=== PATIENT | female | born 1930 | race Caucasian/White ===

== ENCOUNTER 2016-09-01 10:23 | Inpatient (IN) | payer OTHER ==
[2016-09-01] VITALS (8 sets, daily range): BP systolic 146–192; BP diastolic 82–101; PULSE 86–108; TEMP 36.8–37.2; O2SAT 94–97; Ht 167.6 cm; Wt 79.8 kg
[~2016-09-01] VITALS: Ht 167.6 cm; Wt 79.8 kg
[~2016-09-01 10:23] MED LIST: ALEN70TA4 PO; HYDR12.56 PO; LORA-741 PO; METO1TAB68 PO; SIMV10TA2 PO
[2016-09-01] MEDS ORDERED: SODIUM CHLORIDE 0.9% 1000ML 500 ML IV STA (10:30)
[2016-09-01] MEDS ORDERED: METOPROLOL TARTRATE 1 MG/ML VIAL IV STA (10:30)
[2016-09-01 10:41] LABS: BASO % 0.3 %; BASO ABS # 0.02 K/uL (0-0.2); COMPLETE YES; EOS % 2.7 %; HEMATOCRIT 38.7 % (37-47); IG% 0.2 %; LYMPH % 29.2 %; MEAN CELL VOLUME 83.9 fL (80-100); MEAN CORPUSCULAR HEMOGLOBIN 29.3 pg (25-34); MEAN CORPUSCULAR HGB CONC 34.9 g/dl (32-36); MEAN PLATELET VOLUME 10.3 fL (7.4-10.4); MONO % 9.1 %; NEUT % 58.5 %; PLATELET COUNT 211 K/uL (130-400); RED BLOOD COUNT 4.61 M/uL (4.2-5.4); WHITE BLOOD COUNT 5.82 K/uL (4.8-10.8)
[2016-09-01] MEDS ORDERED: ACET-1311 PO (10:47)
[2016-09-01] MEDS ORDERED: CHOL20007 PO (10:47)
[2016-09-01] MEDS ORDERED: GLC/500 PO (10:47)
[2016-09-01] MEDS ORDERED: LOSA50TA54 PO (10:50)
[2016-09-01 10:54] LABS: INR 0.9 (0.9-1.1); PROTHROMBIN TIME (PATIENT) 9.9 SECONDS (9.0-12.0)
[2016-09-01 10:59] LABS: BUN/CREATININE RATIO 18.5 (10-20); CALCIUM 9.4 mg/dl (8.5-10.1); CREATININE 0.92 mg/dl (0.60-1.20); MAGNESIUM 2.2 mg/dl (1.8-2.4); POTASSIUM 3.6 mmol/L (3.5-5.1)
[2016-09-01 11:10] LABS: ALB/GLOB RATIO 1.1 (0.9-2); THYROID STIMULATING HORMONE 3.01 uIu/ml (0.300-4.500)
[2016-09-01 11:15] LABS: URINE APPEARANCE CLEAR (CLEAR); URINE BILIRUBIN NEG (NEG); URINE COLOR YELLOW; URINE NITRITE NEG (NEG); URINE SPECIFIC GRAVITY 1.006 (1.000-1.030); UROBILINOGEN NEG (NEG); ZZUR CULT IF INDIC CLEAN CATCH YES
[2016-09-01 11:18] LABS: MANUAL MICROSCOPIC REQUIRED? NO; REVIEW REQ? YES
--- NOTE | 2016-09-01 11:25 | DIAGNOSTIC IMAGING REPORT ---
CHEST ONE VIEW PORTABLE CLINICAL HISTORY: EVALUATE ALTERED MENTAL STATUS/WEAKNESS dyspnea COMPARISON STUDY: 06/08/2016 FINDINGS: The bones soft tissues and hemidiaphragms are normal. The cardiomediastinal silhouette is normal. The lungs are clear. The pulmonary vasculature is normal. IMPRESSION: Negative chest. Electronically signed by: Davian Phelps M.D. 09/01/2016 11:24 AM Dictated Date/Time: 09/01/2016 11:24 AM
[2016-09-01] MEDS ORDERED: NITROGLYCERIN 0.4 MG SL PER TAB CHARGE SL PRN (14:30)
[2016-09-01] MEDS ORDERED: ASPEC81 PO (14:56)
[2016-09-01] MEDS ORDERED: ACETAMINOPHEN 325 MG TAB ONE (15:12)
--- NOTE | 2016-09-01 15:17 | EMERGENCY ROOM VISIT NOTE ---
History Report prepared by Brian: Lidia Ribera Under the Supervision of: Dr. Jitendra Hodgson M.D. First contact with patient: 10:27 Chief Complaint: CARDIAC ASSESSMENT Stated Complaint: PALPITATIONS History of Present Illness The patient is a 86 year old female who presents to the Emergency Room with complaints of resolved heart palpitations for 30 minutes. She was brought to the ED by EMS. On the way here, she received 4 baby aspirin. She reports that she felt dizzy in the morning when she got up. Soon after, she started having heart palpitations. She states that this does happen occasionally, but usually it resolves quickly. She took an Ativan to try to stop the palpitations. She also states that her heart rate increased. She had been feeling well lately. Her losartan dose was increased 1 month ago. She denies any other medication changes. She denies any missed medications. She denies chest pain or shortness of breath. Source of History: patient Onset: this morning Position: other (heart) Quality: other (palpitations) Timing: resolved Note: Pt reports dizziness and increased heart rate. Review of Systems See HPI for pertinent positives & negatives. A total of 10 systems reviewed and were otherwise negative. Past Medical & Surgical Medical Problems: (1) Bee sting allergy (2) Elevated troponin (3) Heart disease (4) HTN (hypertension) (5) Hypertension Surgical Problems: (1) History of hysterectomy Family History Noncontributory secondary to age Social History Smoking Status: Never Smoker Marital Status: Housing Status: lives alone Occupation Status: retired Current/Historical Medications Scheduled Aspirin (Aspirin EC Low Dose), 81 MG PO DAILY Cholecalciferol (Vitamin D3), 2,000 UNITS PO DAILY Hydrochlorothiazide (Hctz), 12.5 MG PO QAM Losartan Potassium (Cozaar), 50 MG PO DAILY Metoprolol Succinate (Toprol Xl), 100 MG PO HS Simvastatin (Zocor), 10 MG PO QPM Scheduled PRN Lorazepam (Ativan), 0.5 MG PO HS PRN for Anxiety Miscellaneous Medications Acetaminophen (Tylenol), 325 MG PO Allergies Coded Allergies: Atenolol (Unverified Allergy, Mild, "HANDS TURNED BLUE", 09/01/16) Lisinopril (Unverified Allergy, Unknown, cough, 09/01/16) Nitrofurantoin (Unverified Allergy, Unknown, nausea, 09/01/16) Sulfamethoxazole w/Trimethoprim (Unverified Allergy, Unknown, nausea, 09/01) Physical Exam Vital Signs Date Time Temp Pulse Resp B/P Pulse Ox O2 Delivery O2 Flow Rate FiO2 09/01/16 14:34 85 18 170/126 96 Room Air 09/01/16 14:31 84 09/01/16 14:08 97 Room Air 09/01/16 13:55 85 19 183/96 97 Room Air 09/01/16 12:33 82 18 166/84 96 Room Air 09/01/16 11:23 84 18 152/91 96 Room Air 09/01/16 10:43 92 17 163/96 95 09/01/16 10:39 102 202/132 09/01/16 10:38 105 17 98 09/01/16 10:33 107 16 98 09/01/16 10:30 111 09/01/16 10:29 202/132 09/01/16 10:28 219/121 09/01/16 10:28 36.7 108 16 219/121 98 Room Air 09/01/16 10:28 98 Room Air Physical Exam GENERAL: Patient is in no acute distress. HEENT: No acute trauma, normocephalic atraumatic, mucous membranes moist, no nasal congestion, no scleral icterus. NECK: No stridor, no adenopathy, no meningismus, trachea is midline. LUNGS: Clear to auscultation bilaterally, no wheeze, no rhonchi, breath sounds equal. HEART: Tachycardic with a regular rhythm. No obvious murmurs. ABDOMEN: Soft, nontender, bowel sounds positive, no hernias, no peritonitis. EXTREMITIES: No cyanosis or edema, full range of motion of all the joints without pain or difficulty, no signs for acute trauma. NEUROLOGIC: Oriented x 3, no acute motor or sensory deficits, no focal weakness. SKIN: No rash, no jaundice, no diaphoresis. Medical Decision & Procedures ER Provider Diagnostic Interpretation: X-ray results as stated below per interpretation by me and the radiologist: CHEST ONE VIEW PORTABLE CLINICAL HISTORY: EVALUATE ALTERED MENTAL STATUS/WEAKNESS dyspnea COMPARISON STUDY: 06/08/2016 FINDINGS: The bones soft tissues and hemidiaphragms are normal. The cardiomediastinal silhouette is normal. The lungs are clear. The pulmonary vasculature is normal. IMPRESSION: Negative chest. Electronically signed by: Davian Phelps M.D. 09/01/2016 11:24 AM Dictated Date/Time: 09/01/2016 11:24 AM Laboratory Results 09/01/16 10:20 Red Blood Count 4.61, Mean Corpuscular Volume 83.9, Mean Corpuscular Hemoglobin 29.3, Mean Corpuscular Hemoglobin Concent 34.9, Mean Platelet Volume 10.3, Neutrophils (%) (Auto) 58.5, Lymphocytes (%) (Auto) 29.2, Monocytes (%) (Auto) 9.1, Eosinophils (%) (Auto) 2.7, Basophils (%) (Auto) 0.3, Neutrophils # (Auto) 3.40, Lymphocytes # (Auto) 1.70, Monocytes # (Auto) 0.53, Eosinophils # (Auto) 0.16, Basophils # (Auto) 0.02 09/01/16 10:20 Test 09/01/16 10:20 09/01/16 10:40 09/01/16 12:35 White Blood Count 5.82 K/uL (4.8-10.8) Red Blood Count 4.61 M/uL (4.2-5.4) Hemoglobin 13.5 g/dL (12.0-16.0) Hematocrit 38.7 % (37-47) Mean Corpuscular Volume 83.9 fL (80-100) Mean Corpuscular Hemoglobin 29.3 pg (25-34) Mean Corpuscular Hemoglobin Concent 34.9 g/dl (32-36) Platelet Count 211 K/uL (130-400) Mean Platelet Volume 10.3 fL (7.4-10.4) Neutrophils (%) (Auto) 58.5 % Lymphocytes (%) (Auto) 29.2 % Monocytes (%) (Auto) 9.1 % Eosinophils (%) (Auto) 2.7 % Basophils (%) (Auto) 0.3 % Neutrophils # (Auto) 3.40 K/uL (1.4-6.5) Lymphocytes # (Auto) 1.70 K/uL (1.2-3.4) Monocytes # (Auto) 0.53 K/uL (0.11-0.59) Eosinophils # (Auto) 0.16 K/uL (0-0.5) Basophils # (Auto) 0.02 K/uL (0-0.2) RDW Standard Deviation 41.2 fL (36.4-46.3) RDW Coefficient of Variation 13.5 % (11.5-14.5) Immature Granulocyte % (Auto) 0.2 % Immature Granulocyte # (Auto) 0.01 K/uL (0.00-0.02) Prothrombin Time 9.9 SECONDS (9.0-12.0) Prothromb Time International Ratio 0.9 (0.9-1.1) Activated Partial Thromboplast Time 26.8 SECONDS (21.0-31.0) Partial Thromboplastin Ratio 1.0 Anion Gap 11.0 mmol/L (3-11) Est Creatinine Clear Calc Drug Dose 48.9 ml/min Estimated GFR () 66.3 Estimated GFR (Non- 57.2 BUN/Creatinine Ratio 18.5 (10-20) Calcium Level 9.4 mg/dl (8.5-10.1) Magnesium Level 2.2 mg/dl (1.8-2.4) Total Bilirubin 0.5 mg/dl (0.2-1) Aspartate Amino Transf (AST/SGOT) 15 U/L (15-37) Alanine Aminotransferase (ALT/SGPT) 23 U/L (12-78) Alkaline Phosphatase 70 U/L (45-117) Total Protein 8.5 gm/dl (6.4-8.2) Albumin 4.5 gm/dl (3.4-5.0) Globulin 4.0 gm/dl (2.5-4.0) Albumin/Globulin Ratio 1.1 (0.9-2) Thyroid Stimulating Hormone (TSH) 3.010 uIu/ml (0.300-4.500) Urine Color YELLOW Urine Appearance CLEAR (CLEAR) Urine pH 7.0 (4.5-7.5) Urine Specific [place] 1.006 (1.000-1.030) Urine Protein 2+ (NEG) Urine Glucose (UA) TRACE (NEG) Urine Ketones NEG (NEG) Urine Occult Blood TRACE (NEG) Urine Nitrite NEG (NEG) Urine Bilirubin NEG (NEG) Urine Urobilinogen NEG (NEG) Urine Leukocyte Esterase NEG (NEG) Urine WBC (Auto) 1-5 /hpf (0-5) Urine RBC (Auto) 10-30 /hpf (0-4) Urine Hyaline Casts (Auto) 1-5 /lpf (0-5) Urine Epithelial Cells (Auto) 10-20 /lpf (0-5) Urine Bacteria (Auto) NEG (NEG) Urine Yeast (Auto) (NONE PRSENT) Troponin I 0.432 ng/ml (0-0.045) Laboratory results reviewed by me. Medications Administered Medications (Trade) Dose Ordered Sig/Jaime Route Start Time Stop Time Status Last Admin Dose Admin Sodium Chloride (Nss 1000ml) 500 ml @ 999 mls/hr Q31M STAT IV 09/01/16 10:30 09/01/16 11:00 DC 09/01/16 10:40 999 MLS/HR Metoprolol Tartrate (Lopressor Iv) 5 mg NOW STAT IV 09/01/16 10:30 09/01/16 10:35 DC 09/01/16 10:39 5 MG ECG Indication: palpitations Rate (beats per minute): 107 Rhythm: sinus tachycardia Findings: RBBB, no ectopy Comparison ECG Date: 06-08-2016 Change: rate increased ED Course 1028: The patient was evaluated in room B7. A complete history and physical exam was performed. 1030: NSS 500 ml @ 999 mls/hr IV, Lopressor Iv 5 mg IV. 1156: I discussed the patient's case with him. I discussed the possibility of breaking up the Toprol dose to twice daily. He agreed with the plan. 1201: I reevaluated the patient. She is resting comfortably. I updated her on the results. I informed her we are still waiting on a heart test. 1354: I discussed the patient's case with Montse Ha PA-C, [facility]. The patient will be evaluated for further management. 1358: I reevaluated the patient. I discussed the results and treatment plan with her. She verbalized understanding and agreement. She will be evaluated for further management by [facility]. Medical Decision Differential diagnoses: missed medication dose, electrolyte imbalance, dysrhythmia, cardiac ischemia, anemia, dehydration, thyroid disorder. There is no leukocytosis or concerning anemia. No significant electrolyte abnormality, kidney failure or hepatitis. EKG showed a sinus tachycardia with a right bundle-branch block. No acute ischemia by EKG criteria. Cardiac enzyme testing 2 does show a rise of the troponin concerning for cardiac injury or strain. Chest x-ray shows no CHF, pneumonia or pneumothorax. Urinalysis does not show infection. There was no coagulopathy. The patient appeared to be in a euthyroid state. Patient received IV saline and IV labetalol, her blood pressure is better controlled, her heart rate is now better controlled as well. The patient has had no palpitations while here in the emergency room. She did have a rapid heart rate documented by the paramedics, I could not tell for certain the true rhythm by the paramedics strip. A. fib/A flutter or SVT were considered possibilities. Because of the rise to the troponin, further cardiac workup was felt warranted. I spoke to the patient and case management. The on-call hospitalist was consulted. I did discuss the case briefly with the doctor of audiology satellite television installer. Consults Time Called: 1145 Consulting Physician: Dr. Núñez, [facility] - cardiology Returned Call: [phone] I discussed the patient's case with him. I discussed the possibility of breaking up the Toprol dose to twice daily. He agreed with the plan. Additional Consults: Time Called: 1347 Consulted Physician: Montse Ha PA-C, [facility] Returned Call: [phone] Additional Comments: I discussed the patient's case with her. The patient will be evaluated for further management. Impression Primary Impression: Tachycardia Additional Impression: Elevated troponin Scribe Attestation The scribe's documentation has been prepared under my direction and personally reviewed by me in its entirety. I confirm that the note above accurately reflects all work, treatment, procedures, and medical decision making performed by me. Departure Information Dispostion Being Evaluated By Hospitalist Referrals Noreen Anderson M.D. (PCP) Patient Instructions My [facility] Problem Qualifiers
[2016-09-01] MEDS ORDERED: IV FLUIDS COMPLETED PRN (16:00)
[2016-09-01] MEDS ORDERED: AMLODIPINE BESYLATE 5 MG TAB PO ONE (17:00)
[2016-09-01] MEDS ORDERED: ATORVASTATIN 40 MG TAB PO ONE (17:00)
[2016-09-01] MEDS ORDERED: ASPIRIN 81 MG CHEW PO STA (17:41)
[2016-09-01] MEDS ORDERED: SODIUM CHLORIDE 0.9% 500ML 500 ML IV SCH (18:30)
--- NOTE | 2016-09-01 19:11 | History and Physical ---
History & Physical Date & Time of Service: Sep 01, 2016 at 14:45 Chief Complaint: Palpitations Primary Care Physician: Noreen Anderson M.D. History of Present Illness Source: patient This is an 86 y/o female with PMHx of HTN, Dyslipidemia and other problems as outlined below who presents to the ED c/o palpitations that began this morning. Pt reports that this morning after breakfast she was sitting down when she developed heart palpitations that she describes as her chest "fluttering". Sxs were assoc with mild lightheadedness/dizziness. Pt tried taking an Ativan at home which did not alleviate her sxs. The palpitations persisted for about 30 minutes. Pt states she has experienced the palpitations before however never for more than a few minutes. Per ED physician, EMS recorded strip resembling possible SVT vs. Afib en route to the hospital. Pt confirms she did take all her medication this morning. She has a strong FmHx of heart disease but no personal history of cardiac problems. Pt does have a history of diabetes however she was taken off of all medication within the last year as her sugars have been well controlled. Pt denies fever/chills, diaphoresis, chest pain, SOB , abd pain, N/V, bowel or bladder issues, LE edema or calf pain. In the ED, pt was tachy with elevated BP (220/120) on arrival. Trop 0.432. EKG: sinus tachy with RBBB. CXR neg. Pt is currently feeling well and denies any chest pain. Pt will be admitted for further evaluation and treatment. Past Medical/Surgical History Medical Problems: (1) Bee sting allergy Status: Chronic (2) Heart disease Status: Chronic (3) HTN (hypertension) Status: Chronic (4) Hypertension Status: Chronic Surgical Problems: (1) History of hysterectomy Status: Resolved Family History Noncontributory secondary to age Social History Smoking Status: Never Smoker Alcohol Use: none Drug Use: none Marital Status: Occupational Status: retired Allergies Coded Allergies: Atenolol (Unverified Allergy, Mild, "HANDS TURNED BLUE", 09/01/16) Lisinopril (Unverified Allergy, Unknown, cough, 09/01/16) Nitrofurantoin (Unverified Allergy, Unknown, nausea, 09/01/16) Sulfamethoxazole w/Trimethoprim (Unverified Allergy, Unknown, nausea, 09/01) Home Medications Scheduled Aspirin (Aspirin EC Low Dose), 81 MG PO DAILY Cholecalciferol (Vitamin D3), 2,000 UNITS PO DAILY Hydrochlorothiazide (Hctz), 12.5 MG PO QAM Losartan Potassium (Cozaar), 50 MG PO DAILY Metoprolol Succinate (Toprol Xl), 100 MG PO HS Simvastatin (Zocor), 10 MG PO QPM Scheduled PRN Lorazepam (Ativan), 0.5 MG PO HS PRN for Anxiety Miscellaneous Medications Acetaminophen (Tylenol), 325 MG PO Review of Systems Constitutional: No chills, No fatigue, No fever, No sweats, No weakness Eyes: No worsening of vision ENT: No hearing loss Respiratory: No cough, No shortness of breath Cardiovascular: + palpitations, No chest pain, No claudication, No edema Abdomen: No constipation, No diarrhea, No nausea, No pain, No vomiting Musculoskeletal: No calf pain, No swelling Genitourinary - Female: No dysuria Neurologic: No weakness Psychiatric: No depression symptoms Endocrine: No fatigue Hematologic / Lymphatic: No abnormal bleeding/bruising Integumentary: No new/changing skin lesions Physical Exam Vital Signs Date Time Temp Pulse Resp B/P Pulse Ox O2 Delivery O2 Flow Rate FiO2 09/01/16 14:34 85 18 170/126 96 Room Air 09/01/16 14:31 84 09/01/16 14:08 97 Room Air 09/01/16 13:55 85 19 183/96 97 Room Air 09/01/16 12:33 82 18 166/84 96 Room Air 09/01/16 11:23 84 18 152/91 96 Room Air 09/01/16 10:43 92 17 163/96 95 09/01/16 10:39 102 202/132 09/01/16 10:38 105 17 98 09/01/16 10:33 107 16 98 09/01/16 10:30 111 09/01/16 10:29 202/132 09/01/16 10:28 219/121 09/01/16 10:28 36.7 108 16 219/121 98 Room Air 09/01/16 10:28 98 Room Air General Appearance: WD/WN, no apparent distress, + pertinent finding (Pt is sitting up in bed with daughter and grand-daughter at bedside) Head: normocephalic, atraumatic Eyes: normal inspection ENT: hearing grossly normal Neck: supple Respiratory/Chest: chest non-tender, lungs clear, normal breath sounds, no respiratory distress Cardiovascular: regular rate, rhythm, no edema, no murmur Abdomen/GI: normal bowel sounds, non tender, soft Back: normal inspection Extremities/Musculoskelatal: normal inspection, no calf tenderness, no pedal edema Neurologic/Psych: alert, normal mood/affect, oriented x 3 Skin: normal color, warm/dry Diagnostics Laboratory Results Results Past 24 Hours Test 09/01/16 10:20 09/01/16 10:40 09/01/16 12:35 Range/Units White Blood Count 5.82 4.8-10.8 K/uL Red Blood Count 4.61 4.2-5.4 M/uL Hemoglobin 13.5 12.0-16.0 g/dL Hematocrit 38.7 37-47 % Mean Corpuscular Volume 83.9 80-100 fL Mean Corpuscular Hemoglobin 29.3 25-34 pg Mean Corpuscular Hemoglobin Concent 34.9 32-36 g/dl Platelet Count 211 130-400 K/uL Mean Platelet Volume 10.3 7.4-10.4 fL Neutrophils (%) (Auto) 58.5 % Lymphocytes (%) (Auto) 29.2 % Monocytes (%) (Auto) 9.1 % Eosinophils (%) (Auto) 2.7 % Basophils (%) (Auto) 0.3 % Neutrophils # (Auto) 3.40 1.4-6.5 K/uL Lymphocytes # (Auto) 1.70 1.2-3.4 K/uL Monocytes # (Auto) 0.53 0.11-0.59 K/uL Eosinophils # (Auto) 0.16 0-0.5 K/uL Basophils # (Auto) 0.02 0-0.2 K/uL RDW Standard Deviation 41.2 36.4-46.3 fL RDW Coefficient of Variation 13.5 11.5-14.5 % Immature Granulocyte % (Auto) 0.2 % Immature Granulocyte # (Auto) 0.01 0.00-0.02 K/uL Prothrombin Time 9.9 9.0-12.0 SECONDS Prothromb Time International Ratio 0.9 0.9-1.1 Activated Partial Thromboplast Time 26.8 21.0-31.0 SECONDS Partial Thromboplastin Ratio 1.0 Sodium Level 131 136-145 mmol/L Potassium Level 3.6 3.5-5.1 mmol/L Chloride Level 93 98-107 mmol/L Carbon Dioxide Level 27 21-32 mmol/L Anion Gap 11.0 3-11 mmol/L Blood Urea Nitrogen 17 7-18 mg/dl Creatinine 0.92 0.60-1.20 mg/dl Est Creatinine Clear Calc Drug Dose 48.9 ml/min Estimated GFR () 66.3 Estimated GFR (Non- 57.2 BUN/Creatinine Ratio 18.5 10-20 Random Glucose 144 70-99 mg/dl Calcium Level 9.4 8.5-10.1 mg/dl Magnesium Level 2.2 1.8-2.4 mg/dl Total Bilirubin 0.5 0.2-1 mg/dl Aspartate Amino Transf (AST/SGOT) 15 15-37 U/L Alanine Aminotransferase (ALT/SGPT) 23 12-78 U/L Alkaline Phosphatase 70 45-117 U/L Troponin I 0.030 0.432 0-0.045 ng/ml Total Protein 8.5 6.4-8.2 gm/dl Albumin 4.5 3.4-5.0 gm/dl Globulin 4.0 2.5-4.0 gm/dl Albumin/Globulin Ratio 1.1 0.9-2 Thyroid Stimulating Hormone (TSH) 3.010 0.300-4.500 uIu/ml Urine Color YELLOW Urine Appearance CLEAR CLEAR Urine pH 7.0 4.5-7.5 Urine Specific [place] 1.006 1.000-1.030 Urine Protein 2+ NEG Urine Glucose (UA) TRACE NEG Urine Ketones NEG NEG Urine Occult Blood TRACE NEG Urine Nitrite NEG NEG Urine Bilirubin NEG NEG Urine Urobilinogen NEG NEG Urine Leukocyte Esterase NEG NEG Urine WBC (Auto) 1-5 0-5 /hpf Urine RBC (Auto) 10-30 0-4 /hpf Urine Hyaline Casts (Auto) 1-5 0-5 /lpf Urine Epithelial Cells (Auto) 10-20 0-5 /lpf Urine Bacteria (Auto) NEG NEG Urine Yeast (Auto) NONE PRSENT Microbiology Results 09/01/16 Urine Culture, Received Pending Diagnostic Radiology CXR IMPRESSION: Negative chest. EKG EKG: sinus tachy at [address] with R[address] with [address] depression noted in lateral leads ; no change when compared to EKG from 06/08/16 Impression Assessment and Plan ELEVATED TROPONIN; R/O ACS pt presented with palpitations assoc with lightheadedness -admit observation to telemetry -possible ACS vs. demand ischemia from episode of tachycardia this morning -RFs include Fmhx, HTN, Dyslipidemia, age -EKG unchanged from previous studies; repeat EKG PRN chest pain and in AM -Initial troponin 0.432; continue to monitor with serial cardiac enzymes q6h -obtain echo to r/o cardiac wall motion abnormalities -cont ASA and start high dose statin for plaque stabilization -consult cardiology, Dr. Núñez-pending input -pt is currently chest pain free -continue to monitor PALPITATIONS questionable SVT vs Afib en route per EMS -EKG: sinus tach -monitor for arrhythmias on tele -TSH WNL HYPERTENSIVE URGENCY -BP 220/120-->now 170/126 -cont metoprolol, losartan and HCTZ -give amlodipine 10mg now -monitor DYSLIPIDEMIA -cont statin DVT PROPHYLAXIS -subq heparin CODE STATUS -DNR per discussion with patient upon admission DISPO Observation status until further workup is complete. Pt seen in collaboration with Dr. Sung. Please see her addendum for further details. Thanks! -Of note: patient will be followed by Dr. Schulz starting tomorrow ADDENDUM: I have seen and examined the patient and have discussed the case with the provider above. I agree with the assessment and plan as stated with the following exceptions. TRS is 3 and she is having concerning runs of SVT up into the 200s on tele concerning for atrial fibrillation. Will start on empiric heparin and cont to trend enzymes as stated above. No chest pain present but there is increased weakness, dizziness and she is having an increase in palpitations with a small bump in her troponin level. As a result of this and her age, we have admitted her overnight for observation to ensure no ACS present. Empirically gave her ASA 325, lipitor and started on heparin as previously stated. Watch for more episodes overnight and appreciate Cardiology thoughts in am. Of note, ST depressions in lateral leads appear unchanged from EKG in Dec. Afternoon EKG was taken 30-40 minutes prior to the tachycardia episode which lasted 1 minute. ? is ST depressions associated with tachycardia. Troponin elevation likely from hypertensive urgency versus demand ischemia in setting of tachycardia. Margaret Sung DO Hospitalist Level of Care Telemetry Advanced Directives Existing Living Will: Yes Existing Power of Side Panel Padder: Yes (RE[employer] [facility] ) Resuscitation Status DO NOT RESUSCITATE VTE Prophylaxis VTE Risk Assessment Done? Y/N: Yes Risk Level: Moderate Given or contraindicated: Other Anticoagulation (heparin drip)
[2016-09-01] MEDS: HEPARIN 25,000 UNIT/500ML D5W 500 ML IV PRN (19:51)
[2016-09-01] MEDS: LORAZEPAM 0.5 MG TAB PO PRN (21:05)
[2016-09-01] MEDS ORDERED: HEPARIN SOD 5000 UNIT/0.5 ML CARP SQ SCH (22:00)
[2016-09-02] VITALS (12 sets, daily range): BP systolic 124–164; BP diastolic 73–94; PULSE 67–88; TEMP 36.6–36.9; O2SAT 93–98
[2016-09-02] MEDS ORDERED: CALCIUM CARBONATE 500 MG CHEWABLE PO PRN (00:15)
[2016-09-02] MEDS ORDERED: NURSING VERBAL MED ORDER ONE (00:15)
[2016-09-02 02:04] LABS: PARTIAL THROMBOPLASTIN RATIO 1.7
[2016-09-02] MEDS ORDERED: HEPARIN IV BOLUS 3,000 UNIT in SYRINGE 0 ML IV ONE (02:45)
[2016-09-02] MEDS: HEPARIN 25,000 UNIT/500ML D5W 500 ML IV PRN ×2 (02:50→17:02)
[2016-09-02 06:08] LABS: HEMATOCRIT 35.2 % (37-47); MEAN CELL VOLUME 83.2 fL (80-100); MEAN CORPUSCULAR HEMOGLOBIN 29.3 pg (25-34); MEAN CORPUSCULAR HGB CONC 35.2 g/dl (32-36); MEAN PLATELET VOLUME 9.8 fL (7.4-10.4); PLATELET COUNT 193 K/uL (130-400); RED BLOOD COUNT 4.23 M/uL (4.2-5.4); WHITE BLOOD COUNT 7.52 K/uL (4.8-10.8)
[2016-09-02 06:41] LABS: BUN/CREATININE RATIO 19.2 (10-20); CREATININE 0.78 mg/dl (0.60-1.20); POTASSIUM 3.7 mmol/L (3.5-5.1)
[2016-09-02] MEDS: ASPIRIN 81 MG ECTAB PO SCH (08:09)
[2016-09-02] MEDS: HYDROCHLOROTHIAZIDE 25 MG TAB PO SCH (08:09)
[2016-09-02] MEDS: METOPROLOL TARTRATE 50 MG TAB PO SCH ×2 (08:09→20:55)
[2016-09-02] MEDS: CHOLECALCIFEROL 1000 INTER.UNIT TAB PO SCH (08:10)
[2016-09-02] MEDS: ATORVASTATIN 40 MG TAB PO SCH (08:10)
[2016-09-02] MEDS: LOSARTAN POTASSIUM 50 MG TAB PO SCH (08:12)
[2016-09-02 08:47] LABS: PARTIAL THROMBOPLASTIN RATIO 3.6
[2016-09-02] MEDS ORDERED: ASPIRIN 81 MG ECTAB PO SCH (09:00)
[2016-09-02] MEDS: ACETAMINOPHEN 325 MG TAB PO PRN ×2 (09:10→23:36)
--- NOTE | 2016-09-02 09:30 | CARDIOLOGY CONSULTATION ---
DATE OF CONSULTATION: 09/02/2016 [facility] REASON FOR CONSULTATION: Heart palpitations. HISTORY: The patient is an 86-year-old female who is treated for diabetes and hypertension. She is not on any current medications, however, for her diabetes. She has had a long history of heart palpitations. She admits that she is a very anxious person and will on occasion take Ativan. Yesterday morning, she began to have heart palpitation and it lasted for approximately 20 minutes before spontaneously resolving. According to the ER record, the EMS had a rhythm strip that suggested tachycardia, but I cannot find that telemetry. After admission here, her EKG showed a sinus tachycardia with a right bundle-branch block. She has not had any additional significant cardiac arrhythmias after admission. Her troponins are borderline elevated, which is most likely due to strain as she was markedly hypertensive upon admission. She has no significant history of ischemic heart disease or congestive heart failure. ALLERGIES: TO ATENOLOL, BACTRIM, MACROBID AND PRINIVIL. PAST MEDICAL HISTORY: As outlined above, she is a type 2 diabetic who is currently diet controlled. She is treated for essential hypertension and dyslipidemia. She has had a longstanding history of heart palpitations, but no significant history of cardiac arrhythmias or ischemic heart disease. SOCIAL HISTORY: She is a nonsmoker. FAMILY MEDICAL HISTORY: Noncontributory. REVIEW OF SYSTEMS: A 10-point review of systems is negative except for the history of chief complaint. In addition, the patient has no recent history of syncope, dizziness or lightheadedness. LABORATORY DATA: Per the history of chief complaint. In addition, the patient's hemoglobin is 12.4. EKG reveals a sinus rhythm with a right bundle-branch block. Chest x-ray is unremarkable. IMPRESSION: 1. Hypertensive urgency. 2. Tachycardia. 3. History of diet-controlled diabetes. 4. History of essential hypertension. RECOMMENDATIONS: The patient is currently clinically stable. Her blood pressure is better controlled this morning. She is to have an echocardiogram which I will review when it is completed. At present, I would recommend that we keep her on telemetry to see if she has any additional cardiac arrhythmias. If she does not and we are going to discharge her, then I would recommend a 2-week ZIO patch monitor to assess for atrial fibrillation.
--- NOTE | 2016-09-02 10:31 | Progress Note ---
Subjective Date of Service: Sep 02, 2016. 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 w/ consultant technology, review of inpatient medication list Saw/examined the patient in room 238 She presented to the ER due to palpitations She was found to have elevated blood pressure and elevated troponin level She states she feels fine now, and has not had recurrence of palpitations or chest pain No other symptoms currently Problem List Medical Problems: (1) Tachycardia Status: Acute Review of Systems Constitutional: + weakness, No chills, No fever Respiratory: No cough, No dyspnea at rest, No dyspnea on exertion, No hemoptysis, No shortness of breath, No sputum, No wheezing Cardiac: No chest pain, No edema, No orthopnea, No palpitations (resolved) Abdomen: No diarrhea, No nausea, No pain, No vomiting Heme: No abnormal bleeding/bruising Medications Current Inpatient Medications Medications (Trade) Dose Ordered Sig/Jaime Route Start Time Stop Time Status Last Admin Dose Admin Acetaminophen (Tylenol Tab) 650 mg Q4H PRN PO 09/01/16 14:30 10/01/16 14:29 09/02/16 09:10 650 MG Ondansetron HCl (Zofran Inj) 4 mg Q6H PRN IV 09/01/16 14:30 10/01/16 14:29 Nitroglycerin (Nitrostat Tab) 0.4 mg UD PRN SL 09/01/16 14:30 10/01/16 14:29 Metoprolol Tartrate (Lopressor Tab) 50 mg BID PO 09/02/16 09:00 10/02/16 08:59 09/02/16 08:09 50 MG Hydrochlorothiazide (Hydrochlorothiazide Tab) 12.5 mg QAM PO 09/02/16 09:00 10/02/16 08:59 09/02/16 08:09 12.5 MG Lorazepam (Ativan Tab) 0.5 mg HS PRN PO 09/01/16 14:30 10/01/16 14:29 09/01/16 21:05 0.5 MG Losartan Potassium (coZAAR TAB) 50 mg DAILY PO 09/02/16 09:00 10/02/16 08:59 09/02/16 08:12 50 MG Cholecalciferol (Vitamin D Tab) 2,000 inter.unit DAILY PO 09/02/16 09:00 10/02/16 08:59 09/02/16 08:10 2,000 INTER.UNIT Atorvastatin Calcium (Lipitor Tab) 80 mg QAM PO 09/02/16 09:00 10/02/16 08:59 09/02/16 08:10 80 MG Miscellaneous (Iv Fluids Completed) 1 ea PRN PRN N/A 09/01/16 16:00 09/01/17 15:59 Aspirin 81 mg 81 mg QAM PO 09/02/16 09:00 10/02/16 08:59 09/02/16 08:09 81 MG Heparin Sodium/ Dextrose (Heparin 25,000 Unit/500ml D5W) 500 ml @ 24 mls/hr [id number] PRN IV 09/01/16 18:45 10/01/16 18:44 09/02/16 02:50 27 MLS/HR Calcium Carbonate (Tums Chew Tab) 1,000 mg Q4H PRN PO 09/02/16 00:15 10/02/16 00:14 Objective Vital Signs Date Time Temp Pulse Resp B/P Pulse Ox O2 Delivery O2 Flow Rate FiO2 09/02/16 09:04 36.6 76 16 164/84 98 Room Air 09/02/16 07:30 Room Air 09/02/16 04:00 93 Room Air 09/02/16 03:01 36.6 88 17 128/75 93 Room Air 09/01/16 23:59 Room Air 09/01/16 23:41 108 152/84 09/01/16 23:39 90 170/91 09/01/16 23:37 36.8 87 17 152/85 94 Room Air 09/01/16 20:00 96 Room Air 09/01/16 19:47 37.2 86 20 163/82 96 Room Air 09/01/16 18:19 101 146/88 91 172/101 87 179/100 09/01/16 15:58 37.1 90 18 192/92 96 Room Air 09/01/16 15:58 37.1 90 18 192/92 96 Room Air 09/01/16 15:19 82 16 193/105 97 Room Air 09/01/16 14:34 85 18 170/126 96 Room Air 09/01/16 14:31 84 09/01/16 14:08 97 Room Air 09/01/16 13:55 85 19 183/96 97 Room Air 09/01/16 12:33 82 18 166/84 96 Room Air 09/01/16 11:23 84 18 152/91 96 Room Air 09/01/16 10:43 92 17 163/96 95 09/01/16 10:39 102 202/132 09/01/16 10:38 105 17 98 09/01/16 10:33 107 16 98 09/01/16 10:30 111 09/01/16 10:29 202/132 09/01/16 10:28 219/121 09/01/16 10:28 36.7 108 16 219/121 98 Room Air 09/01/16 10:28 98 Room Air Physical Exam General Appearance: no apparent distress Respiratory/Chest: lungs clear, normal breath sounds, no respiratory distress, no accessory muscle use Cardiovascular: regular rate, rhythm, no edema, no murmur Abdomen: normal bowel sounds, non tender, soft Extremities: normal inspection, no pedal edema Neurologic/Psychiatric: no motor/sensory deficits, alert, normal mood/affect Skin: normal color Lymphatic: no adenopathy Laboratory Results Last 24 Hours Test 09/01/16 10:20 09/01/16 10:40 09/01/16 12:35 09/01/16 18:30 White Blood Count 5.82 K/uL Red Blood Count 4.61 M/uL Hemoglobin 13.5 g/dL Hematocrit 38.7 % Mean Corpuscular Volume 83.9 fL Mean Corpuscular Hemoglobin 29.3 pg Mean Corpuscular Hemoglobin Concent 34.9 g/dl Platelet Count 211 K/uL Mean Platelet Volume 10.3 fL Neutrophils (%) (Auto) 58.5 % Lymphocytes (%) (Auto) 29.2 % Monocytes (%) (Auto) 9.1 % Eosinophils (%) (Auto) 2.7 % Basophils (%) (Auto) 0.3 % Neutrophils # (Auto) 3.40 K/uL Lymphocytes # (Auto) 1.70 K/uL Monocytes # (Auto) 0.53 K/uL Eosinophils # (Auto) 0.16 K/uL Basophils # (Auto) 0.02 K/uL RDW Standard Deviation 41.2 fL RDW Coefficient of Variation 13.5 % Immature Granulocyte % (Auto) 0.2 % Immature Granulocyte # (Auto) 0.01 K/uL Prothrombin Time 9.9 SECONDS Prothromb Time International Ratio 0.9 Activated Partial Thromboplast Time 26.8 SECONDS Partial Thromboplastin Ratio 1.0 Sodium Level 131 mmol/L Potassium Level 3.6 mmol/L Chloride Level 93 mmol/L Carbon Dioxide Level 27 mmol/L Anion Gap 11.0 mmol/L Blood Urea Nitrogen 17 mg/dl Creatinine 0.92 mg/dl Est Creatinine Clear Calc Drug Dose 48.9 ml/min Estimated GFR () 66.3 Estimated GFR (Non- 57.2 BUN/Creatinine Ratio 18.5 Random Glucose 144 mg/dl Calcium Level 9.4 mg/dl Magnesium Level 2.2 mg/dl Total Bilirubin 0.5 mg/dl Aspartate Amino Transf (AST/SGOT) 15 U/L Alanine Aminotransferase (ALT/SGPT) 23 U/L Alkaline Phosphatase 70 U/L Troponin I 0.030 ng/ml 0.432 ng/ml Total Protein 8.5 gm/dl Albumin 4.5 gm/dl Globulin 4.0 gm/dl Albumin/Globulin Ratio 1.1 Thyroid Stimulating Hormone (TSH) 3.010 uIu/ml Urine Color YELLOW Urine Appearance CLEAR Urine pH 7.0 Urine Specific [place] 1.006 Urine Protein 2+ Urine Glucose (UA) TRACE Urine Ketones NEG Urine Occult Blood TRACE Urine Nitrite NEG Urine Bilirubin NEG Urine Urobilinogen NEG Urine Leukocyte Esterase NEG Urine WBC (Auto) 1-5 /hpf Urine RBC (Auto) 10-30 /hpf Urine Hyaline Casts (Auto) 1-5 /lpf Urine Epithelial Cells (Auto) 10-20 /lpf Urine Bacteria (Auto) NEG Urine Yeast (Auto) Creatine Kinase MB Ratio Test 09/01/16 18:32 09/02/16 00:30 09/02/16 01:42 09/02/16 05:44 Creatine Kinase MB 3.3 ng/ml 3.0 ng/ml Troponin I 0.453 ng/ml 0.371 ng/ml Creatine Kinase MB Ratio Activated Partial Thromboplast Time 44.8 SECONDS Partial Thromboplastin Ratio 1.7 White Blood Count 7.52 K/uL Red Blood Count 4.23 M/uL Hemoglobin 12.4 g/dL Hematocrit 35.2 % Mean Corpuscular Volume 83.2 fL Mean Corpuscular Hemoglobin 29.3 pg Mean Corpuscular Hemoglobin Concent 35.2 g/dl RDW Standard Deviation 40.9 fL RDW Coefficient of Variation 13.5 % Platelet Count 193 K/uL Mean Platelet Volume 9.8 fL Sodium Level 132 mmol/L Potassium Level 3.7 mmol/L Chloride Level 94 mmol/L Carbon Dioxide Level 28 mmol/L Anion Gap 10.0 mmol/L Blood Urea Nitrogen 15 mg/dl Creatinine 0.78 mg/dl Est Creatinine Clear Calc Drug Dose 56.5 ml/min Estimated GFR () 80.9 Estimated GFR (Non- 69.8 BUN/Creatinine Ratio 19.2 Random Glucose 141 mg/dl Calcium Level 9.0 mg/dl Test 09/02/16 08:04 Activated Partial Thromboplast Time 93.8 SECONDS Partial Thromboplastin Ratio 3.6 Assessment and Plan This is an 86 year old female with PMH of HTN, HLD, diet controlled DM2, anxiety , insomnia presented with palpitations and subsequently found to have elevated troponin level as well as elevated blood pressure Elevated Troponin Level in the setting of Palpitations troponin elevation noted to 0.[address]-T wave changes, there is a RBBB echo is pending this elevation is likely due to hypertensive urgency as well as palpitations ( possible arrhythmia?) currently on IV heparin continue metoprolol appreciate cardiology input - monitor in tele, will need Zio patch as outpatient Hypertensive Urgency patient with a hx. of HTN uses Cozaar, HCTZ, metoprolol at home Continue these medications and adjust accordingly blood pressure is improving; goal of <140/90 due to hx. of DM2 Anxiety/Insomnia patient uses ativan for anxiety also takes this at night as it helps her decrease anxiety level nocturnally to help her sleep offered a different medication for insomnia, but patient declined Diet controlled DM2 not on any medication last Ha1c = 5.9% in April 2016 DVT ppx IV heparin DNR
--- NOTE | 2016-09-02 11:50 | ECHOCARDIOGRAM REPORT ---
*NOTICE TO RECEIVING CONSTITUTION PARTY AGENCY This information is strictly Confidential and protected under [place] law. [place] law prohibits you from making any further disclosure of this information unless further disclosure is expressly permitted by the written consent of the person to whom it pertains or is authorized by law. A general authorization for the release of medical or other information is not sufficient for this purpose. Hospital accepts no responsibility if the information is made available to any other person, INCLUDING THE PATIENT. Interpretation Summary * Name: LEONARDO TERRY Study Date: 09/02/2016 08:00 AM BP: 128/75 mmHg * Patient Location: .2T\S\S238\S\1 HR: 88 * : 1930 (M/d/yyyy) Gender: Female Height: 66 in * Age: 86 yrs Ethnicity: CA Weight: 395 lb * Ordering Physician: Montse Lucas * Performed By: Laura Bennett RDCS * * Reason For Study: Palpitations * BSA: 2.7 m2 * -- Conclusions -- * Normal LV chamber size with mild concentric LVH. * Normal LV systolic function, EF 60-65%. * No segmental left ventricular wall motion abnormalities are noted. * Grade I diastolic dysfunction. * No significant valvular pathology. Procedure Details * A complete two-dimensional transthoracic echocardiogram was performed (2D, M-mode, Doppler and color flow Doppler). Left Ventricle * The left ventricle is normal in size. * There is mild concentric left ventricular hypertrophy. * Ejection Fraction = 60-65%. * Left ventricular systolic function is normal. * No segmental left ventricular wall motion abnormalities are noted. * The left ventricular wall motion is normal. Right Ventricle * The right ventricular cavity size is normal (basal dimension <4.2 cm in right ventricular apical 4-chamber view). * The right ventricular systolic function is normal as assessed by tricuspid annular plane systolic excursion (TAPSE) (normal >1.5 cm). Atria * The left atrial size is normal. * Right atrial size is normal. * No ASD detected; PFO is not assessed. Mitral Valve * The mitral valve is normal in structure and function. Tricuspid Valve * The tricuspid valve is normal in structure and function. Aortic Valve * The aortic valve is normal in structure and function. Pulmonic Valve * The pulmonary valve is not well seen, but the Doppler examination is normal without significant regurgitation or stenosis. Great Vessels * The aortic root and proximal ascending aorta are normal sized. Pericardium/Pleural * There is no pericardial effusion. Left Ventricular Diastolic Function * Grade I diastolic dysfunction, (abnormal relaxation pattern). MMode 2D Measurements and Calculations IVSd 1.1 cm LVIDd 4.0 cm LVIDs 2.4 cm LVPWd 1.0 cm IVS/LVPW 1.1 FS 38.3 % EDV(Teich) 68.5 ml ESV(Teich) 21.1 ml EF(Teich) 69.2 % EDV(cubed) 62.3 ml ESV(cubed) 14.6 ml EF(cubed) 76.5 % LV mass(C)d 139.9 grams LV mass(C)dI 52.4 grams/m\S\2 SV(Teich) 47.4 ml SI(Teich) 17.7 ml/m\S\2 SV(cubed) 47.7 ml SI(cubed) 17.8 ml/m\S\2 Ao root diam 3.5 cm Ao root area 9.5 cm\S\2 LA dimension 3.2 cm asc Aorta Diam 3.2 cm LA/Ao 0.93 LVOT diam 2.0 cm LVOT area 3.0 cm\S\2 LVAd ap4 20.2 cm\S\2 LVLd ap4 7.1 cm EDV(MOD-sp4) 47.4 ml EDV(sp4-el) 48.6 ml LVAs ap4 11.1 cm\S\2 LVLs ap4 6.0 cm ESV(MOD-sp4) 17.1 ml ESV(sp4-el) 17.4 ml EF(MOD-sp4) 64.0 % EF(sp4-el) 64.2 % LVAd ap2 14.4 cm\S\2 LVLd ap2 6.3 cm EDV(MOD-sp2) 28.2 ml EDV(sp2-el) 27.8 ml LVAs ap2 8.3 cm\S\2 LVLs ap2 5.6 cm ESV(MOD-sp2) 10.8 ml ESV(sp2-el) 10.3 ml EF(MOD-sp2) 61.9 % EF(sp2-el) 62.8 % LVLd %diff -12.50 % EDV(MOD-bp) 38.7 ml LVLs %diff -6.71 % ESV(MOD-bp) 13.9 ml EF(MOD-bp) 64.1 % SV(MOD-sp4) 30.3 ml SI(MOD-sp4) 11.4 ml/m\S\2 SV(MOD-sp2) 17.5 ml SI(MOD-sp2) 6.5 ml/m\S\2 SV(MOD-bp) 24.8 ml SI(MOD-bp) 9.3 ml/m\S\2 SV(sp4-el) 31.2 ml SI(sp4-el) 11.7 ml/m\S\2 SV(sp2-el) 17.5 ml SI(sp2-el) 6.6 ml/m\S\2 Doppler Measurements and Calculations MV E max yesica 65.8 cm/sec MV A max yesica 96.5 cm/sec MV E/A 0.68 MV dec time 0.19 sec Ao V2 max 112.6 cm/sec Ao max PG 5.1 mmHg Ao max PG (full) 0.74 mmHg JENNIFER(V,A) 2.8 cm\S\2 JENNIFER(V,D) 2.8 cm\S\2 LV V1 max PG 4.3 mmHg LV V1 max 104.1 cm/sec MR max yesica 636.7 cm/sec MR max PG 162.2 mmHg MR mean yesica 523.6 cm/sec MR mean PG 119.8 mmHg MR VTI 143.6 cm PA V2 max 96.5 cm/sec PA max PG 3.7 mmHg PA acc slope 627.2 cm/sec\S\2 PA acc time 0.12 sec PI max yesica 174.2 cm/sec PI max PG 12.1 mmHg PI dec slope 158.9 cm/sec\S\2 PI P1/2t 321.1 msec TR max yesica 223.4 cm/sec PA pr(Accel) 24.8 mmHg
[2016-09-02] MEDS: LORAZEPAM 0.5 MG TAB PO PRN ×2 (16:14→20:56)
[2016-09-02] MEDS ORDERED: CITALOPRAM 20 MG TAB PO ONE (16:30)
[2016-09-02] MEDS ORDERED: DOCUSATE SODIUM 100 MG CAP PO ONE (16:45)
[2016-09-02 17:17] LABS: PARTIAL THROMBOPLASTIN RATIO 2.3
[2016-09-02] MEDS: DOCUSATE SODIUM 100 MG CAP PO SCH (20:54)
[2016-09-03] VITALS (11 sets, daily range): BP systolic 112–170; BP diastolic 71–97; PULSE 65–76; TEMP 36.5–36.9; O2SAT 91–96
[2016-09-03] MEDS: ONDANSETRON INJ 2 MG/ML 2 ML VIAL IV PRN (06:03)
[2016-09-03 06:13] LABS: HEMATOCRIT 35.8 % (37-47); MEAN CORPUSCULAR HEMOGLOBIN 29.4 pg (25-34); MEAN CORPUSCULAR HGB CONC 36.3 g/dl (32-36); MEAN PLATELET VOLUME 9.4 fL (7.4-10.4); PLATELET COUNT 213 K/uL (130-400); RED BLOOD COUNT 4.42 M/uL (4.2-5.4); WHITE BLOOD COUNT 9.87 K/uL (4.8-10.8)
[2016-09-03 06:40] LABS: PARTIAL THROMBOPLASTIN RATIO 2.8
[2016-09-03 06:53] LABS: BUN/CREATININE RATIO 21.9 (10-20); CALCIUM 8.6 mg/dl (8.5-10.1); CREATININE 0.69 mg/dl (0.60-1.20); MAGNESIUM 1.9 mg/dl (1.8-2.4); POTASSIUM 3.8 mmol/L (3.5-5.1)
[2016-09-03] MEDS: CHOLECALCIFEROL 1000 INTER.UNIT TAB PO SCH (07:36)
[2016-09-03] MEDS: METOPROLOL TARTRATE 50 MG TAB PO SCH ×2 (07:36→21:10)
[2016-09-03] MEDS: ATORVASTATIN 40 MG TAB PO SCH (07:36)
[2016-09-03] MEDS: HYDROCHLOROTHIAZIDE 25 MG TAB PO SCH (07:36)
[2016-09-03] MEDS: DOCUSATE SODIUM 100 MG CAP PO SCH ×2 (07:37→21:10)
[2016-09-03] MEDS: ASPIRIN 81 MG ECTAB PO SCH (07:37)
[2016-09-03] MEDS: LOSARTAN POTASSIUM 50 MG TAB PO SCH (07:37)
[2016-09-03] MEDS ORDERED: CITALOPRAM 20 MG TAB PO SCH (09:00)
[2016-09-03 09:47] LABS: BUN/CREATININE RATIO 20.9 (10-20); CALCIUM 8.4 mg/dl (8.5-10.1); CREATININE 0.68 mg/dl (0.60-1.20); POTASSIUM 3.9 mmol/L (3.5-5.1)
[2016-09-03] MEDS ORDERED: LOSARTAN POTASSIUM 50 MG TAB PO ONE (12:03)
--- NOTE | 2016-09-03 12:18 | Cardiology Follow-Up ---
Subjective Subjective Date of Service: Sep 03, 2016. Pt evaluation today including: conversation w/ patient, physical exam, chart review, lab review, review of studies, review of inpatient medication list Additional Details: Pt seen and examined, states that she feels nauseous, otherwise, well. No further palpitations and denies cp, sob, lightheadedness or dizziness. Tele reviewed: sinus rhythm without arrhythmia or significant ectopy. Problem List Medical Problems: (1) Tachycardia Status: Acute Review of Systems Constitutional: + weakness, No chills, No fever Respiratory: No cough, No dyspnea at rest, No dyspnea on exertion, No hemoptysis, No shortness of breath, No sputum, No wheezing Cardiac: No chest pain, No edema, No orthopnea, No palpitations (resolved) Abdomen: No diarrhea, No nausea, No pain, No vomiting Heme: No abnormal bleeding/bruising Objective Vital Signs Last Vital Signs Documentation Date Time Temp Pulse Resp B/P Pulse Ox O2 Delivery O2 Flow Rate FiO2 09/03/16 10:30 36.7 65 18 166/84 96 Room Air Physical Exam: General Appearance: WD/WN, no apparent distress Eyes: bilateral eyes EOMI, bilateral eyes PERRL, bilateral eyes normal inspection ENT: normal ENT inspection, hearing grossly normal, pharynx normal Neck: supple, no adenopathy, thyroid normal, no JVD, no carotid bruits, trachea midline Respiratory/Chest: lungs clear, normal breath sounds, no respiratory distress, no accessory muscle use Cardiovascular: regular rate, rhythm, no edema, no murmur Abdomen: normal bowel sounds, non tender, soft Extremities: non-tender, normal inspection, no pedal edema, no calf tenderness Neurologic/Psychiatric: arabic linguist II-XII nml as tested, no motor/sensory deficits, alert, normal mood/affect, oriented x 3 Skin: normal color, warm/dry, no rash Lymphatic: no adenopathy Assessment and Plan 1. hypertensive urgency resolved meds adjusted will uptitrate losartan to 100mg now will need follow up bmp in 1 week 2. palpitations resolved for 2 week zio patch through our office ok to d/c to home from cardiac standpoint will arrange f/u with Dr. Santos as outpatient in 4 weeks
--- NOTE | 2016-09-03 13:17 | Nephrology Consultation ---
Nephrology Consultation Date of Consultation: Sep 03, 2016. Attending Physician: Dr Schulz Requesting Physician: Dr Schulz Reason for Consultation: hyponatremia History of Present Illness 86 year old female admitted 09/01 w/ HTN urgency and palpitations suspected from SVT whose sodium suddenly dropped from 131 on admission to 122 this am. her SBP were in 200s on presentation and her troponins mildly elevated at 0.4 on presentation; however ACS was ruled out; she does remain on heparin gtt and cardiology is following. Other PMH includes diet controlled DM, HTN, HL. She takes hctz as outpt and this had been continued after admission yesterday and this am. Repeat sodium levels and serum osms are pending. Pt for outpt holter monitor. She went to urgent care a few weeks ago for UTI but later PCP said no UTI/ cx negative. Denies balance issues or recent change to bp meds; states has been eating poorly here " b/c food here disagrees w/ me." Did have transient N this am. States she's not drinking much here b/c does not want to run to bathroom often. Past Medical/Surgical History Medical Problems: (1) Tachycardia Status: Acute Family History Noncontributory secondary to age Social History Smoking Status: Never Smoker Drug Use: none Marital Status: Housing Status: lives alone Occupation Status: retired Allergies Coded Allergies: Atenolol (Unverified Allergy, Mild, "HANDS TURNED BLUE", 09/01/16) Lisinopril (Unverified Allergy, Unknown, cough, 09/01/16) Nitrofurantoin (Unverified Allergy, Unknown, nausea, 09/01/16) Sulfamethoxazole w/Trimethoprim (Unverified Allergy, Unknown, nausea, 09/01) Medications Current Inpatient Medications Medications (Trade) Dose Ordered Sig/Jaime Route Start Time Stop Time Status Last Admin Dose Admin Acetaminophen (Tylenol Tab) 650 mg Q4H PRN PO 09/01/16 14:30 10/01/16 14:29 09/02/16 23:36 650 MG Ondansetron HCl (Zofran Inj) 4 mg Q6H PRN IV 09/01/16 14:30 10/01/16 14:29 09/03/16 06:03 4 MG Nitroglycerin (Nitrostat Tab) 0.4 mg UD PRN SL 09/01/16 14:30 10/01/16 14:29 Metoprolol Tartrate (Lopressor Tab) 50 mg BID PO 09/02/16 09:00 10/02/16 08:59 09/03/16 07:36 50 MG Hydrochlorothiazide (Hydrochlorothiazide Tab) 12.5 mg QAM PO 09/02/16 09:00 10/02/16 08:59 Future Hold 09/03/16 07:36 12.5 MG Lorazepam (Ativan Tab) 0.5 mg HS PRN PO 09/01/16 14:30 10/01/16 14:29 09/02/16 20:56 0.5 MG Losartan Potassium (coZAAR TAB) 50 mg DAILY PO 09/02/16 09:00 10/02/16 08:59 09/03/16 07:37 50 MG Cholecalciferol (Vitamin D Tab) 2,000 inter.unit DAILY PO 09/02/16 09:00 10/02/16 08:59 09/03/16 07:36 2,000 INTER.UNIT Atorvastatin Calcium (Lipitor Tab) 80 mg QAM PO 09/02/16 09:00 10/02/16 08:59 09/03/16 07:36 80 MG Miscellaneous (Iv Fluids Completed) 1 ea PRN PRN N/A 09/01/16 16:00 09/01/17 15:59 Aspirin 81 mg 81 mg QAM PO 09/02/16 09:00 10/02/16 08:59 09/03/16 07:37 81 MG Heparin Sodium/ Dextrose (Heparin 25,000 Unit/500ml D5W) 500 ml @ 23 mls/hr [id number] PRN IV 09/01/16 18:45 10/01/16 18:44 09/02/16 17:02 24 MLS/HR Calcium Carbonate (Tums Chew Tab) 1,000 mg Q4H PRN PO 09/02/16 00:15 10/02/16 00:14 Docusate Sodium (coLACE CAP) 100 mg BID PO 09/02/16 21:00 10/02/16 20:59 09/03/16 07:37 100 MG Home Meds and Scripts Medications Dose Route/Sig Max Daily Dose Days Date Category Aspirin EC Low Dose (Aspirin) 81 Mg Ectab 81 Mg PO DAILY 09/01/16 Reported Cozaar (Losartan Potassium) 50 Mg Tab 50 Mg PO DAILY 09/01/16 Reported Tylenol (Acetaminophen) 325 Mg Tab 325 Mg PO 09/01/16 Reported Vitamin D3 (Cholecalciferol) 2,000 Unit Tab 2,000 Units PO DAILY 90 09/01/16 Reported Ativan (Lorazepam) 0.5 Mg Tab 0.5 Mg PO HS PRN 12/16/15 Reported Zocor (Simvastatin) 10 Mg Tab 10 Mg PO QPM 12/16/15 Reported Toprol Xl (Metoprolol Succinate) 100 Mg Tab 100 Mg PO HS 12/16/15 Reported Hctz (Hydrochlorothiazide) 12.5 Mg Cap 12.5 Mg PO QAM 12/16/15 Reported Review of Systems Constitutional: + fatigue, + weakness, No fever, No weight loss Eyes: No worsening of vision ENT: No hearing loss, No sore throat, No trouble swallowing Respiratory: No cough, No shortness of breath Cardiac: No chest pain, No edema, No palpitations (resolved since admission) Abdomen: + see HPI, No diarrhea, No nausea, No pain, No vomiting Musculoskeletal: No joint pain, No muscle pain Female : No dysuria, No hematuria, No urinary frequency Neuro: No balance problems, No memory loss, No numbness/tingling, No weakness Psych: No anxiety, No depression symptoms Heme: No abnormal bleeding/bruising Endo: + fatigue Skin: No rash Physical Exam Date Time Temp Pulse Resp B/P Pulse Ox O2 Delivery O2 Flow Rate FiO2 09/03/16 08:00 Room Air 09/03/16 07:41 36.8 73 20 166/97 95 Room Air 147/87 128/82 09/03/16 04:00 96 Room Air 09/03/16 03:21 36.7 66 17 151/78 96 Room Air 09/02/16 23:59 Room Air 09/02/16 22:28 36.6 67 20 151/76 96 Room Air 09/02/16 20:00 95 Room Air 09/02/16 19:37 85 154/88 09/02/16 19:35 80 150/80 09/02/16 19:34 36.8 76 20 152/94 95 Room Air 09/02/16 15:30 Room Air 09/02/16 15:22 36.9 76 18 160/82 94 Room Air 152/82 124/73 09/02/16 11:58 Room Air 09/02/16 10:56 82 16 129/81 96 Room Air 09/02/16 10:54 146/82 09/02/16 10:53 146/83 24-Hour Column 09/03/16 07:59 Intake Total 1528 ml Output Total 350 ml Balance 1178 ml General Appearance: WD/WN, no apparent distress (lying flat on RA) Eyes: EOMI ENT: hearing grossly normal Neck: supple Respiratory/Chest: normal breath sounds, no respiratory distress, + decreased breath sounds Cardiovascular: regular rate, rhythm, no edema Abdomen: normal bowel sounds, non tender, soft (no pierre) Extremities: non-tender, normal inspection, no pedal edema Neurologic/Psych: alert, normal mood/affect, oriented x 3 Skin: no jaundice, warm/dry, no rash Diagnostics Last 24 Hours Test 09/02/16 11:09 09/02/16 16:01 09/02/16 16:18 09/02/16 19:43 Bedside Glucose 144 mg/dl 112 mg/dl 149 mg/dl Activated Partial Thromboplast Time 59.7 SECONDS Partial Thromboplastin Ratio 2.3 Test 09/03/16 05:55 09/03/16 06:20 09/03/16 09:05 White Blood Count 9.87 K/uL Red Blood Count 4.42 M/uL Hemoglobin 13.0 g/dL Hematocrit 35.8 % Mean Corpuscular Volume 81.0 fL Mean Corpuscular Hemoglobin 29.4 pg Mean Corpuscular Hemoglobin Concent 36.3 g/dl RDW Standard Deviation 39.5 fL RDW Coefficient of Variation 13.2 % Platelet Count 213 K/uL Mean Platelet Volume 9.4 fL Activated Partial Thromboplast Time 72.4 SECONDS Partial Thromboplastin Ratio 2.8 Sodium Level 122 mmol/L Potassium Level 3.8 mmol/L Chloride Level 86 mmol/L Carbon Dioxide Level 25 mmol/L Anion Gap 11.0 mmol/L Blood Urea Nitrogen 15 mg/dl Creatinine 0.69 mg/dl Est Creatinine Clear Calc Drug Dose 64.4 ml/min Estimated GFR () 92.6 Estimated GFR (Non- 79.9 BUN/Creatinine Ratio 21.9 Random Glucose 124 mg/dl Calcium Level 8.6 mg/dl Magnesium Level 1.9 mg/dl Bedside Glucose 127 mg/dl Radiology Interpretation: CXR NORMAL TTE 09/02 * Normal LV chamber size with mild concentric LVH. * Normal LV systolic function, EF 60-65%. * No segmental left ventricular wall motion abnormalities are noted. * Grade I diastolic dysfunction. * No significant valvular pathology. Assessment & Plan 86 y/o F a/w HTN urgency and palpitations on 09/01 on outpt hctz who now has sudden drop of serum Na from baseline low 130s to 122 this am. Her HTN has been controlled; she remains on heparin gtt d/t elevated troponins. Acute on chronic hyponatremia, asymptomatic, euvolemic and studies/hx most consistent with hctz as cause; decreased po intake may have some role too states she was actually hctz as rx;d at home; it is certainly possible to develop hyponatremia from this med even after years of tx; she had hctz this am -agree w/ lab recheck; added rd urine sodium to labs >> await pending labs; assuming low Na is real, goal Na for tomorrow is 128-130; Na on recheck is 120 -for now 1.5L fluid limit and strict I/O -cont to hold hctz -would repeat bmp at 1500 irregardless of recheck Na (order in) -would put in precautions about ambulation until Na back in 124-125 range -encourage protein shakes or other PO intake; protein does not count toward limit appreciate consult; will follow with you
--- NOTE | 2016-09-03 13:22 | Progress Note ---
Subjective Date of Service: Sep 03, 2016. 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 w/ school plant consultant, review of inpatient medication list Saw/examined the patient in room 238 No palpitations, no chest pain +weakness this morning no other problems to note today Problem List Medical Problems: (1) Tachycardia Status: Acute Review of Systems Constitutional: No chills, No fever Respiratory: No cough, No shortness of breath, No sputum Cardiac: No chest pain, No edema, No palpitations Abdomen: No diarrhea, No nausea, No pain, No vomiting Medications Current Inpatient Medications Medications (Trade) Dose Ordered Sig/Jaime Route Start Time Stop Time Status Last Admin Dose Admin Acetaminophen (Tylenol Tab) 650 mg Q4H PRN PO 09/01/16 14:30 10/01/16 14:29 09/02/16 23:36 650 MG Ondansetron HCl (Zofran Inj) 4 mg Q6H PRN IV 09/01/16 14:30 10/01/16 14:29 09/03/16 06:03 4 MG Nitroglycerin (Nitrostat Tab) 0.4 mg UD PRN SL 09/01/16 14:30 10/01/16 14:29 Metoprolol Tartrate (Lopressor Tab) 50 mg BID PO 09/02/16 09:00 10/02/16 08:59 09/03/16 07:36 50 MG Hydrochlorothiazide (Hydrochlorothiazide Tab) 12.5 mg QAM PO 09/02/16 09:00 10/02/16 08:59 Future Hold 09/03/16 07:36 12.5 MG Lorazepam (Ativan Tab) 0.5 mg HS PRN PO 09/01/16 14:30 10/01/16 14:29 09/02/16 20:56 0.5 MG Cholecalciferol (Vitamin D Tab) 2,000 inter.unit DAILY PO 09/02/16 09:00 10/02/16 08:59 09/03/16 07:36 2,000 INTER.UNIT Atorvastatin Calcium (Lipitor Tab) 80 mg QAM PO 09/02/16 09:00 10/02/16 08:59 09/03/16 07:36 80 MG Miscellaneous (Iv Fluids Completed) 1 ea PRN PRN N/A 09/01/16 16:00 3/13/18 15:59 Aspirin 81 mg 81 mg QAM PO 09/02/16 09:00 10/02/16 08:59 09/03/16 07:37 81 MG Heparin Sodium/ Dextrose (Heparin 25,000 Unit/500ml D5W) 500 ml @ 23 mls/hr [id number] PRN IV 09/01/16 18:45 10/01/16 18:44 09/02/16 17:02 24 MLS/HR Calcium Carbonate (Tums Chew Tab) 1,000 mg Q4H PRN PO 09/02/16 00:15 10/02/16 00:14 Docusate Sodium (coLACE CAP) 100 mg BID PO 09/02/16 21:00 10/02/16 20:59 09/03/16 07:37 100 MG Losartan Potassium (coZAAR TAB) 100 mg DAILY PO 09/04/16 09:00 10/04/16 08:59 Objective Vital Signs Date Time Temp Pulse Resp B/P Pulse Ox O2 Delivery O2 Flow Rate FiO2 09/03/16 12:00 Room Air 09/03/16 10:30 36.7 65 18 166/84 96 Room Air 09/03/16 08:00 Room Air 09/03/16 07:41 36.8 73 20 166/97 95 Room Air 147/87 128/82 09/03/16 04:00 96 Room Air 09/03/16 03:21 36.7 66 17 151/78 96 Room Air 09/02/16 23:59 Room Air 09/02/16 22:28 36.6 67 20 151/76 96 Room Air 09/02/16 20:00 95 Room Air 09/02/16 19:37 85 154/88 09/02/16 19:35 80 150/80 09/02/16 19:34 36.8 76 20 152/94 95 Room Air 09/02/16 15:30 Room Air 09/02/16 15:22 36.9 76 18 160/82 94 Room Air 152/82 124/73 Physical Exam General Appearance: no apparent distress Respiratory/Chest: lungs clear, normal breath sounds, no respiratory distress, no accessory muscle use Cardiovascular: regular rate, rhythm, no edema, no murmur Abdomen: normal bowel sounds, non tender, soft Extremities: normal inspection, no pedal edema Laboratory Results Last 24 Hours Test 09/02/16 16:01 09/02/16 16:18 09/02/16 19:43 09/03/16 05:55 Bedside Glucose 112 mg/dl 149 mg/dl Activated Partial Thromboplast Time 59.7 SECONDS 72.4 SECONDS Partial Thromboplastin Ratio 2.3 2.8 White Blood Count 9.87 K/uL Red Blood Count 4.42 M/uL Hemoglobin 13.0 g/dL Hematocrit 35.8 % Mean Corpuscular Volume 81.0 fL Mean Corpuscular Hemoglobin 29.4 pg Mean Corpuscular Hemoglobin Concent 36.3 g/dl RDW Standard Deviation 39.5 fL RDW Coefficient of Variation 13.2 % Platelet Count 213 K/uL Mean Platelet Volume 9.4 fL Sodium Level 122 mmol/L Potassium Level 3.8 mmol/L Chloride Level 86 mmol/L Carbon Dioxide Level 25 mmol/L Anion Gap 11.0 mmol/L Blood Urea Nitrogen 15 mg/dl Creatinine 0.69 mg/dl Est Creatinine Clear Calc Drug Dose 64.4 ml/min Estimated GFR () 92.6 Estimated GFR (Non- 79.9 BUN/Creatinine Ratio 21.9 Random Glucose 124 mg/dl Calcium Level 8.6 mg/dl Magnesium Level 1.9 mg/dl Test 09/03/16 06:20 09/03/16 09:05 09/03/16 10:00 09/03/16 11:12 Bedside Glucose 127 mg/dl 138 mg/dl Sodium Level 120 mmol/L Potassium Level 3.9 mmol/L Chloride Level 84 mmol/L Carbon Dioxide Level 26 mmol/L Anion Gap 10.0 mmol/L Blood Urea Nitrogen 14 mg/dl Creatinine 0.68 mg/dl Est Creatinine Clear Calc Drug Dose 65.4 ml/min Estimated GFR () 93.1 Estimated GFR (Non- 80.3 BUN/Creatinine Ratio 20.9 Random Glucose 132 mg/dl Osmolality 252 mOsm/kg Calcium Level 8.4 mg/dl Urine Osmolality 523 mOms/kg Urine Random Sodium 128 mEq/L Assessment and Plan This is an 86 year old female with PMH of HTN, HLD, diet controlled DM2, anxiety , insomnia presented with palpitations and subsequently found to have elevated troponin level as well as elevated blood pressure Hyponatremia unsure of the cause? sodium down from 132 to 122 this morning and repeat Na is 120 low osm, low urine osm fluid restriction appreciate nephro input hold HCTZ, stopped Celexa Elevated Troponin Level in the setting of Palpitations 09/03 Doing well, no palpitations outpatient Zio patch stopped IV heparin 09/02 troponin elevation noted to 0.[address]-T wave changes, there is a RBBB echo is pending this elevation is likely due to hypertensive urgency as well as palpitations ( possible arrhythmia?) currently on IV heparin continue metoprolol appreciate cardiology input - monitor in tele, will need Zio patch as outpatient Hypertensive Urgency 09/03 stopped HCTZ due to hyponatremia increased Cozaar, continue b-garcía blood pressure improving 09/02 patient with a hx. of HTN uses Cozaar, HCTZ, metoprolol at home Continue these medications and adjust accordingly blood pressure is improving; goal of <140/90 due to hx. of DM2 Anxiety/Insomnia patient uses ativan for anxiety also takes this at night as it helps her decrease anxiety level nocturnally to help her sleep offered a different medication for insomnia, but patient declined Diet controlled DM2 not on any medication last Ha1c = 5.9% in April 2016 DVT ppx SCDs DNR
[2016-09-03 14:44] LABS: PARTIAL THROMBOPLASTIN RATIO 1.8
[2016-09-03 16:34] LABS: BUN/CREATININE RATIO 19.4 (10-20); CALCIUM 8.3 mg/dl (8.5-10.1); CREATININE 0.67 mg/dl (0.60-1.20); POTASSIUM 3.7 mmol/L (3.5-5.1)
[2016-09-03] MEDS ORDERED: SODIUM CHLORIDE 3% 500 ML BAG IV STA ×2 (17:27→19:44)
[2016-09-03] MEDS ORDERED: SODIUM CHLORIDE 3% INJ 500 ML IV SCH (17:45)
[2016-09-03] MEDS: LORAZEPAM 0.5 MG TAB PO PRN (17:51)
[2016-09-03 19:27] LABS: BUN/CREATININE RATIO 20.3 (10-20); CREATININE 0.68 mg/dl (0.60-1.20); POTASSIUM 3.6 mmol/L (3.5-5.1)
[2016-09-03] MEDS ORDERED: SODIUM CHLORIDE 3% INJ 50 ML IV ONE (20:30)
[2016-09-03 21:37] LABS: BUN/CREATININE RATIO 20.8 (10-20); CALCIUM 8.6 mg/dl (8.5-10.1); CREATININE 0.65 mg/dl (0.60-1.20); POTASSIUM 3.6 mmol/L (3.5-5.1)
[2016-09-03] MEDS ORDERED: SODIUM CHLORIDE 3% 500 ML BAG IV ONE (22:00)
[2016-09-03] MEDS ORDERED: SODIUM CHLORIDE 1 GM TAB PO PRN (23:33)
[2016-09-03 23:45] LABS: BUN/CREATININE RATIO 20.8 (10-20); CALCIUM 8.5 mg/dl (8.5-10.1); CREATININE 0.64 mg/dl (0.60-1.20); POTASSIUM 3.6 mmol/L (3.5-5.1)
[2016-09-04] VITALS (13 sets, daily range): BP systolic 105–185; BP diastolic 54–93; PULSE 66–77; TEMP 36.7–36.8; O2SAT 94–97
[2016-09-04] MEDS: ONDANSETRON INJ 2 MG/ML 2 ML VIAL IV PRN ×3 (00:40→18:01)
[2016-09-04 06:33] LABS: HEMATOCRIT 33.4 % (37-47); MEAN CELL VOLUME 80.5 fL (80-100); MEAN CORPUSCULAR HEMOGLOBIN 29.4 pg (25-34); MEAN CORPUSCULAR HGB CONC 36.5 g/dl (32-36); MEAN PLATELET VOLUME 9.6 fL (7.4-10.4); PLATELET COUNT 226 K/uL (130-400); RED BLOOD COUNT 4.15 M/uL (4.2-5.4); WHITE BLOOD COUNT 9.65 K/uL (4.8-10.8)
[2016-09-04 06:42] LABS: PARTIAL THROMBOPLASTIN RATIO 1.1
[2016-09-04 07:12] LABS: BUN/CREATININE RATIO 19.4 (10-20); CALCIUM 8.7 mg/dl (8.5-10.1); CREATININE 0.72 mg/dl (0.60-1.20); MAGNESIUM 1.8 mg/dl (1.8-2.4); POTASSIUM 3.9 mmol/L (3.5-5.1)
[2016-09-04] MEDS: ATORVASTATIN 40 MG TAB PO SCH (08:23)
[2016-09-04] MEDS: ASPIRIN 81 MG ECTAB PO SCH (08:23)
[2016-09-04] MEDS: DOCUSATE SODIUM 100 MG CAP PO SCH ×2 (08:23→21:12)
[2016-09-04] MEDS: LOSARTAN POTASSIUM 50 MG TAB PO SCH (08:24)
[2016-09-04] MEDS: CHOLECALCIFEROL 1000 INTER.UNIT TAB PO SCH (08:24)
[2016-09-04] MEDS: METOPROLOL TARTRATE 50 MG TAB PO SCH ×2 (08:24→21:12)
[2016-09-04] MEDS ORDERED: FUROSEMIDE INJ 40 MG in SYRINGE 0 ML IV ONE (08:30)
[2016-09-04] MEDS: SODIUM CHLORIDE 1 GM TAB PO SCH ×3 (08:38→21:12)
[2016-09-04 11:15] LABS: CREATININE 0.81 mg/dl (0.60-1.20)
[2016-09-04 11:16] LABS: BUN/CREATININE RATIO 17.7 (10-20); CALCIUM 8.8 mg/dl (8.5-10.1); POTASSIUM 3.5 mmol/L (3.5-5.1)
[2016-09-04] MEDS ORDERED: POTASSIUM CHLORIDE INJ 40 MEQ in SODIUM CHLORIDE 0.9% 1000ML 1,000 ML IV SCH (11:45)
--- NOTE | 2016-09-04 12:45 | Nephrology Progress Note ---
Nephrology Progress Note Date of Service: Sep 04, 2016. Subjective seen on rounds this am; no chest pain or dyspnea; cont to have some stomach upset and decreased po; no edema; heparin gtt off; had bolus 50-100 mL each time x 3 doses of 3% saline to stabilize sNa overnight, then started salt tabs Objective Date Time Temp Pulse Resp B/P Pulse Ox O2 Delivery O2 Flow Rate FiO2 09/04/16 12:00 Room Air 09/04/16 11:01 36.8 66 20 139/78 95 Room Air 09/04/16 08:32 77 170/83 09/04/16 08:31 69 182/93 09/04/16 08:30 74 185/85 09/04/16 08:00 Room Air 09/04/16 07:46 36.7 70 20 139/74 97 Room Air 09/04/16 04:27 36.7 68 19 153/80 96 Room Air 09/04/16 04:00 Room Air 09/04/16 00:00 Room Air 09/03/16 23:40 74 112/71 09/03/16 23:38 70 143/78 09/03/16 23:36 36.9 66 17 145/77 96 Room Air 09/03/16 20:30 36.8 76 16 143/76 91 Room Air 09/03/16 20:00 94 Room Air 09/03/16 16:00 94 Room Air 09/03/16 15:49 36.5 68 18 169/84 94 Room Air 170/92 133/76 Physical Exam: General-lying flat on RA, nad, oriented x 3 Eyes-eomi ENT-mmm Neck-supple Lungs-dmiinished but clear Heart-RRR no edema Abdomen-soft NT +BS, no pierre Extremities-no c/c Neuro-bray, fluent speech Current Inpatient Medications Medications (Trade) Dose Ordered Sig/Jaime Route Start Time Stop Time Status Last Admin Dose Admin Acetaminophen (Tylenol Tab) 650 mg Q4H PRN PO 09/01/16 14:30 10/01/16 14:29 09/02/16 23:36 650 MG Ondansetron HCl (Zofran Inj) 4 mg Q6H PRN IV 09/01/16 14:30 10/01/16 14:29 09/04/16 11:25 4 MG Nitroglycerin (Nitrostat Tab) 0.4 mg UD PRN SL 09/01/16 14:30 10/01/16 14:29 Metoprolol Tartrate (Lopressor Tab) 50 mg BID PO 09/02/16 09:00 10/02/16 08:59 09/04/16 08:24 50 MG Hydrochlorothiazide (Hydrochlorothiazide Tab) 12.5 mg QAM PO 09/02/16 09:00 10/02/16 08:59 Future Hold 09/03/16 07:36 12.5 MG Lorazepam (Ativan Tab) 0.5 mg HS PRN PO 09/01/16 14:30 10/01/16 14:29 09/03/16 17:51 0.5 MG Cholecalciferol (Vitamin D Tab) 2,000 inter.unit DAILY PO 09/02/16 09:00 10/02/16 08:59 09/04/16 08:24 2,000 INTER.UNIT Atorvastatin Calcium (Lipitor Tab) 80 mg QAM PO 09/02/16 09:00 10/02/16 08:59 09/04/16 08:23 80 MG Miscellaneous (Iv Fluids Completed) 1 ea PRN PRN N/A 09/01/16 16:00 09/01/17 15:59 Aspirin (Ecotrin Tab) 81 mg QAM PO 09/02/16 09:00 10/02/16 08:59 09/04/16 08:23 81 MG Calcium Carbonate (Tums Chew Tab) 1,000 mg Q4H PRN PO 09/02/16 00:15 10/02/16 00:14 09/03/16 17:47 1,000 MG Docusate Sodium (coLACE CAP) 100 mg BID PO 09/02/16 21:00 10/02/16 20:59 09/04/16 08:23 100 MG Losartan Potassium (coZAAR TAB) 100 mg DAILY PO 09/04/16 09:00 10/04/16 08:59 09/04/16 08:24 100 MG Sodium Chloride 1 gm 1 gm TID PO 09/04/16 09:00 10/04/16 08:59 09/04/16 08:38 1 GM Furosemide 60 mg/ Syringe 6 ml @ 4 mls/min Q4H IV 09/04/16 12:00 10/04/16 11:59 Potassium Chloride/Sodium Chloride (KCl Inj/Nss 1000ml) 1,015 ml @ 150 mls/hr Q6H46M IV 09/04/16 12:15 10/04/16 12:14 Last 24 Hours Test 09/03/16 14:06 09/03/16 15:12 09/03/16 16:07 09/03/16 18:59 Activated Partial Thromboplast Time 47.4 SECONDS Partial Thromboplastin Ratio 1.8 Sodium Level 115 mmol/L 117 mmol/L Potassium Level 3.7 mmol/L 3.6 mmol/L Chloride Level 79 mmol/L 78 mmol/L Carbon Dioxide Level 26 mmol/L 26 mmol/L Anion Gap 11.0 mmol/L 12.0 mmol/L Blood Urea Nitrogen 13 mg/dl 14 mg/dl Creatinine 0.67 mg/dl 0.68 mg/dl Est Creatinine Clear Calc Drug Dose 66.3 ml/min 65.4 ml/min Estimated GFR () 93.6 93.1 Estimated GFR (Non- 80.7 80.3 BUN/Creatinine Ratio 19.4 20.3 Random Glucose 122 mg/dl 143 mg/dl Calcium Level 8.3 mg/dl 8.0 mg/dl Bedside Glucose 135 mg/dl Test 09/03/16 20:16 09/03/16 20:40 09/03/16 22:33 09/04/16 06:03 Bedside Glucose 141 mg/dl Sodium Level 116 mmol/L 118 mmol/L 118 mmol/L Potassium Level 3.6 mmol/L 3.6 mmol/L 3.9 mmol/L Chloride Level 80 mmol/L 81 mmol/L 83 mmol/L Carbon Dioxide Level 26 mmol/L 27 mmol/L 25 mmol/L Anion Gap 10.0 mmol/L 10.0 mmol/L 10.0 mmol/L Blood Urea Nitrogen 14 mg/dl 13 mg/dl 14 mg/dl Creatinine 0.65 mg/dl 0.64 mg/dl 0.72 mg/dl Est Creatinine Clear Calc Drug Dose 68.4 ml/min 69.5 ml/min 62.1 ml/min Estimated GFR () 94.5 95.0 89.1 Estimated GFR (Non- 81.5 81.9 76.9 BUN/Creatinine Ratio 20.8 20.8 19.4 Random Glucose 128 mg/dl 116 mg/dl 104 mg/dl Calcium Level 8.6 mg/dl 8.5 mg/dl 8.7 mg/dl White Blood Count 9.65 K/uL Red Blood Count 4.15 M/uL Hemoglobin 12.2 g/dL Hematocrit 33.4 % Mean Corpuscular Volume 80.5 fL Mean Corpuscular Hemoglobin 29.4 pg Mean Corpuscular Hemoglobin Concent 36.5 g/dl RDW Standard Deviation 39.1 fL RDW Coefficient of Variation 13.2 % Platelet Count 226 K/uL Mean Platelet Volume 9.6 fL Activated Partial Thromboplast Time 28.7 SECONDS Partial Thromboplastin Ratio 1.1 Magnesium Level 1.8 mg/dl Test 09/04/16 06:48 09/04/16 10:20 09/04/16 11:57 Bedside Glucose 122 mg/dl 144 mg/dl Sodium Level 116 mmol/L Potassium Level 3.5 mmol/L Chloride Level 79 mmol/L Carbon Dioxide Level 26 mmol/L Anion Gap 11.0 mmol/L Blood Urea Nitrogen 14 mg/dl Creatinine 0.81 mg/dl Est Creatinine Clear Calc Drug Dose 55.2 ml/min Estimated GFR () 77.3 Estimated GFR (Non- 66.7 BUN/Creatinine Ratio 17.7 Random Glucose 131 mg/dl Calcium Level 8.8 mg/dl Assessment & Plan 86 y/o F a/w HTN urgency and palpitations on 09/01 on outpt hctz who now has sudden drop of serum Na from baseline low 130s to 122 this am. Her HTN has been controlled; now off of heparin gtt. Acute on chronic hyponatremia, asymptomatic, euvolemic and studies/hx most consistent with hctz as cause; decreased po intake may have some role too states she was actually using hctz as rx'd at home; it is certainly possible to develop hyponatremia from this med even after years of tx; she had hctz am 09/03 most recently then stopped -goal Na for tomorrow is 123-124; Na on recheck 10 am today down again to 116 -cont 1.5L fluid limit and strict I/O -cont to hold hctz and would update allergy / med intolerance list -gave lasix 40 mg IV x 1 this am, started NaCl tabs 1 gm tid, ordered ignacio, d/ w hospitalist who agrees to order PICC > bob Na is 116 -started NS 150 mL /hr w/ 30 mEq/L K + 60 mg IV lasix q4h for immediate future -would cont precautions about ambulation until Na back in 124-125 range -encourage protein shakes or other PO intake; protein does not count toward limit ->10 min discussion had w/ pt about seriousness, causes, mgt of hyponatremia -recheck Na ordered 1500 and likely q4-6 hrs thereafter appreciate consult; will follow with you. Care coordinated w/ DR Schulz
[2016-09-04] MEDS: SODIUM CHLORIDE 0.9% IV SCH ×2 (13:02→19:03)
[2016-09-04] MEDS: POTASSIUM CHLORIDE IV SCH ×2 (13:02→19:03)
[2016-09-04] MEDS: FUROSEMIDE INJ 60 MG in SYRINGE 0 ML IV SCH ×3 (13:03→20:19)
--- NOTE | 2016-09-04 13:53 | PROGRESS NOTE ---
DATE: 09/04/2016 FOLLOWUP VISIT SUBJECTIVE: The patient is an 86-year-old female who was originally admitted with hypertensive urgency. She had been doing well and expected to be discharged; however, she developed severe hyponatremia. Nephrology was consulted and she is receiving hypertonic saline and her hydrochlorothiazide was discontinued. She has no cardiac complaints today. OBJECTIVE: VITAL SIGNS: Blood pressure is 140/70 and pulse is regular at 66. She is afebrile. HEENT: She is normocephalic. Pupils are equal and reactive to light. Extraocular muscles are intact bilaterally. NECK: The neck veins are flat. Carotids have good upstrokes bilaterally without bruits. Thyroid is nonpalpable. RESPIRATORY: Breath sounds equal bilaterally and clear to auscultation. CARDIOVASCULAR: Heart has a regular rhythm. Normal S1 and S2. No S3 or S4. No cardiac rubs or murmurs. GASTROINTESTINAL: Abdomen is soft and nontender without organomegaly. EXTREMITIES: Free of edema, digit clubbing, or cyanosis. NEUROLOGIC: Grossly intact. SKIN: Warm to touch. LYMPH NODES: Negative to palpation. LABORATORY DATA: Sodium 116, potassium 3.5, creatinine 0.8, and BUN low of 14. IMPRESSION: 1. Hyponatremia. 2. Hypertension. 3. Heart palpitations. RECOMMENDATIONS: From a cardiac standpoint, the patient remained stable. As outlined in Dr. Núñez's previous note, we plan followup as an outpatient and the patient will have a 2-week ZIO patch placed at our office.
--- NOTE | 2016-09-04 14:02 | Progress Note ---
Subjective Date of Service: Sep 04, 2016. Subjective Pt evaluation today including: conversation w/ patient, physical exam, lab review, review of studies, review of inpatient medication list Saw/examined the patient in room 238 +nausea this morning with decreased appetite Denies chest pain/shortness of breath/palpitations Problem List Medical Problems: (1) Tachycardia Status: Acute Review of Systems Constitutional: No chills, No fever Respiratory: No shortness of breath Cardiac: No chest pain, No edema, No palpitations Abdomen: + nausea, No diarrhea, No pain, No vomiting Medications Current Inpatient Medications Medications (Trade) Dose Ordered Sig/Jaime Route Start Time Stop Time Status Last Admin Dose Admin Acetaminophen (Tylenol Tab) 650 mg Q4H PRN PO 09/01/16 14:30 10/01/16 14:29 09/02/16 23:36 650 MG Ondansetron HCl (Zofran Inj) 4 mg Q6H PRN IV 09/01/16 14:30 10/01/16 14:29 09/04/16 11:25 4 MG Nitroglycerin (Nitrostat Tab) 0.4 mg UD PRN SL 09/01/16 14:30 10/01/16 14:29 Metoprolol Tartrate (Lopressor Tab) 50 mg BID PO 09/02/16 09:00 10/02/16 08:59 09/04/16 08:24 50 MG Hydrochlorothiazide (Hydrochlorothiazide Tab) 12.5 mg QAM PO 09/02/16 09:00 10/02/16 08:59 Future Hold 09/03/16 07:36 12.5 MG Lorazepam (Ativan Tab) 0.5 mg HS PRN PO 09/01/16 14:30 10/01/16 14:29 09/03/16 17:51 0.5 MG Cholecalciferol (Vitamin D Tab) 2,000 inter.unit DAILY PO 09/02/16 09:00 10/02/16 08:59 09/04/16 08:24 2,000 INTER.UNIT Atorvastatin Calcium (Lipitor Tab) 80 mg QAM PO 09/02/16 09:00 10/02/16 08:59 09/04/16 08:23 80 MG Miscellaneous (Iv Fluids Completed) 1 ea PRN PRN N/A 09/01/16 16:00 09/01/17 15:59 Aspirin (Ecotrin Tab) 81 mg QAM PO 09/02/16 09:00 10/02/16 08:59 09/04/16 08:23 81 MG Calcium Carbonate (Tums Chew Tab) 1,000 mg Q4H PRN PO 09/02/16 00:15 10/02/16 00:14 09/03/16 17:47 1,000 MG Docusate Sodium (coLACE CAP) 100 mg BID PO 09/02/16 21:00 10/02/16 20:59 09/04/16 08:23 100 MG Losartan Potassium (coZAAR TAB) 100 mg DAILY PO 09/04/16 09:00 10/04/16 08:59 09/04/16 08:24 100 MG Sodium Chloride 1 gm 1 gm TID PO 09/04/16 09:00 10/04/16 08:59 09/04/16 13:03 1 GM Furosemide 60 mg/ Syringe 6 ml @ 4 mls/min Q4H IV 09/04/16 12:00 10/04/16 11:59 09/04/16 13:03 4 MLS/MIN Potassium Chloride/Sodium Chloride (KCl Inj/Nss 1000ml) 1,015 ml @ 150 mls/hr Q6H46M IV 09/04/16 12:15 10/04/16 12:14 09/04/16 13:02 150 MLS/HR Objective Vital Signs Date Time Temp Pulse Resp B/P Pulse Ox O2 Delivery O2 Flow Rate FiO2 09/04/16 12:00 Room Air 09/04/16 11:01 36.8 66 20 139/78 95 Room Air 09/04/16 08:32 77 170/83 09/04/16 08:31 69 182/93 09/04/16 08:30 74 185/85 09/04/16 08:00 Room Air 09/04/16 07:46 36.7 70 20 139/74 97 Room Air 09/04/16 04:27 36.7 68 19 153/80 96 Room Air 09/04/16 04:00 Room Air 09/04/16 00:00 Room Air 09/03/16 23:40 74 112/71 09/03/16 23:38 70 143/78 09/03/16 23:36 36.9 66 17 145/77 96 Room Air 09/03/16 20:30 36.8 76 16 143/76 91 Room Air 09/03/16 20:00 94 Room Air 09/03/16 16:00 94 Room Air 09/03/16 15:49 36.5 68 18 169/84 94 Room Air 170/92 133/76 Physical Exam General Appearance: no apparent distress Respiratory/Chest: chest non-tender, lungs clear, normal breath sounds, no respiratory distress, no accessory muscle use Cardiovascular: regular rate, rhythm, no edema, no murmur Abdomen: normal bowel sounds, non tender, soft Extremities: normal inspection, no pedal edema Neurologic/Psychiatric: no motor/sensory deficits, alert, normal mood/affect Skin: normal color Laboratory Results Last 24 Hours Test 09/03/16 14:06 09/03/16 15:12 09/03/16 16:07 09/03/16 18:59 Activated Partial Thromboplast Time 47.4 SECONDS Partial Thromboplastin Ratio 1.8 Sodium Level 115 mmol/L 117 mmol/L Potassium Level 3.7 mmol/L 3.6 mmol/L Chloride Level 79 mmol/L 78 mmol/L Carbon Dioxide Level 26 mmol/L 26 mmol/L Anion Gap 11.0 mmol/L 12.0 mmol/L Blood Urea Nitrogen 13 mg/dl 14 mg/dl Creatinine 0.67 mg/dl 0.68 mg/dl Est Creatinine Clear Calc Drug Dose 66.3 ml/min 65.4 ml/min Estimated GFR () 93.6 93.1 Estimated GFR (Non- 80.7 80.3 BUN/Creatinine Ratio 19.4 20.3 Random Glucose 122 mg/dl 143 mg/dl Calcium Level 8.3 mg/dl 8.0 mg/dl Bedside Glucose 135 mg/dl Test 09/03/16 20:16 09/03/16 20:40 09/03/16 22:33 09/04/16 06:03 Bedside Glucose 141 mg/dl Sodium Level 116 mmol/L 118 mmol/L 118 mmol/L Potassium Level 3.6 mmol/L 3.6 mmol/L 3.9 mmol/L Chloride Level 80 mmol/L 81 mmol/L 83 mmol/L Carbon Dioxide Level 26 mmol/L 27 mmol/L 25 mmol/L Anion Gap 10.0 mmol/L 10.0 mmol/L 10.0 mmol/L Blood Urea Nitrogen 14 mg/dl 13 mg/dl 14 mg/dl Creatinine 0.65 mg/dl 0.64 mg/dl 0.72 mg/dl Est Creatinine Clear Calc Drug Dose 68.4 ml/min 69.5 ml/min 62.1 ml/min Estimated GFR () 94.5 95.0 89.1 Estimated GFR (Non- 81.5 81.9 76.9 BUN/Creatinine Ratio 20.8 20.8 19.4 Random Glucose 128 mg/dl 116 mg/dl 104 mg/dl Calcium Level 8.6 mg/dl 8.5 mg/dl 8.7 mg/dl White Blood Count 9.65 K/uL Red Blood Count 4.15 M/uL Hemoglobin 12.2 g/dL Hematocrit 33.4 % Mean Corpuscular Volume 80.5 fL Mean Corpuscular Hemoglobin 29.4 pg Mean Corpuscular Hemoglobin Concent 36.5 g/dl RDW Standard Deviation 39.1 fL RDW Coefficient of Variation 13.2 % Platelet Count 226 K/uL Mean Platelet Volume 9.6 fL Activated Partial Thromboplast Time 28.7 SECONDS Partial Thromboplastin Ratio 1.1 Magnesium Level 1.8 mg/dl Test 09/04/16 06:48 09/04/16 10:20 09/04/16 11:57 Bedside Glucose 122 mg/dl 144 mg/dl Sodium Level 116 mmol/L Potassium Level 3.5 mmol/L Chloride Level 79 mmol/L Carbon Dioxide Level 26 mmol/L Anion Gap 11.0 mmol/L Blood Urea Nitrogen 14 mg/dl Creatinine 0.81 mg/dl Est Creatinine Clear Calc Drug Dose 55.2 ml/min Estimated GFR () 77.3 Estimated GFR (Non- 66.7 BUN/Creatinine Ratio 17.7 Random Glucose 131 mg/dl Calcium Level 8.8 mg/dl Assessment and Plan This is an 86 year old female with PMH of HTN, HLD, diet controlled DM2, anxiety , insomnia presented with palpitations and subsequently found to have elevated troponin level as well as elevated blood pressure Hyponatremia 09/04 thiazide induced hyponatremia? appreciate nephrology input patient received multiple boluses of hypertonic sodium PICC line ordered pierre inserted For now, Lasix + sodium tablets and possibly NS fluids as per nephro sodium levels continue to be low, last one was 116 09/03 unsure of the cause? sodium down from 132 to 122 this morning and repeat Na is 120 low osm, low urine osm fluid restriction appreciate nephro input hold HCTZ, stopped Celexa Elevated Troponin Level in the setting of Palpitations 09/03 Doing well, no palpitations outpatient Zio patch stopped IV heparin 09/02 troponin elevation noted to 0.[address]-T wave changes, there is a RBBB echo is pending this elevation is likely due to hypertensive urgency as well as palpitations ( possible arrhythmia?) currently on IV heparin continue metoprolol appreciate cardiology input - monitor in tele, will need Zio patch as outpatient Hypertensive Urgency 09/04 stopped HCTZ and added to allergy/adverse reaction list blood pressures labile, last one was actually a good reading at 140/80 will continue Cozaar at new dose of 100mg daily; continue metoprolol currently receiving Lasix for hyponatremia, so will monitor BP and adjust after Lasix is stopped 09/03 stopped HCTZ due to hyponatremia increased Cozaar, continue b-garcía blood pressure improving 09/02 patient with a hx. of HTN uses Cozaar, HCTZ, metoprolol at home Continue these medications and adjust accordingly blood pressure is improving; goal of <140/90 due to hx. of DM2 Anxiety/Insomnia patient uses ativan for anxiety also takes this at night as it helps her decrease anxiety level nocturnally to help her sleep offered a different medication for insomnia, but patient declined Diet controlled DM2 not on any medication last Ha1c = 5.9% in April 2016 DVT ppx SCDs DNR
[2016-09-04 16:37] LABS: BUN/CREATININE RATIO 22.9 (10-20); CALCIUM 8.2 mg/dl (8.5-10.1); CREATININE 0.78 mg/dl (0.60-1.20); POTASSIUM 3.8 mmol/L (3.5-5.1)
[2016-09-04] MEDS: LORAZEPAM 0.5 MG TAB PO PRN (21:12)
[2016-09-04 21:21] LABS: BUN/CREATININE RATIO 20.9 (10-20); CALCIUM 8.2 mg/dl (8.5-10.1); CREATININE 0.93 mg/dl (0.60-1.20); MAGNESIUM 1.6 mg/dl (1.8-2.4); POTASSIUM 3.6 mmol/L (3.5-5.1)
[2016-09-05] VITALS (8 sets, daily range): BP systolic 91–132; BP diastolic 56–78; PULSE 66–74; TEMP 36.3–36.8; O2SAT 91–97
[2016-09-05] MEDS: FUROSEMIDE INJ 60 MG in SYRINGE 0 ML IV SCH ×4 (00:05→12:17)
[2016-09-05] MEDS: SODIUM CHLORIDE 0.9% IV SCH (02:00)
[2016-09-05] MEDS: POTASSIUM CHLORIDE IV SCH (02:00)
[2016-09-05] MEDS ORDERED: ALBUT/IPRATROP 3MG/0.5MG NEB 3 ML VIAL INH PRN (05:00)
[2016-09-05 05:34] LABS: BASO % 0.1 %; BASO ABS # 0.01 K/uL (0-0.2); COMPLETE YES; EOS % 1.4 %; HEMATOCRIT 33.3 % (37-47); IG% 0.4 %; LYMPH % 21.3 %; LYMPH ABS # 2.32 K/uL (1.2-3.4); MEAN CELL VOLUME 78.7 fL (80-100); MEAN CORPUSCULAR HEMOGLOBIN 29.6 pg (25-34); MEAN CORPUSCULAR HGB CONC 37.5 g/dl (32-36); MEAN PLATELET VOLUME 9.1 fL (7.4-10.4); MONO % 8.4 %; NEUT % 68.4 %; PLATELET COUNT 196 K/uL (130-400); RED BLOOD COUNT 4.23 M/uL (4.2-5.4); WHITE BLOOD COUNT 10.91 K/uL (4.8-10.8)
[2016-09-05 05:49] LABS: PARTIAL THROMBOPLASTIN RATIO 1.1
[2016-09-05 06:11] LABS: BUN/CREATININE RATIO 25.1 (10-20); CALCIUM 7.9 mg/dl (8.5-10.1); CREATININE 0.89 mg/dl (0.60-1.20); MAGNESIUM 1.6 mg/dl (1.8-2.4); POTASSIUM 3.6 mmol/L (3.5-5.1)
[2016-09-05] MEDS ORDERED: MAGNESIUM SULFATE 1GM / D5W 1 GM in PREMIXED IN D5W 100 ML IV ONE (07:30)
--- NOTE | 2016-09-05 07:43 | DIAGNOSTIC IMAGING REPORT ---
SINGLE VIEW CHEST CLINICAL HISTORY: Abnormal physical examination. Rhonchi. FINDINGS: An AP, portable, upright chest radiograph is compared to study dated 09/01/2016. The examination is degraded by portable technique and patient rotation. A right PICC line is new from previous. The tip of the catheter projects over the cavoatrial junction. The cardiomediastinal silhouette is unremarkable. There is atherosclerotic calcification of the thoracic aorta. Chronic interstitial thickening is unchanged. There is mild chronic elevation of left hemidiaphragm with minimal left basilar atelectasis. The lungs and pleural spaces are otherwise clear. No pneumothorax is seen. The skeletal structures are osteopenic. The bony thorax is grossly intact. IMPRESSION: 1. No acute cardiopulmonary abnormality. 2. A right PICC line is new from previous. The tip of the catheter projects over the cavoatrial junction. Electronically signed by: Jitendra Rodriguez M.D. 09/05/2016 7:42 AM Dictated Date/Time: 09/05/2016 7:41 AM
[2016-09-05] MEDS: DOCUSATE SODIUM 100 MG CAP PO SCH ×2 (08:11→21:00)
[2016-09-05] MEDS: LOSARTAN POTASSIUM 50 MG TAB PO SCH (08:11)
[2016-09-05] MEDS: ASPIRIN 81 MG ECTAB PO SCH (08:11)
[2016-09-05] MEDS: METOPROLOL TARTRATE 50 MG TAB PO SCH ×2 (08:12→21:43)
[2016-09-05] MEDS: ATORVASTATIN 40 MG TAB PO SCH (08:12)
[2016-09-05] MEDS: SODIUM CHLORIDE 1 GM TAB PO SCH (08:12)
[2016-09-05] MEDS: CHOLECALCIFEROL 1000 INTER.UNIT TAB PO SCH (08:13)
[2016-09-05] MEDS: ONDANSETRON INJ 2 MG/ML 2 ML VIAL IV PRN (08:15)
--- NOTE | 2016-09-05 10:20 | Nephrology Progress Note ---
Nephrology Progress Note Date of Service: Sep 05, 2016. Subjective no chest pain or dyspnea; cont to have some stomach upset and decreased po; no edema; had some crackles on exam ON and per my recommendations CXR obtained >> no acute CPulm abnormality and fluids/lasix resumed Objective Date Time Temp Pulse Resp B/P Pulse Ox O2 Delivery O2 Flow Rate FiO2 09/05/16 08:00 Room Air 09/05/16 07:41 36.6 68 18 130/78 92 Room Air 09/05/16 04:00 97 Room Air 09/05/16 03:45 36.7 69 17 110/69 97 Room Air 09/05/16 00:01 95 Room Air 09/04/16 23:59 72 105/66 09/04/16 23:57 69 118/71 09/04/16 23:55 36.8 68 17 139/75 95 Room Air 09/04/16 21:12 74 145/76 09/04/16 20:00 95 Room Air 09/04/16 19:47 36.7 73 16 136/79 95 Room Air 09/04/16 16:00 94 Room Air 09/04/16 16:00 36.7 73 20 146/82 94 Room Air 133/79 108/54 09/04/16 12:00 Room Air 09/04/16 11:01 36.8 66 20 139/78 95 Room Air Physical Exam: General-lying flat on RA, nad, oriented x 3 Eyes-eomi ENT-mmm Neck-supple Lungs-scattered fine crackles which are new Heart-RRR no edema Abdomen-soft NT +BS, no pierre Extremities-no c/c Neuro-bray, fluent speech Current Inpatient Medications Medications (Trade) Dose Ordered Sig/Jaime Route Start Time Stop Time Status Last Admin Dose Admin Acetaminophen (Tylenol Tab) 650 mg Q4H PRN PO 09/01/16 14:30 10/01/16 14:29 09/02/16 23:36 650 MG Ondansetron HCl (Zofran Inj) 4 mg Q6H PRN IV 09/01/16 14:30 10/01/16 14:29 09/05/16 08:15 4 MG Nitroglycerin (Nitrostat Tab) 0.4 mg UD PRN SL 09/01/16 14:30 10/01/16 14:29 Metoprolol Tartrate (Lopressor Tab) 50 mg BID PO 09/02/16 09:00 10/02/16 08:59 09/05/16 08:12 50 MG Hydrochlorothiazide (Hydrochlorothiazide Tab) 12.5 mg QAM PO 09/02/16 09:00 10/02/16 08:59 Future Hold 09/03/16 07:36 12.5 MG Lorazepam (Ativan Tab) 0.5 mg HS PRN PO 09/01/16 14:30 10/01/16 14:29 09/04/16 21:12 0.5 MG Cholecalciferol (Vitamin D Tab) 2,000 inter.unit DAILY PO 09/02/16 09:00 10/02/16 08:59 09/05/16 08:13 2,000 INTER.UNIT Atorvastatin Calcium (Lipitor Tab) 80 mg QAM PO 09/02/16 09:00 10/02/16 08:59 09/05/16 08:12 80 MG Miscellaneous (Iv Fluids Completed) 1 ea PRN PRN N/A 09/01/16 16:00 09/01/17 15:59 Aspirin (Ecotrin Tab) 81 mg QAM PO 09/02/16 09:00 10/02/16 08:59 09/05/16 08:11 81 MG Calcium Carbonate (Tums Chew Tab) 1,000 mg Q4H PRN PO 09/02/16 00:15 10/02/16 00:14 09/03/16 17:47 1,000 MG Docusate Sodium (coLACE CAP) 100 mg BID PO 09/02/16 21:00 10/02/16 20:59 09/05/16 08:11 100 MG Losartan Potassium (coZAAR TAB) 100 mg DAILY PO 09/04/16 09:00 10/04/16 08:59 09/05/16 08:11 100 MG Sodium Chloride 1 gm 1 gm TID PO 09/04/16 09:00 10/04/16 08:59 09/05/16 08:12 1 GM Furosemide 60 mg/ Syringe 6 ml @ 4 mls/min Q4H IV 09/04/16 12:00 10/04/16 11:59 09/05/16 08:10 4 MLS/MIN Potassium Chloride/Sodium Chloride (KCl Inj/Nss 1000ml) 1,015 ml @ 150 mls/hr Q6H46M IV 09/04/16 12:15 10/04/16 12:14 Future hold 09/05/16 02:00 150 MLS/HR Heparin Sodium (Porcine) (Heparin 10 Unit/ ml 5 ml Flush) 5 ml PRN PRN FLUSH 09/04/16 16:15 10/04/16 16:14 Albuterol/ Ipratropium (Duoneb) 3 ml Q2H PRN INH 09/05/16 05:00 10/05/16 04:59 Last 24 Hours Test 09/04/16 10:20 09/04/16 11:57 09/04/16 15:52 09/04/16 20:37 Sodium Level 116 mmol/L 118 mmol/L 118 mmol/L Potassium Level 3.5 mmol/L 3.8 mmol/L 3.6 mmol/L Chloride Level 79 mmol/L 78 mmol/L 78 mmol/L Carbon Dioxide Level 26 mmol/L 29 mmol/L 30 mmol/L Anion Gap 11.0 mmol/L 11.0 mmol/L 10.0 mmol/L Blood Urea Nitrogen 14 mg/dl 18 mg/dl 19 mg/dl Creatinine 0.81 mg/dl 0.78 mg/dl 0.93 mg/dl Est Creatinine Clear Calc Drug Dose 55.2 ml/min 57.3 ml/min 48.1 ml/min Estimated GFR () 77.3 80.9 65.4 Estimated GFR (Non- 66.7 69.8 56.4 BUN/Creatinine Ratio 17.7 22.9 20.9 Random Glucose 131 mg/dl 122 mg/dl 128 mg/dl Calcium Level 8.8 mg/dl 8.2 mg/dl 8.2 mg/dl Bedside Glucose 144 mg/dl Magnesium Level 1.6 mg/dl Test 09/05/16 05:27 09/05/16 06:48 White Blood Count 10.91 K/uL Red Blood Count 4.23 M/uL Hemoglobin 12.5 g/dL Hematocrit 33.3 % Mean Corpuscular Volume 78.7 fL Mean Corpuscular Hemoglobin 29.6 pg Mean Corpuscular Hemoglobin Concent 37.5 g/dl Platelet Count 196 K/uL Mean Platelet Volume 9.1 fL Neutrophils (%) (Auto) 68.4 % Lymphocytes (%) (Auto) 21.3 % Monocytes (%) (Auto) 8.4 % Eosinophils (%) (Auto) 1.4 % Basophils (%) (Auto) 0.1 % Neutrophils # (Auto) 7.47 K/uL Lymphocytes # (Auto) 2.32 K/uL Monocytes # (Auto) 0.92 K/uL Eosinophils # (Auto) 0.15 K/uL Basophils # (Auto) 0.01 K/uL RDW Standard Deviation 37.9 fL RDW Coefficient of Variation 13.2 % Immature Granulocyte % (Auto) 0.4 % Immature Granulocyte # (Auto) 0.04 K/uL Activated Partial Thromboplast Time 28.2 SECONDS Partial Thromboplastin Ratio 1.1 Sodium Level 121 mmol/L Potassium Level 3.6 mmol/L Chloride Level 84 mmol/L Carbon Dioxide Level 26 mmol/L Anion Gap 11.0 mmol/L Blood Urea Nitrogen 22 mg/dl Creatinine 0.89 mg/dl Est Creatinine Clear Calc Drug Dose 50.2 ml/min Estimated GFR () 69.0 Estimated GFR (Non- 59.5 BUN/Creatinine Ratio 25.1 Random Glucose 109 mg/dl Calcium Level 7.9 mg/dl Magnesium Level 1.6 mg/dl Bedside Glucose 136 mg/dl Assessment & Plan 86 y/o F a/w HTN urgency and palpitations on 09/01 on outpt hctz who now has sudden drop of serum Na from baseline low 130s to 122 this am; luanne 115. Her HTN has been controlled; now off of heparin gtt. Acute on chronic hyponatremia, asymptomatic, euvolemic and studies/hx most consistent with hctz as cause; decreased po intake may have some role too states she was actually using hctz as rx'd at home; it is certainly possible to develop hyponatremia from this med even after years of tx; she had hctz am 09/03 most recently then stopped -goal Na for tomorrow is 126-127; Na on recheck this am 121 -cont 1.5L fluid limit and strict I/O -cont NaCl tabs 1 gm tid -cont NS 150 mL /hr but will increase to 40 mEq/L K + 60 mg IV lasix q4h for immediate future -would cont precautions about ambulation until Na back in 124-125 range -encourage protein shakes or other PO intake; protein does not count toward limit -recheck Na ordered 1500 and likely q4-6 hrs thereafter appreciate consult; will follow with you.
--- NOTE | 2016-09-05 10:24 | Nephrology Progress Note ---
Nephrology Progress Note Date of Service: Sep 05, 2016. Subjective note created in error; pls see other note by me on this date Objective Date Time Temp Pulse Resp B/P Pulse Ox O2 Delivery O2 Flow Rate FiO2 09/05/16 07:41 36.6 68 18 130/78 92 Room Air 09/05/16 04:00 97 Room Air 09/05/16 03:45 36.7 69 17 110/69 97 Room Air 09/05/16 00:01 95 Room Air 09/04/16 23:59 72 105/66 09/04/16 23:57 69 118/71 09/04/16 23:55 36.8 68 17 139/75 95 Room Air 09/04/16 21:12 74 145/76 09/04/16 20:00 95 Room Air 09/04/16 19:47 36.7 73 16 136/79 95 Room Air 09/04/16 16:00 94 Room Air 09/04/16 16:00 36.7 73 20 146/82 94 Room Air 133/79 108/54 09/04/16 12:00 Room Air 09/04/16 11:01 36.8 66 20 139/78 95 Room Air 09/04/16 08:32 77 170/83 09/04/16 08:31 69 182/93 09/04/16 08:30 74 185/85 Current Inpatient Medications Medications (Trade) Dose Ordered Sig/Jaime Route Start Time Stop Time Status Last Admin Dose Admin Acetaminophen (Tylenol Tab) 650 mg Q4H PRN PO 09/01/16 14:30 10/01/16 14:29 09/02/16 23:36 650 MG Ondansetron HCl (Zofran Inj) 4 mg Q6H PRN IV 09/01/16 14:30 10/01/16 14:29 09/05/16 08:15 4 MG Nitroglycerin (Nitrostat Tab) 0.4 mg UD PRN SL 09/01/16 14:30 10/01/16 14:29 Metoprolol Tartrate (Lopressor Tab) 50 mg BID PO 09/02/16 09:00 10/02/16 08:59 09/05/16 08:12 50 MG Hydrochlorothiazide (Hydrochlorothiazide Tab) 12.5 mg QAM PO 09/02/16 09:00 4/13/17 08:59 Future Hold 09/03/16 07:36 12.5 MG Lorazepam (Ativan Tab) 0.5 mg HS PRN PO 09/01/16 14:30 10/01/16 14:29 09/04/16 21:12 0.5 MG Cholecalciferol (Vitamin D Tab) 2,000 inter.unit DAILY PO 09/02/16 09:00 10/02/16 08:59 09/05/16 08:13 2,000 INTER.UNIT Atorvastatin Calcium (Lipitor Tab) 80 mg QAM PO 09/02/16 09:00 10/02/16 08:59 09/05/16 08:12 80 MG Miscellaneous (Iv Fluids Completed) 1 ea PRN PRN N/A 09/01/16 16:00 09/01/17 15:59 Aspirin (Ecotrin Tab) 81 mg QAM PO 09/02/16 09:00 10/02/16 08:59 09/05/16 08:11 81 MG Calcium Carbonate (Tums Chew Tab) 1,000 mg Q4H PRN PO 09/02/16 00:15 10/02/16 00:14 09/03/16 17:47 1,000 MG Docusate Sodium (coLACE CAP) 100 mg BID PO 09/02/16 21:00 10/02/16 20:59 09/05/16 08:11 100 MG Losartan Potassium (coZAAR TAB) 100 mg DAILY PO 09/04/16 09:00 10/04/16 08:59 09/05/16 08:11 100 MG Sodium Chloride 1 gm 1 gm TID PO 09/04/16 09:00 10/04/16 08:59 09/05/16 08:12 1 GM Furosemide 60 mg/ Syringe 6 ml @ 4 mls/min Q4H IV 09/04/16 12:00 10/04/16 11:59 09/05/16 08:10 4 MLS/MIN Potassium Chloride/Sodium Chloride (KCl Inj/Nss 1000ml) 1,015 ml @ 150 mls/hr Q6H46M IV 09/04/16 12:15 10/04/16 12:14 Future hold 09/05/16 02:00 150 MLS/HR Heparin Sodium (Porcine) (Heparin 10 Unit/ ml 5 ml Flush) 5 ml PRN PRN FLUSH 09/04/16 16:15 10/04/16 16:14 Albuterol/ Ipratropium 3 ml 3 ml Q2H PRN INH 09/05/16 05:00 10/05/16 04:59 Magnesium Sulfate/ Prmx (Magnesium Sulfate/Premixed D5W) 100 ml @ 100 mls/hr TODAY@0730 ONCE IV 09/05/16 07:30 09/05/16 08:29 09/05/16 08:07 100 MLS/HR Last 24 Hours Test 09/04/16 10:20 09/04/16 11:57 09/04/16 15:52 09/04/16 20:37 Sodium Level 116 mmol/L 118 mmol/L 118 mmol/L Potassium Level 3.5 mmol/L 3.8 mmol/L 3.6 mmol/L Chloride Level 79 mmol/L 78 mmol/L 78 mmol/L Carbon Dioxide Level 26 mmol/L 29 mmol/L 30 mmol/L Anion Gap 11.0 mmol/L 11.0 mmol/L 10.0 mmol/L Blood Urea Nitrogen 14 mg/dl 18 mg/dl 19 mg/dl Creatinine 0.81 mg/dl 0.78 mg/dl 0.93 mg/dl Est Creatinine Clear Calc Drug Dose 55.2 ml/min 57.3 ml/min 48.1 ml/min Estimated GFR () 77.3 80.9 65.4 Estimated GFR (Non- 66.7 69.8 56.4 BUN/Creatinine Ratio 17.7 22.9 20.9 Random Glucose 131 mg/dl 122 mg/dl 128 mg/dl Calcium Level 8.8 mg/dl 8.2 mg/dl 8.2 mg/dl Bedside Glucose 144 mg/dl Magnesium Level 1.6 mg/dl Test 09/05/16 05:27 09/05/16 06:48 White Blood Count 10.91 K/uL Red Blood Count 4.23 M/uL Hemoglobin 12.5 g/dL Hematocrit 33.3 % Mean Corpuscular Volume 78.7 fL Mean Corpuscular Hemoglobin 29.6 pg Mean Corpuscular Hemoglobin Concent 37.5 g/dl Platelet Count 196 K/uL Mean Platelet Volume 9.1 fL Neutrophils (%) (Auto) 68.4 % Lymphocytes (%) (Auto) 21.3 % Monocytes (%) (Auto) 8.4 % Eosinophils (%) (Auto) 1.4 % Basophils (%) (Auto) 0.1 % Neutrophils # (Auto) 7.47 K/uL Lymphocytes # (Auto) 2.32 K/uL Monocytes # (Auto) 0.92 K/uL Eosinophils # (Auto) 0.15 K/uL Basophils # (Auto) 0.01 K/uL RDW Standard Deviation 37.9 fL RDW Coefficient of Variation 13.2 % Immature Granulocyte % (Auto) 0.4 % Immature Granulocyte # (Auto) 0.04 K/uL Activated Partial Thromboplast Time 28.2 SECONDS Partial Thromboplastin Ratio 1.1 Sodium Level 121 mmol/L Potassium Level 3.6 mmol/L Chloride Level 84 mmol/L Carbon Dioxide Level 26 mmol/L Anion Gap 11.0 mmol/L Blood Urea Nitrogen 22 mg/dl Creatinine 0.89 mg/dl Est Creatinine Clear Calc Drug Dose 50.2 ml/min Estimated GFR () 69.0 Estimated GFR (Non- 59.5 BUN/Creatinine Ratio 25.1 Random Glucose 109 mg/dl Calcium Level 7.9 mg/dl Magnesium Level 1.6 mg/dl Bedside Glucose 136 mg/dl Assessment & Plan
[2016-09-05] MEDS ORDERED: POTASSIUM CHLORIDE INJ 40 MEQ in SODIUM CHLORIDE 0.9% 1000ML 1,000 ML IV SCH (11:00)
[2016-09-05] MEDS: MAGNESIUM SULFATE 1GM / D5W 1 GM in PREMIXED IN D5W 100 ML IV SCH ×2 (12:00→12:17)
--- NOTE | 2016-09-05 13:41 | Progress Note ---
Subjective Date of Service: Sep 05, 2016. Subjective Pt evaluation today including: conversation w/ patient, physical exam, lab review, review of studies, review of inpatient medication list Saw/examined the patient in room 238 No problems/issues to note; family in the room with patient She denies any symptoms Is not eating much, cannot tolerate much Problem List Medical Problems: (1) Tachycardia Status: Acute Review of Systems Constitutional: + weakness, No chills, No fever, No weight loss Respiratory: No cough, No dyspnea at rest, No dyspnea on exertion, No hemoptysis, No shortness of breath, No sputum, No wheezing Cardiac: No chest pain, No edema, No palpitations Abdomen: + nausea, No GI bleeding, No constipation, No diarrhea, No pain, No vomiting Female : No dysuria, No urinary frequency Psychiatric: + anxiety Heme: No abnormal bleeding/bruising Medications Current Inpatient Medications Medications (Trade) Dose Ordered Sig/Jaime Route Start Time Stop Time Status Last Admin Dose Admin Acetaminophen (Tylenol Tab) 650 mg Q4H PRN PO 09/01/16 14:30 10/01/16 14:29 09/02/16 23:36 650 MG Ondansetron HCl (Zofran Inj) 4 mg Q6H PRN IV 09/01/16 14:30 10/01/16 14:29 09/05/16 08:15 4 MG Nitroglycerin (Nitrostat Tab) 0.4 mg UD PRN SL 09/01/16 14:30 10/01/16 14:29 Metoprolol Tartrate (Lopressor Tab) 50 mg BID PO 09/02/16 09:00 10/02/16 08:59 09/05/16 08:12 50 MG Hydrochlorothiazide (Hydrochlorothiazide Tab) 12.5 mg QAM PO 09/02/16 09:00 10/02/16 08:59 Future Hold 09/03/16 07:36 12.5 MG Lorazepam (Ativan Tab) 0.5 mg HS PRN PO 09/01/16 14:30 10/01/16 14:29 09/04/16 21:12 0.5 MG Cholecalciferol (Vitamin D Tab) 2,000 inter.unit DAILY PO 09/02/16 09:00 10/02/16 08:59 09/05/16 08:13 2,000 INTER.UNIT Atorvastatin Calcium (Lipitor Tab) 80 mg QAM PO 09/02/16 09:00 10/02/16 08:59 09/05/16 08:12 80 MG Miscellaneous (Iv Fluids Completed) 1 ea PRN PRN N/A 09/01/16 16:00 09/01/17 15:59 Aspirin (Ecotrin Tab) 81 mg QAM PO 09/02/16 09:00 10/02/16 08:59 09/05/16 08:11 81 MG Calcium Carbonate (Tums Chew Tab) 1,000 mg Q4H PRN PO 09/02/16 00:15 10/02/16 00:14 09/03/16 17:47 1,000 MG Docusate Sodium (coLACE CAP) 100 mg BID PO 09/02/16 21:00 10/02/16 20:59 09/05/16 08:11 100 MG Losartan Potassium 100 mg 100 mg DAILY PO 09/04/16 09:00 10/04/16 08:59 09/05/16 08:11 100 MG Furosemide/Syringe (Lasix Inj/ Syringe) 6 ml @ 4 mls/min Q4H IV 09/04/16 12:00 10/04/16 11:59 09/05/16 12:17 4 MLS/MIN Heparin Sodium (Porcine) (Heparin 10 Unit/ ml 5 ml Flush) 5 ml PRN PRN FLUSH 09/04/16 16:15 10/04/16 16:14 Albuterol/ Ipratropium 3 ml 3 ml Q2H PRN INH 09/05/16 05:00 10/05/16 04:59 Potassium Chloride/Sodium Chloride (KCl Inj/Nss 1000ml) 1,020 ml @ 150 mls/hr Q6H48M IV 09/05/16 11:00 10/05/16 10:29 09/05/16 10:42 150 MLS/HR Objective Vital Signs Date Time Temp Pulse Resp B/P Pulse Ox O2 Delivery O2 Flow Rate FiO2 09/05/16 12:00 Room Air 09/05/16 11:32 36.4 69 18 112/67 97 Room Air 71 104/65 72 91/56 09/05/16 08:00 Room Air 09/05/16 07:41 36.6 68 18 130/78 92 Room Air 09/05/16 04:00 97 Room Air 09/05/16 03:45 36.7 69 17 110/69 97 Room Air 09/05/16 00:01 95 Room Air 09/04/16 23:59 72 105/66 09/04/16 23:57 69 118/71 09/04/16 23:55 36.8 68 17 139/75 95 Room Air 09/04/16 21:12 74 145/76 09/04/16 20:00 95 Room Air 09/04/16 19:47 36.7 73 16 136/79 95 Room Air 09/04/16 16:00 94 Room Air 09/04/16 16:00 36.7 73 20 146/82 94 Room Air 133/79 108/54 Physical Exam General Appearance: no apparent distress ENT: hearing grossly normal Respiratory/Chest: chest non-tender, lungs clear, normal breath sounds, no respiratory distress, no accessory muscle use Cardiovascular: regular rate, rhythm, no edema, no gallop, no JVD, no murmur Abdomen: normal bowel sounds, non tender, soft Extremities: + pertinent finding (trace edema b/l LE) Neurologic/Psychiatric: no motor/sensory deficits, alert, normal mood/affect, oriented x 3 Skin: normal color Lymphatic: no adenopathy Laboratory Results Last 24 Hours Test 09/04/16 15:52 09/04/16 20:37 09/05/16 05:27 09/05/16 06:48 Sodium Level 118 mmol/L 118 mmol/L 121 mmol/L Potassium Level 3.8 mmol/L 3.6 mmol/L 3.6 mmol/L Chloride Level 78 mmol/L 78 mmol/L 84 mmol/L Carbon Dioxide Level 29 mmol/L 30 mmol/L 26 mmol/L Anion Gap 11.0 mmol/L 10.0 mmol/L 11.0 mmol/L Blood Urea Nitrogen 18 mg/dl 19 mg/dl 22 mg/dl Creatinine 0.78 mg/dl 0.93 mg/dl 0.89 mg/dl Est Creatinine Clear Calc Drug Dose 57.3 ml/min 48.1 ml/min 50.2 ml/min Estimated GFR () 80.9 65.4 69.0 Estimated GFR (Non- 69.8 56.4 59.5 BUN/Creatinine Ratio 22.9 20.9 25.1 Random Glucose 122 mg/dl 128 mg/dl 109 mg/dl Calcium Level 8.2 mg/dl 8.2 mg/dl 7.9 mg/dl Magnesium Level 1.6 mg/dl 1.6 mg/dl White Blood Count 10.91 K/uL Red Blood Count 4.23 M/uL Hemoglobin 12.5 g/dL Hematocrit 33.3 % Mean Corpuscular Volume 78.7 fL Mean Corpuscular Hemoglobin 29.6 pg Mean Corpuscular Hemoglobin Concent 37.5 g/dl Platelet Count 196 K/uL Mean Platelet Volume 9.1 fL Neutrophils (%) (Auto) 68.4 % Lymphocytes (%) (Auto) 21.3 % Monocytes (%) (Auto) 8.4 % Eosinophils (%) (Auto) 1.4 % Basophils (%) (Auto) 0.1 % Neutrophils # (Auto) 7.47 K/uL Lymphocytes # (Auto) 2.32 K/uL Monocytes # (Auto) 0.92 K/uL Eosinophils # (Auto) 0.15 K/uL Basophils # (Auto) 0.01 K/uL RDW Standard Deviation 37.9 fL RDW Coefficient of Variation 13.2 % Immature Granulocyte % (Auto) 0.4 % Immature Granulocyte # (Auto) 0.04 K/uL Activated Partial Thromboplast Time 28.2 SECONDS Partial Thromboplastin Ratio 1.1 Bedside Glucose 136 mg/dl Test 09/05/16 11:15 Bedside Glucose 130 mg/dl Assessment and Plan This is an 86 year old female with PMH of HTN, HLD, diet controlled DM2, anxiety , insomnia presented with palpitations and subsequently found to have elevated troponin level as well as elevated blood pressure Hyponatremia 09/05 appreciate nephrology management currently on sodium tablets + Lasix Na improved to 121 goal range of Na is 125-126 decreased appetite, nausea will add ensure with meals 09/04 thiazide induced hyponatremia? appreciate nephrology input patient received multiple boluses of hypertonic sodium PICC line ordered pierre inserted For now, Lasix + sodium tablets and possibly NS fluids as per nephro sodium levels continue to be low, last one was 116 09/03 unsure of the cause? sodium down from 132 to 122 this morning and repeat Na is 120 low osm, low urine osm fluid restriction appreciate nephro input hold HCTZ, stopped Celexa Elevated Troponin Level in the setting of Palpitations 09/03 Doing well, no palpitations outpatient Zio patch stopped IV heparin 09/02 troponin elevation noted to 0.[address]-T wave changes, there is a RBBB echo is pending this elevation is likely due to hypertensive urgency as well as palpitations ( possible arrhythmia?) currently on IV heparin continue metoprolol appreciate cardiology input - monitor in tele, will need Zio patch as outpatient Hypertensive Urgency 09/04 stopped HCTZ and added to allergy/adverse reaction list blood pressures labile, last one was actually a good reading at 140/80 will continue Cozaar at new dose of 100mg daily; continue metoprolol currently receiving Lasix for hyponatremia, so will monitor BP and adjust after Lasix is stopped 09/03 stopped HCTZ due to hyponatremia increased Cozaar, continue b-garcía blood pressure improving 09/02 patient with a hx. of HTN uses Cozaar, HCTZ, metoprolol at home Continue these medications and adjust accordingly blood pressure is improving; goal of <140/90 due to hx. of DM2 Anxiety/Insomnia patient uses ativan for anxiety also takes this at night as it helps her decrease anxiety level nocturnally to help her sleep offered a different medication for insomnia, but patient declined Diet controlled DM2 not on any medication last Ha1c = 5.9% in April 2016 DVT ppx SCDs DNR
[2016-09-05 15:21] LABS: BUN/CREATININE RATIO 27.7 (10-20); CALCIUM 7.7 mg/dl (8.5-10.1); CREATININE 0.86 mg/dl (0.60-1.20); POTASSIUM 3.5 mmol/L (3.5-5.1)
[2016-09-05] MEDS: BOOST VANILLA PO SCH ×2 (16:29)
[2016-09-05] MEDS ORDERED: POTASSIUM CHLORIDE 20 MEQ TABCR PO ONE (16:45)
[2016-09-05 22:47] LABS: BUN/CREATININE RATIO 30.6 (10-20); CALCIUM 7.8 mg/dl (8.5-10.1); CREATININE 0.81 mg/dl (0.60-1.20); MAGNESIUM 2.3 mg/dl (1.8-2.4); POTASSIUM 3.8 mmol/L (3.5-5.1)
[2016-09-05] MEDS: LORAZEPAM 0.5 MG TAB PO PRN (23:06)
[2016-09-06 04:01] VITALS: BP 107/61; PULSE 66; TEMP 36.7; O2SAT 96
[2016-09-06 05:44] LABS: HEMATOCRIT 32.3 % (37-47); MEAN CELL VOLUME 82.6 fL (80-100); MEAN CORPUSCULAR HEMOGLOBIN 29.2 pg (25-34); MEAN CORPUSCULAR HGB CONC 35.3 g/dl (32-36); MEAN PLATELET VOLUME 9.6 fL (7.4-10.4); PLATELET COUNT 180 K/uL (130-400); RED BLOOD COUNT 3.91 M/uL (4.2-5.4); WHITE BLOOD COUNT 10.94 K/uL (4.8-10.8)
[2016-09-06 06:09] LABS: BUN/CREATININE RATIO 28.7 (10-20); CALCIUM 7.6 mg/dl (8.5-10.1); CREATININE 0.86 mg/dl (0.60-1.20); MAGNESIUM 2.3 mg/dl (1.8-2.4); POTASSIUM 4.3 mmol/L (3.5-5.1)
[2016-09-06 07:23] VITALS: BP 128/75; PULSE 16; PULSE 68; TEMP 37; O2SAT 94
[2016-09-06] MEDS: BOOST VANILLA PO SCH ×4 (07:30→11:45)
[2016-09-06] MEDS: DOCUSATE SODIUM 100 MG CAP PO SCH ×2 (08:23→21:03)
[2016-09-06] MEDS: ATORVASTATIN 40 MG TAB PO SCH (08:24)
[2016-09-06] MEDS: LOSARTAN POTASSIUM 50 MG TAB PO SCH (08:24)
[2016-09-06] MEDS: ASPIRIN 81 MG ECTAB PO SCH (08:24)
[2016-09-06] MEDS: METOPROLOL TARTRATE 50 MG TAB PO SCH ×2 (08:25→21:03)
[2016-09-06] MEDS: CHOLECALCIFEROL 1000 INTER.UNIT TAB PO SCH (08:25)
[2016-09-06] MEDS ORDERED: POTASSIUM CHLORIDE INJ 40 MEQ in SODIUM CHLORIDE 0.9% 1000ML 1,000 ML IV SCH (10:00)
[2016-09-06] MEDS: FUROSEMIDE INJ 60 MG in SYRINGE 0 ML IV SCH ×2 (10:26→14:23)
--- NOTE | 2016-09-06 10:50 | Progress Note ---
Subjective Date of Service: Sep 06, 2016. Subjective Pt evaluation today including: conversation w/ patient, physical exam, lab review, review of studies, review of inpatient medication list Saw/examined the patient in room 238 She is doing well today; ate her breakfast and tolerated it, regaining some appetite Denies chest pain/palpitations No other problems to note Problem List Medical Problems: (1) Tachycardia Status: Acute Review of Systems Constitutional: + problem reported (improving appetite), + weakness, No chills , No fever Respiratory: No cough, No dyspnea at rest, No dyspnea on exertion, No hemoptysis, No shortness of breath, No sputum, No wheezing Cardiac: No chest pain, No edema, No palpitations Abdomen: No constipation, No diarrhea, No nausea, No pain, No vomiting Medications Current Inpatient Medications Medications (Trade) Dose Ordered Sig/Jaime Route Start Time Stop Time Status Last Admin Dose Admin Acetaminophen (Tylenol Tab) 650 mg Q4H PRN PO 09/01/16 14:30 10/01/16 14:29 09/02/16 23:36 650 MG Ondansetron HCl (Zofran Inj) 4 mg Q6H PRN IV 09/01/16 14:30 10/01/16 14:29 09/05/16 08:15 4 MG Nitroglycerin (Nitrostat Tab) 0.4 mg UD PRN SL 09/01/16 14:30 10/01/16 14:29 Metoprolol Tartrate (Lopressor Tab) 50 mg BID PO 09/02/16 09:00 10/02/16 08:59 09/06/16 08:25 50 MG Hydrochlorothiazide (Hydrochlorothiazide Tab) 12.5 mg QAM PO 09/02/16 09:00 10/02/16 08:59 Future Hold 09/03/16 07:36 12.5 MG Lorazepam (Ativan Tab) 0.5 mg HS PRN PO 09/01/16 14:30 10/01/16 14:29 09/05/16 23:06 0.5 MG Cholecalciferol (Vitamin D Tab) 2,000 inter.unit DAILY PO 09/02/16 09:00 10/02/16 08:59 09/06/16 08:25 2,000 INTER.UNIT Atorvastatin Calcium (Lipitor Tab) 80 mg QAM PO 09/02/16 09:00 10/02/16 08:59 09/06/16 08:24 80 MG Miscellaneous (Iv Fluids Completed) 1 ea PRN PRN N/A 09/01/16 16:00 09/01/17 15:59 Aspirin (Ecotrin Tab) 81 mg QAM PO 09/02/16 09:00 10/02/16 08:59 09/06/16 08:24 81 MG Calcium Carbonate (Tums Chew Tab) 1,000 mg Q4H PRN PO 09/02/16 00:15 10/02/16 00:14 09/03/16 17:47 1,000 MG Docusate Sodium (coLACE CAP) 100 mg BID PO 09/02/16 21:00 10/02/16 20:59 09/05/16 08:11 100 MG Losartan Potassium (coZAAR TAB) 100 mg DAILY PO 09/04/16 09:00 10/04/16 08:59 09/06/16 08:24 100 MG Heparin Sodium (Porcine) (Heparin 10 Unit/ ml 5 ml Flush) 5 ml PRN PRN FLUSH 09/04/16 16:15 10/04/16 16:14 09/05/16 21:57 5 ML Albuterol/ Ipratropium (Duoneb) 3 ml Q2H PRN INH 09/05/16 05:00 10/05/16 04:59 Enteral Nutritional Formula 1 can 1 can TIDM PO 09/05/16 16:45 10/05/16 16:44 09/05/16 16:29 1 CAN Potassium Chloride 40 meq/ Sodium Chloride 1,020 ml @ 150 mls/hr Q6H48M IV 09/06/16 10:00 10/06/16 09:59 09/06/16 10:26 150 MLS/HR Furosemide/Syringe (Lasix Inj/ Syringe) 6 ml @ 4 mls/min Q4H IV 09/06/16 10:30 10/06/16 10:29 09/06/16 10:26 4 MLS/MIN Miscellaneous Information (Pending Order) 1 ea Q6H N/A 09/06/16 16:00 10/06/16 15:59 Objective Vital Signs Date Time Temp Pulse Resp B/P Pulse Ox O2 Delivery O2 Flow Rate FiO2 09/06/16 08:00 Room Air 09/06/16 07:23 37.0 68 16 128/75 94 16 09/06/16 04:01 36.7 66 20 107/61 96 Room Air 09/06/16 04:00 Room Air 09/05/16 23:59 Room Air 09/05/16 23:56 36.7 74 20 132/75 95 Room Air 09/05/16 20:00 Room Air 09/05/16 19:55 36.8 74 20 127/73 91 Room Air 132/66 101/65 09/05/16 16:00 Room Air 09/05/16 15:49 36.3 66 16 114/70 97 Room Air 09/05/16 12:00 Room Air 09/05/16 11:32 36.4 69 18 112/67 97 Room Air 71 104/65 72 91/56 Physical Exam General Appearance: no apparent distress Respiratory/Chest: lungs clear, normal breath sounds, no respiratory distress, no accessory muscle use Cardiovascular: regular rate, rhythm, no edema, no murmur Abdomen: normal bowel sounds, non tender, soft Extremities: non-tender, normal inspection, no pedal edema Neurologic/Psychiatric: no motor/sensory deficits, alert, normal mood/affect Laboratory Results Last 24 Hours Test 09/05/16 11:15 09/05/16 14:51 09/05/16 21:55 09/06/16 05:25 Bedside Glucose 130 mg/dl Sodium Level 125 mmol/L 125 mmol/L 124 mmol/L Potassium Level 3.5 mmol/L 3.8 mmol/L 4.3 mmol/L Chloride Level 85 mmol/L 86 mmol/L 89 mmol/L Carbon Dioxide Level 27 mmol/L 29 mmol/L 28 mmol/L Anion Gap 13.0 mmol/L 10.0 mmol/L 7.0 mmol/L Blood Urea Nitrogen 24 mg/dl 25 mg/dl 25 mg/dl Creatinine 0.86 mg/dl 0.81 mg/dl 0.86 mg/dl Est Creatinine Clear Calc Drug Dose 51.4 ml/min 54.6 ml/min 51.4 ml/min Estimated GFR () 71.9 77.3 71.9 Estimated GFR (Non- 62.0 66.7 62.0 BUN/Creatinine Ratio 27.7 30.6 28.7 Random Glucose 146 mg/dl 119 mg/dl 112 mg/dl Calcium Level 7.7 mg/dl 7.8 mg/dl 7.6 mg/dl Magnesium Level 2.3 mg/dl 2.3 mg/dl White Blood Count 10.94 K/uL Red Blood Count 3.91 M/uL Hemoglobin 11.4 g/dL Hematocrit 32.3 % Mean Corpuscular Volume 82.6 fL Mean Corpuscular Hemoglobin 29.2 pg Mean Corpuscular Hemoglobin Concent 35.3 g/dl RDW Standard Deviation 41.6 fL RDW Coefficient of Variation 13.7 % Platelet Count 180 K/uL Mean Platelet Volume 9.6 fL Test 09/06/16 06:40 Bedside Glucose 113 mg/dl Assessment and Plan This is an 86 year old female with PMH of HTN, HLD, diet controlled DM2, anxiety , insomnia presented with palpitations and subsequently found to have elevated troponin level as well as elevated blood pressure Hyponatremia 09/06 appreciate nephrology management sodium improved; this morning of 124 Lasix + IVFs restarted with some potassium added boost and patient enjoyed this improving appetite and tolerated half of breakfast 09/05 appreciate nephrology management currently on sodium tablets + Lasix Na improved to 121 goal range of Na is 125-126 decreased appetite, nausea will add ensure with meals 09/04 thiazide induced hyponatremia? appreciate nephrology input patient received multiple boluses of hypertonic sodium PICC line ordered pierre inserted For now, Lasix + sodium tablets and possibly NS fluids as per nephro sodium levels continue to be low, last one was 116 09/03 unsure of the cause? sodium down from 132 to 122 this morning and repeat Na is 120 low osm, low urine osm fluid restriction appreciate nephro input hold HCTZ, stopped Celexa Elevated Troponin Level in the setting of Palpitations 09/03 Doing well, no palpitations outpatient Zio patch stopped IV heparin 09/02 troponin elevation noted to 0.[address]-T wave changes, there is a RBBB echo is pending this elevation is likely due to hypertensive urgency as well as palpitations ( possible arrhythmia?) currently on IV heparin continue metoprolol appreciate cardiology input - monitor in tele, will need Zio patch as outpatient Hypertensive Urgency 09/04 stopped HCTZ and added to allergy/adverse reaction list blood pressures labile, last one was actually a good reading at 140/80 will continue Cozaar at new dose of 100mg daily; continue metoprolol currently receiving Lasix for hyponatremia, so will monitor BP and adjust after Lasix is stopped 09/03 stopped HCTZ due to hyponatremia increased Cozaar, continue b-garcía blood pressure improving 09/02 patient with a hx. of HTN uses Cozaar, HCTZ, metoprolol at home Continue these medications and adjust accordingly blood pressure is improving; goal of <140/90 due to hx. of DM2 Anxiety/Insomnia patient uses ativan for anxiety also takes this at night as it helps her decrease anxiety level nocturnally to help her sleep offered a different medication for insomnia, but patient declined Diet controlled DM2 not on any medication last Ha1c = 5.9% in April 2016 DVT ppx SCDs DNR
[2016-09-06 11:30] VITALS: BP 109/60; PULSE 59; TEMP 37.1; O2SAT 90
[2016-09-06 14:56] VITALS: BP_SYST 104; BP_SYST 105; BP_SYST 108; BP_DIAS 55; BP_DIAS 66; BP_DIAS 67; PULSE 67; PULSE 70; PULSE 79; TEMP 36.6; O2SAT 96
[2016-09-06 15:36] LABS: BUN/CREATININE RATIO 28.5 (10-20); CALCIUM 7.9 mg/dl (8.5-10.1); CREATININE 0.84 mg/dl (0.60-1.20); POTASSIUM 4.2 mmol/L (3.5-5.1)
[2016-09-06] MEDS: BOOST PLUS VANILLA PO SCH ×2 (16:45)
--- NOTE | 2016-09-06 16:48 | Nephrology Progress Note ---
Nephrology Progress Note Date of Service: Sep 06, 2016. Subjective no chest pain or dyspnea; less stomach upset today > ate full breakfast, lunch; no edema; grandson at bedside; moving bowels Objective Date Time Temp Pulse Resp B/P Pulse Ox O2 Delivery O2 Flow Rate FiO2 09/06/16 16:00 Room Air 09/06/16 14:56 36.6 67 18 104/55 96 Room Air 79 105/67 70 108/66 09/06/16 12:00 Room Air 09/06/16 11:30 37.1 59 16 109/60 90 Room Air 09/06/16 08:00 Room Air 09/06/16 07:23 37.0 68 16 128/75 94 16 09/06/16 04:01 36.7 66 20 107/61 96 Room Air 09/06/16 04:00 Room Air 09/05/16 23:59 Room Air 09/05/16 23:56 36.7 74 20 132/75 95 Room Air 09/05/16 20:00 Room Air 09/05/16 19:55 36.8 74 20 127/73 91 Room Air 132/66 101/65 Physical Exam: General-lying flat on RA, nad, oriented x 3 Eyes-eomi ENT-mmm Neck-supple Lungs-scattered fine crackles more L than R Heart-RRR no edema Abdomen-soft NT +BS, +pierre Extremities-no c/c Neuro-bray, fluent speech Current Inpatient Medications Medications (Trade) Dose Ordered Sig/Jaime Route Start Time Stop Time Status Last Admin Dose Admin Acetaminophen (Tylenol Tab) 650 mg Q4H PRN PO 09/01/16 14:30 10/01/16 14:29 09/02/16 23:36 650 MG Ondansetron HCl (Zofran Inj) 4 mg Q6H PRN IV 09/01/16 14:30 10/01/16 14:29 09/05/16 08:15 4 MG Nitroglycerin (Nitrostat Tab) 0.4 mg UD PRN SL 09/01/16 14:30 10/01/16 14:29 Metoprolol Tartrate (Lopressor Tab) 50 mg BID PO 09/02/16 09:00 10/02/16 08:59 09/06/16 08:25 50 MG Hydrochlorothiazide (Hydrochlorothiazide Tab) 12.5 mg QAM PO 09/02/16 09:00 10/02/16 08:59 Future Hold 09/03/16 07:36 12.5 MG Lorazepam (Ativan Tab) 0.5 mg HS PRN PO 09/01/16 14:30 10/01/16 14:29 09/05/16 23:06 0.5 MG Cholecalciferol (Vitamin D Tab) 2,000 inter.unit DAILY PO 09/02/16 09:00 10/02/16 08:59 09/06/16 08:25 2,000 INTER.UNIT Atorvastatin Calcium (Lipitor Tab) 80 mg QAM PO 09/02/16 09:00 10/02/16 08:59 09/06/16 08:24 80 MG Miscellaneous (Iv Fluids Completed) 1 ea PRN PRN N/A 09/01/16 16:00 09/01/17 15:59 Aspirin (Ecotrin Tab) 81 mg QAM PO 09/02/16 09:00 10/02/16 08:59 09/06/16 08:24 81 MG Calcium Carbonate (Tums Chew Tab) 1,000 mg Q4H PRN PO 09/02/16 00:15 10/02/16 00:14 09/03/16 17:47 1,000 MG Docusate Sodium (coLACE CAP) 100 mg BID PO 09/02/16 21:00 10/02/16 20:59 09/05/16 08:11 100 MG Losartan Potassium (coZAAR TAB) 100 mg DAILY PO 09/04/16 09:00 10/04/16 08:59 09/06/16 08:24 100 MG Heparin Sodium (Porcine) (Heparin 10 Unit/ ml 5 ml Flush) 5 ml PRN PRN FLUSH 09/04/16 16:15 10/04/16 16:14 09/05/16 21:57 5 ML Albuterol/ Ipratropium 3 ml 3 ml Q2H PRN INH 09/05/16 05:00 10/05/16 04:59 Potassium Chloride 40 meq/ Sodium Chloride 1,020 ml @ 150 mls/hr Q6H48M IV 09/06/16 10:00 10/06/16 09:59 09/06/16 10:26 150 MLS/HR Furosemide/Syringe (Lasix Inj/ Syringe) 6 ml @ 4 mls/min Q4H IV 09/06/16 10:30 10/06/16 10:29 09/06/16 14:23 4 MLS/MIN Miscellaneous Information (Pending Order) 1 ea Q6H N/A 09/06/16 16:00 10/06/16 15:59 09/06/16 15:43 1 EA Enteral Nutritional Formula (Boost Plus Vanilla) 1 can BIDM PO 09/06/16 16:45 10/06/16 16:44 Last 24 Hours Test 09/05/16 21:55 09/06/16 05:25 09/06/16 06:40 09/06/16 10:52 Sodium Level 125 mmol/L 124 mmol/L Potassium Level 3.8 mmol/L 4.3 mmol/L Chloride Level 86 mmol/L 89 mmol/L Carbon Dioxide Level 29 mmol/L 28 mmol/L Anion Gap 10.0 mmol/L 7.0 mmol/L Blood Urea Nitrogen 25 mg/dl 25 mg/dl Creatinine 0.81 mg/dl 0.86 mg/dl Est Creatinine Clear Calc Drug Dose 54.6 ml/min 51.4 ml/min Estimated GFR () 77.3 71.9 Estimated GFR (Non- 66.7 62.0 BUN/Creatinine Ratio 30.6 28.7 Random Glucose 119 mg/dl 112 mg/dl Calcium Level 7.8 mg/dl 7.6 mg/dl Magnesium Level 2.3 mg/dl 2.3 mg/dl White Blood Count 10.94 K/uL Red Blood Count 3.91 M/uL Hemoglobin 11.4 g/dL Hematocrit 32.3 % Mean Corpuscular Volume 82.6 fL Mean Corpuscular Hemoglobin 29.2 pg Mean Corpuscular Hemoglobin Concent 35.3 g/dl RDW Standard Deviation 41.6 fL RDW Coefficient of Variation 13.7 % Platelet Count 180 K/uL Mean Platelet Volume 9.6 fL Bedside Glucose 113 mg/dl 117 mg/dl Test 09/06/16 15:08 Sodium Level 129 mmol/L Potassium Level 4.2 mmol/L Chloride Level 91 mmol/L Carbon Dioxide Level 32 mmol/L Anion Gap 6.0 mmol/L Blood Urea Nitrogen 24 mg/dl Creatinine 0.84 mg/dl Est Creatinine Clear Calc Drug Dose 52.9 ml/min Estimated GFR () 74.0 Estimated GFR (Non- 63.8 BUN/Creatinine Ratio 28.5 Random Glucose 123 mg/dl Calcium Level 7.9 mg/dl Assessment & Plan 86 y/o F a/w HTN urgency and palpitations on 09/01 on outpt hctz who had sudden drop of serum Na from baseline low 130s to 122 09/03; luanne 115. Her HTN has been controlled; now off of heparin gtt. Acute on chronic hyponatremia, asymptomatic, euvolemic and studies/hx most consistent with hctz as cause; decreased po intake may have some role too states she was actually using hctz as rx'd at home; it is certainly possible to develop hyponatremia from this med even after years of tx; she had hctz am 09/03 most recently then stopped; also hx of drinking a lot of water per grandson at home -goal Na for tomorrow is low 130-131; was 129 on recheck -cont 1.5L fluid limit and strict I/O -will d/c K - rich IVF -but continue 10 mg IV lasix q4h for immediate future -as long as sodium greater than 126, ok cautiously to ambulate/ start or intensify PT -encourage protein shakes or other PO intake; protein does not count toward limit -recheck bmp ordered 2100 and am appreciate consult; will follow with you.
[2016-09-06] MEDS ORDERED: POTASSIUM CHLORIDE 20 MEQ TABCR PO ONE (17:30)
[2016-09-06] MEDS: FUROSEMIDE INJ 10 MG in SYRINGE 0 ML IV SCH ×2 (18:24→22:30)
[2016-09-06 19:12] VITALS: BP 133/75; PULSE 87; TEMP 36.5; O2SAT 96
[2016-09-06] MEDS: LORAZEPAM 0.5 MG TAB PO PRN (21:40)
[2016-09-06 22:44] LABS: BUN/CREATININE RATIO 30.4 (10-20); CALCIUM 8.1 mg/dl (8.5-10.1); CREATININE 0.95 mg/dl (0.60-1.20); POTASSIUM 4.2 mmol/L (3.5-5.1)
[2016-09-07] VITALS (8 sets, daily range): BP systolic 94–124; BP diastolic 56–72; PULSE 63–74; TEMP 36.2–36.9; O2SAT 93–98
[2016-09-07] MEDS: FUROSEMIDE INJ 10 MG in SYRINGE 0 ML IV SCH ×6 (03:07→22:48)
[2016-09-07 07:39] LABS: BUN/CREATININE RATIO 34.2 (10-20); CALCIUM 8.4 mg/dl (8.5-10.1); CREATININE 0.84 mg/dl (0.60-1.20); MAGNESIUM 2.2 mg/dl (1.8-2.4); POTASSIUM 4.3 mmol/L (3.5-5.1)
[2016-09-07] MEDS: BOOST PLUS VANILLA PO SCH ×4 (08:12→16:42)
[2016-09-07] MEDS: DOCUSATE SODIUM 100 MG CAP PO SCH ×2 (08:13→20:55)
[2016-09-07] MEDS: ATORVASTATIN 40 MG TAB PO SCH (08:14)
[2016-09-07] MEDS: ASPIRIN 81 MG ECTAB PO SCH (08:14)
[2016-09-07] MEDS: LOSARTAN POTASSIUM 50 MG TAB PO SCH (08:14)
[2016-09-07] MEDS: METOPROLOL TARTRATE 50 MG TAB PO SCH ×2 (08:15→20:55)
[2016-09-07] MEDS: CHOLECALCIFEROL 1000 INTER.UNIT TAB PO SCH (08:15)
--- NOTE | 2016-09-07 08:53 | Progress Note ---
Subjective Date of Service: Sep 07, 2016. Subjective Pt evaluation today including: conversation w/ patient, physical exam, lab review, review of studies, review of inpatient medication list Saw/examined the patient in room 238-1 She feels she is fine; much improved PO intake She enjoys boost protein shakes now She has no chest pain or palpitations Denies shortness of breath Got out of bed to chair last evening PICC line in place, Pierre in place draining light yellow urine Problem List Medical Problems: (1) Tachycardia Status: Acute Review of Systems Constitutional: + weakness, No chills, No fever Respiratory: No cough, No shortness of breath, No sputum Cardiac: No chest pain, No edema, No palpitations Abdomen: No diarrhea, No nausea, No pain, No vomiting Medications Current Inpatient Medications Medications (Trade) Dose Ordered Sig/Jaime Route Start Time Stop Time Status Last Admin Dose Admin Acetaminophen (Tylenol Tab) 650 mg Q4H PRN PO 09/01/16 14:30 10/01/16 14:29 09/02/16 23:36 650 MG Ondansetron HCl (Zofran Inj) 4 mg Q6H PRN IV 09/01/16 14:30 10/01/16 14:29 09/05/16 08:15 4 MG Nitroglycerin (Nitrostat Tab) 0.4 mg UD PRN SL 09/01/16 14:30 10/01/16 14:29 Metoprolol Tartrate (Lopressor Tab) 50 mg BID PO 09/02/16 09:00 10/02/16 08:59 09/07/16 08:15 50 MG Lorazepam (Ativan Tab) 0.5 mg HS PRN PO 09/01/16 14:30 10/01/16 14:29 09/06/16 21:40 0.5 MG Cholecalciferol (Vitamin D Tab) 2,000 inter.unit DAILY PO 09/02/16 09:00 10/02/16 08:59 09/07/16 08:15 2,000 INTER.UNIT Atorvastatin Calcium (Lipitor Tab) 80 mg QAM PO 09/02/16 09:00 10/02/16 08:59 09/07/16 08:14 80 MG Miscellaneous (Iv Fluids Completed) 1 ea PRN PRN N/A 09/01/16 16:00 09/01/17 15:59 Aspirin (Ecotrin Tab) 81 mg QAM PO 09/02/16 09:00 10/02/16 08:59 09/07/16 08:14 81 MG Calcium Carbonate (Tums Chew Tab) 1,000 mg Q4H PRN PO 09/02/16 00:15 10/02/16 00:14 09/03/16 17:47 1,000 MG Docusate Sodium (coLACE CAP) 100 mg BID PO 09/02/16 21:00 10/02/16 20:59 09/07/16 08:13 100 MG Losartan Potassium (coZAAR TAB) 100 mg DAILY PO 09/04/16 09:00 10/04/16 08:59 09/07/16 08:14 100 MG Heparin Sodium (Porcine) (Heparin 10 Unit/ ml 5 ml Flush) 5 ml PRN PRN FLUSH 09/04/16 16:15 10/04/16 16:14 09/05/16 21:57 5 ML Albuterol/ Ipratropium (Duoneb) 3 ml Q2H PRN INH 09/05/16 05:00 10/05/16 04:59 Enteral Nutritional Formula 1 can 1 can BIDM PO 09/06/16 16:45 10/06/16 16:44 Furosemide/Syringe (Lasix Inj/ Syringe) 1 ml @ 4 mls/min Q4H IV 09/06/16 18:30 10/06/16 18:29 09/07/16 06:38 4 MLS/MIN Objective Vital Signs Date Time Temp Pulse Resp B/P Pulse Ox O2 Delivery O2 Flow Rate FiO2 09/07/16 07:18 36.7 70 16 124/72 98 Room Air 09/07/16 04:00 96 Room Air 09/07/16 04:00 36.4 66 20 113/65 95 Room Air 09/07/16 00:13 36.2 63 20 107/64 96 Room Air 72 112/68 68 110/60 09/07/16 00:01 96 Room Air 09/06/16 20:00 Room Air 09/06/16 19:12 36.5 87 19 133/75 96 Room Air 09/06/16 16:00 Room Air 09/06/16 14:56 36.6 67 18 104/55 96 Room Air 79 105/67 70 108/66 09/06/16 12:00 Room Air 09/06/16 11:30 37.1 59 16 109/60 90 Room Air Physical Exam General Appearance: no apparent distress Respiratory/Chest: chest non-tender, lungs clear, normal breath sounds, no respiratory distress, no accessory muscle use Cardiovascular: regular rate, rhythm, no edema, no gallop, no JVD, no murmur Abdomen: normal bowel sounds, non tender, soft Extremities: normal inspection, no pedal edema, + pertinent finding (SCDs in place) Laboratory Results Last 24 Hours Test 09/06/16 10:52 09/06/16 15:08 09/06/16 16:23 09/06/16 20:11 Bedside Glucose 117 mg/dl 121 mg/dl 125 mg/dl Sodium Level 129 mmol/L Potassium Level 4.2 mmol/L Chloride Level 91 mmol/L Carbon Dioxide Level 32 mmol/L Anion Gap 6.0 mmol/L Blood Urea Nitrogen 24 mg/dl Creatinine 0.84 mg/dl Est Creatinine Clear Calc Drug Dose 52.9 ml/min Estimated GFR () 74.0 Estimated GFR (Non- 63.8 BUN/Creatinine Ratio 28.5 Random Glucose 123 mg/dl Calcium Level 7.9 mg/dl Test 09/06/16 21:05 09/07/16 06:15 09/07/16 06:53 Sodium Level 128 mmol/L 129 mmol/L Potassium Level 4.2 mmol/L 4.3 mmol/L Chloride Level 89 mmol/L 92 mmol/L Carbon Dioxide Level 30 mmol/L 29 mmol/L Anion Gap 9.0 mmol/L 8.0 mmol/L Blood Urea Nitrogen 29 mg/dl 29 mg/dl Creatinine 0.95 mg/dl 0.84 mg/dl Est Creatinine Clear Calc Drug Dose 46.8 ml/min 53.1 ml/min Estimated GFR () 63.7 74.0 Estimated GFR (Non- 55.0 63.8 BUN/Creatinine Ratio 30.4 34.2 Random Glucose 113 mg/dl 108 mg/dl Calcium Level 8.1 mg/dl 8.4 mg/dl Magnesium Level 2.2 mg/dl Bedside Glucose 117 mg/dl Assessment and Plan This is an 86 year old female with PMH of HTN, HLD, diet controlled DM2, anxiety , insomnia presented with palpitations and subsequently found to have elevated troponin level as well as elevated blood pressure Hyponatremia 09/07 Sodium level of 129 this morning IVFs stopped yesterday Now Lasix 10mg q4hrs negative balance noted for the past three days 09/06 appreciate nephrology management sodium improved; this morning of 124 Lasix + IVFs restarted with some potassium added boost and patient enjoyed this improving appetite and tolerated half of breakfast 09/05 appreciate nephrology management currently on sodium tablets + Lasix Na improved to 121 goal range of Na is 125-126 decreased appetite, nausea will add ensure with meals 09/04 thiazide induced hyponatremia? appreciate nephrology input patient received multiple boluses of hypertonic sodium PICC line ordered pierre inserted For now, Lasix + sodium tablets and possibly NS fluids as per nephro sodium levels continue to be low, last one was 116 09/03 unsure of the cause? sodium down from 132 to 122 this morning and repeat Na is 120 low osm, low urine osm fluid restriction appreciate nephro input hold HCTZ, stopped Celexa Elevated Troponin Level in the setting of Palpitations 09/03 Doing well, no palpitations outpatient Zio patch stopped IV heparin 09/02 troponin elevation noted to 0.[address]-T wave changes, there is a RBBB echo is pending this elevation is likely due to hypertensive urgency as well as palpitations ( possible arrhythmia?) currently on IV heparin continue metoprolol appreciate cardiology input - monitor in tele, will need Zio patch as outpatient Hypertensive Urgency 09/07 blood pressures are much improved NO Thiazides (see allergy list: hyponatremia) Cozaar increased to 100mg; continue Metoprolol 09/04 stopped HCTZ and added to allergy/adverse reaction list blood pressures labile, last one was actually a good reading at 140/80 will continue Cozaar at new dose of 100mg daily; continue metoprolol currently receiving Lasix for hyponatremia, so will monitor BP and adjust after Lasix is stopped 09/03 stopped HCTZ due to hyponatremia increased Cozaar, continue b-garcía blood pressure improving 09/02 patient with a hx. of HTN uses Cozaar, HCTZ, metoprolol at home Continue these medications and adjust accordingly blood pressure is improving; goal of <140/90 due to hx. of DM2 Anxiety/Insomnia 09/07 No Celexa secondary to hyponatremia 09/04 patient uses Ativan for anxiety also takes this at night as it helps her decrease anxiety level nocturnally to help her sleep offered a different medication for insomnia, but patient declined Diet controlled DM2 not on any medication last Ha1c = 5.9% in April 2016 DVT ppx SCDs DNR
--- NOTE | 2016-09-07 14:56 | Nephrology Progress Note ---
Nephrology Progress Note Date of Service: Sep 07, 2016. Subjective no chest pain or dyspnea; no stomach upset today > ate full breakfast, lunch; no edema; large family at bedside; using inspirometer; states did have transient altered vision this am Objective Date Time Temp Pulse Resp B/P Pulse Ox O2 Delivery O2 Flow Rate FiO2 09/07/16 12:40 Room Air 09/07/16 11:46 36.9 69 16 94/56 96 09/07/16 08:00 Room Air 09/07/16 07:18 36.7 70 16 124/72 98 Room Air 09/07/16 04:00 96 Room Air 09/07/16 04:00 36.4 66 20 113/65 95 Room Air 09/07/16 00:13 36.2 63 20 107/64 96 Room Air 72 112/68 68 110/60 09/07/16 00:01 96 Room Air 09/06/16 20:00 Room Air 09/06/16 19:12 36.5 87 19 133/75 96 Room Air 09/06/16 16:00 Room Air 09/06/16 14:56 36.6 67 18 104/55 96 Room Air 79 105/67 70 108/66 Physical Exam: General sitting up on RA, nad, oriented x 3 Eyes-eomi ENT-mmm Neck-supple Lungs-scattered fine crackles which clear w/ deep inspiration Heart-RRR no edema Abdomen-soft NT +BS, +pierre Extremities-no c/c Neuro-bray, fluent speech Current Inpatient Medications Medications (Trade) Dose Ordered Sig/Jaime Route Start Time Stop Time Status Last Admin Dose Admin Acetaminophen (Tylenol Tab) 650 mg Q4H PRN PO 09/01/16 14:30 10/01/16 14:29 09/02/16 23:36 650 MG Ondansetron HCl (Zofran Inj) 4 mg Q6H PRN IV 09/01/16 14:30 10/01/16 14:29 09/05/16 08:15 4 MG Nitroglycerin (Nitrostat Tab) 0.4 mg UD PRN SL 09/01/16 14:30 10/01/16 14:29 Metoprolol Tartrate (Lopressor Tab) 50 mg BID PO 09/02/16 09:00 10/02/16 08:59 09/07/16 08:15 50 MG Lorazepam (Ativan Tab) 0.5 mg HS PRN PO 09/01/16 14:30 10/01/16 14:29 09/06/16 21:40 0.5 MG Cholecalciferol (Vitamin D Tab) 2,000 inter.unit DAILY PO 09/02/16 09:00 10/02/16 08:59 09/07/16 08:15 2,000 INTER.UNIT Atorvastatin Calcium (Lipitor Tab) 80 mg QAM PO 09/02/16 09:00 10/02/16 08:59 09/07/16 08:14 80 MG Miscellaneous (Iv Fluids Completed) 1 ea PRN PRN N/A 09/01/16 16:00 09/01/17 15:59 Aspirin (Ecotrin Tab) 81 mg QAM PO 09/02/16 09:00 10/02/16 08:59 09/07/16 08:14 81 MG Calcium Carbonate (Tums Chew Tab) 1,000 mg Q4H PRN PO 09/02/16 00:15 10/02/16 00:14 09/03/16 17:47 1,000 MG Docusate Sodium (coLACE CAP) 100 mg BID PO 09/02/16 21:00 10/02/16 20:59 09/07/16 08:13 100 MG Losartan Potassium (coZAAR TAB) 100 mg DAILY PO 09/04/16 09:00 10/04/16 08:59 09/07/16 08:14 100 MG Heparin Sodium (Porcine) (Heparin 10 Unit/ ml 5 ml Flush) 5 ml PRN PRN FLUSH 09/04/16 16:15 10/04/16 16:14 09/05/16 21:57 5 ML Albuterol/ Ipratropium (Duoneb) 3 ml Q2H PRN INH 09/05/16 05:00 10/05/16 04:59 Enteral Nutritional Formula 1 can 1 can BIDM PO 09/06/16 16:45 10/06/16 16:44 Furosemide/Syringe (Lasix Inj/ Syringe) 1 ml @ 4 mls/min Q4H IV 09/06/16 18:30 10/06/16 18:29 09/07/16 14:14 4 MLS/MIN Last 24 Hours Test 09/06/16 15:08 09/06/16 16:23 09/06/16 20:11 09/06/16 21:05 Sodium Level 129 mmol/L 128 mmol/L Potassium Level 4.2 mmol/L 4.2 mmol/L Chloride Level 91 mmol/L 89 mmol/L Carbon Dioxide Level 32 mmol/L 30 mmol/L Anion Gap 6.0 mmol/L 9.0 mmol/L Blood Urea Nitrogen 24 mg/dl 29 mg/dl Creatinine 0.84 mg/dl 0.95 mg/dl Est Creatinine Clear Calc Drug Dose 52.9 ml/min 46.8 ml/min Estimated GFR () 74.0 63.7 Estimated GFR (Non- 63.8 55.0 BUN/Creatinine Ratio 28.5 30.4 Random Glucose 123 mg/dl 113 mg/dl Calcium Level 7.9 mg/dl 8.1 mg/dl Bedside Glucose 121 mg/dl 125 mg/dl Test 09/07/16 06:15 09/07/16 06:53 09/07/16 11:07 Sodium Level 129 mmol/L Potassium Level 4.3 mmol/L Chloride Level 92 mmol/L Carbon Dioxide Level 29 mmol/L Anion Gap 8.0 mmol/L Blood Urea Nitrogen 29 mg/dl Creatinine 0.84 mg/dl Est Creatinine Clear Calc Drug Dose 53.1 ml/min Estimated GFR () 74.0 Estimated GFR (Non- 63.8 BUN/Creatinine Ratio 34.2 Random Glucose 108 mg/dl Calcium Level 8.4 mg/dl Magnesium Level 2.2 mg/dl Bedside Glucose 117 mg/dl 136 mg/dl Assessment & Plan 86 y/o F a/w HTN urgency and palpitations on 09/01 on outpt hctz who had sudden drop of serum Na from baseline low 130s to 122 09/03; luanne 115. Her HTN has been controlled; now off of heparin gtt. Acute on chronic hyponatremia, asymptomatic, euvolemic and studies/hx most consistent with hctz as cause; decreased po intake may have some role too states she was actually using hctz as rx'd at home; it is certainly possible to develop hyponatremia from this med even after years of tx; she had hctz am 09/03 most recently then stopped; also hx of drinking a lot of water per grandson at home -goal Na for tomorrow is low-mid 130s -cont 1.5L fluid limit and strict I/O -continue 10 mg IV lasix q4h for immediate future -as long as sodium greater than 126, ok cautiously to ambulate/ start or intensify PT -encourage protein shakes or other PO intake; protein does not count toward limit -recheck bmp ordered 1600 and am -needs to f/u w/ me or dr zaragoza in [facility] 4-6 wks post d/c appreciate consult; will follow with you.
[2016-09-07 16:35] LABS: BUN/CREATININE RATIO 30.9 (10-20); CALCIUM 8.5 mg/dl (8.5-10.1); CREATININE 1.1 mg/dl (0.60-1.20); POTASSIUM 4.7 mmol/L (3.5-5.1)
[2016-09-07] MEDS: LORAZEPAM 0.5 MG TAB PO PRN (21:41)
[2016-09-08] VITALS (12 sets, daily range): BP systolic 95–151; BP diastolic 62–80; PULSE 61–82; TEMP 36.2–36.7; O2SAT 94–99
[2016-09-08] MEDS: FUROSEMIDE INJ 10 MG in SYRINGE 0 ML IV SCH ×2 (02:39→05:56)
[2016-09-08 07:03] LABS: HEMATOCRIT 32.3 % (37-47); MEAN CELL VOLUME 82.4 fL (80-100); MEAN CORPUSCULAR HEMOGLOBIN 29.6 pg (25-34); MEAN CORPUSCULAR HGB CONC 35.9 g/dl (32-36); MEAN PLATELET VOLUME 9.2 fL (7.4-10.4); PLATELET COUNT 180 K/uL (130-400); RED BLOOD COUNT 3.92 M/uL (4.2-5.4); WHITE BLOOD COUNT 8.83 K/uL (4.8-10.8)
[2016-09-08] MEDS: BOOST PLUS VANILLA PO SCH ×4 (07:30→17:43)
[2016-09-08] MEDS: CHOLECALCIFEROL 1000 INTER.UNIT TAB PO SCH (07:44)
[2016-09-08] MEDS: ASPIRIN 81 MG ECTAB PO SCH (07:44)
[2016-09-08] MEDS: DOCUSATE SODIUM 100 MG CAP PO SCH ×2 (07:45→21:04)
[2016-09-08] MEDS: METOPROLOL TARTRATE 50 MG TAB PO SCH ×2 (07:45→21:04)
[2016-09-08] MEDS: ATORVASTATIN 40 MG TAB PO SCH (07:45)
[2016-09-08] MEDS: LOSARTAN POTASSIUM 50 MG TAB PO SCH (07:46)
[2016-09-08 07:49] LABS: BUN/CREATININE RATIO 36.6 (10-20); CALCIUM 8.8 mg/dl (8.5-10.1); MAGNESIUM 2.1 mg/dl (1.8-2.4); POTASSIUM 4.3 mmol/L (3.5-5.1)
--- NOTE | 2016-09-08 09:06 | Nephrology Progress Note ---
Nephrology Progress Note Date of Service: Sep 08, 2016. Subjective 86 yo female with hypertensive urgency who was on hctz as an outpt and had acute drop in sodium requiring hypertonic saline and then lasix and normal saline. currently only on lasix. pt had poor po appetite and drinking lots of water during the first couple of days of admission which may have contributed to the hyponatremia as well. pt now eating well and on fluid restriction adn diuresing nicely. Objective Date Time Temp Pulse Resp B/P Pulse Ox O2 Delivery O2 Flow Rate FiO2 09/08/16 08:04 36.7 69 19 130/75 95 Room Air 81 138/73 73 95/62 09/08/16 04:00 94 Room Air 09/08/16 03:55 36.2 66 20 110/66 94 Room Air 09/08/16 00:46 36.5 67 20 107/62 96 Room Air 09/08/16 00:01 96 Room Air 09/07/16 20:00 95 Room Air 09/07/16 19:34 36.5 74 18 119/63 95 Room Air 09/07/16 16:00 Room Air 09/07/16 15:35 36.7 67 16 101/61 93 Room Air 09/07/16 12:40 Room Air 09/07/16 11:46 36.9 69 16 94/56 96 Physical Exam: General-aaox3 Eyes-no scleral icterus ENT-mmm Neck-supple Lungs-cta Heart-rrr Abdomen-bs+ s/nt/nd Extremities-no c/c/e Neuro-nonfocal Current Inpatient Medications Medications (Trade) Dose Ordered Sig/Jaime Route Start Time Stop Time Status Last Admin Dose Admin Acetaminophen (Tylenol Tab) 650 mg Q4H PRN PO 09/01/16 14:30 10/01/16 14:29 09/02/16 23:36 650 MG Ondansetron HCl (Zofran Inj) 4 mg Q6H PRN IV 09/01/16 14:30 10/01/16 14:29 09/05/16 08:15 4 MG Nitroglycerin (Nitrostat Tab) 0.4 mg UD PRN SL 09/01/16 14:30 10/01/16 14:29 Metoprolol Tartrate (Lopressor Tab) 50 mg BID PO 09/02/16 09:00 10/02/16 08:59 09/08/16 07:45 50 MG Lorazepam (Ativan Tab) 0.5 mg HS PRN PO 09/01/16 14:30 10/01/16 14:29 09/07/16 21:41 0.5 MG Cholecalciferol (Vitamin D Tab) 2,000 inter.unit DAILY PO 09/02/16 09:00 10/02/16 08:59 09/08/16 07:44 2,000 INTER.UNIT Atorvastatin Calcium (Lipitor Tab) 80 mg QAM PO 09/02/16 09:00 10/02/16 08:59 09/08/16 07:45 80 MG Miscellaneous (Iv Fluids Completed) 1 ea PRN PRN N/A 09/01/16 16:00 09/01/17 15:59 Aspirin (Ecotrin Tab) 81 mg QAM PO 09/02/16 09:00 10/02/16 08:59 09/08/16 07:44 81 MG Calcium Carbonate (Tums Chew Tab) 1,000 mg Q4H PRN PO 09/02/16 00:15 10/02/16 00:14 09/03/16 17:47 1,000 MG Docusate Sodium (coLACE CAP) 100 mg BID PO 09/02/16 21:00 10/02/16 20:59 09/08/16 07:45 100 MG Losartan Potassium (coZAAR TAB) 100 mg DAILY PO 09/04/16 09:00 10/04/16 08:59 09/08/16 07:46 100 MG Heparin Sodium (Porcine) (Heparin 10 Unit/ ml 5 ml Flush) 5 ml PRN PRN FLUSH 09/04/16 16:15 10/04/16 16:14 09/05/16 21:57 5 ML Albuterol/ Ipratropium (Duoneb) 3 ml Q2H PRN INH 09/05/16 05:00 10/05/16 04:59 Enteral Nutritional Formula 1 can 1 can BIDM PO 09/06/16 16:45 10/06/16 16:44 09/07/16 16:42 1 CAN Furosemide/Syringe (Lasix Inj/ Syringe) 1 ml @ 4 mls/min Q4H IV 09/06/16 18:30 10/06/16 18:29 09/08/16 05:56 4 MLS/MIN Last 24 Hours Test 09/07/16 11:07 09/07/16 15:59 09/08/16 06:50 Bedside Glucose 136 mg/dl Sodium Level 129 mmol/L 130 mmol/L Potassium Level 4.7 mmol/L 4.3 mmol/L Chloride Level 91 mmol/L 91 mmol/L Carbon Dioxide Level 31 mmol/L 31 mmol/L Anion Gap 7.0 mmol/L 8.0 mmol/L Blood Urea Nitrogen 34 mg/dl 37 mg/dl Creatinine 1.10 mg/dl 1.00 mg/dl Est Creatinine Clear Calc Drug Dose 40.6 ml/min 44.6 ml/min Estimated GFR () 53.4 59.9 Estimated GFR (Non- 46.1 51.7 BUN/Creatinine Ratio 30.9 36.6 Random Glucose 94 mg/dl 113 mg/dl Calcium Level 8.5 mg/dl 8.8 mg/dl White Blood Count 8.83 K/uL Red Blood Count 3.92 M/uL Hemoglobin 11.6 g/dL Hematocrit 32.3 % Mean Corpuscular Volume 82.4 fL Mean Corpuscular Hemoglobin 29.6 pg Mean Corpuscular Hemoglobin Concent 35.9 g/dl RDW Standard Deviation 41.9 fL RDW Coefficient of Variation 13.8 % Platelet Count 180 K/uL Mean Platelet Volume 9.2 fL Magnesium Level 2.1 mg/dl Assessment & Plan hyponatremia-thought to be multifactorial from hctz and poor solute intake and large fluid intake. sodium levels have improved. no more hctz and will be sent home on lasix and fluid restriction and recheck labs periodically. will remove pierre for now and contineu the current iv lasix and fluid restriction. to recheck urine osm today.
--- NOTE | 2016-09-08 11:13 | Progress Note ---
Subjective Date of Service: Sep 08, 2016. Subjective Pt evaluation today including: conversation w/ patient, physical exam, lab review, review of studies, review of inpatient medication list Saw/examined the patient in room 238-1 She is doing well today; feels weak and anxious Pierre catheter is still in place; but will be removed later; patient is weary about this Problem List Medical Problems: (1) Tachycardia Status: Acute Review of Systems Constitutional: No chills, No fever, No weakness Respiratory: No cough, No shortness of breath, No sputum Cardiac: No chest pain Abdomen: No diarrhea, No nausea, No pain, No vomiting Medications Current Inpatient Medications Medications (Trade) Dose Ordered Sig/Jaime Route Start Time Stop Time Status Last Admin Dose Admin Acetaminophen (Tylenol Tab) 650 mg Q4H PRN PO 09/01/16 14:30 10/01/16 14:29 09/02/16 23:36 650 MG Ondansetron HCl (Zofran Inj) 4 mg Q6H PRN IV 09/01/16 14:30 10/01/16 14:29 09/05/16 08:15 4 MG Nitroglycerin (Nitrostat Tab) 0.4 mg UD PRN SL 09/01/16 14:30 10/01/16 14:29 Metoprolol Tartrate (Lopressor Tab) 50 mg BID PO 09/02/16 09:00 10/02/16 08:59 09/08/16 07:45 50 MG Lorazepam (Ativan Tab) 0.5 mg HS PRN PO 09/01/16 14:30 10/01/16 14:29 09/07/16 21:41 0.5 MG Cholecalciferol (Vitamin D Tab) 2,000 inter.unit DAILY PO 09/02/16 09:00 10/02/16 08:59 09/08/16 07:44 2,000 INTER.UNIT Atorvastatin Calcium (Lipitor Tab) 80 mg QAM PO 09/02/16 09:00 10/02/16 08:59 09/08/16 07:45 80 MG Miscellaneous (Iv Fluids Completed) 1 ea PRN PRN N/A 09/01/16 16:00 09/01/17 15:59 Aspirin (Ecotrin Tab) 81 mg QAM PO 09/02/16 09:00 10/02/16 08:59 09/08/16 07:44 81 MG Calcium Carbonate (Tums Chew Tab) 1,000 mg Q4H PRN PO 09/02/16 00:15 10/02/16 00:14 09/03/16 17:47 1,000 MG Docusate Sodium (coLACE CAP) 100 mg BID PO 09/02/16 21:00 10/02/16 20:59 09/08/16 07:45 100 MG Heparin Sodium (Porcine) (Heparin 10 Unit/ ml 5 ml Flush) 5 ml PRN PRN FLUSH 09/04/16 16:15 10/04/16 16:14 09/05/16 21:57 5 ML Albuterol/ Ipratropium (Duoneb) 3 ml Q2H PRN INH 09/05/16 05:00 10/05/16 04:59 Enteral Nutritional Formula 1 can 1 can BIDM PO 09/06/16 16:45 10/06/16 16:44 09/07/16 16:42 1 CAN Furosemide/Syringe (Lasix Inj/ Syringe) 1 ml @ 4 mls/min Q4H IV 09/06/16 18:30 10/06/16 18:29 09/08/16 05:56 4 MLS/MIN Losartan Potassium (coZAAR TAB) 50 mg DAILY PO 09/09/16 09:00 10/09/16 08:59 UNV Objective Vital Signs Date Time Temp Pulse Resp B/P Pulse Ox O2 Delivery O2 Flow Rate FiO2 09/08/16 08:04 36.7 69 19 130/75 95 Room Air 81 138/73 73 95/62 09/08/16 08:00 96 Room Air 09/08/16 04:00 94 Room Air 09/08/16 03:55 36.2 66 20 110/66 94 Room Air 09/08/16 00:46 36.5 67 20 107/62 96 Room Air 09/08/16 00:01 96 Room Air 09/07/16 20:00 95 Room Air 09/07/16 19:34 36.5 74 18 119/63 95 Room Air 09/07/16 16:00 Room Air 09/07/16 15:35 36.7 67 16 101/61 93 Room Air 09/07/16 12:40 Room Air 09/07/16 11:46 36.9 69 16 94/56 96 Physical Exam General Appearance: no apparent distress Respiratory/Chest: lungs clear, normal breath sounds, no respiratory distress, no accessory muscle use Cardiovascular: regular rate, rhythm, no edema, no murmur Abdomen: normal bowel sounds, non tender, soft Extremities: normal inspection, no pedal edema Neurologic/Psychiatric: no motor/sensory deficits, alert, normal mood/affect Laboratory Results Last 24 Hours Test 09/07/16 11:07 09/07/16 15:59 09/08/16 06:50 Bedside Glucose 136 mg/dl Sodium Level 129 mmol/L 130 mmol/L Potassium Level 4.7 mmol/L 4.3 mmol/L Chloride Level 91 mmol/L 91 mmol/L Carbon Dioxide Level 31 mmol/L 31 mmol/L Anion Gap 7.0 mmol/L 8.0 mmol/L Blood Urea Nitrogen 34 mg/dl 37 mg/dl Creatinine 1.10 mg/dl 1.00 mg/dl Est Creatinine Clear Calc Drug Dose 40.6 ml/min 44.6 ml/min Estimated GFR () 53.4 59.9 Estimated GFR (Non- 46.1 51.7 BUN/Creatinine Ratio 30.9 36.6 Random Glucose 94 mg/dl 113 mg/dl Calcium Level 8.5 mg/dl 8.8 mg/dl White Blood Count 8.83 K/uL Red Blood Count 3.92 M/uL Hemoglobin 11.6 g/dL Hematocrit 32.3 % Mean Corpuscular Volume 82.4 fL Mean Corpuscular Hemoglobin 29.6 pg Mean Corpuscular Hemoglobin Concent 35.9 g/dl RDW Standard Deviation 41.9 fL RDW Coefficient of Variation 13.8 % Platelet Count 180 K/uL Mean Platelet Volume 9.2 fL Magnesium Level 2.1 mg/dl Assessment and Plan This is an 86 year old female with PMH of HTN, HLD, diet controlled DM2, anxiety , insomnia presented with palpitations and subsequently found to have elevated troponin level as well as elevated blood pressure Hyponatremia 09/08 appreciate nephro input today, sodium level is 130 will switch Lasix to 20mg PO daily IVFs stopped Pierre catheter to be removed today voiding trial Cozaar decreased to 50mg to prevent hypotension recheck labs in 3 days outpatient PCP and nephro follow-up 09/07 Sodium level of 129 this morning IVFs stopped yesterday Now Lasix 10mg q4hrs negative balance noted for the past three days 09/06 appreciate nephrology management sodium improved; this morning of 124 Lasix + IVFs restarted with some potassium added boost and patient enjoyed this improving appetite and tolerated half of breakfast 09/05 appreciate nephrology management currently on sodium tablets + Lasix Na improved to 121 goal range of Na is 125-126 decreased appetite, nausea will add ensure with meals 09/04 thiazide induced hyponatremia? appreciate nephrology input patient received multiple boluses of hypertonic sodium PICC line ordered pierre inserted For now, Lasix + sodium tablets and possibly NS fluids as per nephro sodium levels continue to be low, last one was 116 09/03 unsure of the cause? sodium down from 132 to 122 this morning and repeat Na is 120 low osm, low urine osm fluid restriction appreciate nephro input hold HCTZ, stopped Celexa Elevated Troponin Level in the setting of Palpitations 09/03 Doing well, no palpitations outpatient Zio patch stopped IV heparin 09/02 troponin elevation noted to 0.[address]-T wave changes, there is a RBBB echo is pending this elevation is likely due to hypertensive urgency as well as palpitations ( possible arrhythmia?) currently on IV heparin continue metoprolol appreciate cardiology input - monitor in tele, will need Zio patch as outpatient Hypertensive Urgency 09/07 blood pressures are much improved NO Thiazides (see allergy list: hyponatremia) Cozaar increased to 100mg; continue Metoprolol 09/04 stopped HCTZ and added to allergy/adverse reaction list blood pressures labile, last one was actually a good reading at 140/80 will continue Cozaar at new dose of 100mg daily; continue metoprolol currently receiving Lasix for hyponatremia, so will monitor BP and adjust after Lasix is stopped 09/03 stopped HCTZ due to hyponatremia increased Cozaar, continue b-garcía blood pressure improving 09/02 patient with a hx. of HTN uses Cozaar, HCTZ, metoprolol at home Continue these medications and adjust accordingly blood pressure is improving; goal of <140/90 due to hx. of DM2 Anxiety/Insomnia 09/07 No Celexa secondary to hyponatremia 09/04 patient uses Ativan for anxiety also takes this at night as it helps her decrease anxiety level nocturnally to help her sleep offered a different medication for insomnia, but patient declined Diet controlled DM2 not on any medication last Ha1c = 5.9% in April 2016 DVT ppx SCDs DNR
[2016-09-08] MEDS ORDERED: BISACODYL 5 MG TABEC PO ONE (14:45)
[2016-09-08] MEDS: POLYETHYLENE (MIRALAX) 17 GM PACK PO SCH (16:04)
[2016-09-08] MEDS: ACETAMINOPHEN 325 MG TAB PO PRN (17:44)
[2016-09-08] MEDS: LORAZEPAM 0.5 MG TAB PO PRN (21:04)
[2016-09-09 06:14] LABS: HEMATOCRIT 31.8 % (37-47); MEAN CELL VOLUME 82.6 fL (80-100); MEAN CORPUSCULAR HEMOGLOBIN 29.1 pg (25-34); MEAN CORPUSCULAR HGB CONC 35.2 g/dl (32-36); MEAN PLATELET VOLUME 9.4 fL (7.4-10.4); PLATELET COUNT 196 K/uL (130-400); RED BLOOD COUNT 3.85 M/uL (4.2-5.4); WHITE BLOOD COUNT 7.88 K/uL (4.8-10.8)
[2016-09-09 06:41] LABS: BUN/CREATININE RATIO 49.5 (10-20); CALCIUM 9.4 mg/dl (8.5-10.1); CREATININE 0.8 mg/dl (0.60-1.20); POTASSIUM 4.8 mmol/L (3.5-5.1)
--- NOTE | 2016-09-09 07:26 | Nephrology Progress Note ---
Nephrology Progress Note Date of Service: Sep 09, 2016. Subjective 86 yo female with hypertensive urgency who was on hctz as an outpt and had acute drop in sodium requiring hypertonic saline and then lasix and normal saline. currently now on oral lasix and fluid restriction. pt was drinking lots of water at home to try to prevent utis. pts appetite is good and is ready to go home. Objective Date Time Temp Pulse Resp B/P Pulse Ox O2 Delivery O2 Flow Rate FiO2 09/08/16 23:20 36.4 76 16 134/80 96 Room Air 09/08/16 23:20 Room Air 09/08/16 21:00 36.6 82 16 151/76 99 Room Air 09/08/16 14:00 36.7 71 16 124/77 98 Room Air 09/08/16 14:00 Room Air 09/08/16 13:42 36.2 61 18 99 09/08/16 12:21 36.2 61 18 114/73 99 Room Air 09/08/16 12:00 97 Room Air 09/08/16 08:04 36.7 69 19 130/75 95 Room Air 81 138/73 73 95/62 09/08/16 08:00 96 Room Air Physical Exam: General-aaox3 Eyes-no scleral icterus ENT-mmm Neck-supple Lungs-clear Heart-regular Abdomen-bs+ s/nt/nd Extremities-no c/c/e Neuro-nonfocal Current Inpatient Medications Medications (Trade) Dose Ordered Sig/Jaime Route Start Time Stop Time Status Last Admin Dose Admin Acetaminophen (Tylenol Tab) 650 mg Q4H PRN PO 09/01/16 14:30 10/01/16 14:29 09/08/16 17:44 650 MG Ondansetron HCl (Zofran Inj) 4 mg Q6H PRN IV 09/01/16 14:30 10/01/16 14:29 09/05/16 08:15 4 MG Nitroglycerin (Nitrostat Tab) 0.4 mg UD PRN SL 09/01/16 14:30 10/01/16 14:29 Metoprolol Tartrate (Lopressor Tab) 50 mg BID PO 09/02/16 09:00 10/02/16 08:59 09/08/16 21:04 50 MG Lorazepam (Ativan Tab) 0.5 mg HS PRN PO 09/01/16 14:30 10/01/16 14:29 09/08/16 21:04 0.5 MG Cholecalciferol (Vitamin D Tab) 2,000 inter.unit DAILY PO 09/02/16 09:00 10/02/16 08:59 09/08/16 07:44 2,000 INTER.UNIT Atorvastatin Calcium (Lipitor Tab) 80 mg QAM PO 09/02/16 09:00 10/02/16 08:59 09/08/16 07:45 80 MG Miscellaneous (Iv Fluids Completed) 1 ea PRN PRN N/A 09/01/16 16:00 09/01/17 15:59 Aspirin (Ecotrin Tab) 81 mg QAM PO 09/02/16 09:00 10/02/16 08:59 09/08/16 07:44 81 MG Calcium Carbonate (Tums Chew Tab) 1,000 mg Q4H PRN PO 09/02/16 00:15 10/02/16 00:14 09/03/16 17:47 1,000 MG Docusate Sodium (coLACE CAP) 100 mg BID PO 09/02/16 21:00 10/02/16 20:59 09/08/16 21:04 100 MG Heparin Sodium (Porcine) (Heparin 10 Unit/ ml 5 ml Flush) 5 ml PRN PRN FLUSH 09/04/16 16:15 10/04/16 16:14 09/09/16 06:25 5 ML Albuterol/ Ipratropium (Duoneb) 3 ml Q2H PRN INH 09/05/16 05:00 10/05/16 04:59 Enteral Nutritional Formula (Boost Plus Vanilla) 1 can BIDM PO 09/06/16 16:45 10/06/16 16:44 09/08/16 17:43 1 CAN Losartan Potassium (coZAAR TAB) 50 mg DAILY PO 09/09/16 09:00 10/09/16 08:59 Furosemide (Lasix Tab) 20 mg QAM PO 09/09/16 09:00 10/09/16 08:59 Polyethylene (Miralax Powder Packet) 17 gm DAILY PO 09/08/16 15:00 10/08/16 14:59 09/08/16 16:04 17 GM Last 24 Hours Test 09/08/16 13:00 09/09/16 05:55 Urine Osmolality 451 mOms/kg White Blood Count 7.88 K/uL Red Blood Count 3.85 M/uL Hemoglobin 11.2 g/dL Hematocrit 31.8 % Mean Corpuscular Volume 82.6 fL Mean Corpuscular Hemoglobin 29.1 pg Mean Corpuscular Hemoglobin Concent 35.2 g/dl RDW Standard Deviation 41.1 fL RDW Coefficient of Variation 13.5 % Platelet Count 196 K/uL Mean Platelet Volume 9.4 fL Sodium Level 131 mmol/L Potassium Level 4.8 mmol/L Chloride Level 92 mmol/L Carbon Dioxide Level 28 mmol/L Anion Gap 11.0 mmol/L Blood Urea Nitrogen 40 mg/dl Creatinine 0.80 mg/dl Est Creatinine Clear Calc Drug Dose 55.8 ml/min Estimated GFR () 78.5 Estimated GFR (Non- 67.7 BUN/Creatinine Ratio 49.5 Random Glucose 116 mg/dl Calcium Level 9.4 mg/dl Assessment & Plan hyponatremia-thought to be multifactorial from hctz and poor solute intake and large fluid intake. sodium levels have improved. no more hctz. currently on oral lasix and fluid restriction and would continue both as outpt. does have an underlying siadh picture with urine osm in the 400s with unclear etiology to the cause. recommend repeat bmp on thursday. ok from renal perspective to go home today. recommend cranberry capsules/cranberry juice to help with the utis.
[2016-09-09 07:50] VITALS: BP 144/85; PULSE 77; TEMP 36.9; O2SAT 96
[2016-09-09] MEDS ORDERED: BISACODYL 5 MG TABEC PO PRN (08:00)
--- NOTE | 2016-09-09 08:09 | Progress Note ---
Subjective Date of Service: Sep 09, 2016. Subjective Pt evaluation today including: conversation w/ patient, physical exam, lab review, review of studies, review of inpatient medication list Saw/examined the patient in room 475 She is doing well today; no palpitations, chest pain No shortness of breath +constipation no nausea/vomiting Problem List Medical Problems: (1) Tachycardia Status: Acute Review of Systems Respiratory: No shortness of breath Cardiac: No chest pain, No edema, No palpitations Abdomen: + constipation Female : No dysuria, No urinary frequency Medications Current Inpatient Medications Medications (Trade) Dose Ordered Sig/Jaime Route Start Time Stop Time Status Last Admin Dose Admin Acetaminophen (Tylenol Tab) 650 mg Q4H PRN PO 09/01/16 14:30 10/01/16 14:29 09/08/16 17:44 650 MG Ondansetron HCl (Zofran Inj) 4 mg Q6H PRN IV 09/01/16 14:30 10/01/16 14:29 09/05/16 08:15 4 MG Nitroglycerin (Nitrostat Tab) 0.4 mg UD PRN SL 09/01/16 14:30 10/01/16 14:29 Metoprolol Tartrate (Lopressor Tab) 50 mg BID PO 09/02/16 09:00 10/02/16 08:59 09/08/16 21:04 50 MG Lorazepam (Ativan Tab) 0.5 mg HS PRN PO 09/01/16 14:30 10/01/16 14:29 09/08/16 21:04 0.5 MG Cholecalciferol (Vitamin D Tab) 2,000 inter.unit DAILY PO 09/02/16 09:00 10/02/16 08:59 09/08/16 07:44 2,000 INTER.UNIT Atorvastatin Calcium (Lipitor Tab) 80 mg QAM PO 09/02/16 09:00 10/02/16 08:59 09/08/16 07:45 80 MG Miscellaneous (Iv Fluids Completed) 1 ea PRN PRN N/A 09/01/16 16:00 09/01/17 15:59 Aspirin (Ecotrin Tab) 81 mg QAM PO 09/02/16 09:00 10/02/16 08:59 09/08/16 07:44 81 MG Calcium Carbonate (Tums Chew Tab) 1,000 mg Q4H PRN PO 09/02/16 00:15 10/02/16 00:14 09/03/16 17:47 1,000 MG Docusate Sodium (coLACE CAP) 100 mg BID PO 09/02/16 21:00 10/02/16 20:59 09/08/16 21:04 100 MG Heparin Sodium (Porcine) (Heparin 10 Unit/ ml 5 ml Flush) 5 ml PRN PRN FLUSH 09/04/16 16:15 10/04/16 16:14 09/09/16 06:25 5 ML Albuterol/ Ipratropium (Duoneb) 3 ml Q2H PRN INH 09/05/16 05:00 10/05/16 04:59 Enteral Nutritional Formula (Boost Plus Vanilla) 1 can BIDM PO 09/06/16 16:45 10/06/16 16:44 09/08/16 17:43 1 CAN Losartan Potassium (coZAAR TAB) 50 mg DAILY PO 09/09/16 09:00 10/09/16 08:59 Furosemide (Lasix Tab) 20 mg QAM PO 09/09/16 09:00 10/09/16 08:59 Polyethylene (Miralax Powder Packet) 17 gm DAILY PO 09/08/16 15:00 10/08/16 14:59 09/08/16 16:04 17 GM Objective Vital Signs Date Time Temp Pulse Resp B/P Pulse Ox O2 Delivery O2 Flow Rate FiO2 09/08/16 23:20 36.4 76 16 134/80 96 Room Air 09/08/16 23:20 Room Air 09/08/16 21:00 36.6 82 16 151/76 99 Room Air 09/08/16 14:00 36.7 71 16 124/77 98 Room Air 09/08/16 14:00 Room Air 09/08/16 13:42 36.2 61 18 99 09/08/16 12:21 36.2 61 18 114/73 99 Room Air 09/08/16 12:00 97 Room Air 09/08/16 08:04 36.7 69 19 130/75 95 Room Air 81 138/73 73 95/62 09/08/16 08:00 96 Room Air Physical Exam General Appearance: no apparent distress Respiratory/Chest: no respiratory distress, no accessory muscle use Extremities: normal inspection, no pedal edema Neurologic/Psychiatric: no motor/sensory deficits, alert, normal mood/affect Skin: normal color Laboratory Results Last 24 Hours Test 09/08/16 13:00 09/09/16 05:55 Urine Osmolality 451 mOms/kg White Blood Count 7.88 K/uL Red Blood Count 3.85 M/uL Hemoglobin 11.2 g/dL Hematocrit 31.8 % Mean Corpuscular Volume 82.6 fL Mean Corpuscular Hemoglobin 29.1 pg Mean Corpuscular Hemoglobin Concent 35.2 g/dl RDW Standard Deviation 41.1 fL RDW Coefficient of Variation 13.5 % Platelet Count 196 K/uL Mean Platelet Volume 9.4 fL Sodium Level 131 mmol/L Potassium Level 4.8 mmol/L Chloride Level 92 mmol/L Carbon Dioxide Level 28 mmol/L Anion Gap 11.0 mmol/L Blood Urea Nitrogen 40 mg/dl Creatinine 0.80 mg/dl Est Creatinine Clear Calc Drug Dose 55.8 ml/min Estimated GFR () 78.5 Estimated GFR (Non- 67.7 BUN/Creatinine Ratio 49.5 Random Glucose 116 mg/dl Calcium Level 9.4 mg/dl Assessment and Plan This is an 86 year old female with PMH of HTN, HLD, diet controlled DM2, anxiety , insomnia presented with palpitations and subsequently found to have elevated troponin level as well as elevated blood pressure Hyponatremia 09/09 appreciate nephro management Na level up to 131 this morning continue Lasix 20mg daily on discharge continue Cozaar 50mg and Lopressor 50mg BID will have to check labs in 3 days remove PICC follow-up with PCP in 2-3 days, and nephrology in 4 weeks to f/u with cardiology regarding Zio patch 09/08 appreciate nephro input today, sodium level is 130 will switch Lasix to 20mg PO daily IVFs stopped Pierre catheter to be removed today voiding trial Cozaar decreased to 50mg to prevent hypotension recheck labs in 3 days outpatient PCP and nephro follow-up 09/07 Sodium level of 129 this morning IVFs stopped yesterday Now Lasix 10mg q4hrs negative balance noted for the past three days 09/06 appreciate nephrology management sodium improved; this morning of 124 Lasix + IVFs restarted with some potassium added boost and patient enjoyed this improving appetite and tolerated half of breakfast 3/17 appreciate nephrology management currently on sodium tablets + Lasix Na improved to 121 goal range of Na is 125-126 decreased appetite, nausea will add ensure with meals 09/04 thiazide induced hyponatremia? appreciate nephrology input patient received multiple boluses of hypertonic sodium PICC line ordered pierre inserted For now, Lasix + sodium tablets and possibly NS fluids as per nephro sodium levels continue to be low, last one was 116 09/03 unsure of the cause? sodium down from 132 to 122 this morning and repeat Na is 120 low osm, low urine osm fluid restriction appreciate nephro input hold HCTZ, stopped Celexa Elevated Troponin Level in the setting of Palpitations 09/03 Doing well, no palpitations outpatient Zio patch stopped IV heparin 09/02 troponin elevation noted to 0.[address]-T wave changes, there is a RBBB echo is pending this elevation is likely due to hypertensive urgency as well as palpitations ( possible arrhythmia?) currently on IV heparin continue metoprolol appreciate cardiology input - monitor in tele, will need Zio patch as outpatient Hypertensive Urgency 09/07 blood pressures are much improved NO Thiazides (see allergy list: hyponatremia) Cozaar increased to 100mg; continue Metoprolol 09/04 stopped HCTZ and added to allergy/adverse reaction list blood pressures labile, last one was actually a good reading at 140/80 will continue Cozaar at new dose of 100mg daily; continue metoprolol currently receiving Lasix for hyponatremia, so will monitor BP and adjust after Lasix is stopped 09/03 stopped HCTZ due to hyponatremia increased Cozaar, continue b-garcía blood pressure improving 09/02 patient with a hx. of HTN uses Cozaar, HCTZ, metoprolol at home Continue these medications and adjust accordingly blood pressure is improving; goal of <140/90 due to hx. of DM2 Anxiety/Insomnia 09/07 No Celexa secondary to hyponatremia 09/04 patient uses Ativan for anxiety also takes this at night as it helps her decrease anxiety level nocturnally to help her sleep offered a different medication for insomnia, but patient declined Diet controlled DM2 not on any medication last Ha1c = 5.9% in April 2016 DVT ppx SCDs DNR
[2016-09-09] MEDS ORDERED: CLC100 PO (08:12)
[2016-09-09] MEDS ORDERED: DLC5 PO (08:12)
[2016-09-09] MEDS ORDERED: LSX20 PO (08:12)
[2016-09-09] MEDS ORDERED: SNK PO (08:12)
[2016-09-09] MEDS ORDERED: MRLP17 PO (08:12)
[2016-09-09] MEDS ORDERED: LPT40 PO (08:12)
[2016-09-09] MEDS ORDERED: Boost Plus Vanilla PO (08:12)
[2016-09-09] MEDS ORDERED: METO50TA17 PO (08:12)
--- NOTE | 2016-09-09 08:16 | Discharge Instructions ---
Discharge Instructions Date of Service Sep 09, 2016. Admission Reason for Admission: Elevated Troponin Discharge Discharge Diagnosis / Problem: Palpitations, Elevated Troponin, Severe Hyponatremia Discharge Goals Goal(s): Decrease discomfort, Improve function Activity Recommendations Activity Limitations: resume your previous activity . Instructions / Follow-Up Instructions / Follow-Up Please follow-up with Dr. Anderson on September 11 @ 1:30PM * You are to stop taking hydrochlorothiazide * Replace Simvastatin with Atorvastatin 80mg * Replace Toprol with Metoprolol Tartrate 50mg twice daily * You will continue to take Cozaar 50mg daily * Take Lasix 20mg daily * Primary care doctor should recheck blood work around September 12 to recheck electrolytes and kidney function * You are to be on a fluid restriction (1200mL) - boost protein shakes do not count towards this * Please follow-up with Dr. Santos, cardiology, for a Zio patch (heart monitor) as an outpatient Current Hospital Diet Patient's current hospital diet: Diabetes Type 2 Diet Discharge Diet Recommended Diet: Diabetes Type 2 Diet Fluid Restriction: 1200 ml (5 cups) Pending Studies Studies pending at discharge: no Medical Emergencies . Who to Call and When: Medical Emergencies: If at any time you feel your situation is an emergency, please call 911 immediately. . Non-Emergent Contact Non-Emergency issues call your: Primary Care Provider . . "Provider Documentation" section prepared by Stuart Schulz. VTE Core Measure Inpt VTE Proph given/why not?: Other Anticoagulation (heparin drip), SCD's
--- NOTE | 2016-09-09 08:18 | Discharge Summary ---
Discharge Summary Date of Service Sep 09, 2016. Discharge Summary Admission Date: Sep 03, 2016 at 13:13 Discharge Date: Sep 09, 2016 Discharge Disposition: Home with services Principal Diagnosis: Palpitations Elevated Troponin Level Severe Hyponatremia Medication Reconciliation New Medications: Atorvastatin (Atorvastatin Calcium) 40 Mg Tab 80 MG PO QAM for 30 Days, #60 TAB Bisacodyl (Bisacodyl EC) 5 Mg Tabec 5 MG PO DAILY PRN for Constipation for 30 Days, #30 TABS Docusate Sodium (Docusate Sodium) 100 Mg Cap 100 MG PO BID for 30 Days, #60 CAP Furosemide (Furosemide) 20 Mg Tab 20 MG PO QAM for 30 Days, #30 TAB Metoprolol Tartrate (Metoprolol Tartrate) 50 Mg Tab 50 MG PO BID for 30 Days, #60 TAB Polyethylene (Miralax) 17 Gm Pow 17 GM PO DAILY for 30 Days, #30 PKT Senna (Senna Lax) 8.6 Mg Tab 8.6 MG PO QAM for 30 Days, #30 TAB [Boost Plus Vanilla] () 1 CAN LIQD 1 CAN PO BIDM for 30 Days, #60 CAN Continued Medications: Acetaminophen (Tylenol) 325 Mg Tab 325 MG PO, TAB Aspirin (Aspirin EC Low Dose) 81 Mg Ectab 81 MG PO DAILY Cholecalciferol (Vitamin D3) 2,000 Unit Tab 2000 UNITS PO DAILY for 90 Days, TAB 3 Refills Lorazepam (Ativan) 0.5 Mg Tab 0.5 MG PO HS PRN for Anxiety, TAB Losartan Potassium (Cozaar) 50 Mg Tab 50 MG PO DAILY, TAB Discontinued Medications: Hydrochlorothiazide (Hctz) 12.5 Mg Cap 12.5 MG PO QAM, TAB Metoprolol Succinate (Toprol Xl) 100 Mg Tab 100 MG PO HS, TAB Simvastatin (Zocor) 10 Mg Tab 10 MG PO QPM, TAB Admission Information HPI (per Admitting provider): This is an 86 y/o female with PMHx of HTN, Dyslipidemia and other problems as outlined below who presents to the ED c/o palpitations that began this morning. Pt reports that this morning after breakfast she was sitting down when she developed heart palpitations that she describes as her chest "fluttering". Sxs were assoc with mild lightheadedness/dizziness. Pt tried taking an Ativan at home which did not alleviate her sxs. The palpitations persisted for about 30 minutes. Pt states she has experienced the palpitations before however never for more than a few minutes. Per ED physician, EMS recorded strip resembling possible SVT vs. Afib en route to the hospital. Pt confirms she did take all her medication this morning. She has a strong FmHx of heart disease but no personal history of cardiac problems. Pt does have a history of diabetes however she was taken off of all medication within the last year as her sugars have been well controlled. Pt denies fever/chills, diaphoresis, chest pain, SOB , abd pain, N/V, bowel or bladder issues, LE edema or calf pain. In the ED, pt was tachy with elevated BP (220/120) on arrival. Trop 0.432. EKG: sinus tachy with RBBB. CXR neg. Pt is currently feeling well and denies any chest pain. Pt will be admitted for further evaluation and treatment. Physical Exam (per Admitting): General Appearance: WD/WN, no apparent distress, + pertinent finding (Pt is sitting up in bed with daughter and grand-daughter at bedside) Head: normocephalic, atraumatic Eyes: normal inspection ENT: hearing grossly normal Neck: supple Respiratory/Chest: chest non-tender, lungs clear, normal breath sounds, no respiratory distress Cardiovascular: regular rate, rhythm, no edema, no murmur Abdomen/GI: normal bowel sounds, non tender, soft Back: normal inspection Extremities/Musculoskelatal: normal inspection, no calf tenderness, no pedal edema Neurologic/Psych: alert, normal mood/affect, oriented x 3 Skin: normal color, warm/dry Hospital Course This is an 86 year old female with PMH of HTN, HLD, diet controlled DM2, anxiety , insomnia presented with palpitations and subsequently found to have elevated troponin level as well as elevated blood pressure Hyponatremia 09/09 appreciate nephro management Na level up to 131 this morning continue Lasix 20mg daily on discharge continue Cozaar 50mg and Lopressor 50mg BID will have to check labs in 3 days remove PICC follow-up with PCP in 2-3 days, and nephrology in 4 weeks to f/u with cardiology regarding Zio patch 09/08 appreciate nephro input today, sodium level is 130 will switch Lasix to 20mg PO daily IVFs stopped Pierre catheter to be removed today voiding trial Cozaar decreased to 50mg to prevent hypotension recheck labs in 3 days outpatient PCP and nephro follow-up 09/07 Sodium level of 129 this morning IVFs stopped yesterday Now Lasix 10mg q4hrs negative balance noted for the past three days 09/06 appreciate nephrology management sodium improved; this morning of 124 Lasix + IVFs restarted with some potassium added boost and patient enjoyed this improving appetite and tolerated half of breakfast 09/05 appreciate nephrology management currently on sodium tablets + Lasix Na improved to 121 goal range of Na is 125-126 decreased appetite, nausea will add ensure with meals 09/04 thiazide induced hyponatremia? appreciate nephrology input patient received multiple boluses of hypertonic sodium PICC line ordered pierre inserted For now, Lasix + sodium tablets and possibly NS fluids as per nephro sodium levels continue to be low, last one was 116 09/03 unsure of the cause? sodium down from 132 to 122 this morning and repeat Na is 120 low osm, low urine osm fluid restriction appreciate nephro input hold HCTZ, stopped Celexa Elevated Troponin Level in the setting of Palpitations 09/03 Doing well, no palpitations outpatient Zio patch stopped IV heparin 09/02 troponin elevation noted to 0.[address]-T wave changes, there is a RBBB echo is pending this elevation is likely due to hypertensive urgency as well as palpitations ( possible arrhythmia?) currently on IV heparin continue metoprolol appreciate cardiology input - monitor in tele, will need Zio patch as outpatient Hypertensive Urgency 09/07 blood pressures are much improved NO Thiazides (see allergy list: hyponatremia) Cozaar increased to 100mg; continue Metoprolol 09/04 stopped HCTZ and added to allergy/adverse reaction list blood pressures labile, last one was actually a good reading at 140/80 will continue Cozaar at new dose of 100mg daily; continue metoprolol currently receiving Lasix for hyponatremia, so will monitor BP and adjust after Lasix is stopped 09/03 stopped HCTZ due to hyponatremia increased Cozaar, continue b-garcía blood pressure improving 09/02 patient with a hx. of HTN uses Cozaar, HCTZ, metoprolol at home Continue these medications and adjust accordingly blood pressure is improving; goal of <140/90 due to hx. of DM2 Anxiety/Insomnia 3/19 No Celexa secondary to hyponatremia 09/04 patient uses Ativan for anxiety also takes this at night as it helps her decrease anxiety level nocturnally to help her sleep offered a different medication for insomnia, but patient declined Diet controlled DM2 not on any medication last Ha1c = 5.9% in April 2016 DVT ppx SCDs DNR Total time spent on discharge = 45 minutes This includes examination of the patient, discharge planning, medication reconciliation, and communication with other providers. Discharge Instructions Please follow-up with Dr. Anderson on September 11 @ 1:30PM * You are to stop taking hydrochlorothiazide * Replace Simvastatin with Atorvastatin 80mg * Replace Toprol with Metoprolol Tartrate 50mg twice daily * You will continue to take Cozaar 50mg daily * Take Lasix 20mg daily * Primary care doctor should recheck blood work around September 12 to recheck electrolytes and kidney function * You are to be on a fluid restriction (1200mL) - boost protein shakes do not count towards this * Please follow-up with Dr. Santos, cardiology, for a Zio patch (heart monitor) as an outpatient Additional Copies To Noreen Anderson M.D.
[2016-09-09] MEDS: BOOST PLUS VANILLA PO SCH ×2 (08:36)
[2016-09-09] MEDS: POLYETHYLENE (MIRALAX) 17 GM PACK PO SCH (08:36)
[2016-09-09] MEDS: CHOLECALCIFEROL 1000 INTER.UNIT TAB PO SCH (08:37)
[2016-09-09] MEDS: METOPROLOL TARTRATE 50 MG TAB PO SCH (08:37)
[2016-09-09] MEDS: ATORVASTATIN 40 MG TAB PO SCH (08:37)
[2016-09-09] MEDS: ASPIRIN 81 MG ECTAB PO SCH (08:37)
[2016-09-09] MEDS: DOCUSATE SODIUM 100 MG CAP PO SCH (08:37)
[2016-09-09] MEDS ORDERED: FUROSEMIDE 20 MG TAB PO SCH (09:00)
[2016-09-09] MEDS ORDERED: SENNA 8.6 MG TAB PO SCH (09:00)
[2016-09-09] MEDS ORDERED: LOSARTAN POTASSIUM 50 MG TAB PO SCH (09:00)
[2016-09-09 10:04] VITALS: BP 144/85; PULSE 77; TEMP 36.9; O2SAT 96
[2016-09-09 10:27] VITALS: BP 136/77
[2016-10-07] MEDS ORDERED: LOSA50TA54 PO (10:43)
== END 2016-09-09 13:30 | disposition home health service (06) | DRG 309 ==
LOC: ENRESERVTM → ENRESERVDT → EDBD 10:23 → C.EDB 10:25 → C.2T 14:37 → OBSVTOIN 09-03 13:13 → C.MS4N 09-08 14:13
PROVIDERS: ADMIT Hospitalist; ATTEND Family Medicine
DX: R00.2 Palpitations (principal); E87.0 Hyperosmolality and hypernatremia; I24.8 Other forms of acute ischemic heart disease; E11.9 Type 2 diabetes mellitus without complications; G47.00 Insomnia, unspecified; I16.0 Hypertensive urgency; F41.9 Anxiety disorder, unspecified; Z66 Do not resuscitate; E78.5 Hyperlipidemia, unspecified; I45.10 Unspecified right bundle-branch block

== ENCOUNTER 2016-10-03 19:45 | Emergency (ER) | payer OTHER ==
[~2016-10-03] VITALS: Ht 167.6 cm; Wt 78.6 kg
[~2016-10-03 19:45] MED LIST changes: +ACET-1311 PO; -ALEN70TA4 PO; +ASPEC81 PO; +Boost Plus Vanilla PO; +CHOL20007 PO; +CLC100 PO; +DLC5 PO; -HYDR12.56 PO; +LOSA50TA54 PO; +LPT40 PO; +LSX20 PO; -METO1TAB68 PO; +METO50TA17 PO; +MRLP17 PO; -SIMV10TA2 PO; +SNK PO
[2016-10-03 19:50] VITALS: Ht 167.6 cm; Wt 78.6 kg
[2016-10-03 20:15] VITALS: O2SAT 96
[2016-10-03 20:19] LABS: BASO % 0.2 %; BASO ABS # 0.01 K/uL (0-0.2); COMPLETE YES; HEMATOCRIT 33.8 % (37-47); IG% 0.2 %; LYMPH % 5.5 %; LYMPH ABS # 0.33 K/uL (1.2-3.4); MEAN CELL VOLUME 86.7 fL (80-100); MEAN CORPUSCULAR HEMOGLOBIN 29.7 pg (25-34); MEAN CORPUSCULAR HGB CONC 34.3 g/dl (32-36); MEAN PLATELET VOLUME 10.7 fL (7.4-10.4); NEUT % 84.1 %; PLATELET COUNT 160 K/uL (130-400); WHITE BLOOD COUNT 6.01 K/uL (4.8-10.8)
[2016-10-03] MEDS ORDERED: IBUPROFEN 600 MG TAB PO STA (20:19)
[2016-10-03] MEDS ORDERED: SODIUM CHLORIDE 0.9% 500ML 500 ML IV STA (20:19)
--- NOTE | 2016-10-03 20:21 | EMERGENCY ROOM VISIT NOTE ---
History Report prepared by Brian: Katie Mueller Under the Supervision of: Dr. Rio Hoskins M.D. First contact with patient: 20:11 Chief Complaint: FEVER Stated Complaint: FLU SYMPTOMS, VOMIT History of Present Illness The patient is a 86 year old female who presents to the Emergency Room with complaints of constant flu like symptoms beginning yesterday. The patient states that she has a fever. She is also experiencing chills, nausea and vomiting. Her last dosage of Tylenol was at 3pm today. She denies diarrhea, cough, shortness of breath, or abdominal pain. Source of History: patient Onset: yesterday Position: other (global) Quality: other (flu like symptoms) Timing: constant Associated Symptoms: + chills, + fevers, + nausea, + vomiting, No SOB, No abdominal pain, No diarrhea Review of Systems See HPI for pertinent positives & negatives. A total of 10 systems reviewed and were otherwise negative. Past Medical & Surgical Medical Problems: (1) Bee sting allergy (2) Elevated troponin (3) Heart disease (4) HTN (hypertension) (5) Hypertension (6) Hyponatremia Surgical Problems: (1) History of hysterectomy Family History Noncontributory secondary to age Social History Smoking Status: Never Smoker Drug Use: none Marital Status: Housing Status: lives alone Occupation Status: retired Current/Historical Medications Scheduled Aspirin (Aspirin EC Low Dose), 81 MG PO DAILY Atorvastatin (Atorvastatin Calcium), 80 MG PO QAM Cholecalciferol (Vitamin D3), 2,000 UNITS PO DAILY Ciprofloxacin Hcl (Cipro), 1 TAB PO BID Docusate Sodium (Docusate Sodium), 100 MG PO BID Furosemide (Furosemide), 20 MG PO QAM Losartan Potassium (Cozaar), 50 MG PO DAILY Metoprolol Tartrate (Metoprolol Tartrate), 50 MG PO BID [Boost Plus Vanilla], 1 CAN PO BIDM Scheduled PRN Bisacodyl (Bisacodyl EC), 5 MG PO DAILY PRN for Constipation Lorazepam (Ativan), 0.5 MG PO HS PRN for Anxiety Miscellaneous Medications Acetaminophen (Tylenol), 325 MG PO Allergies Coded Allergies: Atenolol (Unverified Allergy, Mild, "HANDS TURNED BLUE", 10/03/16) Lisinopril (Unverified Allergy, Unknown, cough, 10/03/16) Nitrofurantoin (Unverified Allergy, Unknown, nausea, 10/03/16) Sulfamethoxazole w/Trimethoprim (Unverified Allergy, Unknown, nausea, 10/03) Hydrochlorothiazide w/Triamterene (Verified Adverse Reaction, Severe, hyponatremia, 10/03/16) Physical Exam Vital Signs Date Time Temp Pulse Resp B/P Pulse Ox O2 Delivery O2 Flow Rate FiO2 10/03/16 21:57 37.6 10/03/16 21:42 98 20 126/71 95 Room Air 10/03/16 20:15 96 Room Air 10/03/16 20:15 96 Room Air 10/03/16 19:56 105 10/03/16 19:50 37.8 105 20 168/89 96 Room Air Physical Exam GENERAL: Patient is a healthy-appearing well-nourished HEAD: Normocephalic atraumatic EYES: Ocular movements intact pupils equal and react to light OROPHARYNX mucous membranes are moist no exudates present no erythema or edema present NECK: Supple no nuchal rigidity CHEST: Good equal expansion LUNGS: Clear and equal to auscultation CARDIAC: Normal S1 and S2 ABDOMEN: Soft nontender no guarding BACK: No CVA tenderness EXTREMITIES: No pain upon palpation normal muscle strength in all groups no clubbing cyanosis or edema NEURO: Patient is following commands is answering questions appropriately. Alert and oriented x3 Cranial Nerves 2-12 grossly intact Medical Decision & Procedures ER Provider Diagnostic Interpretation: Radiology results as stated below per my review and radiologist interpretation: SINGLE VIEW CHEST CLINICAL HISTORY: Fever. FINDINGS: An AP, portable, upright chest radiograph is compared to study dated 09/05/2016 The examination is degraded by portable technique and patient rotation. A right PICC line has been removed from previous. The cardiomediastinal silhouette is unremarkable. There is atherosclerotic calcification of the thoracic aorta. Chronic interstitial thickening is unchanged. There is mild chronic elevation of the left hemidiaphragm with minimal left basilar atelectasis. The lungs and pleural spaces are otherwise clear. No pneumothorax is seen. The skeletal structures are osteopenic. The bony thorax is grossly intact. IMPRESSION: No acute cardiopulmonary abnormality. Electronically signed by: Jitendra Rodriguez M.D. 10/03/2016 8:57 PM Dictated Date/Time: 10/03/2016 8:57 PM ULTRASOUND RIGHT UPPER QUADRANT ABDOMEN CLINICAL HISTORY: Right upper quadrant abdominal pain. COMPARISON STUDY: No priors. TECHNIQUE: Real-time, grayscale, and color flow sonography of the right upper quadrant of the abdomen was performed. Images are reviewed in the transverse and longitudinal planes. FINDINGS: Liver: The liver is mildly enlarged and heterogeneous in echotexture. There is no intrahepatic biliary ductal dilatation. The main portal vein is patent. Gallbladder: Small gallbladder polyps are incidentally noted measuring up to 5 mm. The gallbladder is otherwise normal in appearance. No gallstones are identified. There is no gallbladder wall thickening or pericholecystic fluid. A sonographic Call's sign is reportedly absent. The common bile duct measures up to 0.7 cm in diameter. Pancreas: Visualized portions of the pancreatic head and body. Atrophic. 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 Right kidney: The right kidney is atrophic. There is no hydronephrosis. Ascites: None. IMPRESSION: 1. No acute sonographic abnormality is identified in the right upper quadrant. 2. No gallstones are identified. 3. Additional findings as above. Electronically signed by: Jitendra Rodriguez M.D. 10/03/2016 9:49 PM Dictated Date/Time: 10/03/2016 9:[address] SCAN OF THE ABDOMEN AND PELVIS WITH IV CONTRAST CLINICAL HISTORY: Elevated hepatic transaminases. COMPARISON STUDY: Abdominal ultrasound dated 10/03/2016. TECHNIQUE: Following the IV administration of 115 cc of Optiray 320, CT scan of the abdomen and pelvis is performed from the lung bases to the proximal femora. Images are reviewed in the axial, sagittal, and coronal planes. IV contrast was administered without complication. Automated dose control exposure was utilized. CT DOSE: 543.97 mGy.cm FINDINGS: Lung bases: The heart is mildly enlarged and without pericardial effusion. The coronary arteries are densely calcified. Chronic interstitial changes are present the lung bases. There is no airspace consolidation or pleural effusion. There is a moderate hiatal hernia. Liver: The contrast-enhanced liver is elongated, measuring 20 cm in length. This suggests Heather's lobe variant anatomy. The liver is normal in contour and attenuation. There is no intrahepatic biliary ductal dilatation. The hepatic veins and portal veins are patent. Gallbladder: Unremarkable. Spleen: Normal in size and attenuation. Pancreas: Pancreas is atrophic. There is a 12 mm ovoid water density lesion in the pancreatic neck seen on image 117. 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 An additional 8 mm IPMN is seen in the pancreatic tail on image #88. Adrenal glands: Unremarkable. Kidneys: The contrast enhanced kidneys are atrophic and without hydronephrosis. The kidneys enhance symmetrically. A circumaortic left renal vein is incidentally noted. Abdominal vasculature: The abdominal aorta is normal in course and caliber noting moderate to advanced atherosclerotic calcification. Bowel: The small bowel and colon are normal in course and caliber. There is advanced diverticulosis of the left colon without CT evidence of acute diverticulitis. The appendix is well-visualized and normal. Peritoneum: There is no intraperitoneal free air or abdominal ascites. There is a small fat-containing umbilical hernia. Lymphadenopathy: None. Pelvic viscera: The bladder is normal as visualized. The uterus is surgically absent. No adnexal lesion is seen. Skeletal structures: The skeletal structures are osteopenic. There is mild to moderate lumbosacral spondylosis. Sclerotic change is seen in the sacroiliac joints and pubic symphysis. A hemangioma is noted in the body of L1. No lytic or blastic lesions are seen. IMPRESSION: 1. There are no acute infectious or inflammatory findings in the abdomen or pelvis. 2. Advanced diverticulosis of left colon without CT evidence of acute diverticulosis. 3. Cardiomegaly and hiatal hernia. 4. Additional findings as detailed above. Electronically signed by: Jitendra Rodriguez M.D. 10/03/2016 10:46 PM Dictated Date/Time: 10/03/2016 10:40 PM Laboratory Results 10/03/16 19:55 Red Blood Count 3.90, Mean Corpuscular Volume 86.7, Mean Corpuscular Hemoglobin 29.7, Mean Corpuscular Hemoglobin Concent 34.3, Mean Platelet Volume 10.7, Neutrophils (%) (Auto) 84.1, Lymphocytes (%) (Auto) 5.5, Monocytes (%) (Auto) 5.0, Eosinophils (%) (Auto) 5.0, Basophils (%) (Auto) 0.2, Neutrophils # (Auto) 5.06, Lymphocytes # (Auto) 0.33, Monocytes # (Auto) 0.30, Eosinophils # (Auto) 0.30, Basophils # (Auto) 0.01 10/03/16 19:55 Test 10/03/16 00:00 10/03/16 19:55 10/03/16 20:23 10/03/16 20:45 Influenza Type A (RT-PCR) Neg for Influ A (NEG) Influenza Type A Antigen Neg for Influ A (NEG) Influenza Type B Antigen Neg for Influ B (NEG) Influenza Type B (RT-PCR) Neg for Influ B (NEG) White Blood Count 6.01 K/uL (4.8-10.8) Red Blood Count 3.90 M/uL (4.2-5.4) Hemoglobin 11.6 g/dL (12.0-16.0) Hematocrit 33.8 % (37-47) Mean Corpuscular Volume 86.7 fL (80-100) Mean Corpuscular Hemoglobin 29.7 pg (25-34) Mean Corpuscular Hemoglobin Concent 34.3 g/dl (32-36) Platelet Count 160 K/uL (130-400) Mean Platelet Volume 10.7 fL (7.4-10.4) Neutrophils (%) (Auto) 84.1 % Lymphocytes (%) (Auto) 5.5 % Monocytes (%) (Auto) 5.0 % Eosinophils (%) (Auto) 5.0 % Basophils (%) (Auto) 0.2 % Neutrophils # (Auto) 5.06 K/uL (1.4-6.5) Lymphocytes # (Auto) 0.33 K/uL (1.2-3.4) Monocytes # (Auto) 0.30 K/uL (0.11-0.59) Eosinophils # (Auto) 0.30 K/uL (0-0.5) Basophils # (Auto) 0.01 K/uL (0-0.2) RDW Standard Deviation 45.6 fL (36.4-46.3) RDW Coefficient of Variation 14.4 % (11.5-14.5) Immature Granulocyte % (Auto) 0.2 % Immature Granulocyte # (Auto) 0.01 K/uL (0.00-0.02) Anion Gap 8.0 mmol/L (3-11) Est Creatinine Clear Calc Drug Dose 44.3 ml/min Estimated GFR () 59.9 Estimated GFR (Non- 51.7 BUN/Creatinine Ratio 18.8 (10-20) Calcium Level 8.5 mg/dl (8.5-10.1) Total Bilirubin 0.9 mg/dl (0.2-1) Direct Bilirubin 0.4 mg/dl (0-0.2) Aspartate Amino Transf (AST/SGOT) 330 U/L (15-37) Alanine Aminotransferase (ALT/SGPT) 408 U/L (12-78) Alkaline Phosphatase 188 U/L (45-117) Total Creatine Kinase 45 U/L (26-192) Creatine Kinase MB < 0.5 ng/ml (0.5-3.6) Creatine Kinase MB Ratio (0-3.0) Troponin I < 0.015 ng/ml (0-0.045) Total Protein 7.3 gm/dl (6.4-8.2) Albumin 3.7 gm/dl (3.4-5.0) Thyroid Stimulating Hormone (TSH) 0.994 uIu/ml (0.300-4.500) Bedside Glucose 123 mg/dl (70-90) Urine Color YELLOW Urine Appearance CLEAR (CLEAR) Urine pH 6.5 (4.5-7.5) Urine Specific [place] 1.015 (1.000-1.030) Urine Protein 1+ (NEG) Urine Glucose (UA) NEG (NEG) Urine Ketones NEG (NEG) Urine Occult Blood NEG (NEG) Urine Nitrite NEG (NEG) Urine Bilirubin NEG (NEG) Urine Urobilinogen NEG (NEG) Urine Leukocyte Esterase SMALL (NEG) Urine WBC (Auto) 10-30 /hpf (0-5) Urine RBC (Auto) 0-4 /hpf (0-4) Urine Hyaline Casts (Auto) 0 /lpf (0-5) Urine Epithelial Cells (Auto) >30 /lpf (0-5) Urine Bacteria (Auto) 1+ (NEG) Test 10/03/16 23:00 Labs reviewed by ED physician. Medications Administered Medications (Trade) Dose Ordered Sig/Jaime Route Start Time Stop Time Status Last Admin Dose Admin Sodium Chloride (Nss 500ml) 500 ml @ 999 mls/hr Q31M STAT IV 10/03/16 20:19 10/03/16 20:49 DC 10/03/16 20:39 999 MLS/HR Ibuprofen (Motrin Tab) 600 mg NOW STAT PO 10/03/16 20:19 10/03/16 20:20 DC 10/03/16 20:39 600 MG Ceftriaxone Sodium (Rocephin Inj) 1 gm NOW STAT IV 10/03/16 23:01 10/03/16 23:02 DC 10/03/16 23:13 1 GM Ciprofloxacin (Cipro Tab) 500 mg NOW STAT PO 10/03/16 23:10 10/03/16 23:11 DC 10/03/16 23:10 500 MG ECG Indication: other (flu like symptoms) Rate (beats per minute): 104 Rhythm: sinus tachycardia Findings: RBBB, no acute ischemic change, no ectopy ED Course 2015: Past medical records reviewed. The patient was evaluated in room C10. A complete history and physical examination was performed. 2019: Motrin Tab 600 mg PO, Sodium Chloride 500 ml @ 999 mls/hr IV. 2301: Rocephin Inj 1 gm IV. 2310: Cipro Tab 500 mg PO. 2322: Upon reexamination the patient is hemodynamically stable. I discussed results and treatment plan with the patient. She verbalizes agreement and understanding. The patient is ready for discharge. Medical Decision The patient is a 86 year old female who presents to the ED with complaints of flu like symptoms. Differential diagnosis: Etiologies such as metabolic, infection, hypo/hyperglycemia, electrolyte abnormalities, cardiac sources, intracerebral event, toxicologic, neurologic, as well as others were entertained. This is an 86-year-old female who presents emergency department complaining of fever. The patient does not have an elevation in her white blood count however does have a large amount of white blood cells in her urine. In addition she also has slight elevations in her transaminases. Based on this finding the patient was sent for an ultrasound of the gallbladder however there is no evidence of acute process. Again based on this finding the patient was sent for CAT scan of the abdomen pelvis however there is no evidence of acute process. Serial abdominal examinations were performed on the patient in the emergency department and at no time did the patient exhibit a surgical abdomen or abdominal tenderness. The patient was started on Rocephin in the emergency department. I did have a discussion with both patient and family about being admitted however the patient at this point wishes to be discharged home. I stressed the need for follow-up with her primary care physician. She was told also to return if the fevers come out of control or she develops severe abdominal pain. Patient and family were in agreement with the treatment plan. Impression Primary Impression: Abnormal transaminases Additional Impressions: Fever UTI (urinary tract infection) Scribe Attestation The scribe's documentation has been prepared under my direction and personally reviewed by me in its entirety. I confirm that the note above accurately reflects all work, treatment, procedures, and medical decision making performed by me. Departure Information Dispostion Home / Self-Care Prescriptions Ciprofloxacin Hcl (CIPRO) 500 Mg Tab 1 TAB PO BID for 10 Days, #20 TAB Prov: Rio Hoskins MD 10/03/16 Referrals Noreen Anderson M.D. (PCP) Forms HOME CARE DOCUMENTATION FORM, IMPORTANT VISIT INFORMATION, School Instructions, Work Instructions Patient Instructions ED Fever Unconf Cause, ED UTI Cystitis Female, [facility] Additional Instructions Need follow up with Dr Anderson's office for elevated transaminases Return if you develop severe weakness You have been examined and treated today on an emergency basis only. This is not a substitute for, or an effort to provide, complete comprehensive medical care. It is impossible to recognize and treat all injuries or illnesses in a single emergency department visit. It is therefore important that you follow up closely with Dr Mansfield. Call as soon as possible for an appointment. Thank you for your time and consideration. I look forward to speaking with you again soon. Please don't hesitate to call us if you have any questions. Problem Qualifiers Additional Impressions: Fever Fever type: unspecified Qualified Codes: R50.9 - Fever, unspecified UTI (urinary tract infection) Urinary tract infection type: acute cystitis Hematuria presence: without hematuria Qualified Codes: N30.00 - Acute cystitis without hematuria
[2016-10-03 20:29] LABS: ALT/SGPT 408 U/L (12-78); AST/SGOT 330 U/L (15-37); BLOOD UREA NITROGEN 19 mg/dl (7-18); BUN/CREATININE RATIO 18.8 (10-20); CALCIUM 8.5 mg/dl (8.5-10.1); CARBON DIOXIDE 29 mmol/L (21-32); CHLORIDE 99 mmol/L (98-107); GLUCOSE 124 mg/dl (70-99); POTASSIUM 3.7 mmol/L (3.5-5.1); SODIUM 136 mmol/L (136-145)
[2016-10-03 20:40] LABS: ALKALINE PHOSPHATASE 188 U/L (45-117); THYROID STIMULATING HORMONE 0.994 uIu/ml (0.300-4.500)
--- NOTE | 2016-10-03 21:00 | DIAGNOSTIC IMAGING REPORT ---
SINGLE VIEW CHEST CLINICAL HISTORY: Fever. FINDINGS: An AP, portable, upright chest radiograph is compared to study dated 09/05/2016 The examination is degraded by portable technique and patient rotation. A right PICC line has been removed from previous. The cardiomediastinal silhouette is unremarkable. There is atherosclerotic calcification of the thoracic aorta. Chronic interstitial thickening is unchanged. There is mild chronic elevation of the left hemidiaphragm with minimal left basilar atelectasis. The lungs and pleural spaces are otherwise clear. No pneumothorax is seen. The skeletal structures are osteopenic. The bony thorax is grossly intact. IMPRESSION: No acute cardiopulmonary abnormality. Electronically signed by: Jitendra Rodriguez M.D. 10/03/2016 8:57 PM Dictated Date/Time: 10/03/2016 8:57 PM
[2016-10-03 21:08] LABS: MANUAL MICROSCOPIC REQUIRED? NO; REVIEW REQ? NO; URINE APPEARANCE CLEAR (CLEAR); URINE BILIRUBIN NEG (NEG); URINE COLOR YELLOW; URINE EPITHELIAL CELL AUTO >30 /lpf (0-5); URINE NITRITE NEG (NEG); URINE PH 6.5 (4.5-7.5); URINE SPECIFIC GRAVITY 1.015 (1.000-1.030); UROBILINOGEN NEG (NEG)
--- NOTE | 2016-10-03 21:51 | DIAGNOSTIC IMAGING REPORT ---
ULTRASOUND RIGHT UPPER QUADRANT ABDOMEN CLINICAL HISTORY: Right upper quadrant abdominal pain. COMPARISON STUDY: No priors. TECHNIQUE: Real-time, grayscale, and color flow sonography of the right upper quadrant of the abdomen was performed. Images are reviewed in the transverse and longitudinal planes. FINDINGS: Liver: The liver is mildly enlarged and heterogeneous in echotexture. There is no intrahepatic biliary ductal dilatation. The main portal vein is patent. Gallbladder: Small gallbladder polyps are incidentally noted measuring up to 5 mm. The gallbladder is otherwise normal in appearance. No gallstones are identified. There is no gallbladder wall thickening or pericholecystic fluid. A sonographic Call's sign is reportedly absent. The common bile duct measures up to 0.7 cm in diameter. Pancreas: Visualized portions of the pancreatic head and body. Atrophic. 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 Right kidney: The right kidney is atrophic. There is no hydronephrosis. Ascites: None. IMPRESSION: 1. No acute sonographic abnormality is identified in the right upper quadrant. 2. No gallstones are identified. 3. Additional findings as above. Electronically signed by: Jitendra Rodriguez M.D. 10/03/2016 9:49 PM Dictated Date/Time: 10/03/2016 9:47 PM
[2016-10-03 21:57] VITALS: TEMP 37.6
[2016-10-03] MEDS ORDERED: OPTIRAY 320 IV PRN (22:15)
[2016-10-03 22:48] LABS: INFLUENZA A PCR Neg for Influ A (NEG); INFLUENZA B PCR Neg for Influ B (NEG)
--- NOTE | 2016-10-03 22:48 | DIAGNOSTIC IMAGING REPORT ---
CT SCAN OF THE ABDOMEN AND PELVIS WITH IV CONTRAST CLINICAL HISTORY: Elevated hepatic transaminases. COMPARISON STUDY: Abdominal ultrasound dated 10/03/2016. TECHNIQUE: Following the IV administration of 115 cc of Optiray 320, CT scan of the abdomen and pelvis is performed from the lung bases to the proximal femora. Images are reviewed in the axial, sagittal, and coronal planes. IV contrast was administered without complication. Automated dose control exposure was utilized. CT DOSE: 543.97 mGy.cm FINDINGS: Lung bases: The heart is mildly enlarged and without pericardial effusion. The coronary arteries are densely calcified. Chronic interstitial changes are present the lung bases. There is no airspace consolidation or pleural effusion. There is a moderate hiatal hernia. Liver: The contrast-enhanced liver is elongated, measuring 20 cm in length. This suggests Heather's lobe variant anatomy. The liver is normal in contour and attenuation. There is no intrahepatic biliary ductal dilatation. The hepatic veins and portal veins are patent. Gallbladder: Unremarkable. Spleen: Normal in size and attenuation. Pancreas: Pancreas is atrophic. There is a 12 mm ovoid water density lesion in the pancreatic neck seen on image 117. 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 An additional 8 mm IPMN is seen in the pancreatic tail on image #88. Adrenal glands: Unremarkable. Kidneys: The contrast enhanced kidneys are atrophic and without hydronephrosis. The kidneys enhance symmetrically. A circumaortic left renal vein is incidentally noted. Abdominal vasculature: The abdominal aorta is normal in course and caliber noting moderate to advanced atherosclerotic calcification. Bowel: The small bowel and colon are normal in course and caliber. There is advanced diverticulosis of the left colon without CT evidence of acute diverticulitis. The appendix is well-visualized and normal. Peritoneum: There is no intraperitoneal free air or abdominal ascites. There is a small fat-containing umbilical hernia. Lymphadenopathy: None. Pelvic viscera: The bladder is normal as visualized. The uterus is surgically absent. No adnexal lesion is seen. Skeletal structures: The skeletal structures are osteopenic. There is mild to moderate lumbosacral spondylosis. Sclerotic change is seen in the sacroiliac joints and pubic symphysis. A hemangioma is noted in the body of L1. No lytic or blastic lesions are seen. IMPRESSION: 1. There are no acute infectious or inflammatory findings in the abdomen or pelvis. 2. Advanced diverticulosis of left colon without CT evidence of acute diverticulosis. 3. Cardiomegaly and hiatal hernia. 4. Additional findings as detailed above. Electronically signed by: Jitendra Rodriguez M.D. 10/03/2016 10:46 PM Dictated Date/Time: 10/03/2016 10:40 PM
[2016-10-03] MEDS ORDERED: CEFTRIAXONE SOD INJ 1 GM ADDVIAL IV STA (23:01)
[2016-10-03] MEDS ORDERED: CIPROFLOXACIN 500 MG TAB PO STA (23:10)
[2016-10-03] MEDS ORDERED: CIPR-255 PO (23:15)
[2016-10-03 23:56] VITALS: BP 123/70; PULSE 78; O2SAT 96
[2016-10-04] MEDS ORDERED: ACET325T96 PO (17:43)
[2016-10-04] MEDS ORDERED: POLY335019 PO (17:43)
[2016-10-04] MEDS ORDERED: ALEN70TA4 PO (22:18)
[2016-10-07] MEDS ORDERED: LOSA50TA54 PO (10:43)
== END 2016-10-03 23:56 | disposition home or self-care (01) ==
LOC: EDBD 19:45 → C.EDC 19:48
DX: R74.0 Nonspecific elevation of levels of transaminase and lactic acid dehydrogenase [LDH] (principal); R50.9 Fever, unspecified; N30.00 Acute cystitis without hematuria; I51.9 Heart disease, unspecified; I10 Essential (primary) hypertension; E87.1 Hypo-osmolality and hyponatremia; Z79.82 Long term (current) use of aspirin

== ENCOUNTER 2016-10-04 16:58 | Inpatient (IN) | payer OTHER ==
[~2016-10-04] VITALS: Ht 170.2 cm; Wt 83.1 kg
[~2016-10-04 16:58] MED LIST changes: +CIPR-255 PO; -MRLP17 PO; -SNK PO
[2016-10-04] MEDS ORDERED: SODIUM CHLORIDE 0.9% 1000ML 1,000 ML IV STA (17:15)
[2016-10-04] MEDS ORDERED: ONDANSETRON INJ 2 MG/ML 2 ML VIAL IV STA (17:15)
[2016-10-04] MEDS ORDERED: ACETAMINOPHEN 325 MG TAB PO ONE (17:15)
--- NOTE | 2016-10-04 17:22 | EMERGENCY ROOM VISIT NOTE ---
History Report prepared by Brian: Soto Worthy Under the Supervision of: Dr. Wilfrid Patel D.O. First contact with patient: 17:08 Chief Complaint: FEVER Stated Complaint: UTI History of Present Illness The patient is a 86 year old female who presents to the Emergency Room with complaints of a fever that began yesterday. The patient was seen in the ED yesterday and was discharged with a urinary tract infection. She came in with a high fever and high blood pressure. She was given an antibiotic upon discharge. Today, a couple of hours ago, her fever began again. She did take her first dose of her antibiotic. She denies any cough, chest pain, shortness of breath, hematuria, and rash. She is feeling nauseated. She has a past medical history of high blood pressure and sodium problems. She denies any worsening symptoms with standing up or exertion. Source of History: patient Onset: yesterday Position: other (global) Symptom Intensity: moderate Quality: other (Fever) Timing: waxes/wanes Associated Symptoms: + nausea, No SOB, No chest pain, No cough, No rash, No vomiting Note: She denies any hematuria. Review of Systems See HPI for pertinent positives & negatives. A total of 10 systems reviewed and were otherwise negative. Past Medical & Surgical Medical Problems: (1) Bee sting allergy (2) Diabetes mellitus, type 2 (3) Dyslipidemia (4) Elevated troponin (5) Hypertension (6) Hyponatremia Surgical Problems: (1) History of hysterectomy (2) Status post bladder repair (3) Status post hysterectomy Family History Noncontributory secondary to age Social History Smoking Status: Never Smoker Smokeless Tobacco Use: No Drug Use: none Marital Status: Housing Status: lives alone Occupation Status: retired Current/Historical Medications Scheduled Acetaminophen Tab (Tylenol), 650 MG PO UD Alendronate Sodium (Fosamax), 70 MG PO WK Aspirin (Aspirin EC Low Dose), 81 MG PO DAILY Atorvastatin (Atorvastatin Calcium), 80 MG PO QAM Cholecalciferol (Vitamin D3), 2,000 UNITS PO DAILY Ciprofloxacin Hcl (Cipro), 1 TAB PO BID Docusate Sodium (Docusate Sodium), 100 MG PO BID Furosemide (Furosemide), 20 MG PO QAM Losartan Potassium (Cozaar), 50 MG PO DAILY Metoprolol Tartrate (Metoprolol Tartrate), 50 MG PO BID [Boost Plus Vanilla], 1 CAN PO BIDM Scheduled PRN Bisacodyl (Bisacodyl EC), 5 MG PO DAILY PRN for Constipation Lorazepam (Ativan), 0.5 MG PO HS PRN for Anxiety Polyethylene Glycol 3350 (Miralax), 17 GM PO DAILY PRN for Constipation Allergies Coded Allergies: Atenolol (Unverified Allergy, Mild, "HANDS TURNED BLUE", 10/04/16) Lisinopril (Unverified Allergy, Unknown, cough, 10/04/16) Nitrofurantoin (Unverified Allergy, Unknown, nausea, 10/04/16) Sulfamethoxazole w/Trimethoprim (Unverified Allergy, Unknown, nausea, 10/04) Hydrochlorothiazide w/Triamterene (Verified Adverse Reaction, Severe, hyponatremia, 10/04/16) Physical Exam Vital Signs Date Time Temp Pulse Resp B/P Pulse Ox O2 Delivery O2 Flow Rate FiO2 10/04/16 20:32 37.3 86 24 139/69 93 Room Air 10/04/16 18:15 37.8 92 18 136/61 96 Room Air 10/04/16 17:33 104 10/04/16 17:18 93 Room Air 10/04/16 17:03 38.5 104 20 166/82 93 Room Air Physical Exam GENERAL: Patient is awake, alert, and in no acute distress. Patient is resting comfortably and showing no signs of anxiety EYES: The conjunctivae are clear. The pupils are round and reactive. EARS, NOSE, MOUTH AND THROAT: The nose is without any evidence of any deformity. Mucous membranes are dry tongue is midline NECK: The neck is nontender and supple. RESPIRATORY: Normal respiratory effort is noted there is no evidence of wheezing rhonchi or rales CARDIOVASCULAR: Tachycardic rate but regular rhythm noted there are no definite murmurs rubs or gallops to auscultation normal S1 normal S2 GASTROINTESTINAL: The abdomen is soft. Bowel sounds are present in all quadrants. Abdomen is nontender MUSCULOSKELETAL/EXTREMITIES: There is no evidence of gross deformity full range of motion is noted in the hips and shoulders SKIN: There is no obvious evidence of any rash. There are no petechiae, pallor or cyanosis noted. NEUROLOGIC: Patient is awake alert and oriented x3. Medical Decision & Procedures ER Provider Diagnostic Interpretation: Radiology results are stated below per my review and radiologist interpretation: CHEST ONE VIEW PORTABLE CLINICAL HISTORY: Sepsis to COMPARISON STUDY: Chest radiograph October 03, 2016. FINDINGS: Lung volumes are normal. There is no pneumothorax or pleural effusion. There is no evidence of pulmonary edema. Mild left basilar opacity favors atelectasis. Mild cardiomegaly is unchanged. There is no evidence of pulmonary edema. IMPRESSION: No acute cardiopulmonary findings. Electronically signed by: Miki Breaux M.D. 10/04/2016 5:34 PM Dictated Date/Time: 10/04/2016 5:33 PM Laboratory Results Test 10/04/16 17:05 10/04/16 17:15 10/04/16 18:17 Immature Granulocyte % (Auto) 0.2 % White Blood Count 5.75 K/uL (4.8-10.8) Red Blood Count 3.56 M/uL (4.2-5.4) Hemoglobin 10.4 g/dL (12.0-16.0) Hematocrit 30.9 % (37-47) Mean Corpuscular Volume 86.8 fL (80-100) Mean Corpuscular Hemoglobin 29.2 pg (25-34) Mean Corpuscular Hemoglobin Concent 33.7 g/dl (32-36) Platelet Count 148 K/uL (130-400) Mean Platelet Volume 10.4 fL (7.4-10.4) Neutrophils (%) (Auto) 77.1 % Lymphocytes (%) (Auto) 6.1 % Monocytes (%) (Auto) 9.4 % Eosinophils (%) (Auto) 7.0 % Basophils (%) (Auto) 0.2 % Neutrophils # (Auto) 4.44 K/uL (1.4-6.5) Lymphocytes # (Auto) 0.35 K/uL (1.2-3.4) Monocytes # (Auto) 0.54 K/uL (0.11-0.59) Eosinophils # (Auto) 0.40 K/uL (0-0.5) Basophils # (Auto) 0.01 K/uL (0-0.2) Immature Granulocyte # (Auto) 0.01 K/uL (0.00-0.02) Erythrocyte Sedimentation Rate 27 mm/hr (0-21) Prothrombin Time 11.7 SECONDS (9.0-12.0) Prothromb Time International Ratio 1.1 (0.9-1.1) Activated Partial Thromboplast Time 25.7 SECONDS (21.0-31.0) Partial Thromboplastin Ratio 1.0 Phosphorus Level 2.4 mg/dl (2.5-4.9) Magnesium Level 1.9 mg/dl (1.8-2.4) Total Creatine Kinase 53 U/L (26-192) Creatine Kinase MB 0.6 ng/ml (0.5-3.6) Creatine Kinase MB Ratio 1.1 (0-3.0) Troponin I < 0.015 ng/ml (0-0.045) C-Reactive Protein 6.52 mg/dl (0-0.29) Pro-B-Type Natriuretic Peptide 945 pg/ml (0-1800) Globulin 3.5 gm/dl (2.5-4.0) Albumin/Globulin Ratio 0.9 (0.9-2) Lipase 82 U/L (73-393) Hepatitis B Surface Antigen NEG (NEG) Hepatitis C Antibody NEG (NEG) Bedside Lactic Acid Venous 1.56 mmol/L (0.90-1.70) Urine Color YELLOW Urine Appearance CLEAR (CLEAR) Urine pH 6.5 (4.5-7.5) Urine Specific [place] 1.023 (1.000-1.030) Urine Protein 1+ (NEG) Urine Glucose (UA) NEG (NEG) Urine Ketones NEG (NEG) Urine Occult Blood NEG (NEG) Urine Nitrite NEG (NEG) Urine Bilirubin NEG (NEG) Urine Urobilinogen NEG (NEG) Urine Leukocyte Esterase NEG (NEG) Urine WBC (Auto) 1-5 /hpf (0-5) Urine RBC (Auto) 0-4 /hpf (0-4) Urine Hyaline Casts (Auto) 1-5 /lpf (0-5) Urine Epithelial Cells (Auto) >30 /lpf (0-5) Urine Bacteria (Auto) NEG (NEG) Laboratory results per my review. Medications Administered Medications (Trade) Dose Ordered Sig/Jaime Route Start Time Stop Time Status Last Admin Dose Admin Acetaminophen 650 mg 650 mg ONE ONCE PO 10/04/16 17:15 10/04/16 17:16 DC 10/04/16 17:26 650 MG Sodium Chloride (Nss 1000ml) 1,000 ml @ 999 mls/hr Q1H1M STAT IV 10/04/16 17:15 10/04/16 18:15 DC 10/04/16 17:25 999 MLS/HR Ondansetron HCl (Zofran Inj) 4 mg NOW STAT IV 10/04/16 17:15 10/04/16 17:16 DC 10/04/16 17:25 4 MG Levofloxacin (Levaquin / D5W) 750 mg NOW STAT IV 10/04/16 19:36 10/04/16 19:37 DC 10/04/16 20:26 750 MG ECG Indication: other (Fever) Rate (beats per minute): 101 Rhythm: sinus tachycardia Findings: RBBB (Pattern noted), other (No PVCs) Comparison ECG Date: no prior available ED Course 1707: The patient was evaluated in room C6. A complete history and physical examination were performed. 1714: Ordered Zofran Inj 4 mg IV, NSS 1,000 ml @ 999 mls/hr IV, Tylenol Tab 650 mg PO 1935: Ordered Levofloxacin 750 mg IV 2056: Upon reevaluation, the patient is resting. I discussed results and treatment plan with her. She verbalizes agreement and understanding. [facility] The patient will be evaluated for further management and care. Medical Decision Differential diagnosis: Etiologies such as viral syndrome, otitis, pharyngitis, pneumonia, influenza, meningitis, urinary tract infection, sepsis, bacteremia, as well as others were entertained. Nursing notes reviewed. Patient's previous electronic medical records reviewed. The patient is an 86-year-old female who presented to the emergency department for an evaluation of a fever. The patient was seen previously for similar complaints. At that time she was diagnosed with urinary tract infection. The patient was started on antibiotic but return to emergency department today because of generalized weakness and she also started having another fever. The patient's urinalysis at this time appears improved but no other definite source for infection could be found. She was found have some degree of anemia. She was given antipyretics and IV fluids as well as another dose of an IV antibiotic. I discussed patient's laboratory and radiographic studies with her and her family members. Given her age and comorbidities as well as ongoing fever I discussed his case with the on-call [facility] group. They've agreed to evaluate the patient in the emergency department for further management and disposition. Consults Time Called: [phone] Consulting Physician: Dr. Yuri Stallings Hospitalist Returned Call: [phone] He will be evaluating the patient for further management. Impression Primary Impression: Fever Additional Impressions: Abnormal liver function tests Nausea Recent urinary tract infection Scribe Attestation The scribe's documentation has been prepared under my direction and personally reviewed by me in its entirety. I confirm that the note above accurately reflects all work, treatment, procedures, and medical decision making performed by me. Departure Information Dispostion Being Evaluated By Hospitalist Referrals Noreen Anderson M.D. (PCP) Patient Instructions My [facility] Problem Qualifiers
[2016-10-04 17:24] LABS: BASO % 0.2 %; BASO ABS # 0.01 K/uL (0-0.2); COMPLETE YES; HEMATOCRIT 30.9 % (37-47); IG% 0.2 %; LYMPH % 6.1 %; LYMPH ABS # 0.35 K/uL (1.2-3.4); MEAN CELL VOLUME 86.8 fL (80-100); MEAN CORPUSCULAR HEMOGLOBIN 29.2 pg (25-34); MEAN CORPUSCULAR HGB CONC 33.7 g/dl (32-36); MEAN PLATELET VOLUME 10.4 fL (7.4-10.4); MONO % 9.4 %; NEUT % 77.1 %; PLATELET COUNT 148 K/uL (130-400); RED BLOOD COUNT 3.56 M/uL (4.2-5.4); WHITE BLOOD COUNT 5.75 K/uL (4.8-10.8)
[2016-10-04 17:36] LABS: ALT/SGPT 351 U/L (12-78); AST/SGOT 244 U/L (15-37); BLOOD UREA NITROGEN 22 mg/dl (7-18); BUN/CREATININE RATIO 19.8 (10-20); CALCIUM 8.2 mg/dl (8.5-10.1); CARBON DIOXIDE 28 mmol/L (21-32); CHLORIDE 101 mmol/L (98-107); GLUCOSE 141 mg/dl (70-99); MAGNESIUM 1.9 mg/dl (1.8-2.4); POTASSIUM 3.9 mmol/L (3.5-5.1); SODIUM 136 mmol/L (136-145)
--- NOTE | 2016-10-04 17:36 | DIAGNOSTIC IMAGING REPORT ---
CHEST ONE VIEW PORTABLE CLINICAL HISTORY: Sepsis to COMPARISON STUDY: Chest radiograph October 03, 2016. FINDINGS: Lung volumes are normal. There is no pneumothorax or pleural effusion. There is no evidence of pulmonary edema. Mild left basilar opacity favors atelectasis. Mild cardiomegaly is unchanged. There is no evidence of pulmonary edema. IMPRESSION: No acute cardiopulmonary findings. Electronically signed by: Miki Breaux M.D. 10/04/2016 5:34 PM Dictated Date/Time: 10/04/2016 5:33 PM
[2016-10-04 17:39] LABS: ALB/GLOB RATIO 0.9 (0.9-2); ALKALINE PHOSPHATASE 252 U/L (45-117); C-REACTIVE PROTEIN 6.52 mg/dl (0-0.29); CKMB/CK RATIO 1.1 (0-3.0); INR 1.1 (0.9-1.1); PHOSPHORUS 2.4 mg/dl (2.5-4.9); PROTHROMBIN TIME (PATIENT) 11.7 SECONDS (9.0-12.0)
[2016-10-04] MEDS ORDERED: POLY335019 PO (17:43)
[2016-10-04] MEDS ORDERED: ACET325T96 PO (17:43)
[2016-10-04 18:30] LABS: URINE APPEARANCE CLEAR (CLEAR); URINE BILIRUBIN NEG (NEG); URINE COLOR YELLOW; URINE EPITHELIAL CELL AUTO >30 /lpf (0-5); URINE NITRITE NEG (NEG); URINE PH 6.5 (4.5-7.5); URINE SPECIFIC GRAVITY 1.023 (1.000-1.030); UROBILINOGEN NEG (NEG); ZZUR CULT IF INDIC CLEAN CATCH NO
[2016-10-04 18:31] LABS: MANUAL MICROSCOPIC REQUIRED? NO; REVIEW REQ? NO
[2016-10-04] MEDS ORDERED: LEVAQUIN 750MG / 150ML D5W IV STA (19:36)
--- NOTE | 2016-10-04 22:16 | History and Physical ---
History & Physical Date & Time of Service: Oct 04, 2016 at 22:00 . Chief Complaint: malaise, fever, chills, nausea . Primary Care Physician: Noreen Anderson M.D. . History of Present Illness Source: patient, family, clinic records, hospital records 86-year-old female followed by Dr. Anderson for Internal Medicine, Dr. Thrasher for Nephrology, and Dr. Santos for Cardiology. History of hypertension, diet-controlled diabetes mellitus, and other problems noted below. Hospitalized at [facility] a few weeks ago with hypertensive urgency and hyponatremia attributed to hydrochlorothiazide. Medication changes included changing diuretic therapy from hydrochlorothiazide to furosemide and statin therapy from simvastatin to atorvastatin. 3 days prior to admission the patient developed chills. Over the next 24-48 hours she noted worsening chills as well as fever. Experienced nausea without abdominal pain, vomiting, diarrhea. No cough, wheezing, dyspnea. No sinus symptoms, pharyngitis, otalgia. No flank pain, dysuria, hematuria. She came to the ED last evening due to the symptoms noted above. WBC count was 6000. Serum chemistries notable for a total bilirubin of 0.9, AST 330, ALT 408, alkaline phosphatase 188. Acetaminophen level was 6. Testing for influenza A&B negative by both antigen and PCR assays. Urinalysis demonstrated a small amount of leukocyte esterase, 10-30 WBC's, 0-4 RBC's, > 30 epithelial cells, 1+ bacteria. Chest x-ray did not show any infiltrates. Imaging of abdomen per ultrasound and CT did not show any acute processes that would suggest an etiology of her symptoms. It was felt that she probably had a urinary tract infection. Hospitalization was considered, but the patient preferred being discharged to home. She received a dose of intravenous ceftriaxone as well as a dose of ciprofloxacin in the ED. She was given a prescription for ciprofloxacin and took a dose this morning. This evening she had recurrent fever as high as 103, chills, ongoing nausea. No additional symptoms. She returned to the ED for evaluation. . Past Medical/Surgical History Chronic and Resolved Medical Problems: (1) Bee sting allergy Status: Chronic (2) Diabetes mellitus, type 2 Permanent Comment: diet controlled Status: Chronic (3) Dyslipidemia Status: Chronic (4) Hypertension Status: Chronic (5) Hyponatremia Status: Resolved Surgical Problems: (1) History of hysterectomy Status: Resolved (2) Status post bladder repair Status: Chronic (3) Status post hysterectomy Status: Chronic . Family History FATHER Stroke MOTHER Coronary artery disease SISTER Coronary artery disease Social History Smoking Status: Never Smoker Smokeless Tobacco Use: No Alcohol Use: none Drug Use: none Marital Status: Occupational Status: retired Allergies Coded Allergies: Atenolol (Unverified Allergy, Mild, "HANDS TURNED BLUE", 10/04/16) Lisinopril (Unverified Allergy, Unknown, cough, 10/04/16) Nitrofurantoin (Unverified Allergy, Unknown, nausea, 10/04/16) Sulfamethoxazole w/Trimethoprim (Unverified Allergy, Unknown, nausea, 10/04) Hydrochlorothiazide w/Triamterene (Verified Adverse Reaction, Severe, hyponatremia, 10/04/16) Home Medications Scheduled Acetaminophen Tab (Tylenol), 650 MG PO UD Alendronate Sodium (Fosamax), 70 MG PO WK Aspirin (Aspirin EC Low Dose), 81 MG PO DAILY Atorvastatin (Atorvastatin Calcium), 80 MG PO QAM Cholecalciferol (Vitamin D3), 2,000 UNITS PO DAILY Ciprofloxacin Hcl (Cipro), 1 TAB PO BID Docusate Sodium (Docusate Sodium), 100 MG PO BID Furosemide (Furosemide), 20 MG PO QAM Losartan Potassium (Cozaar), 50 MG PO DAILY Metoprolol Tartrate (Metoprolol Tartrate), 50 MG PO BID [Boost Plus Vanilla], 1 CAN PO BIDM Scheduled PRN Bisacodyl (Bisacodyl EC), 5 MG PO DAILY PRN for Constipation Lorazepam (Ativan), 0.5 MG PO HS PRN for Anxiety Polyethylene Glycol 3350 (Miralax), 17 GM PO DAILY PRN for Constipation Review of Systems Constitutional: + chills, + fever, No weight loss Eyes: No diplopia, No worsening of vision ENT: No nasal symptoms, No sore throat Respiratory: No cough, No shortness of breath Cardiovascular: + palpitations (about a month ago, no recurrence), No chest pain, No edema Abdomen: + constipation, + nausea, No GI bleeding, No diarrhea, No pain, No vomiting Musculoskeletal: + joint pain, No muscle pain Genitourinary - Female: No dysuria, No hematuria Endocrine: + problem reported (blood sugars well-controlled at home), No excessive thirst, No excessive urination Hematologic / Lymphatic: + abnormal bleeding/bruising (bruises easily) Integumentary: No new/changing skin lesions, No rash Physical Exam Vital Signs Date Time Temp Pulse Resp B/P Pulse Ox O2 Delivery O2 Flow Rate FiO2 10/04/16 20:32 37.3 86 24 139/69 93 Room Air 10/04/16 18:15 37.8 92 18 136/61 96 Room Air 10/04/16 17:33 104 10/04/16 17:18 93 Room Air 10/04/16 17:03 38.5 104 20 166/82 93 Room Air General Appearance: WD/WN, no apparent distress Head: normocephalic, atraumatic Eyes: normal inspection, PERRL, EOMI, sclerae normal, + pertinent finding ( conjunctivae pink) ENT: normal ENT inspection, hearing grossly normal, pharynx normal Neck: supple, no adenopathy, thyroid normal, no JVD, trachea midline Respiratory/Chest: lungs clear, normal breath sounds, no respiratory distress, no accessory muscle use Cardiovascular: regular rate, rhythm, no edema, no gallop, no JVD, no murmur, + abnormal peripheral pulses (L DP dimininished; other pedal pulses intact; capillary refill < 2 sec) Abdomen/GI: normal bowel sounds, non tender, soft, no organomegaly, no pulsatile mass Back: normal inspection, no CVA tenderness Extremities/Musculoskelatal: normal inspection, no calf tenderness, normal capillary refill, no pedal edema Neurologic/Psych: 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 II-XII nml as tested (PERRL, EOMI, no facial palsy, no dysarthria), no motor/sensory deficits (motor 5/5 bilat), alert, normal mood/ affect, oriented x 3 Skin: normal color, warm/dry, no rash Lymphatic: + pertinent finding (no cervical adenopathy) Diagnostics Laboratory Results Results Past 24 Hours Test 10/04/16 17:05 10/04/16 17:15 10/04/16 18:17 Range/Units White Blood Count 5.75 4.8-10.8 K/uL Red Blood Count 3.56 4.2-5.4 M/uL Hemoglobin 10.4 12.0-16.0 g/dL Hematocrit 30.9 37-47 % Mean Corpuscular Volume 86.8 80-100 fL Mean Corpuscular Hemoglobin 29.2 25-34 pg Mean Corpuscular Hemoglobin Concent 33.7 32-36 g/dl Platelet Count 148 130-400 K/uL Mean Platelet Volume 10.4 7.4-10.4 fL Neutrophils (%) (Auto) 77.1 % Lymphocytes (%) (Auto) 6.1 % Monocytes (%) (Auto) 9.4 % Eosinophils (%) (Auto) 7.0 % Basophils (%) (Auto) 0.2 % Neutrophils # (Auto) 4.44 1.4-6.5 K/uL Lymphocytes # (Auto) 0.35 1.2-3.4 K/uL Monocytes # (Auto) 0.54 0.11-0.59 K/uL Eosinophils # (Auto) 0.40 0-0.5 K/uL Basophils # (Auto) 0.01 0-0.2 K/uL RDW Standard Deviation 45.6 36.4-46.3 fL RDW Coefficient of Variation 14.4 11.5-14.5 % Immature Granulocyte % (Auto) 0.2 % Immature Granulocyte # (Auto) 0.01 0.00-0.02 K/uL Erythrocyte Sedimentation Rate 27 0-21 mm/hr Prothrombin Time 11.7 9.0-12.0 SECONDS Prothromb Time International Ratio 1.1 0.9-1.1 Activated Partial Thromboplast Time 25.7 21.0-31.0 SECONDS Partial Thromboplastin Ratio 1.0 Sodium Level 136 136-145 mmol/L Potassium Level 3.9 3.5-5.1 mmol/L Chloride Level 101 98-107 mmol/L Carbon Dioxide Level 28 21-32 mmol/L Anion Gap 7.0 3-11 mmol/L Blood Urea Nitrogen 22 7-18 mg/dl Creatinine 1.10 0.60-1.20 mg/dl Est Creatinine Clear Calc Drug Dose 42.2 ml/min Estimated GFR () 53.4 Estimated GFR (Non- 46.1 BUN/Creatinine Ratio 19.8 10-20 Random Glucose 141 70-99 mg/dl Calcium Level 8.2 8.5-10.1 mg/dl Phosphorus Level 2.4 2.5-4.9 mg/dl Magnesium Level 1.9 1.8-2.4 mg/dl Total Bilirubin 0.9 0.2-1 mg/dl Aspartate Amino Transf (AST/SGOT) 244 15-37 U/L Alanine Aminotransferase (ALT/SGPT) 351 12-78 U/L Alkaline Phosphatase 252 45-117 U/L Total Creatine Kinase 53 26-192 U/L Creatine Kinase MB 0.6 0.5-3.6 ng/ml Creatine Kinase MB Ratio 1.1 0-3.0 Troponin I < 0.015 0-0.045 ng/ml C-Reactive Protein 6.52 0-0.29 mg/dl Pro-B-Type Natriuretic Peptide 945 0-1800 pg/ml Total Protein 6.7 6.4-8.2 gm/dl Albumin 3.2 3.4-5.0 gm/dl Globulin 3.5 2.5-4.0 gm/dl Albumin/Globulin Ratio 0.9 0.9-2 Lipase 82 73-393 U/L Hepatitis B Surface Antigen NEG NEG Hepatitis C Antibody NEG NEG Bedside Lactic Acid Venous 1.56 0.90-1.70 mmol/L Urine Color YELLOW Urine Appearance CLEAR CLEAR Urine pH 6.5 4.5-7.5 Urine Specific [place] 1.023 1.000-1.030 Urine Protein 1+ NEG Urine Glucose (UA) NEG NEG Urine Ketones NEG NEG Urine Occult Blood NEG NEG Urine Nitrite NEG NEG Urine Bilirubin NEG NEG Urine Urobilinogen NEG NEG Urine Leukocyte Esterase NEG NEG Urine WBC (Auto) 1-5 0-5 /hpf Urine RBC (Auto) 0-4 0-4 /hpf Urine Hyaline Casts (Auto) 1-5 0-5 /lpf Urine Epithelial Cells (Auto) >30 0-5 /lpf Urine Bacteria (Auto) NEG NEG Microbiology Results 10/04/16 Blood Culture, Received Pending 10/04/16 Blood Culture, Received Pending Diagnostic Radiology SINGLE VIEW CHEST 10/03/16 FINDINGS: An AP, portable, upright chest radiograph is compared to study dated 09/05/2016 The examination is degraded by portable technique and patient rotation. A right PICC line has been removed from previous. The cardiomediastinal silhouette is unremarkable. There is atherosclerotic calcification of the thoracic aorta. Chronic interstitial thickening is unchanged. There is mild chronic elevation of the left hemidiaphragm with minimal left basilar atelectasis. The lungs and pleural spaces are otherwise clear. No pneumothorax is seen. The skeletal structures are osteopenic. The bony thorax is grossly intact. IMPRESSION: No acute cardiopulmonary abnormality. Electronically signed by: Jitendra Rodriguez M.D. 10/03/2016 8:57 PM ULTRASOUND RIGHT UPPER QUADRANT ABDOMEN 10/03/16 FINDINGS: Liver: The liver is mildly enlarged and heterogeneous in echotexture. There is no intrahepatic biliary ductal dilatation. The main portal vein is patent. Gallbladder: Small gallbladder polyps are incidentally noted measuring up to 5 mm. The gallbladder is otherwise normal in appearance. No gallstones are identified. There is no gallbladder wall thickening or pericholecystic fluid. A sonographic Call's sign is reportedly absent. The common bile duct measures up to 0.7 cm in diameter. Pancreas: Visualized portions of the pancreatic head and body. Atrophic. 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 Right kidney: The right kidney is atrophic. There is no hydronephrosis. Ascites: None. IMPRESSION: 1. No acute sonographic abnormality is identified in the right upper quadrant. 2. No gallstones are identified. 3. Additional findings as above. Electronically signed by: Jitendra Rodriguez M.D. 10/03/2016 9:[address] SCAN OF THE ABDOMEN AND PELVIS WITH IV CONTRAST 10/03/16 FINDINGS: Lung bases: The heart is mildly enlarged and without pericardial effusion. The coronary arteries are densely calcified. Chronic interstitial changes are present the lung bases. There is no airspace consolidation or pleural effusion. There is a moderate hiatal hernia. Liver: The contrast-enhanced liver is elongated, measuring 20 cm in length. This suggests Heather's lobe variant anatomy. The liver is normal in contour and attenuation. There is no intrahepatic biliary ductal dilatation. The hepatic veins and portal veins are patent. Gallbladder: Unremarkable. Spleen: Normal in size and attenuation. Pancreas: Pancreas is atrophic. There is a 12 mm ovoid water density lesion in the pancreatic neck seen on image 117. 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 An additional 8 mm IPMN is seen in the pancreatic tail on image #88. Adrenal glands: Unremarkable. Kidneys: The contrast enhanced kidneys are atrophic and without hydronephrosis. The kidneys enhance symmetrically. A circumaortic left renal vein is incidentally noted. Abdominal vasculature: The abdominal aorta is normal in course and caliber noting moderate to advanced atherosclerotic calcification. Bowel: The small bowel and colon are normal in course and caliber. There is advanced diverticulosis of the left colon without CT evidence of acute diverticulitis. The appendix is well-visualized and normal. Peritoneum: There is no intraperitoneal free air or abdominal ascites. There is a small fat-containing umbilical hernia. Lymphadenopathy: None. Pelvic viscera: The bladder is normal as visualized. The uterus is surgically absent. No adnexal lesion is seen. Skeletal structures: The skeletal structures are osteopenic. There is mild to moderate lumbosacral spondylosis. Sclerotic change is seen in the sacroiliac joints and pubic symphysis. A hemangioma is noted in the body of L1. No lytic or blastic lesions are seen. IMPRESSION: 1. There are no acute infectious or inflammatory findings in the abdomen or pelvis. 2. Advanced diverticulosis of left colon without CT evidence of acute diverticulosis. 3. Cardiomegaly and hiatal hernia. 4. Additional findings as detailed above. Electronically signed by: Jitendra Rodriguez M.D. 10/03/2016 10:46 PM CHEST ONE VIEW PORTABLE 10/04/16 FINDINGS: Lung volumes are normal. There is no pneumothorax or pleural effusion. There is no evidence of pulmonary edema. Mild left basilar opacity favors atelectasis. Mild cardiomegaly is unchanged. There is no evidence of pulmonary edema. IMPRESSION: No acute cardiopulmonary findings. Electronically signed by: Miki Breaux M.D. 10/04/2016 5:34 PM . Impression Assessment and Plan FEBRILE ILLNESS Febrile illness over the past several days associated with chills and nausea; no associated abdominal pain or diarrhea. No upper or lower respiratory tract symptoms. No urinary symptoms. No significant headache or other neuro symptoms. No evidence of septic arthritis. No rashes. No infiltrates on chest x-ray. No apparent intra-abdominal infection per ultrasound and CT. Urinalysis last evening demonstrated a small amount of leukocyte esterase, 1+ bacteria, many WBCs; however, there were also many epithelial cells. Serum chemistries notable for elevated transaminases and alkaline phosphatase as noted. Serum lactate 1.56. Hemodynamically stable. Etiology of fever is unclear at this time. As noted, no convincing evidence of respiratory tract infection, gastrointestinal infection, urinary tract infection. Suspect that patient most likely has a viral illness. Blood cultures were obtained in the ED. Urine culture will be obtained as well. Check procalcitonin with next phlebotomy. Patient has received IV ceftriaxone last evening, doses of oral ciprofloxacin last evening and this morning, and a dose of intravenous levofloxacin this evening. Will not order further antibiotic therapy at this time, awaiting culture results and following patient's clinical course. Consider possible drug fever, although this would seem to be unlikely in the absence of a rash. Other etiologies of fever such as malignancy or autoimmune disease less likely given acute onset and short duration of symptoms. ELEVATED LFT'S Elevated transaminases and alkaline phosphatase as noted. No obvious etiology per imaging. Acute hepatitis panel has been ordered, results pending. Elevated LFTs may be due to a viral illness. Total CPK normal, so elevated transaminases not secondary to rhabdomyolysis. Statin therapy was recently changed from simvastatin to high-dose atorvastatin. Acetaminophen toxicity very unlikely since patient only took a few doses of acetaminophen. Hold atorvastatin until LFTs normalize, then consider resuming with close monitoring of labs. Consult GI if LFT's do not improve. HYPERTENSION Hold furosemide for now. Continue metoprolol tartrate and losartan. HISTORY HYPONATREMIA Serum sodium as low as 115 during recent hospital stay. Hyponatremia attributed to HCTZ which was discontinued. Serum sodium now 136. Follow. DM TYPE 2 Well-controlled at home with dietary management. Recent Hgb A1C in clinic was 5.9. Follow. DYSLIPIDEMIA Hold statin until LFT's normalize, then restart with caution. ABNORMAL PANCREATIC IMAGING US and CT demonstrated small pancreatic cysts consistent with IPMN's. Outpatient GI consultation may be prudent. VTE PROPHYLAXIS Moderate risk for VTE. SQ heparin. Ambulate. RESUSCITATION STATUS Discussed with patient and her daughters. She has a living will. She would like resuscitation attempted in the event of a cardiopulmonary arrest if there is a reasonable chance of a meaningful recovery, but does not want prolonged extraordinary measures if prognosis is poor. Therefore, code status = "Level 1" (full resuscitation). DISPOSITION Admit to Med-Surg Unit Expected discharge to home. Internal Medicine follow-up with Dr. Anderson. Nephrology follow-up with Dr. Thrasher. Cardiology follow-up with Dr. Santos. . VTE Prophylaxis VTE Risk Assessment Done? Y/N: Yes Risk Level: Moderate Given or contraindicated: Unfractionated heparin SQ Additional Copies To Rocío Thrasher MD; Marvin Santos DO; Noreen Anderson M.D.
[2016-10-04] MEDS ORDERED: ALEN70TA4 PO (22:18)
[2016-10-04] MEDS ORDERED: POLYETHYLENE (MIRALAX) 17 GM PACK PO PRN (22:30)
[2016-10-04 23:00] VITALS: BP 160/81; PULSE 86; TEMP 36.7; O2SAT 98; Ht 170.2 cm; Wt 83.1 kg
[2016-10-05] MEDS: LORAZEPAM 0.5 MG TAB PO PRN ×2 (00:22→22:28)
[2016-10-05] MEDS: ACETAMINOPHEN 500 MG TAB PO PRN ×2 (00:23→18:15)
[2016-10-05] MEDS: NSS + 20MEQ KCL 1000ML 1,000 ML IV SCH ×2 (00:36→10:54)
[2016-10-05] MEDS: DOCUSATE SODIUM 100 MG CAP PO SCH ×2 (00:57→08:48)
[2016-10-05] MEDS: METOPROLOL TARTRATE 50 MG TAB PO SCH ×3 (00:58→22:28)
[2016-10-05 06:51] LABS: HEMATOCRIT 28.2 % (37-47); MEAN CORPUSCULAR HEMOGLOBIN 29.3 pg (25-34); MEAN PLATELET VOLUME 10.7 fL (7.4-10.4); PLATELET COUNT 143 K/uL (130-400); RED BLOOD COUNT 3.28 M/uL (4.2-5.4)
[2016-10-05 07:42] VITALS: BP 151/89; PULSE 73; TEMP 36.8; O2SAT 95
[2016-10-05 08:37] LABS: BUN/CREATININE RATIO 16.9 (10-20); CALCIUM 7.9 mg/dl (8.5-10.1); CREATININE 0.79 mg/dl (0.60-1.20); POTASSIUM 3.7 mmol/L (3.5-5.1)
[2016-10-05] MEDS: BOOST VANILLA PO SCH ×4 (08:45→20:00)
[2016-10-05] MEDS: LOSARTAN POTASSIUM 50 MG TAB PO SCH (08:49)
[2016-10-05] MEDS: ASPIRIN 81 MG ECTAB PO SCH (08:49)
[2016-10-05] MEDS: HEPARIN SOD 5000 UNIT/0.5 ML CARP SQ SCH ×2 (08:55→22:32)
[2016-10-05 10:00] VITALS: O2SAT 95
[2016-10-05] MEDS ORDERED: DOCUSATE SODIUM/SENNA 50/8.6MG TAB PO ONE (11:04)
[2016-10-05] MEDS ORDERED: MAGNESIUM HYDROXIDE SUSP 30 ML UDC PO ONE (11:04)
[2016-10-05] MEDS ORDERED: MAGNESIUM HYDROXIDE SUSP 30 ML UDC PO PRN (11:15)
--- NOTE | 2016-10-05 11:35 | Progress Note ---
Medicine Progress Note Date & Time of Visit: Oct 05, 2016 at 11:23. Subjective patient seen resting in bed, comfortable, in good spirits states she feels improved today reports some nausea, no BM x few days but no abdominal pain denies chest pain, dyspnea, cough, headache, dizziness, changes with urine or BM denies fever/chills no other symptoms Objective Last 8 Hrs Date Time Temp Pulse Resp B/P Pulse Ox O2 Delivery O2 Flow Rate FiO2 10/05/16 07:42 36.8 73 20 151/89 95 Room Air Physical Exam: General- oriented x 3, not in distress, speaks in sentences with no effort Head- atraumatic Eyes- EOMI, anicteric ENT- oropharynx clear Neck- supple, no JVD, no adenopathy, no thyromegaly Lungs- clear breath sounds bilaterally, no rales/wheezes Heart- regular rhythm; no murmurs, normal rate Abdomen- normal bowel sounds, soft, nontender Extremities- no pretibial edema, no calf tenderness Neuro- alert, oriented x 3; no gross focal deficits Skin- warm & dry Laboratory Results: Last 24 Hours Test 10/04/16 17:05 10/04/16 17:15 10/04/16 18:17 10/05/16 06:15 White Blood Count 5.75 K/uL 4.70 K/uL Red Blood Count 3.56 M/uL 3.28 M/uL Hemoglobin 10.4 g/dL 9.6 g/dL Hematocrit 30.9 % 28.2 % Mean Corpuscular Volume 86.8 fL 86.0 fL Mean Corpuscular Hemoglobin 29.2 pg 29.3 pg Mean Corpuscular Hemoglobin Concent 33.7 g/dl 34.0 g/dl Platelet Count 148 K/uL 143 K/uL Mean Platelet Volume 10.4 fL 10.7 fL Neutrophils (%) (Auto) 77.1 % Lymphocytes (%) (Auto) 6.1 % Monocytes (%) (Auto) 9.4 % Eosinophils (%) (Auto) 7.0 % Basophils (%) (Auto) 0.2 % Neutrophils # (Auto) 4.44 K/uL Lymphocytes # (Auto) 0.35 K/uL Monocytes # (Auto) 0.54 K/uL Eosinophils # (Auto) 0.40 K/uL Basophils # (Auto) 0.01 K/uL RDW Standard Deviation 45.6 fL 45.2 fL RDW Coefficient of Variation 14.4 % 14.3 % Immature Granulocyte % (Auto) 0.2 % Immature Granulocyte # (Auto) 0.01 K/uL Erythrocyte Sedimentation Rate 27 mm/hr Prothrombin Time 11.7 SECONDS Prothromb Time International Ratio 1.1 Activated Partial Thromboplast Time 25.7 SECONDS Partial Thromboplastin Ratio 1.0 Sodium Level 136 mmol/L 140 mmol/L Potassium Level 3.9 mmol/L 3.7 mmol/L Chloride Level 101 mmol/L 106 mmol/L Carbon Dioxide Level 28 mmol/L 27 mmol/L Anion Gap 7.0 mmol/L 7.0 mmol/L Blood Urea Nitrogen 22 mg/dl 13 mg/dl Creatinine 1.10 mg/dl 0.79 mg/dl Est Creatinine Clear Calc Drug Dose 42.2 ml/min 58.8 ml/min Estimated GFR () 53.4 79.7 Estimated GFR (Non- 46.1 68.7 BUN/Creatinine Ratio 19.8 16.9 Random Glucose 141 mg/dl 108 mg/dl Calcium Level 8.2 mg/dl 7.9 mg/dl Phosphorus Level 2.4 mg/dl Magnesium Level 1.9 mg/dl Total Bilirubin 0.9 mg/dl 0.8 mg/dl Aspartate Amino Transf (AST/SGOT) 244 U/L 201 U/L Alanine Aminotransferase (ALT/SGPT) 351 U/L 328 U/L Alkaline Phosphatase 252 U/L 256 U/L Total Creatine Kinase 53 U/L Creatine Kinase MB 0.6 ng/ml Creatine Kinase MB Ratio 1.1 Troponin I < 0.015 ng/ml C-Reactive Protein 6.52 mg/dl Pro-B-Type Natriuretic Peptide 945 pg/ml Total Protein 6.7 gm/dl 6.0 gm/dl Albumin 3.2 gm/dl 2.9 gm/dl Globulin 3.5 gm/dl Albumin/Globulin Ratio 0.9 Lipase 82 U/L Hepatitis B Surface Antigen NEG Hepatitis C Antibody NEG Bedside Lactic Acid Venous 1.56 mmol/L Urine Color YELLOW Urine Appearance CLEAR Urine pH 6.5 Urine Specific [place] 1.023 Urine Protein 1+ Urine Glucose (UA) NEG Urine Ketones NEG Urine Occult Blood NEG Urine Nitrite NEG Urine Bilirubin NEG Urine Urobilinogen NEG Urine Leukocyte Esterase NEG Urine WBC (Auto) 1-5 /hpf Urine RBC (Auto) 0-4 /hpf Urine Hyaline Casts (Auto) 1-5 /lpf Urine Epithelial Cells (Auto) >30 /lpf Urine Bacteria (Auto) NEG Direct Bilirubin 0.4 mg/dl Procalcitonin 0.45 ng/mL Test 10/05/16 08:07 Bedside Glucose 112 mg/dl Date/Time Source Procedure Growth Status 10/04/16 17:05 Blood Blood Culture Pending Received 10/04/16 17:05 Blood Blood Culture Pending Received 10/04/16 22:15 Urine , Clean Catch Urine Culture Pending Received Assessment & Plan 86 year old female with history of DM diet controlled and HTN presenting with fever. FEBRILE ILLNESS - unclear etiology - no obvious source of infection - cultures pending procalcitonin normal - hold off on antibiotics - from viral illness, from lasix or atorvastatin? - monitor ELEVATED LFT'S Elevated transaminases and alkaline phosphatase as noted. No obvious etiology per imaging. Acute hepatitis panel : pending - from recently started high dose atorvastatin? viral illness? - LFTs improving slowly - d/c statins for now monitor CONSTIPATION - Senokot S and Milk of Mg HYPERTENSION Hold furosemide for now. Continue metoprolol tartrate and losartan. HISTORY OF HYPONATREMIA Na normal monitor DM TYPE 2 diet controlled Hgb A1C in clinic was 5.9 DYSLIPIDEMIA hold statin for now ABNORMAL PANCREATIC IMAGING US and CT demonstrated small pancreatic cysts consistent with IPMN's. Outpatient GI consultation VTE PROPHYLAXIS Moderate risk for VTE. SQ heparin. Ambulate. RESUSCITATION STATUS full code DISPOSITION Admit to Med-Surg Unit Expected discharge to home. Internal Medicine follow-up with Dr. Anderson. Nephrology follow-up with Dr. Thrasher. Cardiology follow-up with Dr. Santos. . Current Inpatient Medications: Current Inpatient Medications Medications (Trade) Dose Ordered Sig/Jaime Route Start Time Stop Time Status Last Admin Dose Admin Heparin Sodium (Porcine) (Heparin Sq 5000 Unit/0.5ml) 5,000 unit Q12 SQ 10/05/16 09:00 11/04/16 08:59 10/05/16 08:55 5,000 UNIT Aspirin (Ecotrin Tab) 81 mg DAILY PO 10/05/16 08:00 11/04/16 08:59 10/05/16 08:49 81 MG Docusate Sodium (coLACE CAP) 100 mg BID PO 10/05/16 08:00 11/04/16 08:59 10/05/16 08:48 100 MG Lorazepam (Ativan Tab) 0.5 mg HS PRN PO 10/04/16 22:30 11/03/16 22:29 10/05/16 00:22 0.5 MG Losartan Potassium (coZAAR TAB) 50 mg DAILY PO 10/05/16 08:00 11/04/16 08:59 10/05/16 08:49 50 MG Metoprolol Tartrate (Lopressor Tab) 50 mg BID PO 10/05/16 08:00 11/04/16 08:59 10/05/16 08:50 50 MG Polyethylene (Miralax Powder Packet) 17 gm BID PRN PO 10/04/16 22:30 11/03/16 22:29 10/05/16 08:44 17 GM Enteral Nutritional Formula 1 can 1 can BID PO 10/05/16 08:00 11/04/16 08:59 10/05/16 08:45 1 CAN Potassium Chloride/Sodium Chloride (Nss + 20meq KCl 1000ml) 1,000 ml @ 100 mls/hr Q10H IV 10/04/16 23:45 11/03/16 23:44 10/05/16 10:54 100 MLS/HR Acetaminophen (Tylenol Tab) 500 mg Q6H PRN PO 10/04/16 23:30 11/03/16 23:29 10/05/16 00:23 500 MG
[2016-10-05 12:30] VITALS: BP 136/83; PULSE 69; TEMP 36.8; O2SAT 98
[2016-10-05] MEDS ORDERED: LORAZEPAM 0.5 MG TAB PO PRN (13:45)
[2016-10-05] MEDS ORDERED: BISACODYL 10 MG SUPP PR PRN (15:00)
[2016-10-05 15:30] VITALS: BP 164/80; PULSE 76; TEMP 36.8; O2SAT 98
[2016-10-05 17:57] VITALS: O2SAT 96
[2016-10-05 20:00] VITALS: O2SAT 96
[2016-10-06] VITALS (8 sets, daily range): BP systolic 121–164; BP diastolic 63–76; PULSE 62–79; TEMP 36.8–37; O2SAT 96–98
[2016-10-06 08:18] LABS: BASO % 0.5 %; BASO ABS # 0.03 K/uL (0-0.2); COMPLETE YES; EOS % 14.8 %; IG% 0.2 %; LYMPH % 21.1 %; LYMPH ABS # 1.24 K/uL (1.2-3.4); MEAN CELL VOLUME 84.5 fL (80-100); MEAN CORPUSCULAR HEMOGLOBIN 28.6 pg (25-34); MEAN CORPUSCULAR HGB CONC 33.9 g/dl (32-36); MEAN PLATELET VOLUME 9.8 fL (7.4-10.4); MONO % 7.1 %; NEUT % 56.3 %; PLATELET COUNT 174 K/uL (130-400); RED BLOOD COUNT 3.67 M/uL (4.2-5.4); WHITE BLOOD COUNT 5.88 K/uL (4.8-10.8)
[2016-10-06 08:41] LABS: CALCIUM 8.2 mg/dl (8.5-10.1); CREATININE 0.91 mg/dl (0.60-1.20); POTASSIUM 3.8 mmol/L (3.5-5.1)
[2016-10-06] MEDS: DOCUSATE SODIUM/SENNA 50/8.6MG TAB PO SCH (08:42)
[2016-10-06] MEDS: LOSARTAN POTASSIUM 50 MG TAB PO SCH ×2 (08:42→21:41)
[2016-10-06] MEDS: BOOST VANILLA PO SCH ×4 (08:42→20:00)
[2016-10-06] MEDS: METOPROLOL TARTRATE 50 MG TAB PO SCH ×2 (08:42→17:37)
[2016-10-06] MEDS: ASPIRIN 81 MG ECTAB PO SCH (08:42)
[2016-10-06] MEDS: HEPARIN SOD 5000 UNIT/0.5 ML CARP SQ SCH ×2 (08:46→21:43)
--- NOTE | 2016-10-06 12:08 | Progress Note ---
Medicine Progress Note Date & Time of Visit: Oct 06, 2016 at 12:02. Subjective patient seen ambulating in the room, comfortable states she feels fine overall denies fever/chills, headache, dizziness, cough, chest pain, abdominal pain, urinary symptoms/diarrhea had 1 formed BM yesterday denies other symptoms Objective Last 8 Hrs Date Time Temp Pulse Resp B/P Pulse Ox O2 Delivery O2 Flow Rate FiO2 10/06/16 08:00 96 Room Air 10/06/16 07:03 37.0 75 20 121/67 96 Room Air Physical Exam: General- oriented x 3, speaks in sentences with no effort Eyes- anicteric Neck- no JVD Lungs- clear breath sounds bilaterally Heart- regular rhythm; no murmurs, normal rate Abdomen- normal bowel sounds, non distended, soft, nontender Extremities- no pretibial edema, no calf tenderness Neuro- alert, oriented x 3; no gross focal deficits Skin- warm & dry Laboratory Results: Last 24 Hours Test 10/06/16 08:00 White Blood Count 5.88 K/uL Red Blood Count 3.67 M/uL Hemoglobin 10.5 g/dL Hematocrit 31.0 % Mean Corpuscular Volume 84.5 fL Mean Corpuscular Hemoglobin 28.6 pg Mean Corpuscular Hemoglobin Concent 33.9 g/dl Platelet Count 174 K/uL Mean Platelet Volume 9.8 fL Neutrophils (%) (Auto) 56.3 % Lymphocytes (%) (Auto) 21.1 % Monocytes (%) (Auto) 7.1 % Eosinophils (%) (Auto) 14.8 % Basophils (%) (Auto) 0.5 % Neutrophils # (Auto) 3.31 K/uL Lymphocytes # (Auto) 1.24 K/uL Monocytes # (Auto) 0.42 K/uL Eosinophils # (Auto) 0.87 K/uL Basophils # (Auto) 0.03 K/uL RDW Standard Deviation 44.7 fL RDW Coefficient of Variation 14.5 % Immature Granulocyte % (Auto) 0.2 % Immature Granulocyte # (Auto) 0.01 K/uL Sodium Level 139 mmol/L Potassium Level 3.8 mmol/L Chloride Level 105 mmol/L Carbon Dioxide Level 25 mmol/L Anion Gap 9.0 mmol/L Blood Urea Nitrogen 13 mg/dl Creatinine 0.91 mg/dl Est Creatinine Clear Calc Drug Dose 51.0 ml/min Estimated GFR () 67.1 Estimated GFR (Non- 57.9 BUN/Creatinine Ratio 14.0 Random Glucose 113 mg/dl Calcium Level 8.2 mg/dl Total Bilirubin 0.6 mg/dl Direct Bilirubin 0.2 mg/dl Aspartate Amino Transf (AST/SGOT) 190 U/L Alanine Aminotransferase (ALT/SGPT) 372 U/L Alkaline Phosphatase 379 U/L Total Protein 7.0 gm/dl Albumin 3.3 gm/dl Assessment & Plan 86 year old female with history of DM diet controlled and HTN presenting with fever. FEBRILE ILLNESS - unclear etiology - no obvious source of infection - afebrile x 2 days no leukocytosis - blood and urine cultures negative so far procalcitonin normal - hold off on antibiotics - from viral illness, from reaction to lasix or atorvastatin? - monitor ELEVATED LFT'S Elevated transaminases and alkaline phosphatase No obvious etiology per imaging. Acute hepatitis panel : pending - from recently started high dose atorvastatin? viral illness? - ALT, ALk phos increasing again - will consult GI - d/c statins for now monitor CONSTIPATION - Senokot S and Milk of Mg HYPERTENSION Hold furosemide for now. Continue metoprolol tartrate and losartan. BP stable HISTORY OF HYPONATREMIA admitted last month felt to be from HCTZ, SIADH, increased oral fluid intake -- Lasix on hold Na normal fluid restriction for -- Na needs to be monitored closely DM TYPE 2 diet controlled Hgb A1C in clinic was 5.9 DYSLIPIDEMIA hold statin for now ABNORMAL PANCREATIC IMAGING US and CT demonstrated small pancreatic cysts consistent with IPMN's. VTE PROPHYLAXIS Moderate risk for VTE. SQ heparin. Ambulate. RESUSCITATION STATUS full code DISPOSITION Admit to Med-Surg Unit Expected discharge to home. Internal Medicine follow-up with Dr. Anderson. Nephrology follow-up with Dr. Thrasher. Cardiology follow-up with Dr. Santos. . Current Inpatient Medications: Current Inpatient Medications Medications (Trade) Dose Ordered Sig/Jaime Route Start Time Stop Time Status Last Admin Dose Admin Heparin Sodium (Porcine) (Heparin Sq 5000 Unit/0.5ml) 5,000 unit Q12 SQ 10/05/16 09:00 11/04/16 08:59 10/06/16 08:46 5,000 UNIT Aspirin (Ecotrin Tab) 81 mg DAILY PO 10/05/16 08:00 11/04/16 08:59 10/06/16 08:42 81 MG Lorazepam (Ativan Tab) 0.5 mg HS PRN PO 10/04/16 22:30 11/03/16 22:29 10/05/16 22:28 0.5 MG Losartan Potassium (coZAAR TAB) 50 mg DAILY PO 10/05/16 08:00 11/04/16 08:59 10/06/16 08:42 50 MG Metoprolol Tartrate (Lopressor Tab) 50 mg BID PO 10/05/16 08:00 11/04/16 08:59 10/06/16 08:42 50 MG Polyethylene (Miralax Powder Packet) 17 gm BID PRN PO 10/04/16 22:30 11/03/16 22:29 10/05/16 08:44 17 GM Enteral Nutritional Formula (Boost) 1 can BID PO 10/05/16 08:00 11/04/16 08:59 10/06/16 08:42 1 CAN Acetaminophen (Tylenol Tab) 500 mg Q6H PRN PO 10/04/16 23:30 11/03/16 23:29 10/05/16 18:15 500 MG Magnesium Hydroxide (Milk Of Magnesia Susp) 30 ml Q6H PRN PO 10/05/16 11:15 11/04/16 11:14 Senna/Docusate Sodium (Senokot S Tab) 1 tab QAM PO 10/06/16 08:00 11/05/16 07:59 10/06/16 08:42 1 TAB Lorazepam (Ativan Tab) 0.5 mg Q6H PRN PO 10/05/16 13:45 11/04/16 13:44 Bisacodyl (Dulcolax Supp) 10 mg DAILY PRN GA 10/05/16 15:00 11/04/16 14:59 10/05/16 15:24 10 MG
[2016-10-06] MEDS ORDERED: LORAZEPAM 0.5 MG TAB PO PRN (13:45)
--- NOTE | 2016-10-06 16:19 | Gastrointestinal Consultation ---
Gastrointestinal Consultation Date of Consultation: Oct 06, 2016 Attending Physician: Arun Celis Consulting Physician: Tino Curry Reason for Consultation: Elevated LFTs History of Present Illness Patient is a 86 year old female w PMHx of DM II, dyslipidemia, HTN, Hyponatremia who had presented to ED on 10/04/16 for c/o malaise, fever, chills, nausea. She was hospitalized recently for HTN urgency, and hyponatremia due to HCTZ use. She had med changes including HCTZ to Lasix, and Simvastatin to Atorvastatin. 3 days prior to admission, she had developed fever, chills, nausea , w/o vomiting, abd pain or diarrhea. She had gone to ED earlier during the day prior to admission, suspected she had UTI based on her UA and given IV Ceftriaxone & discharged on Cipro which pt report she took 1 dose of since ED visit. She returned to ED after having ongoing fever, chills, nausea. GI consulted as her LFTs were elevated during admission, but this is noted as well on her 10/04/16 ED visit. Normal Tbili, AST 200s, ALT 300s, Alk phos 300s. This LFT elevation is new for her. She denies any jaundice, abd pain, n/v or changes in her bowel habits currently. She had RUQ u/s and CT abd/pelvis on 10/03 which showed liver mildly enlarged and heterogenous in echotexture, no biliary dilation, main portal vein patent. No gallstones or CBD dilation. There is a possible IPMN on pancreas tail and neck areas. Pt denies any ETOH, tattoos, body piercing. Hx of blood transfusions during childbirth in 1950s, Hepatitis panel pending. Recent flu test negative. She does take Tylenol for fevers recently but no more than 2g total a day. No fevers since 10/04/16. Blood and urine cultures negative. She feels well and wants to go home today. Past Medical/Surgical History Medical Problems: (1) Abnormal liver function tests Status: Acute (2) Abnormal transaminases Status: Acute (3) Fever Status: Acute (4) Fever Status: Acute (5) Nausea Status: Acute (6) Tachycardia Status: Acute (7) UTI (urinary tract infection) Status: Acute Past Medical History: See above. Past Surgical History: Hysterectomy Bladder repair Family History Coronary artery disease MOTHER SISTER Stroke FATHER Social History Smoking Status: Unknown if Ever Smoked Alcohol Use: none Drug Use: none Marital Status: Housing Status: lives alone Occupation Status: retired Allergies Coded Allergies: Atenolol (Unverified Allergy, Mild, "HANDS TURNED BLUE", 10/04/16) Lisinopril (Unverified Allergy, Unknown, cough, 10/04/16) Nitrofurantoin (Unverified Allergy, Unknown, nausea, 10/04/16) Sulfamethoxazole w/Trimethoprim (Unverified Allergy, Unknown, nausea, 10/04) Hydrochlorothiazide w/Triamterene (Verified Adverse Reaction, Severe, hyponatremia, 10/04/16) Current Medications Home Meds and Scripts Medications Dose Route/Sig Max Daily Dose Days Date Category Fosamax (Alendronate Sodium) 70 Mg Tab 70 Mg PO WK 10/04/16 Reported Tylenol (Acetaminophen) 325 Mg Tab 650 Mg PO UD 10/04/16 Reported Miralax (Polyethylene Glycol 3350) 1 Pow Pow 17 Gm PO DAILY PRN 10/04/16 Reported Cipro (Ciprofloxacin Hcl) 500 Mg Tab 1 Tab PO BID 10 10/03/16 Rx Bisacodyl EC (Bisacodyl) 5 Mg Tabec 5 Mg PO DAILY PRN 30 09/09/16 Rx Docusate Sodium 100 Mg Cap 100 Mg PO BID 30 09/09/16 Rx [Boost Plus Vanilla] 1 CAN Liqd 1 Can PO BIDM 30 09/09/16 Rx Furosemide 20 Mg Tab 20 Mg PO QAM 30 09/09/16 Rx Metoprolol Tartrate 50 Mg Tab 50 Mg PO BID 30 09/09/16 Rx Atorvastatin Calcium (Atorvastatin) 40 Mg Tab 80 Mg PO QAM 30 09/09/16 Rx Aspirin EC Low Dose (Aspirin) 81 Mg Ectab 81 Mg PO DAILY 09/01/16 Reported Cozaar (Losartan Potassium) 50 Mg Tab 50 Mg PO DAILY 09/01/16 Reported Vitamin D3 (Cholecalciferol) 2,000 Unit Tab 2,000 Units PO DAILY 90 09/01/16 Reported Ativan (Lorazepam) 0.5 Mg Tab 0.5 Mg PO HS PRN 12/16/15 Reported Review of Systems Constitutional: + see HPI, No chills, No fever Respiratory: No cough, No shortness of breath Cardiac: No chest pain, No edema Abdomen: No nausea, No pain, No vomiting Skin: No itch, No jaundice, No rash Physical Exam Date Time Temp Pulse Resp B/P Pulse Ox O2 Delivery O2 Flow Rate FiO2 10/06/16 15:55 36.8 79 20 164/76 98 Room Air 10/06/16 08:00 96 Room Air 10/06/16 07:03 37.0 75 20 121/67 96 Room Air 10/06/16 00:17 36.9 62 18 122/63 96 Room Air 10/06/16 00:00 96 Room Air 10/05/16 20:00 96 Room Air 10/05/16 17:57 96 Room Air General Appearance: WD/WN, no apparent distress Eyes: normal inspection, PERRL, EOMI Neck: supple, no JVD, trachea midline Respiratory/Chest: normal breath sounds, no respiratory distress, no accessory muscle use Cardiovascular: regular rate, rhythm, no gallop, no murmur Abdomen: normal bowel sounds, non tender, soft Extremities: normal inspection, no pedal edema, no calf tenderness Neurologic/Psych: alert, normal mood/affect, oriented x 3 Skin: normal color, no jaundice, no rash Laboratory Results Last 24 Hours Test 10/06/16 08:00 10/06/16 14:10 White Blood Count 5.88 K/uL Red Blood Count 3.67 M/uL Hemoglobin 10.5 g/dL Hematocrit 31.0 % Mean Corpuscular Volume 84.5 fL Mean Corpuscular Hemoglobin 28.6 pg Mean Corpuscular Hemoglobin Concent 33.9 g/dl Platelet Count 174 K/uL Mean Platelet Volume 9.8 fL Neutrophils (%) (Auto) 56.3 % Lymphocytes (%) (Auto) 21.1 % Monocytes (%) (Auto) 7.1 % Eosinophils (%) (Auto) 14.8 % Basophils (%) (Auto) 0.5 % Neutrophils # (Auto) 3.31 K/uL Lymphocytes # (Auto) 1.24 K/uL Monocytes # (Auto) 0.42 K/uL Eosinophils # (Auto) 0.87 K/uL Basophils # (Auto) 0.03 K/uL RDW Standard Deviation 44.7 fL RDW Coefficient of Variation 14.5 % Immature Granulocyte % (Auto) 0.2 % Immature Granulocyte # (Auto) 0.01 K/uL Sodium Level 139 mmol/L Potassium Level 3.8 mmol/L Chloride Level 105 mmol/L Carbon Dioxide Level 25 mmol/L Anion Gap 9.0 mmol/L Blood Urea Nitrogen 13 mg/dl Creatinine 0.91 mg/dl Est Creatinine Clear Calc Drug Dose 51.0 ml/min Estimated GFR () 67.1 Estimated GFR (Non- 57.9 BUN/Creatinine Ratio 14.0 Random Glucose 113 mg/dl Calcium Level 8.2 mg/dl Total Bilirubin 0.6 mg/dl Direct Bilirubin 0.2 mg/dl Aspartate Amino Transf (AST/SGOT) 190 U/L Alanine Aminotransferase (ALT/SGPT) 372 U/L Alkaline Phosphatase 379 U/L Total Protein 7.0 gm/dl Albumin 3.3 gm/dl Monoscreen NEG Impression Patient is a 86 year old female w fever, chills, malaise, seen for new LFT elevation. Blood and urine cultures negative. CT abd/pelvis and RUQ u/s w/o obvious liver disease ? mild fatty liver given liver mildly enlarged and heterogeneous. Suspect elevated LFTs may be related to recent med changes - Simvastatin 10mg changed to Atorvastatin 80mg. She did also receive Cipro and Ceftriaxone in ED on 10/03/16, but at that time LFTs were already elevated. APAP level low at 6. Plan - F/U acute hepatitis panel - Obtain viral serologies including EBV, mono, CMV, Parvovirus given fever, malaise symptoms. - Hold all possible hepatotoxic meds. Avoid APAP if possible, and if not possible no more than 2g daily - F/U w PCP within this week w repeat LFTs - Will help schedule f/u GI appt within 1-2 week's time. - OK for DC from GI standpoint. I performed a history and physical examination of the patient. I have discussed the patient's case, impression and plan with LIZ Guillaume on . Her note reflects my findings and plan. Most likely medication related with some fatty liver. Tino Curry MD
[2016-10-06] MEDS: ACETAMINOPHEN 500 MG TAB PO PRN (16:24)
[2016-10-06] MEDS ORDERED: CLONIDINE HCL 0.1 MG TAB PO ONE ×2 (16:30)
--- NOTE | 2016-10-06 17:39 | Progress Note ---
Progress Note Date of Service Oct 06, 2016. Progress Note attending addendum patient reevaluated around 3pm, was reporting headache, no other symptoms BP systolic 164, given clonidine 0.1mg x 2 dose re-assessed at 5 pm, BP still elevated 166/83, RN advised to give PM dose of Metoprolol Losartan increased to 50mg BID monitor BP Arun Celis MD
[2016-10-06] MEDS ORDERED: LACTULOSE SYRUP 30 GM/45 ML UDP PO PRN (17:45)
[2016-10-06] MEDS: LORAZEPAM 0.5 MG TAB PO PRN (21:47)
[2016-10-07] VITALS: O2SAT 97
[2016-10-07 00:13] VITALS: BP 120/65; PULSE 62; TEMP 36.6; O2SAT 97
[2016-10-07 07:07] VITALS: BP 158/77; PULSE 80; TEMP 36.8; O2SAT 95
[2016-10-07] MEDS: ASPIRIN 81 MG ECTAB PO SCH (08:07)
[2016-10-07] MEDS: DOCUSATE SODIUM/SENNA 50/8.6MG TAB PO SCH (08:07)
[2016-10-07] MEDS: LOSARTAN POTASSIUM 50 MG TAB PO SCH (08:07)
[2016-10-07] MEDS: METOPROLOL TARTRATE 50 MG TAB PO SCH (08:07)
[2016-10-07] MEDS: HEPARIN SOD 5000 UNIT/0.5 ML CARP SQ SCH (08:08)
[2016-10-07] MEDS: BOOST VANILLA PO SCH ×2 (08:11)
--- NOTE | 2016-10-07 10:42 | Progress Note ---
Medicine Progress Note Date & Time of Visit: Oct 07, 2016 at 10:27. Subjective patient seen resting in bed comfortable, in good spirits states she feels better overall today denies headache, dizziness, nausea, chest pain, dyspnea, palpitations denies cough, abdominal pain (+) BMs yesterday denies urinary changes states she is ready and would like be discharged today Objective Last 8 Hrs Date Time Temp Pulse Resp B/P Pulse Ox O2 Delivery O2 Flow Rate FiO2 10/07/16 08:00 Room Air 10/07/16 07:07 36.8 80 20 158/77 95 Room Air Physical Exam: General- oriented x 3, speaks in sentences with no effort, no acc muscle use Eyes- anicteric Neck- no JVD Lungs- clear breath sounds b/l, no rales Heart- regular rhythm; no murmurs, normal rate Abdomen- normal bowel sounds, non distended, soft, nontender Extremities- no pretibial edema Neuro- alert, oriented x 3; no gross focal deficits Skin- warm & dry Laboratory Results: Last 24 Hours Test 10/06/16 14:10 Monoscreen NEG Assessment & Plan 86 year old female with history of DM diet controlled and HTN presenting with fever. FEBRILE ILLNESS, RESOLVED - no obvious source of bacterial infection - received Levaquin at the ER, did not resume after as no clear bacterial infection - afebrile X 3 days no leukocytosis since admission - blood and urine cultures: negative procalcitonin normal - from viral illness, from reaction to lasix or atorvastatin? lasix and atorvastatin discontinued - overall, improved monitor as outpatient ELEVATED LFT'S possibly secondary to UNDERLYING VIRAL ILLNESS, ATORVASTATIN - Simvastatin changed to Atorvastatin 80mg daily last month - AST 244--> 190 ALT 351--> 372 Alk Phos 252---> 379 Bilirubin normal -Work Up: No obvious etiology per imaging Acute hepatitis panel : Negative Viral Serologies: pending - GI consulted follow LFTs, Viral Serologies for now no further intervention at this time d/c Atorvastatin, avoid Acetaminophen for now ff up with GI in 2 weeks HYPERTENSION HCTZ recently changed to Lasix Na normal,patient euvolemic, d/c Lasix BP 164/76, patient was reporting headache increase Losartan to 50mg BID from daily Continue metoprolol tartrate BP improving monitor CONSTIPATION - Senokot S and Milk of Mg - resolved HISTORY OF HYPONATREMIA admitted last month for severe hyponatremia felt to be from HCTZ, SIADH, increased oral fluid intake -- Lasix on hold Na normal fluid restriction for now -- Na needs to be monitored closely DM TYPE 2 diet controlled Hgb A1C in clinic was 5.9 DYSLIPIDEMIA hold statin for now due to elevated LFTS ABNORMAL PANCREATIC IMAGING US and CT demonstrated small pancreatic cysts consistent with IPMN's. ff up with GI in 2 weeks VTE PROPHYLAXIS Moderate risk for VTE. SQ heparin. Ambulation. DISPOSITION Internal Medicine follow-up with Dr. Anderson tomorrow Nephrology follow-up with Dr. Thrasher. Cardiology follow-up with Dr. Santos. GI follow up with LIZ Mayes in 2 weeks. Current Inpatient Medications: Current Inpatient Medications Medications (Trade) Dose Ordered Sig/Jaime Route Start Time Stop Time Status Last Admin Dose Admin Heparin Sodium (Porcine) (Heparin Sq 5000 Unit/0.5ml) 5,000 unit Q12 SQ 10/05/16 09:00 11/04/16 08:59 10/07/16 08:08 5,000 UNIT Aspirin (Ecotrin Tab) 81 mg DAILY PO 10/05/16 08:00 11/04/16 08:59 10/07/16 08:07 81 MG Lorazepam (Ativan Tab) 0.5 mg HS PRN PO 10/04/16 22:30 11/03/16 22:29 10/06/16 21:47 0.5 MG Metoprolol Tartrate (Lopressor Tab) 50 mg BID PO 10/05/16 08:00 11/04/16 08:59 10/07/16 08:07 50 MG Polyethylene (Miralax Powder Packet) 17 gm BID PRN PO 10/04/16 22:30 11/03/16 22:29 10/05/16 08:44 17 GM Enteral Nutritional Formula (Boost) 1 can BID PO 10/05/16 08:00 11/04/16 08:59 10/07/16 08:11 1 CAN Acetaminophen (Tylenol Tab) 500 mg Q6H PRN PO 10/04/16 23:30 11/03/16 23:29 10/06/16 16:24 500 MG Magnesium Hydroxide (Milk Of Magnesia Susp) 30 ml Q6H PRN PO 10/05/16 11:15 11/04/16 11:14 Senna/Docusate Sodium (Senokot S Tab) 1 tab QAM PO 10/06/16 08:00 11/05/16 07:59 10/07/16 08:07 1 TAB Bisacodyl (Dulcolax Supp) 10 mg DAILY PRN PA 10/05/16 15:00 11/04/16 14:59 10/05/16 15:24 10 MG Lorazepam (Ativan Tab) 0.25 mg Q6H PRN PO 10/06/16 13:45 11/05/16 13:44 Losartan Potassium (coZAAR TAB) 50 mg BID PO 10/06/16 20:00 11/05/16 19:59 10/07/16 08:07 50 MG Lactulose (Chronulac Syrup) 30 gm BID PRN PO 10/06/16 17:45 11/05/16 17:44
[2016-10-07] MEDS ORDERED: LOSA50TA54 PO (10:43)
[2016-10-07 10:50] VITALS: BP 158/77; PULSE 80; TEMP 36.8; O2SAT 95
--- NOTE | 2016-10-07 10:50 | Discharge Summary ---
Discharge Summary Date of Service Oct 07, 2016. Discharge Summary Admission Date: Oct 04, 2016 at 21:37 Discharge Date: Oct 07, 2016 Discharge Disposition: Home Principal Diagnosis: FEBRILE ILLNESS, RESOLVED possible VIRAL ILLNESS, REACTION TO ATORVASTATIN Secondary Diagnoses/Problems: Please refer to hospital course below. Procedures: CT SCAN OF THE ABDOMEN AND PELVIS WITH IV CONTRAST CLINICAL HISTORY: Elevated hepatic transaminases. COMPARISON STUDY: Abdominal ultrasound dated 10/03/2016. TECHNIQUE: Following the IV administration of 115 cc of Optiray 320, CT scan of the abdomen and pelvis is performed from the lung bases to the proximal femora. Images are reviewed in the axial, sagittal, and coronal planes. IV contrast was administered without complication. Automated dose control exposure was utilized. CT DOSE: 543.97 mGy.cm FINDINGS: Lung bases: The heart is mildly enlarged and without pericardial effusion. The coronary arteries are densely calcified. Chronic interstitial changes are present the lung bases. There is no airspace consolidation or pleural effusion. There is a moderate hiatal hernia. Liver: The contrast-enhanced liver is elongated, measuring 20 cm in length. This suggests Heather's lobe variant anatomy. The liver is normal in contour and attenuation. There is no intrahepatic biliary ductal dilatation. The hepatic veins and portal veins are patent. Gallbladder: Unremarkable. Spleen: Normal in size and attenuation. Pancreas: Pancreas is atrophic. There is a 12 mm ovoid water density lesion in the pancreatic neck seen on image 117. 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 An additional 8 mm IPMN is seen in the pancreatic tail on image #88. Adrenal glands: Unremarkable. Kidneys: The contrast enhanced kidneys are atrophic and without hydronephrosis. The kidneys enhance symmetrically. A circumaortic left renal vein is incidentally noted. Abdominal vasculature: The abdominal aorta is normal in course and caliber noting moderate to advanced atherosclerotic calcification. Bowel: The small bowel and colon are normal in course and caliber. There is advanced diverticulosis of the left colon without CT evidence of acute diverticulitis. The appendix is well-visualized and normal. Peritoneum: There is no intraperitoneal free air or abdominal ascites. There is a small fat-containing umbilical hernia. Lymphadenopathy: None. Pelvic viscera: The bladder is normal as visualized. The uterus is surgically absent. No adnexal lesion is seen. Skeletal structures: The skeletal structures are osteopenic. There is mild to moderate lumbosacral spondylosis. Sclerotic change is seen in the sacroiliac joints and pubic symphysis. A hemangioma is noted in the body of L1. No lytic or blastic lesions are seen. IMPRESSION: 1. There are no acute infectious or inflammatory findings in the abdomen or pelvis. 2. Advanced diverticulosis of left colon without CT evidence of acute diverticulosis. 3. Cardiomegaly and hiatal hernia. 4. Additional findings as detailed above. Electronically signed by: Jitendra Rodriguez M.D. 10/03/2016 10:46 PM ULTRASOUND RIGHT UPPER QUADRANT ABDOMEN CLINICAL HISTORY: Right upper quadrant abdominal pain. COMPARISON STUDY: No priors. TECHNIQUE: Real-time, grayscale, and color flow sonography of the right upper quadrant of the abdomen was performed. Images are reviewed in the transverse and longitudinal planes. FINDINGS: Liver: The liver is mildly enlarged and heterogeneous in echotexture. There is no intrahepatic biliary ductal dilatation. The main portal vein is patent. Gallbladder: Small gallbladder polyps are incidentally noted measuring up to 5 mm. The gallbladder is otherwise normal in appearance. No gallstones are identified. There is no gallbladder wall thickening or pericholecystic fluid. A sonographic Call's sign is reportedly absent. The common bile duct measures up to 0.7 cm in diameter. Pancreas: Visualized portions of the pancreatic head and body. Atrophic. 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 Right kidney: The right kidney is atrophic. There is no hydronephrosis. Ascites: None. IMPRESSION: 1. No acute sonographic abnormality is identified in the right upper quadrant. 2. No gallstones are identified. 3. Additional findings as above. Electronically signed by: Jitendra Rodriguez M.D. 10/03/2016 9:49 PM Consultations: Gastroenterology: LIZ Mayes Pending Studies/Follow-Up: Please repeat Na, LFTs on follow up; Losartan increased to 50mg BID from daily, Lasix discontinued; Please refer to hospital course below for further details. Medication Reconciliation Changed Medications: Losartan Potassium (Cozaar) 50 Mg Tab 50 MG PO BID for 30 Days, #60 TAB 2 Refills (Changed from: DAILY; Refills: ) Continued Medications: Alendronate Sodium (Fosamax) 70 Mg Tab 70 MG PO WK, TAB Aspirin (Aspirin EC Low Dose) 81 Mg Ectab 81 MG PO DAILY Bisacodyl (Bisacodyl EC) 5 Mg Tabec 5 MG PO DAILY PRN for Constipation for 30 Days, #30 TABS Cholecalciferol (Vitamin D3) 2,000 Unit Tab 2000 UNITS PO DAILY for 90 Days, TAB 3 Refills Docusate Sodium (Docusate Sodium) 100 Mg Cap 100 MG PO BID for 30 Days, #60 CAP Lorazepam (Ativan) 0.5 Mg Tab 0.5 MG PO HS PRN for Anxiety, TAB Metoprolol Tartrate (Metoprolol Tartrate) 50 Mg Tab 50 MG PO BID for 30 Days, #60 TAB Polyethylene Glycol 3350 (Miralax) 1 Pow Pow 17 GM PO DAILY PRN for Constipation [Boost Plus Vanilla] () 1 CAN LIQD 1 CAN PO BIDM for 30 Days, #60 CAN Discontinued Medications: Acetaminophen Tab (Tylenol) 325 Mg Tab 650 MG PO UD Atorvastatin (Atorvastatin Calcium) 40 Mg Tab 80 MG PO QAM for 30 Days, #60 TAB Ciprofloxacin Hcl (Cipro) 500 Mg Tab 1 TAB PO BID for 10 Days, #20 TAB Furosemide (Furosemide) 20 Mg Tab 20 MG PO QAM for 30 Days, #30 TAB Admission Information HPI (per Admitting provider): 86-year-old female followed by Dr. Anderson for Internal Medicine, Dr. Thrasher for Nephrology, and Dr. Santos for Cardiology. History of hypertension, diet-controlled diabetes mellitus, and other problems noted below. Hospitalized at [facility] a few weeks ago with hypertensive urgency and hyponatremia attributed to hydrochlorothiazide. Medication changes included changing diuretic therapy from hydrochlorothiazide to furosemide and statin therapy from simvastatin to atorvastatin. 3 days prior to admission the patient developed chills. Over the next 24-48 hours she noted worsening chills as well as fever. Experienced nausea without abdominal pain, vomiting, diarrhea. No cough, wheezing, dyspnea. No sinus symptoms, pharyngitis, otalgia. No flank pain, dysuria, hematuria. She came to the ED last evening due to the symptoms noted above. WBC count was 6000. Serum chemistries notable for a total bilirubin of 0.9, AST 330, ALT 408, alkaline phosphatase 188. Acetaminophen level was 6. Testing for influenza A&B negative by both antigen and PCR assays. Urinalysis demonstrated a small amount of leukocyte esterase, 10-30 WBC's, 0-4 RBC's, > 30 epithelial cells, 1+ bacteria. Chest x-ray did not show any infiltrates. Imaging of abdomen per ultrasound and CT did not show any acute processes that would suggest an etiology of her symptoms. It was felt that she probably had a urinary tract infection. Hospitalization was considered, but the patient preferred being discharged to home. She received a dose of intravenous ceftriaxone as well as a dose of ciprofloxacin in the ED. She was given a prescription for ciprofloxacin and took a dose this morning. This evening she had recurrent fever as high as 103, chills, ongoing nausea. No additional symptoms. She returned to the ED for evaluation. . Physical Exam (per Admitting): General Appearance: WD/WN, no apparent distress Head: normocephalic, atraumatic Eyes: normal inspection, PERRL, EOMI, sclerae normal, + pertinent finding ( conjunctivae pink) ENT: normal ENT inspection, hearing grossly normal, pharynx normal Neck: supple, no adenopathy, thyroid normal, no JVD, trachea midline Respiratory/Chest: lungs clear, normal breath sounds, no respiratory distress, no accessory muscle use Cardiovascular: regular rate, rhythm, no edema, no gallop, no JVD, no murmur , + abnormal peripheral pulses (L DP dimininished; other pedal pulses intact; capillary refill < 2 sec) Abdomen/GI: normal bowel sounds, non tender, soft, no organomegaly, no pulsatile mass Back: normal inspection, no CVA tenderness Extremities/Musculoskelatal: normal inspection, no calf tenderness, normal capillary refill, no pedal edema Neurologic/Psych: 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 FEBRILE ILLNESS, RESOLVED possible VIRAL ILLNESS, REACTION TO ATORVASTATIN - no obvious source of bacterial infection - received Levaquin at the ER, did not resume after as no clear bacterial infection - afebrile X 3 days no leukocytosis since admission - blood and urine cultures: negative procalcitonin normal - from viral illness, from reaction to atorvastatin? lasix and atorvastatin discontinued - overall, improved monitor as outpatient ELEVATED LFT'S possibly secondary to UNDERLYING VIRAL ILLNESS, ATORVASTATIN - Simvastatin changed to Atorvastatin 80mg daily last month - AST 244--> 190 ALT 351--> 372 Alk Phos 252---> 379 Bilirubin normal -Work Up: CT abdomen/pelvis: small pancreatic cysts consistent with IPMN's, no obstruction Acute hepatitis panel : Negative Viral Serologies: pending - GI consulted follow LFTs, Viral Serologies for now no further intervention at this time d/c Atorvastatin, avoid Acetaminophen for now ff up with GI in 2 weeks HYPERTENSION HCTZ recently changed to Lasix Na normal,patient euvolemic, d/c Lasix BP 164/76, patient was reporting headache increase Losartan to 50mg BID from daily Continue metoprolol tartrate BP improving monitor CONSTIPATION, Resolved - Senokot S and Milk of Mg - resolved HISTORY OF HYPONATREMIA admitted last month for severe hyponatremia felt to be from HCTZ, SIADH, increased oral fluid intake -- Lasix on hold Na normal fluid restriction for now -- Na needs to be monitored closely DM TYPE 2 diet controlled Hgb A1C in clinic was 5.9 DYSLIPIDEMIA hold statin for now due to elevated LFTS ABNORMAL PANCREATIC IMAGING US and CT demonstrated small pancreatic cysts consistent with IPMN's. ff up with GI in 2 weeks VTE PROPHYLAXIS Moderate risk for VTE. SQ heparin. Ambulation. DISPOSITION Internal Medicine follow-up with Dr. Anderson tomorrow Nephrology follow-up with Dr. Thrasher. Cardiology follow-up with Dr. Santos. GI follow up with LIZ Mayes in 2 weeks. Total time spent on discharge = 35 minutes This includes examination of the patient, discharge planning, medication reconciliation, and communication with other providers. Discharge Instructions Discharge Instructions Date of Service Oct 07, 2016. Admission Reason for Admission: FEVER Discharge Discharge Diagnosis / Problem: FEBRILE ILLNESS Discharge Goals Goal(s): Diagnostic testing, Therapeutic intervention Activity Recommendations Activity Limitations: as noted below (resume activity gradually) . Instructions / Follow-Up Instructions / Follow-Up PLEASE REVIEW YOUR NEW MEDICATION LIST AND FOLLOW INSTRUCTIONS CAREFULLY. CALL PRIMARY CARE PHYSICIAN OR RETURN TO ER IMMEDIATELY IF WITH RECURRENCE OF SYMPTOMS, DIZZINESS, WEAKNESS. FOLLOW UP WITH DR. ANDERSON TOMORROW OCTOBER 08, 2016 AT 9:00AM. FOLLOW UP WITH CRYSTALLOGRAPHER (LIVER SPECIALIST) IN 2 WEEKS. CLINIC TO CALL YOU WITH APPOINTMENT. Current Hospital Diet Patient's current hospital diet: Diabetes Type 2 Diet, AHA Diet (Heart Healthy) Discharge Diet Recommended Diet: AHA Diet (Heart Healthy), Diabetes Type 2 Diet Fluid Restriction: 1500 ml (6 cups) Pending Studies Studies pending at discharge: yes List of pending studies: REPEAT SODIUM LEVEL AND LIVER FUNCTION TEST C/O PRIMARY CARE PHYSICIAN. Medical Emergencies . Who to Call and When: Medical Emergencies: If at any time you feel your situation is an emergency, please call 911 immediately. . Non-Emergent Contact Non-Emergency issues call your: Primary Care Provider Call Non-Emergent contact if: you have a fever, your pain is not controlled, you have any medication questions . Past History Medical & Surgical History: (1) Hypertension (2) Bee sting allergy (3) Diabetes mellitus, type 2 (4) Hyponatremia (5) Dyslipidemia (6) Nausea (7) Abnormal liver function tests (8) Fever . "Provider Documentation" section prepared by Arun Celis. VTE Core Measure Inpt VTE Proph given/why not?: Unfractionated heparin SQ
[2016-10-14 16:14] LABS: CYTOMEGALOVIRUS IGG AB 3.83; EBV EARLY ANTIGEN AB 1.01 INDEX; EPSTEIN BARR VIR CAPSID IGG 1.16 INDEX; PARVOVIRUS IgG INDEX 0.4 (<0.9); PARVOVIRUS IgM INDEX 0.3 (<0.9)
== END 2016-10-07 11:59 | disposition home or self-care (01) | DRG 866 ==
LOC: ENRESERVTM → ENRESERVDT → EDBD 16:58 → C.EDC 17:00 → C.MS4W 21:37
PROVIDERS: ADMIT Hospitalist; ATTEND Internal Medicine
DX: B34.9 Viral infection, unspecified (principal); R50.2 Drug induced fever; T46.6X5A Adverse effect of antihyperlipidemic and antiarteriosclerotic drugs, initial encounter; R94.5 Abnormal results of liver function studies; D13.6 Benign neoplasm of pancreas; K59.00 Constipation, unspecified; I10 Essential (primary) hypertension; E11.9 Type 2 diabetes mellitus without complications; E78.5 Hyperlipidemia, unspecified; K76.0 Fatty (change of) liver, not elsewhere classified; Z86.39 Personal history of other endocrine, nutritional and metabolic disease; Z79.82 Long term (current) use of aspirin; Z79.83 Long term (current) use of bisphosphonates; Z79.899 Other long term (current) drug therapy; N30.00 Acute cystitis without hematuria; I51.9 Heart disease, unspecified; E87.1 Hypo-osmolality and hyponatremia

== ENCOUNTER 2016-12-03 15:12 | Emergency (ER) | payer OTHER ==
[~2016-12-03] VITALS: Ht 165.1 cm; Wt 79.8 kg
[~2016-12-03 15:12] MED LIST changes: -ACET-1311 PO; +ALEN70TA4 PO; -CIPR-255 PO; -LPT40 PO; -LSX20 PO; +POLY335019 PO
[2016-12-03 15:19] VITALS: TEMP 36.7; Ht 165.1 cm; Wt 79.8 kg
[2016-12-03] MEDS ORDERED: MoRPHine SULFATE 2 MG/ML CARP IV STA (15:38)
[2016-12-03] MEDS ORDERED: SODIUM CHLORIDE 0.9% 1000ML 1,000 ML IV STA (15:38)
[2016-12-03] MEDS ORDERED: LABETALOL HCL IV 5 MG/ML 20ML IV STA (15:38)
[2016-12-03] MEDS ORDERED: ONDANSETRON INJ 2 MG/ML 2 ML VIAL IV STA (15:38)
[2016-12-03 15:53] LABS: BASO % 0.5 %; BASO ABS # 0.03 K/uL (0-0.2); COMPLETE YES; EOS % 1.5 %; HEMATOCRIT 37.5 % (37-47); IG% 0.5 %; LYMPH % 22.2 %; LYMPH ABS # 1.46 K/uL (1.2-3.4); MEAN CORPUSCULAR HEMOGLOBIN 28.7 pg (25-34); MEAN CORPUSCULAR HGB CONC 33.3 g/dl (32-36); MEAN PLATELET VOLUME 9.8 fL (7.4-10.4); MONO % 9.1 %; NEUT % 66.2 %; PLATELET COUNT 232 K/uL (130-400); RED BLOOD COUNT 4.36 M/uL (4.2-5.4); WHITE BLOOD COUNT 6.58 K/uL (4.8-10.8)
--- NOTE | 2016-12-03 15:53 | EMERGENCY ROOM VISIT NOTE ---
History Report prepared by Brian: Ivan Villanueva Under the Supervision of: Dr. Rossy Doll M.D. First contact with patient: 15:27 Chief Complaint: HYPERTENSION Stated Complaint: HIGH BP/DIZZY History of Present Illness The patient is an 86 year old female who presents to the Emergency Room with complaints of episodes of intermittent hypertension beginning a few days ago. She currently rates her discomfort a 7/10 in severity. The patient states that she has had headaches and has been feeling dizzy. She reports that her headaches were in the back of her head and blamed them on her pillows. The patient states that she has not checked her blood pressure, but she could tell that it was elevated. The patient notes that she went to a medical center today and was told that she had high blood pressure. She reports that she went to her PCP last week, and her blood pressure was normal. The patient denies chest pain , shortness fo breath, memory loss, vomiting, and vision changes. She denies taking thyroid medication. The patient notes that she was in the ER in September for similar symptoms and was told it was due to a fever. She reports that she has had cataracts removed from both her eyes. The patient notes that she had an eye exam scheduled for Thursday, but had to reschedule because she was not feeling well. Source of History: patient Onset: few days ago Position: other Symptom Intensity: 7/10 Quality: other (hypertension) Timing: intermittent Associated Symptoms: + headache, No chest pain, No SOB, No vomiting Note: Associated symptoms: dizziness The patient denies memory loss and vision changes. Review of Systems See HPI for pertinent positives & negatives. A total of 10 systems reviewed and were otherwise negative. Past Medical & Surgical Medical Problems: (1) Bee sting allergy (2) Diabetes mellitus, type 2 (3) Dyslipidemia (4) Elevated troponin (5) Hypertension (6) Hyponatremia Surgical Problems: (1) History of hysterectomy (2) Status post bladder repair (3) Status post hysterectomy Family History Coronary artery disease MOTHER SISTER Hypertension Stroke FATHER Social History Smoking Status: Never Smoker Alcohol Use: none Drug Use: none Marital Status: Housing Status: lives alone Occupation Status: retired Current/Historical Medications Scheduled Alendronate Sodium (Fosamax), 70 MG PO WK Aspirin (Aspirin EC Low Dose), 81 MG PO DAILY Cholecalciferol (Vitamin D3), 2,000 UNITS PO DAILY Clonidine Hcl (Catapres), 0.1 MG PO BID Docusate Sodium (Docusate Sodium), 100 MG PO BID Losartan Potassium (Cozaar), 50 MG PO BID Metoprolol Tartrate (Metoprolol Tartrate), 50 MG PO BID Scheduled PRN Lorazepam (Ativan), 0.5 MG PO HS PRN for Anxiety Polyethylene Glycol 3350 (Miralax), 17 GM PO DAILY PRN for Constipation Allergies Coded Allergies: Atenolol (Unverified Allergy, Mild, "HANDS TURNED BLUE", 12/03/16) Lisinopril (Unverified Allergy, Unknown, cough, 12/03/16) Nitrofurantoin (Unverified Allergy, Unknown, nausea, 12/03/16) Statins (Unverified Allergy, Unknown, LIVER ENZYMES ELEVATED, 12/03/16) Sulfamethoxazole w/Trimethoprim (Unverified Allergy, Unknown, nausea, 12/03) Hydrochlorothiazide w/Triamterene (Verified Adverse Reaction, Severe, hyponatremia, 12/03/16) Physical Exam Vital Signs Date Time Temp Pulse Resp B/P (MAP) Pulse Ox O2 Delivery O2 Flow Rate FiO2 12/03/16 17:44 73 18 157/81 93 Room Air 12/03/16 17:09 75 18 174/100 96 Room Air 12/03/16 16:30 76 24 169/74 95 Room Air 12/03/16 16:18 78 20 161/102 96 Room Air 12/03/16 15:51 80 20 191/100 95 Room Air 12/03/16 15:30 83 12/03/16 15:25 Room Air 12/03/16 15:19 36.7 86 18 187/94 93 Room Air Physical Exam Vital signs reviewed. General: Well-appearing, hypertensive, in no significant distress. HEENT: No scleral icterus, PERRLA, neck supple. Atraumatic. Cardiovascular: Regular rate and rhythm, no extra sounds. Pulmonary: Clear to auscultation bilaterally, normal work of breathing. Abdomen: Soft, nontender, nondistended, positive bowel sounds. Musculoskeletal: Atraumatic, no peripheral edema. Neurologic: Patient awake alert and oriented x 3, full strength in all 4 extremities. Cranial nerves 2 through 12 grossly intact. Skin: Warm, dry, no rash Medical Decision & Procedures ER Provider Diagnostic Interpretation: Radiology results as stated below per my review and radiologist interpretation: CT HEAD WITHOUT CONTRAST (CT) CLINICAL HISTORY: Headache, hypertension. COMPARISON STUDY: No previous studies for comparison. TECHNIQUE: Axial CT of the brain is performed from the vertex to the skull base. IV contrast was not administered for this examination. CT DOSE: 537.48 mGy.cm FINDINGS: No intra or extra-axial mass lesions are visualized. There is no CT evidence of acute cortical infarction. There is no evidence of midline shift. There is no acute hemorrhage. No calvarial fractures are visualized. There are mild white matter hypodensities likely on a small vessel basis. There is no evidence of pathologic ventricular dilatation. There is no evidence of acute sinusitis IMPRESSION: No acute intracranial findings Electronically signed by: Demetrio Vernon M.D. 12/03/2016 4:10 PM Dictated Date/Time: 12/03/2016 4:09 PM CHEST ONE VIEW PORTABLE HISTORY: Hypertension. COMPARISON: Chest 10/04/2016. FINDINGS: The lungs are clear. Cardiac silhouette is normal in size. No pleural effusions. No pneumothorax. IMPRESSION: No acute process. Electronically signed by: Stefano Parkinson M.D. 12/03/2016 3:56 PM Dictated Date/Time: 12/03/2016 3:55 PM Laboratory Results 12/03/16 15:35 Red Blood Count 4.36, Mean Corpuscular Volume 86.0, Mean Corpuscular Hemoglobin 28.7, Mean Corpuscular Hemoglobin Concent 33.3, Mean Platelet Volume 9.8, Neutrophils (%) (Auto) 66.2, Lymphocytes (%) (Auto) 22.2, Monocytes (%) (Auto) 9.1, Eosinophils (%) (Auto) 1.5, Basophils (%) (Auto) 0.5, Neutrophils # (Auto) 4.36, Lymphocytes # (Auto) 1.46, Monocytes # (Auto) 0.60, Eosinophils # (Auto) 0.10, Basophils # (Auto) 0.03 12/03/16 15:35 Test 12/03/16 00:00 12/03/16 15:35 12/03/16 15:44 Urine Color YELLOW Urine Appearance CLEAR (CLEAR) Urine pH 7.0 (4.5-7.5) Urine Specific Herscher 1.010 (1.000-1.030) Urine Protein TRACE (NEG) Urine Glucose (UA) NEG (NEG) Urine Ketones NEG (NEG) Urine Occult Blood NEG (NEG) Urine Nitrite NEG (NEG) Urine Bilirubin NEG (NEG) Urine Urobilinogen NEG (NEG) Urine Leukocyte Esterase NEG (NEG) Urine WBC (Auto) 1-5 /hpf (0-5) Urine RBC (Auto) 0-4 /hpf (0-4) Urine Hyaline Casts (Auto) 0 /lpf (0-5) Urine Epithelial Cells (Auto) 5-10 /lpf (0-5) Urine Bacteria (Auto) NEG (NEG) White Blood Count 6.58 K/uL (4.8-10.8) Red Blood Count 4.36 M/uL (4.2-5.4) Hemoglobin 12.5 g/dL (12.0-16.0) Hematocrit 37.5 % (37-47) Mean Corpuscular Volume 86.0 fL (80-100) Mean Corpuscular Hemoglobin 28.7 pg (25-34) Mean Corpuscular Hemoglobin Concent 33.3 g/dl (32-36) Platelet Count 232 K/uL (130-400) Mean Platelet Volume 9.8 fL (7.4-10.4) Neutrophils (%) (Auto) 66.2 % Lymphocytes (%) (Auto) 22.2 % Monocytes (%) (Auto) 9.1 % Eosinophils (%) (Auto) 1.5 % Basophils (%) (Auto) 0.5 % Neutrophils # (Auto) 4.36 K/uL (1.4-6.5) Lymphocytes # (Auto) 1.46 K/uL (1.2-3.4) Monocytes # (Auto) 0.60 K/uL (0.11-0.59) Eosinophils # (Auto) 0.10 K/uL (0-0.5) Basophils # (Auto) 0.03 K/uL (0-0.2) RDW Standard Deviation 43.1 fL (36.4-46.3) RDW Coefficient of Variation 13.6 % (11.5-14.5) Immature Granulocyte % (Auto) 0.5 % Immature Granulocyte # (Auto) 0.03 K/uL (0.00-0.02) Anion Gap 7.0 mmol/L (3-11) Est Creatinine Clear Calc Drug Dose 55.3 ml/min Estimated GFR () 79.7 Estimated GFR (Non- 68.7 BUN/Creatinine Ratio 20.9 (10-20) Calcium Level 9.4 mg/dl (8.5-10.1) Magnesium Level 2.2 mg/dl (1.8-2.4) Total Bilirubin 0.4 mg/dl (0.2-1) Direct Bilirubin < 0.1 mg/dl (0-0.2) Aspartate Amino Transf (AST/SGOT) 11 U/L (15-37) Alanine Aminotransferase (ALT/SGPT) 20 U/L (12-78) Alkaline Phosphatase 62 U/L (45-117) Total Creatine Kinase 59 U/L (26-192) Creatine Kinase MB 0.8 ng/ml (0.5-3.6) Creatine Kinase MB Ratio 1.4 (0-3.0) Total Protein 7.9 gm/dl (6.4-8.2) Albumin 4.1 gm/dl (3.4-5.0) Thyroid Stimulating Hormone (TSH) 2.110 uIu/ml (0.300-4.500) Bedside Troponin I < 0.030 ng/ml (0-0.045) Laboratory results per my review. Medications Administered Medications (Trade) Dose Ordered Sig/Jaime Route Start Time Stop Time Status Last Admin Dose Admin Labetalol HCl (Normodyne IV) 10 mg NOW STAT IV 12/03/16 15:38 12/03/16 15:42 DC 12/03/16 15:56 10 MG Morphine Sulfate (MoRPHine SULFATE INJ) 2 mg NOW STAT IV 12/03/16 15:38 12/03/16 15:42 DC 12/03/16 15:54 2 MG Ondansetron HCl (Zofran Inj) 4 mg NOW STAT IV 12/03/16 15:38 12/03/16 15:42 DC 12/03/16 15:52 4 MG Sodium Chloride 1,000 ml @ 125 mls/hr Q8H STAT IV 12/03/16 15:38 12/03/16 18:04 DC 12/03/16 15:46 125 MLS/HR Clonidine HCl (Catapres Tab) 0.1 mg NOW ONCE PO 12/03/16 17:30 12/03/16 17:31 DC 12/03/16 17:41 0.1 MG ECG Indication: other (hypertension) Rate (beats per minute): 83 Rhythm: normal sinus Findings: RBBB, no acute ischemic change, other (repolarization abnormality in the inferior and anterior leads) ED Course 1538: Ordered Sodium Chloride 1000 ml @ 125 mls/hr IV, Zofran Inj 4mg IV, Morphine Sulfate 2mg IV, Normodyne IV 10mg IV 153: Past medical records reviewed. The patient was evaluated in room A10. A complete history and physical examination was performed. 0: Ordered Clonidine HCl 0.1mg PO. Upon reevaluation, the patient appeared to have improvement of her symptoms. I discussed findings with her. She verbalized agreement of the treatment plan. The patient was discharged home. Medical Decision DDx: Intracranial hemorrhage, intracranial mass, migraine headache, tension headache , sinusitis, meningitis, hypertensive urgency Medication Reconciliation: I attest that I have personally reviewed the patient' s current medication list. Blood Pressure Screening: Patient was found to have an elevated blood pressure and was referred to their primary doctor for recheck and further treatment. This patient was evaluated and appeared to be in no significant distress. IV access was obtained and laboratory work was drawn. The patient was given IV morphine, Zofran and 10 mg of IV labetalol for hypertension. She had significant improvement in her symptoms with the above medications. CT scan of the head was performed and is negative for acute intracranial abnormality. Laboratory work is fairly unrevealing. The patient has had an intolerance to diuretics in the past, causing a significant hyponatremia. Currently the patient is on a beta garcía and an ARB. She was given clonidine 0.1 mg in the ER and a short prescription. She will continue this medication every 12 hours and will follow-up with her primary care physician this week for reevaluation and further medication management. The patient will return to the ER for worsening of symptoms or any medical concerns. Impression Primary Impression: Hypertension Additional Impression: Headache around the eyes Scribe Attestation The scribe's documentation has been prepared under my direction and personally reviewed by me in its entirety. I confirm that the note above accurately reflects all work, treatment, procedures, and medical decision making performed by me. Departure Information Dispostion Home / Self-Care Prescriptions Clonidine Hcl (CATAPRES) 0.1 Mg Tab 0.1 MG PO BID for 30 Days, #60 TAB Prov: Rossy Doll M.D. 12/03/16 Referrals Noreen Anderson M.D. (PCP) Forms HOME CARE DOCUMENTATION FORM, IMPORTANT VISIT INFORMATION, WORK / SCHOOL INSTRUCTIONS Patient Instructions My [facility] Additional Instructions Diagnosis: Hypertension, headache Continue your current medications as prescribed. Start clonidine 0.1 mg twice daily. Follow-up with your primary care physician in one week for blood pressure recheck. Return to the emergency department for worsening of symptoms or any medical concerns. Problem Qualifiers
--- NOTE | 2016-12-03 15:58 | DIAGNOSTIC IMAGING REPORT ---
CHEST ONE VIEW PORTABLE HISTORY: Hypertension. COMPARISON: Chest 10/04/2016. FINDINGS: The lungs are clear. Cardiac silhouette is normal in size. No pleural effusions. No pneumothorax. IMPRESSION: No acute process. Electronically signed by: Stefano Parkinson M.D. 12/03/2016 3:56 PM Dictated Date/Time: 12/03/2016 3:55 PM
[2016-12-03 16:09] LABS: ALT/SGPT 20 U/L (12-78); AST/SGOT 11 U/L (15-37); BLOOD UREA NITROGEN 16 mg/dl (7-18); BUN/CREATININE RATIO 20.9 (10-20); CALCIUM 9.4 mg/dl (8.5-10.1); CARBON DIOXIDE 28 mmol/L (21-32); CHLORIDE 101 mmol/L (98-107); CREATININE 0.79 mg/dl (0.60-1.20); GLUCOSE 107 mg/dl (70-99); MAGNESIUM 2.2 mg/dl (1.8-2.4); POTASSIUM 3.9 mmol/L (3.5-5.1); SODIUM 136 mmol/L (136-145)
--- NOTE | 2016-12-03 16:11 | DIAGNOSTIC IMAGING REPORT ---
CT HEAD WITHOUT CONTRAST (CT) CLINICAL HISTORY: Headache, hypertension. COMPARISON STUDY: No previous studies for comparison. TECHNIQUE: Axial CT of the brain is performed from the vertex to the skull base. IV contrast was not administered for this examination. CT DOSE: 537.48 mGy.cm FINDINGS: No intra or extra-axial mass lesions are visualized. There is no CT evidence of acute cortical infarction. There is no evidence of midline shift. There is no acute hemorrhage. No calvarial fractures are visualized. There are mild white matter hypodensities likely on a small vessel basis. There is no evidence of pathologic ventricular dilatation. There is no evidence of acute sinusitis IMPRESSION: No acute intracranial findings Electronically signed by: Demetrio Vernon M.D. 12/03/2016 4:10 PM Dictated Date/Time: 12/03/2016 4:09 PM
[2016-12-03 16:20] LABS: ALKALINE PHOSPHATASE 62 U/L (45-117); CKMB/CK RATIO 1.4 (0-3.0)
[2016-12-03 16:21] LABS: URINE APPEARANCE CLEAR (CLEAR); URINE BILIRUBIN NEG (NEG); URINE COLOR YELLOW; URINE NITRITE NEG (NEG); UROBILINOGEN NEG (NEG); ZZUR CULT IF INDIC CLEAN CATCH NO
[2016-12-03 16:23] LABS: MANUAL MICROSCOPIC REQUIRED? NO; REVIEW REQ? NO
[2016-12-03] MEDS ORDERED: HYDROCHLOROTHIAZIDE 25 MG TAB PO STA (17:03)
[2016-12-03] MEDS ORDERED: CHLORTHALIDONE 25 MG TAB PO STA (17:13)
[2016-12-03] MEDS ORDERED: CLONIDINE HCL 0.1 MG TAB PO ONE (17:30)
[2016-12-03] MEDS ORDERED: CTP/1 PO (17:31)
[2016-12-03 17:44] VITALS: BP 157/81; PULSE 73; O2SAT 93
== END 2016-12-03 17:49 | disposition home or self-care (01) ==
LOC: C.EDB 15:16 → C.EDA 17:49
DX: I10 Essential (primary) hypertension (principal); R51 Headache; E11.9 Type 2 diabetes mellitus without complications; E78.5 Hyperlipidemia, unspecified; E87.1 Hypo-osmolality and hyponatremia; Z82.49 Family history of ischemic heart disease and other diseases of the circulatory system; Z79.82 Long term (current) use of aspirin; Z79.899 Other long term (current) drug therapy

== ENCOUNTER 2017-02-04 20:45 | Emergency (ER) | payer OTHER ==
[~2017-02-04] VITALS: Ht 167.6 cm; Wt 80.9 kg
[~2017-02-04 20:45] MED LIST changes: -Boost Plus Vanilla PO; -DLC5 PO
[2017-02-04 20:48] VITALS: TEMP 37; Ht 167.6 cm; Wt 80.9 kg
[2017-02-04] MEDS ORDERED: LABETALOL HCL IV 5 MG/ML 20ML IV STA (22:02)
[2017-02-04 22:14] LABS: BASO % 0.6 %; BASO ABS # 0.04 K/uL (0-0.2); COMPLETE YES; EOS % 1.2 %; HEMATOCRIT 34.6 % (37-47); IG% 0.1 %; MEAN CELL VOLUME 84.2 fL (80-100); MEAN CORPUSCULAR HGB CONC 34.4 g/dl (32-36); MEAN PLATELET VOLUME 10.5 fL (7.4-10.4); MONO % 7.1 %; PLATELET COUNT 206 K/uL (130-400); RED BLOOD COUNT 4.11 M/uL (4.2-5.4); WHITE BLOOD COUNT 7.21 K/uL (4.8-10.8)
[2017-02-04 22:25] LABS: ALT/SGPT 20 U/L (12-78); BLOOD UREA NITROGEN 20 mg/dl (7-18); BUN/CREATININE RATIO 12.6 (10-20); CALCIUM 8.7 mg/dl (8.5-10.1); CARBON DIOXIDE 29 mmol/L (21-32); CHLORIDE 97 mmol/L (98-107); GLUCOSE 135 mg/dl (70-99); POTASSIUM 3.8 mmol/L (3.5-5.1); SODIUM 132 mmol/L (136-145)
[2017-02-04 22:28] LABS: ALKALINE PHOSPHATASE 71 U/L (45-117); AST/SGOT 15 U/L (15-37)
[2017-02-04] MEDS ORDERED: CLON0.1T12 PO (22:35)
[2017-02-04] MEDS ORDERED: LPR50X PO (22:37)
[2017-02-04] MEDS ORDERED: LOSA50TA6 PO (22:37)
[2017-02-04] MEDS ORDERED: SODIUM CHLORIDE 0.9% 250ML 250 ML IV STA (22:44)
[2017-02-05 00:08] VITALS: BP 157/87; PULSE 69; O2SAT 95
--- NOTE | 2017-02-05 01:42 | EMERGENCY ROOM VISIT NOTE ---
History Report prepared by Brian: Lidia Ribera Under the Supervision of: Dr. Corey Segovia M.D. First contact with patient: 21:53 Chief Complaint: HYPERTENSION Stated Complaint: HIGH BP 208/110 DIZZY SHAKING History of Present Illness The patient is an 86 year old female who presents to the Emergency Room with complaints of persistent high blood pressure starting 1930 today. She was feeling shaky and her heart was pounding. She checked her blood pressure and found that it was elevated. The patient has a history of hypertension and is on clonidine, Cozaar, and metoprolol. She denies any missed medications. She last took her medications at 1930 today. She took 2 Ativan before coming to the ED because she was feeling anxious. She feels tired currently. She denies any chest pain, SOB, fever, vomiting, abdominal pain, headache, or urinary symptoms. She has a history of liver problems and low sodium. She notes that she has an ulcer on her cheek for which she is seeing her dentist tomorrow. She denies any history of kidney disease. Source of History: patient Onset: 1929 today Position: other (global) Quality: other (high blood pressure) Timing: other (persistent) Associated Symptoms: + fatigue, No fevers, No headache, No chest pain, No SOB, No vomiting, No abdominal pain, No urinary symptoms Note: Pt reports feeling shaky, heart pounding. Review of Systems See HPI for pertinent positives & negatives. A total of 10 systems reviewed and were otherwise negative. Past Medical & Surgical Medical Problems: (1) Bee sting allergy (2) Diabetes mellitus, type 2 (3) Dyslipidemia (4) Elevated troponin (5) Hypertension (6) Hyponatremia Surgical Problems: (1) History of hysterectomy (2) Status post bladder repair (3) Status post hysterectomy Family History Coronary artery disease MOTHER SISTER Hypertension Stroke FATHER Social History Smoking Status: Never Smoker Alcohol Use: none Drug Use: none Marital Status: Housing Status: lives alone Occupation Status: retired Current/Historical Medications Scheduled Aspirin (Aspirin EC Low Dose), 81 MG PO DAILY Cholecalciferol (Vitamin D3), 2,000 UNITS PO DAILY Clonidine Hcl (Catapres), 1 TAB PO BID Losartan Potassium (Cozaar), 50 MG PO BID Metoprolol Tartrate (Metoprolol Tartrate), 1 TAB PO BID Scheduled PRN Lorazepam (Ativan), 0.5 MG PO HS PRN for Anxiety Polyethylene Glycol 3350 (Miralax), 17 GM PO DAILY PRN for Constipation Allergies Coded Allergies: Atenolol (Unverified Allergy, Mild, "HANDS TURNED BLUE", 02/04/17) Lisinopril (Unverified Allergy, Unknown, cough, 02/04/17) Nitrofurantoin (Unverified Allergy, Unknown, nausea, 02/04/17) Statins (Unverified Allergy, Unknown, LIVER ENZYMES ELEVATED, 02/04/17) Sulfamethoxazole w/Trimethoprim (Unverified Allergy, Unknown, nausea, 02/04) Hydrochlorothiazide w/Triamterene (Verified Adverse Reaction, Severe, hyponatremia, 02/04/17) Physical Exam Vital Signs Date Time Temp Pulse Resp B/P (MAP) Pulse Ox O2 Delivery O2 Flow Rate FiO2 02/05/17 00:08 69 20 157/87 95 02/04/17 23:07 67 20 177/85 93 Room Air 02/04/17 22:37 68 16 156/81 95 Room Air 02/04/17 21:33 72 02/04/17 20:48 37.0 83 20 194/80 95 Room Air Physical Exam Constitutional: Vital signs reviewed. Blood pressure is 172/98. Eyes: Pupils are equal round reactive to light. Conjunctiva are noninjected. ENT: Pharynx is clear without erythema or exudate. Mucous membranes are moist. One centimeter cystic lesion to the left lower gums. Neck supple without meningeal signs. Respiratory: Clear to auscultation bilaterally. Breath sounds are equal bilaterally. Cardiovascular: Regular rate and rhythm. No rubs or gallops. GI: Soft, nondistended and nontender. Bowel sounds are present. Musculoskeletal: No peripheral edema. No lower extremity tenderness. Integumentary: No cyanosis. Neurological: The patient is awake and alert. No focal deficits. Psychiatric: Normal affect. Medical Decision & Procedures Laboratory Results 02/04/17 21:43 Red Blood Count 4.11, Mean Corpuscular Volume 84.2, Mean Corpuscular Hemoglobin 29.0, Mean Corpuscular Hemoglobin Concent 34.4, Mean Platelet Volume 10.5, Neutrophils (%) (Auto) 73.0, Lymphocytes (%) (Auto) 18.0, Monocytes (%) (Auto) 7.1, Eosinophils (%) (Auto) 1.2, Basophils (%) (Auto) 0.6, Neutrophils # (Auto) 5.26, Lymphocytes # (Auto) 1.30, Monocytes # (Auto) 0.51, Eosinophils # (Auto) 0.09, Basophils # (Auto) 0.04 02/04/17 21:43 Test 02/04/17 21:43 02/04/17 22:32 White Blood Count 7.21 K/uL (4.8-10.8) Red Blood Count 4.11 M/uL (4.2-5.4) Hemoglobin 11.9 g/dL (12.0-16.0) Hematocrit 34.6 % (37-47) Mean Corpuscular Volume 84.2 fL (80-100) Mean Corpuscular Hemoglobin 29.0 pg (25-34) Mean Corpuscular Hemoglobin Concent 34.4 g/dl (32-36) Platelet Count 206 K/uL (130-400) Mean Platelet Volume 10.5 fL (7.4-10.4) Neutrophils (%) (Auto) 73.0 % Lymphocytes (%) (Auto) 18.0 % Monocytes (%) (Auto) 7.1 % Eosinophils (%) (Auto) 1.2 % Basophils (%) (Auto) 0.6 % Neutrophils # (Auto) 5.26 K/uL (1.4-6.5) Lymphocytes # (Auto) 1.30 K/uL (1.2-3.4) Monocytes # (Auto) 0.51 K/uL (0.11-0.59) Eosinophils # (Auto) 0.09 K/uL (0-0.5) Basophils # (Auto) 0.04 K/uL (0-0.2) RDW Standard Deviation 42.0 fL (36.4-46.3) RDW Coefficient of Variation 13.7 % (11.5-14.5) Immature Granulocyte % (Auto) 0.1 % Immature Granulocyte # (Auto) 0.01 K/uL (0.00-0.02) Anion Gap 6.0 mmol/L (3-11) Est Creatinine Clear Calc Drug Dose 28.1 ml/min Estimated GFR () 33.9 Estimated GFR (Non- 29.3 BUN/Creatinine Ratio 12.6 (10-20) Calcium Level 8.7 mg/dl (8.5-10.1) Total Bilirubin 0.4 mg/dl (0.2-1) Direct Bilirubin < 0.1 mg/dl (0-0.2) Aspartate Amino Transf (AST/SGOT) 15 U/L (15-37) Alanine Aminotransferase (ALT/SGPT) 20 U/L (12-78) Alkaline Phosphatase 71 U/L (45-117) Total Protein 7.4 gm/dl (6.4-8.2) Albumin 3.8 gm/dl (3.4-5.0) Bedside Troponin I < 0.030 ng/ml (0-0.045) Laboratory results as reviewed by me. Medications Administered Medications (Trade) Dose Ordered Sig/Jaime Route Start Time Stop Time Status Last Admin Dose Admin Sodium Chloride 250 ml @ 999 mls/hr Q16M STAT IV 02/04/17 22:44 02/04/17 22:59 DC 02/04/17 23:06 999 MLS/HR ECG Indication: palpitations Rate (beats per minute): 68 Rhythm: normal sinus Findings: RBBB, no ectopy Comparison ECG Date: 03-Dec-2016 Change: no significant change ED Course 5: The patient was evaluated in room C7. A complete history and physical exam was performed. 2239: The labetalol was not administered as the patient's blood pressure is now 156/81. 2244: NSS 250 ml @ 999 mls/hr IV. 2300: I reevaluated the patient. She is receiving her fluids. I discussed the test results with her. She will follow up with her PCP and have her lab tests rechecked. She verbalized agreement of the treatment plan. She was discharged home. Medical Decision This is an 86-year-old female who presents with high blood pressure and palpitations. Differential diagnosis includes anxiety, medication noncompliance , metabolic derangement, hypertensive urgency. I did perform a limited focused review of portions of the patient's old chart on the electronic medical record. The patient was here in November for hypertension and dizziness. She had a CT head which was unremarkable and blood work including negative troponin. She was given labetalol and clonidine and discharged home on clonidine. I did evaluate the patient as noted above. The patient is presenting with elevated blood pressures today. She is also felt very anxious with palpitations. She is feeling much better at this time after taking her blood pressure medications and her Ativan. IV access was established. The patient was placed on a continuous scout sniper. Her blood pressures elevated and so I did order labetalol IV. Before the nurse gave the labetalol she checked her blood pressure again and it had come down significantly on its own. The labetalol was canceled. I did order and personally review the patient's 12- lead EKG as described above. I did order and review the patient's blood work as noted in the electronic medical record. Her sodium is slightly low at 132. Her creatinine and BUN are slightly elevated at 1.6 and 20 respectively. I did treat her with normal saline IV. I did discuss the test results with the patient. She will continue her medications as prescribed. She will follow closely with her doctor for recheck of her blood tests. She was discharged in good condition. She does have an appointment with her dentist to evaluate the oral lesion tomorrow. Medication Reconcilliation Current Medication List: was personally reviewed by me Blood Pressure Screening Patient's blood pressure: Elevated blood pressure Blood pressure disposition: Referred to PCP Impression Primary Impression: Poorly-controlled hypertension Additional Impressions: Anxiety Hyponatremia Elevated serum creatinine Oral lesion Scribe Attestation The scribe's documentation has been prepared under my direct and personally reviewed by me in its entirety. I confirm that the note above accurately reflects all work, treatment, procedures, and medical decision making performed by me. Departure Information Dispostion Home / Self-Care Referrals Noreen Anderson M.D. (PCP) Forms HOME CARE DOCUMENTATION FORM, IMPORTANT VISIT INFORMATION, WORK / SCHOOL INSTRUCTIONS Patient Instructions ED Hypertension Conf Out Of Control, Hyponatremia Dc, My [facility] Additional Instructions You have been examined and treated today on an emergency basis only. This is not a substitute for, or an effort to provide, complete comprehensive medical care. It is impossible to recognize and treat all injuries or illnesses in a single emergency department visit. It is therefore important that you follow up closely with your physician. Call as soon as possible for an appointment. Return for worsening symptoms or if you develop fever, vomiting, chest pain, shortness of breath, severe headache or any other concerning symptoms. Your serum creatinine was 1.6 today (BUN 20). Your sodium level was 132. Have your doctor recheck these blood tests soon. Problem Qualifiers
== END 2017-02-05 00:08 | disposition home or self-care (01) ==
LOC: C.EDB 20:45 → C.EDC 02-05 00:08
DX: I10 Essential (primary) hypertension (principal); F41.9 Anxiety disorder, unspecified; E87.1 Hypo-osmolality and hyponatremia; R79.89 Other specified abnormal findings of blood chemistry; K13.70 Unspecified lesions of oral mucosa; E11.9 Type 2 diabetes mellitus without complications; E78.5 Hyperlipidemia, unspecified; Z90.710 Acquired absence of both cervix and uterus; Z82.49 Family history of ischemic heart disease and other diseases of the circulatory system; Z82.3 Family history of stroke; Z79.82 Long term (current) use of aspirin

== ENCOUNTER 2017-02-09 19:21 | Emergency (ER) | payer OTHER ==
[~2017-02-09] VITALS: Ht 167.6 cm; Wt 80.1 kg
[~2017-02-09 19:21] MED LIST changes: -ALEN70TA4 PO; -CLC100 PO; +CLON0.1T12 PO; -LOSA50TA54 PO; +LOSA50TA6 PO; +LPR50X PO; -METO50TA17 PO
[2017-02-09 19:34] VITALS: TEMP 36.7; Ht 167.6 cm; Wt 80.1 kg
--- NOTE | 2017-02-09 20:52 | EMERGENCY ROOM VISIT NOTE ---
History Report prepared by Brian: Thea Trevizo Under the Supervision of: Dr. Guido Portillo M.D. First contact with patient: 20:37 Chief Complaint: HYPERTENSION Stated Complaint: HIGH BLOOD PRESSURE History of Present Illness The patient is an 86 year old white female with a past medical history of anxiety, hypertension and DM who presents to the ED with a cc of persistent hypertension beginning prior to arrival. She reports she didn't feel well this earlier evening, so she checked her BP and it was 215 systolic when taken at home. The patient reports she was seen here in the ED last week for the same symptoms and was found to be dehydrated. She has been taking her medications as prescribed and denies any recent changes to her medicines. She takes 3 different blood pressure medications daily. The patient admits to increased stress at home since her has been house bound after undergoing 2 different knee surgeries. She has had a decreased appetite for the past 2 days. Her last BM was this evening and normal, although "small". Positive palpitations , fatigue, increased urinary frequency and neck pain. Negative fevers, cough, congestion. 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 A total of ten systems were reviewed and were otherwise negative. Past Medical & Surgical Medical Problems: (1) Bee sting allergy (2) Diabetes mellitus, type 2 (3) Dyslipidemia (4) Elevated troponin (5) Hypertension (6) Hyponatremia Surgical Problems: (1) History of hysterectomy (2) Status post bladder repair (3) Status post hysterectomy Family History Coronary artery disease MOTHER SISTER Hypertension Stroke FATHER Social History Smoking Status: Never Smoker Alcohol Use: none Drug Use: none Marital Status: Housing Status: lives with significant other Occupation Status: retired Current/Historical Medications Scheduled Aspirin (Aspirin EC Low Dose), 81 MG PO DAILY Cholecalciferol (Vitamin D3), 2,000 UNITS PO DAILY Clonidine Hcl (Catapres), 0.1 MG PO BID Losartan Potassium (Cozaar), 50 MG PO BID Metoprolol Tartrate (Metoprolol Tartrate), 50 MG PO BID Penicillin V Potassium (Veetids), 500 MG PO QID Scheduled PRN Docusate Sodium (Colace), 100 MG PO BID PRN for Constipation Lorazepam (Ativan), 0.5 MG PO HS PRN for Anxiety Polyethylene Glycol 3350 (Miralax), 17 GM PO DAILY PRN for Constipation Allergies Coded Allergies: Atenolol (Unverified Allergy, Mild, "HANDS TURNED BLUE", 02/09/17) Lisinopril (Unverified Allergy, Unknown, cough, 02/09/17) Nitrofurantoin (Unverified Allergy, Unknown, nausea, 02/09/17) Statins (Unverified Allergy, Unknown, LIVER ENZYMES ELEVATED, 02/09/17) Sulfamethoxazole w/Trimethoprim (Unverified Allergy, Unknown, nausea, 02/09) Hydrochlorothiazide w/Triamterene (Verified Adverse Reaction, Severe, hyponatremia, 02/09/17) Physical Exam Vital Signs Date Time Temp Pulse Resp B/P (MAP) Pulse Ox O2 Delivery O2 Flow Rate FiO2 02/09/17 23:38 77 18 171/85 97 02/09/17 22:08 173/91 02/09/17 21:35 74 02/09/17 21:30 71 18 165/87 96 Room Air 02/09/17 19:34 36.7 87 18 196/78 95 Room Air Physical Exam GENERAL: Awake, alert, well-appearing, NAD HENT: Normocephalic, atraumatic. EYES: Normal conjunctiva. Sclera non-icteric. NECK: Supple. No nuchal rigidity. FROM. RESPIRATORY: CTAB, no rhonchi, wheezing, crackles CARDIAC: RRR, no MRG ABDOMEN: Soft, NTND, BS+ MSK: No chest wall TTP, +1 symmetric LE edema NEURO: GCS 15, CN 2-12 intact, moves all 4s on command. PERRL 3 mm bilaterally. EOMI. 5/5 LE strength. No sensory deficit. Good finger to nose. SKIN: No rash or jaundice noted. Medical Decision & Procedures Laboratory Results 02/09/17 21:10 Red Blood Count 4.18, Mean Corpuscular Volume 81.8, Mean Corpuscular Hemoglobin 28.9, Mean Corpuscular Hemoglobin Concent 35.4, Mean Platelet Volume 9.4, Neutrophils (%) (Auto) 71.8, Lymphocytes (%) (Auto) 18.6, Monocytes (%) (Auto) 8.2, Eosinophils (%) (Auto) 0.8, Basophils (%) (Auto) 0.2, Neutrophils # (Auto) 6.57, Lymphocytes # (Auto) 1.70, Monocytes # (Auto) 0.75, Eosinophils # (Auto) 0.07, Basophils # (Auto) 0.02 02/09/17 21:10 Test 02/09/17 21:10 02/09/17 21:30 White Blood Count 9.15 K/uL (4.8-10.8) Red Blood Count 4.18 M/uL (4.2-5.4) Hemoglobin 12.1 g/dL (12.0-16.0) Hematocrit 34.2 % (37-47) Mean Corpuscular Volume 81.8 fL (80-100) Mean Corpuscular Hemoglobin 28.9 pg (25-34) Mean Corpuscular Hemoglobin Concent 35.4 g/dl (32-36) Platelet Count 204 K/uL (130-400) Mean Platelet Volume 9.4 fL (7.4-10.4) Neutrophils (%) (Auto) 71.8 % Lymphocytes (%) (Auto) 18.6 % Monocytes (%) (Auto) 8.2 % Eosinophils (%) (Auto) 0.8 % Basophils (%) (Auto) 0.2 % Neutrophils # (Auto) 6.57 K/uL (1.4-6.5) Lymphocytes # (Auto) 1.70 K/uL (1.2-3.4) Monocytes # (Auto) 0.75 K/uL (0.11-0.59) Eosinophils # (Auto) 0.07 K/uL (0-0.5) Basophils # (Auto) 0.02 K/uL (0-0.2) RDW Standard Deviation 40.9 fL (36.4-46.3) RDW Coefficient of Variation 13.6 % (11.5-14.5) Immature Granulocyte % (Auto) 0.4 % Immature Granulocyte # (Auto) 0.04 K/uL (0.00-0.02) Anion Gap 8.0 mmol/L (3-11) Est Creatinine Clear Calc Drug Dose 52.0 ml/min Estimated GFR () 71.9 Estimated GFR (Non- 62.0 BUN/Creatinine Ratio 22.6 (10-20) Calcium Level 8.9 mg/dl (8.5-10.1) Total Bilirubin 0.4 mg/dl (0.2-1) Direct Bilirubin < 0.1 mg/dl (0-0.2) Aspartate Amino Transf (AST/SGOT) 12 U/L (15-37) Alanine Aminotransferase (ALT/SGPT) 20 U/L (12-78) Alkaline Phosphatase 63 U/L (45-117) Total Protein 7.5 gm/dl (6.4-8.2) Albumin 3.8 gm/dl (3.4-5.0) Urine Color YELLOW Urine Appearance CLEAR (CLEAR) Urine pH 5.5 (4.5-7.5) Urine Specific [place] 1.011 (1.000-1.030) Urine Protein NEG (NEG) Urine Glucose (UA) NEG (NEG) Urine Ketones NEG (NEG) Urine Occult Blood NEG (NEG) Urine Nitrite NEG (NEG) Urine Bilirubin NEG (NEG) Urine Urobilinogen NEG (NEG) Urine Leukocyte Esterase NEG (NEG) Urine WBC (Auto) 1-5 /hpf (0-5) Urine RBC (Auto) 5-10 /hpf (0-4) Urine Hyaline Casts (Auto) 0 /lpf (0-5) Urine Epithelial Cells (Auto) 0-5 /lpf (0-5) Urine Bacteria (Auto) NEG (NEG) Laboratory results reviewed by nd ED Course 2039: The patient was evaluated in room B11B. A complete history and physical exam was performed. 2315: I reevaluated the patient. She is feeling much better. I discussed her results and discharge instructions and she verbalized complete understanding and agreement. Medical Decision The patient is an 86 year old white female with a past medical history of anxiety, hypertension and DM who presents to the ED with a cc of hypertension beginning prior to arrival. Triage Nursing notes reviewed. The patient's presentation and history were concerning for kidney failure, dehydration and fluid retention. Patient was seen and evaluated at the bedside. Patient's lab work is fairly unremarkable although mild hyponatremia. I discussed with the patient he does not take any antipsychotics and does not take any hydrochlorothiazide or Lasix. Furthermore patient does not appear overtly volume overloaded. Patient does not complain of any chest pain or shortness of breath. Patient's UA without any concern for infection. Patient's glucose is also fairly normal. I explained at length that while her blood pressure is high and that if she is asymptomatic. Needs to be a gradual change done under the care of a primary care physician. Patient was told that if she does have elevated blood pressure she could report these findings to her PCP. Patient was also told that if she has high blood pressure and inability to talk, think, or numbness tingling or weakness that she should return to the emergency Department immediately. Patient was also told that given her mildly low sodium just follow-up with her primary care physician for further evaluation. Patient ambulated without difficulty and tolerated by mouth. Patient was given strict follow-up, discharge, and return precautions. Patient agreed with plan of care was discharged home. Medication Reconcilliation Current Medication List: was personally reviewed by me Blood Pressure Screening Patient's blood pressure: Elevated blood pressure Blood pressure disposition: Referred to PCP Impression Primary Impression: Hyponatremia Additional Impressions: Hypertension Polyuria Scribe Attestation The scribe's documentation has been prepared under my direction and personally reviewed by me in its entirety. I confirm that the note above accurately reflects all work, treatment, procedures, and medical decision making performed by me. Departure Information Dispostion Home / Self-Care Referrals Noreen Anderson M.D. (PCP) Patient Instructions Hyponatremia Noah, My [facility] Additional Instructions Please return to the emergency department if you have worsening or recurrent symptoms not amenable to at-home treatment. Please call for a follow-up appointment with her primary care physician. Please take your medications as prescribed. If you have other concerns and/or complaints please feel free to also call your primary care physician's office or return the ED for further evaluation, management, and treatment. Please f/u w/ your PCP for further testing and evaluation of your high blood pressure. Return if you have numbness, tingling, or weakness. Problem Qualifiers Additional Impressions: Hypertension Hypertension type: unspecified Qualified Codes: I10 - Essential (primary) hypertension
[2017-02-09 21:26] LABS: BASO % 0.2 %; BASO ABS # 0.02 K/uL (0-0.2); COMPLETE YES; EOS % 0.8 %; HEMATOCRIT 34.2 % (37-47); IG% 0.4 %; LYMPH % 18.6 %; MEAN CELL VOLUME 81.8 fL (80-100); MEAN CORPUSCULAR HEMOGLOBIN 28.9 pg (25-34); MEAN CORPUSCULAR HGB CONC 35.4 g/dl (32-36); MEAN PLATELET VOLUME 9.4 fL (7.4-10.4); MONO % 8.2 %; NEUT % 71.8 %; PLATELET COUNT 204 K/uL (130-400); RED BLOOD COUNT 4.18 M/uL (4.2-5.4); WHITE BLOOD COUNT 9.15 K/uL (4.8-10.8)
[2017-02-09 21:48] LABS: ALT/SGPT 20 U/L (12-78); BLOOD UREA NITROGEN 19 mg/dl (7-18); BUN/CREATININE RATIO 22.6 (10-20); CALCIUM 8.9 mg/dl (8.5-10.1); CARBON DIOXIDE 27 mmol/L (21-32); CHLORIDE 93 mmol/L (98-107); CREATININE 0.86 mg/dl (0.60-1.20); GLUCOSE 113 mg/dl (70-99); POTASSIUM 4.1 mmol/L (3.5-5.1); SODIUM 128 mmol/L (136-145)
[2017-02-09 21:51] LABS: ALKALINE PHOSPHATASE 63 U/L (45-117); AST/SGOT 12 U/L (15-37)
[2017-02-09 22:16] LABS: MANUAL MICROSCOPIC REQUIRED? NO; REVIEW REQ? NO; URINE APPEARANCE CLEAR (CLEAR); URINE BILIRUBIN NEG (NEG); URINE COLOR YELLOW; URINE EPITHELIAL CELL AUTO 0-5 /lpf (0-5); URINE NITRITE NEG (NEG); URINE PH 5.5 (4.5-7.5); URINE SPECIFIC GRAVITY 1.011 (1.000-1.030); UROBILINOGEN NEG (NEG); ZZUR CULT IF INDIC CLEAN CATCH NO
[2017-02-09] MEDS ORDERED: PENI-82 PO (23:01)
[2017-02-09] MEDS ORDERED: DOCU-94 PO (23:05)
[2017-02-09 23:38] VITALS: BP 171/85; PULSE 77; O2SAT 97
== END 2017-02-09 23:39 | disposition home or self-care (01) ==
LOC: C.EDB 19:22
DX: I10 Essential (primary) hypertension (principal); E87.1 Hypo-osmolality and hyponatremia; R35.8 Other polyuria; E11.9 Type 2 diabetes mellitus without complications; E78.5 Hyperlipidemia, unspecified; Z90.710 Acquired absence of both cervix and uterus; Z98.890 Other specified postprocedural states; Z79.82 Long term (current) use of aspirin; Z79.899 Other long term (current) drug therapy; Z88.2 Allergy status to sulfonamides; Z88.8 Allergy status to other drugs, medicaments and biological substances; Z82.49 Family history of ischemic heart disease and other diseases of the circulatory system; Z82.3 Family history of stroke

== ENCOUNTER 2017-06-18 18:30 | Observation (INO) | payer OTHER ==
[~2017-06-18] VITALS: Ht 170.2 cm; Wt 75.7 kg
[~2017-06-18 18:30] MED LIST changes: +DOCU-94 PO; +PENI-82 PO
[2017-06-18] MEDS ORDERED: SODIUM CHLORIDE 0.9% 1000ML 1,000 ML IV STA (18:48)
--- NOTE | 2017-06-18 18:50 | EMERGENCY ROOM VISIT NOTE ---
History Report prepared by Brian: Franci Smith Under the Supervision of: Dr. Rio Lane D.O. First contact with patient: 18:32 Chief Complaint: HEADACHE Stated Complaint: HYPERGLYCEMIA/HEADACHE History of Present Illness The patient is an 87 year old female who presents to the Emergency Room with complaints of a worsening headache starting today. The patient states that her headache was radiating down her neck, but now is over her right eye. The patient states that she called 911 because she felt lightheaded. She notes that she has a history of orthostatic hypertension. She states that she felt like her blood pressure was very low. She notes that she took her blood pressure medications two hours ago. She reports that when she got in the ambulance, EMS took her blood sugar and it read 600 error. She states that she was diagnosed with Diabetes years ago and was put on medication for it. She reports that a year ago they took her off them. She states that she checked her blood sugar a few days ago and it was only 102. The patient does note that she has been eating a lot of sweets, drinking a lot of Gatorade, and drinking cranberry juice. She states that she was drinking so much because she thinks that she has a UTI. The patient complains of urinary frequency and diarrhea. She reports that she has been urinating every half hour. Source of History: patient Onset: today Position: head Quality: other (radiating) Timing: worsening Associated Symptoms: + diarrhea, + urinary symptoms Note: The patient complains of feeling lightheaded. Review of Systems See HPI for pertinent positives & negatives. A total of 10 systems reviewed and were otherwise negative. Past Medical & Surgical Medical Problems: (1) Bee sting allergy (2) Diabetes mellitus, type 2 (3) Dizziness and giddiness (4) Dyslipidemia (5) Elevated troponin (6) Hypertension (7) Hypertensive urgency (8) Hyponatremia (9) Severe headache Surgical Problems: (1) History of hysterectomy (2) Status post bladder repair (3) Status post hysterectomy Family History Coronary artery disease MOTHER SISTER Hypertension Stroke FATHER Social History Smoking Status: Never Smoker Alcohol Use: none Drug Use: none Marital Status: Housing Status: lives with significant other Occupation Status: retired Current/Historical Medications Scheduled Aspirin (Aspirin EC Low Dose), 81 MG PO DAILY Cholecalciferol (Vitamin D3), 2,000 UNITS PO DAILY Clonidine Hcl (Catapres), 0.2 MG PO BID Losartan Potassium (Cozaar), 50 MG PO BID Metoprolol Tartrate (Metoprolol Tartrate), 50 MG PO BID Scheduled PRN Acetaminophen (Tylenol), 1,000 MG PO DAILY PRN for Pain or Fever Docusate Sodium (Colace), 100 MG PO BID PRN for Constipation Lorazepam (Ativan), 0.5 MG PO HS PRN for Anxiety Polyethylene Glycol 3350 (Miralax), 17 GM PO DAILY PRN for Constipation Allergies Coded Allergies: Bee Venom (Unverified Allergy, Severe, ANAPHYLAXIS, 06/18/17) Atenolol (Unverified Allergy, Mild, "HANDS TURNED BLUE", 06/18/17) Lisinopril (Unverified Allergy, Unknown, cough, 06/18/17) Nitrofurantoin (Unverified Allergy, Unknown, nausea, 06/18/17) Statins (Unverified Allergy, Unknown, LIVER ENZYMES ELEVATED, 06/18/17) Sulfamethoxazole w/Trimethoprim (Unverified Allergy, Unknown, nausea, ) Hydrochlorothiazide w/Triamterene (Verified Adverse Reaction, Severe, hyponatremia, 06/18/17) Physical Exam Vital Signs Date Time Temp Pulse Resp B/P (MAP) Pulse Ox O2 Delivery O2 Flow Rate FiO2 06/18/17 20:45 75 15 96 Room Air 06/18/17 20:30 72 20 182/99 95 06/18/17 20:15 74 17 96 06/18/17 20:00 71 25 174/93 94 06/18/17 19:45 73 20 94 06/18/17 19:30 73 15 173/98 94 06/18/17 19:15 75 29 95 06/18/17 19:00 79 24 188/101 92 06/18/17 18:59 176/93 06/18/17 18:54 78 06/18/17 18:51 36.7 79 18 182/129 97 Room Air 06/18/17 18:48 182/129 Physical Exam CONSTITUTIONAL/VITAL SIGNS: Reviewed / noted above. GENERAL: Non-toxic in appearance. INTEGUMENTARY: Warm, dry, and [place]. HEAD: Normocephalic. EYES: without scleral icterus or trauma. ENT/OROPHARYNX: clear and moist. LYMPHADENOPATHY/NECK: Is supple without lymphadenopathy or meningismus. RESPIRATORY: Lungs clear and equal. CARDIOVASCULAR: Regular rate and rhythm. GI/ABDOMEN: Soft and nontender. No organomegaly or pulsatile mass. No rebound or guarding. Normal bowel sounds. EXTREMITIES: Warm and well perfused. BACK: No CVA tenderness. NEUROLOGICAL: Intact without focal deficits. PSYCHIATRIC: normal affect. MUSCULOSKELETAL: Normally developed with good muscle tone. Medical Decision & Procedures ER Provider Diagnostic Interpretation: Radiology results as stated below per my review and radiologist interpretation: CHEST ONE VIEW PORTABLE CLINICAL HISTORY: 87 years-old Female presenting with EVALUATE ALTERED MENTAL STATUS/WEAKNESS. TECHNIQUE: Portable upright AP view of the chest was obtained. COMPARISON: 12/03/2016. FINDINGS: Cardiac silhouette top normal in size allowing for AP technique. Mild prominence of pulmonary vasculature. Mildly low lung volumes. Prominent pericardial fat pad at the left ventricular apex again noted. Lungs and pleural spaces clear. Osseous structures normal. Upper abdomen normal. IMPRESSION: 1. No acute cardiopulmonary disease. Electronically signed by: Eleil Dean M.D. 06/18/2017 7:42 PM Dictated Date/Time: 06/18/2017 7:40 PM Laboratory Results 06/18/17 18:15 Red Blood Count 4.17, Mean Corpuscular Volume 85.1, Mean Corpuscular Hemoglobin 30.5, Mean Corpuscular Hemoglobin Concent 35.8, Mean Platelet Volume 10.8, Neutrophils (%) (Auto) 70.8, Lymphocytes (%) (Auto) 18.9, Monocytes (%) (Auto) 7.1, Eosinophils (%) (Auto) 2.4, Basophils (%) (Auto) 0.3, Neutrophils # (Auto) 5.31, Lymphocytes # (Auto) 1.42, Monocytes # (Auto) 0.53, Eosinophils # (Auto) 0.18, Basophils # (Auto) 0.02 06/18/17 18:15 Test 06/18/17 18:15 06/18/17 18:40 06/18/17 19:02 06/18/17 19:05 White Blood Count 7.50 K/uL (4.8-10.8) Red Blood Count 4.17 M/uL (4.2-5.4) Hemoglobin 12.7 g/dL (12.0-16.0) Hematocrit 35.5 % (37-47) Mean Corpuscular Volume 85.1 fL (80-100) Mean Corpuscular Hemoglobin 30.5 pg (25-34) Mean Corpuscular Hemoglobin Concent 35.8 g/dl (32-36) Platelet Count 227 K/uL (130-400) Mean Platelet Volume 10.8 fL (7.4-10.4) Neutrophils (%) (Auto) 70.8 % Lymphocytes (%) (Auto) 18.9 % Monocytes (%) (Auto) 7.1 % Eosinophils (%) (Auto) 2.4 % Basophils (%) (Auto) 0.3 % Neutrophils # (Auto) 5.31 K/uL (1.4-6.5) Lymphocytes # (Auto) 1.42 K/uL (1.2-3.4) Monocytes # (Auto) 0.53 K/uL (0.11-0.59) Eosinophils # (Auto) 0.18 K/uL (0-0.5) Basophils # (Auto) 0.02 K/uL (0-0.2) RDW Standard Deviation 42.1 fL (36.4-46.3) RDW Coefficient of Variation 13.6 % (11.5-14.5) Immature Granulocyte % (Auto) 0.5 % Immature Granulocyte # (Auto) 0.04 K/uL (0.00-0.02) Anion Gap 6.0 mmol/L (3-11) Est Creatinine Clear Calc Drug Dose 3.1 ml/min Estimated GFR () 72.4 Estimated GFR (Non- 62.5 BUN/Creatinine Ratio 18.9 (10-20) Calcium Level 9.5 mg/dl (8.5-10.1) Magnesium Level 2.2 mg/dl (1.8-2.4) Total Bilirubin 0.4 mg/dl (0.2-1) Direct Bilirubin 0.1 mg/dl (0-0.2) Aspartate Amino Transf (AST/SGOT) 15 U/L (15-37) Alanine Aminotransferase (ALT/SGPT) 20 U/L (12-78) Alkaline Phosphatase 65 U/L (45-117) Total Creatine Kinase 63 U/L (26-192) Creatine Kinase MB 1.2 ng/ml (0.5-3.6) Creatine Kinase MB Ratio 1.9 (0-3.0) Total Protein 7.9 gm/dl (6.4-8.2) Albumin 4.2 gm/dl (3.4-5.0) Thyroid Stimulating Hormone (TSH) 2.330 uIu/ml (0.300-4.500) Urine Color YELLOW Urine Appearance CLEAR (CLEAR) Urine pH 7.5 (4.5-7.5) Urine Specific [place] 1.010 (1.000-1.030) Urine Protein 2+ (NEG) Urine Glucose (UA) NEG (NEG) Urine Ketones NEG (NEG) Urine Occult Blood NEG (NEG) Urine Nitrite NEG (NEG) Urine Bilirubin NEG (NEG) Urine Urobilinogen NEG (NEG) Urine Leukocyte Esterase NEG (NEG) Urine WBC (Auto) 1-5 /hpf (0-5) Urine RBC (Auto) 0-4 /hpf (0-4) Urine Hyaline Casts (Auto) 0 /lpf (0-5) Urine Epithelial Cells (Auto) 10-20 /lpf (0-5) Urine Bacteria (Auto) NEG (NEG) Bedside Glucose 134 mg/dl (70-90) Prothrombin Time 10.0 SECONDS (9.0-12.0) Prothromb Time International Ratio 1.0 (0.9-1.1) Activated Partial Thromboplast Time 26.1 SECONDS (21.0-31.0) Partial Thromboplastin Ratio 1.0 Test 06/18/17 20:58 Laboratory results as stated above per my review. Medications Administered Medications (Trade) Dose Ordered Sig/Jaime Route Start Time Stop Time Status Last Admin Dose Admin Sodium Chloride 1,000 ml @ 999 mls/hr Q1H1M STAT IV 06/18/17 18:48 06/18/17 19:48 DC 06/18/17 19:13 999 MLS/HR Nitroglycerin (Nitroglycerin 2% Oint) 1 inch NOW ONCE EXT 06/18/17 20:00 06/18/17 20:01 DC 06/18/17 20:03 1 INCH Aspirin (Aspirin Chew) 324 mg NOW STAT PO 06/18/17 20:45 06/18/17 20:47 DC 06/18/17 21:19 324 MG ECG Indication: other (lightheadedness) Rate (beats per minute): 74 Rhythm: normal sinus Findings: RBBB, no acute ischemic change, no ectopy ED Course 1833: Previous medical records were reviewed. The patient was evaluated in room C10. A complete history and physical examination was performed. 1847: Ordered NSS 1000 ml @ 999 mls/hr IV. 1958: I reevaluated the patient and she is doing okay. She denies having any chest pains or shortness of breath. 1999: Ordered Nitroglycerin 1 inch EXT. 2010: Discussed the patient's case with Dr. Genevieve Coffman. The patient will be evaluated for further treatment and disposition. 2044: Ordered Aspirin 324 mg PO. Medical Decision Differential includes acute coronary syndrome, myocardial infarction, CVA, TIA, anemia, infection, pneumonia, UTI, pyelonephritis, poor nutrition, dehydration, electrolyte disturbance,hypoglycemia. This is an 87-year-old female to the ED with a chief complaint of a headache and lightheadedness. The patient also reported frequent urination. She denied any chest pains or shortness of breath. Her initial blood pressure was elevated at 182/126. The patient has a normal exam. Urine did not show obvious infection. Chest x-ray was negative for acute disease. EKG shows a normal sinus rhythm with a right bundle branch block. Sodium was 128. Complete metabolic panel was otherwise unremarkable. TSH is normal. Troponin was elevated at 0.059. Review the patient's records did not reveal any previous elevation of troponin. The patient was told the results. She was treated with nitroglycerin topically as well as aspirin by mouth. Blood pressure improved somewhat with this. She will be seen by the hospitalist for further evaluation and care. Medication Reconcilliation Current Medication List: was personally reviewed by me Blood Pressure Screening Patient's blood pressure: Elevated blood pressure Will be further monitored by the hospitalist. Consults Time Called: 1999 Consulting Physician: Dr. Genevieve Coffman Returned Call: 2010 Discussed the patient's case with Dr. Genevieve Coffman. The patient will be evaluated for further treatment and disposition. Impression Primary Impression: Elevated troponin Additional Impressions: Hypertension Hyponatremia Scribe Attestation The scribe's documentation has been prepared under my direction and personally reviewed by me in its entirety. I confirm that the note above accurately reflects all work, treatment, procedures, and medical decision making performed by me. Departure Information Dispostion Being Evaluated By Hospitalist Referrals Noreen Anderson M.D. (PCP) Patient Instructions My [facility] Problem Qualifiers
[2017-06-18 19:02] LABS: BASO % 0.3 %; BASO ABS # 0.02 K/uL (0-0.2); EOS % 2.4 %; EOS ABS # 0.18 K/uL (0-0.5); HEMATOCRIT 35.5 % (37-47); HEMOGLOBIN 12.7 g/dL (12.0-16.0); IG# 0.04 K/uL (0.00-0.02); LYMPH % 18.9 %; LYMPH ABS # 1.42 K/uL (1.2-3.4); MEAN CELL VOLUME 85.1 fL (80-100); MEAN CORPUSCULAR HEMOGLOBIN 30.5 pg (25-34); MEAN CORPUSCULAR HGB CONC 35.8 g/dl (32-36); MEAN PLATELET VOLUME 10.8 fL (7.4-10.4); MONO % 7.1 %; MONO ABS # 0.53 K/uL (0.11-0.59); NEUT % 70.8 %; NEUT ABS # 5.31 K/uL (1.4-6.5); PLATELET COUNT 227 K/uL (130-400); RED CELL DISTRIBUTION WIDTH CV 13.6 % (11.5-14.5); RED CELL DISTRIBUTION WIDTH SD 42.1 fL (36.4-46.3)
[2017-06-18] MEDS ORDERED: CLON0.2T PO (19:06)
[2017-06-18 19:10] LABS: ALBUMIN 4.2 gm/dl (3.4-5.0); CALCIUM 9.5 mg/dl (8.5-10.1); CREATININE 0.85 mg/dl (0.60-1.20); POTASSIUM 4.1 mmol/L (3.5-5.1)
[2017-06-18] MEDS ORDERED: ACET-1256 PO (19:11)
[2017-06-18 19:32] LABS: PTT PATIENT 26.1 SECONDS (21.0-31.0)
[2017-06-18 19:36] LABS: CKMB 1.2 ng/ml (0.5-3.6); TOTAL PROTEIN 7.9 gm/dl (6.4-8.2)
--- NOTE | 2017-06-18 19:43 | DIAGNOSTIC IMAGING REPORT ---
CHEST ONE VIEW PORTABLE CLINICAL HISTORY: 87 years-old Female presenting with EVALUATE ALTERED MENTAL STATUS/WEAKNESS. TECHNIQUE: Portable upright AP view of the chest was obtained. COMPARISON: 12/03/2016. FINDINGS: Cardiac silhouette top normal in size allowing for AP technique. Mild prominence of pulmonary vasculature. Mildly low lung volumes. Prominent pericardial fat pad at the left ventricular apex again noted. Lungs and pleural spaces clear. Osseous structures normal. Upper abdomen normal. IMPRESSION: 1. No acute cardiopulmonary disease. Electronically signed by: Eliel Dean M.D. 06/18/2017 7:42 PM Dictated Date/Time: 06/18/2017 7:40 PM
[2017-06-18] MEDS ORDERED: NITROGLYCERIN OINT 2% 1GM PACKET EXT ONE (20:00)
[2017-06-18] MEDS ORDERED: ASPIRIN 324 MG CHEW PO STA (20:45)
[2017-06-18] MEDS ORDERED: POLYETHYLENE (MIRALAX) 17 GM PACK PO PRN (21:00)
[2017-06-18] MEDS: CLONIDINE HCL 0.1 MG TAB PO SCH (21:00)
[2017-06-18] MEDS ORDERED: ONDANSETRON INJ 2 MG/ML 2 ML VIAL IV PRN (21:00)
[2017-06-18] MEDS ORDERED: AMLODIPINE BESYLATE 5 MG TAB PO ONE (21:00)
[2017-06-18] MEDS ORDERED: ACETAMINOPHEN 500 MG TAB PO PRN (21:00)
[2017-06-18] MEDS ORDERED: DOCUSATE SODIUM 100 MG CAP PO PRN (21:00)
--- NOTE | 2017-06-18 21:04 | DIAGNOSTIC IMAGING REPORT ---
HEAD WITHOUT CONTRAST (CT) CLINICAL HISTORY: 87 years-old Female presenting with Severe Headache. TECHNIQUE: Multidetector CT imaging of the head was performed without the use of intravenous contrast. IV contrast: None. A dose lowering technique was used consistent with the principles of ALARA (as low as reasonably achievable). COMPARISON: 12/03/2016. CT DOSE (mGy.cm): The estimated cumulative dose is 537.48 mGy.cm. FINDINGS: Satellite Dish Repairer topogram: Unremarkable. Proportional ventricular and sulcal prominence, likely age-related parenchymal volume loss. Brain parenchyma normal in appearance with preserved [place] differentiation. No mass effect or midline shift. No hemorrhage or acute territorial infarct. No extra-axial fluid collection. Paranasal sinuses and mastoid air cells clear. Calvarium intact. Small focus of fat noted along the anterior falx. Bilateral [place] lenses are absent. IMPRESSION: 1. No acute intracranial abnormality. Electronically signed by: Eliel Dean M.D. 06/18/2017 9:03 PM Dictated Date/Time: 06/18/2017 9:00 PM
[2017-06-18] MEDS ORDERED: HEPARIN SOD 5000 UNIT/0.5 ML CARP SQ SCH (22:00)
[2017-06-18 22:15] VITALS: BP 185/82; PULSE 72; TEMP 36.6; O2SAT 95; Ht 170.2 cm; Wt 75.7 kg
[2017-06-18] MEDS ORDERED: HEPARIN IV LOW DOSE NO BOLUS SCH (22:25)
[2017-06-18] MEDS: METOPROLOL TARTRATE 50 MG TAB PO SCH (22:28)
[2017-06-18] MEDS: LOSARTAN POTASSIUM 50 MG TAB PO SCH (22:28)
[2017-06-18] MEDS: LORAZEPAM 0.5 MG TAB PO PRN (22:29)
[2017-06-18] MEDS ORDERED: PATIENT'S HEIGHT AND/OR WEIGHT NEEDED SCH (23:00)
[2017-06-18] MEDS ORDERED: IV FLUIDS COMPLETED PRN (23:15)
[2017-06-18 23:42] VITALS: BP 114/68; PULSE 75; TEMP 36.5; O2SAT 96
[2017-06-18 23:56] LABS: CKMB 1.8 ng/ml (0.5-3.6)
[2017-06-19] VITALS (10 sets, daily range): BP systolic 101–175; BP diastolic 57–93; PULSE 68–108; TEMP 36.6–37.1; O2SAT 95–98
--- NOTE | 2017-06-19 00:09 | HISTORY & PHYSICAL EXAMINATION ---
DATE OF ADMISSION: 06/18/2017 PRIMARY CARE PHYSICIAN: Dr. Morrow CHIEF COMPLAINT: Dizziness and headache day before yesterday. HISTORY OF PRESENT COMPLAINT: She is an 87-year-old female with significant past medical history of hypertension, hyponatremia, hyperlipidemia, vitamin D deficiency, senile osteoporosis and also history of insomnia, who apparently has been complaining of dizzy spells when she tries to up and about since . The dizzy spell is off and on associated with some headache, which is mostly at the occipital area, but sometimes can be on the frontal area as well. This is again off and on. She denies to have any other symptoms associated with it, specifically she does not have any visual symptoms. No numbness or tingling in any of the extremities. No weakness in any side. No abdominal symptoms. No nausea. No vomiting and no problem with urine and/or bowel habit. She does not have any fever, chills, or rigors as well. In the Emergency Room, her initial blood pressure was very high at 182/129 and sodium was noted to be 128. Her other lab works were fairly unremarkable, but given ongoing dizziness and headache, and she was admitted to telemetry unit for observation and control of blood pressure. PAST MEDICAL HISTORY: Hypertension seems to be difficult to control, hyperlipidemia, nd senile osteoporosis, vitamin D deficiency, insomnia, and history of hyponatremia. PAST SURGICAL HISTORY: Significant for revision of bladder neck in 1988, total hysterectomy with removal of the tubes. FAMILY HISTORY: Mother at 53 from MS, father had stroke at the age of 72 and . SOCIAL HISTORY: She is . She has 3 children. She does not use any alcohol and or any smoking and she has been reasonably ambulant. REVIEW OF SYSTEMS: Other systems reviewed are unremarkable except for those mentioned in the history of present complaint. ALLERGIES: SHE IS ALLERGIC TO ATENOLOL, BUT TAKES METOPROLOL, BEE VENOM, LISINOPRIL, TAKES COZAAR, NITROFURANTOIN, STATINS, BACTRIM, AND ALSO HYDROCHLOROTHIAZIDE. MEDICATIONS: As an outpatient, she has been on Tylenol 1 g daily p.r.n. as directed, aspirin 81 mg daily, vitamin D3 of 2000 units daily, clonidine 0.2 mg twice daily, docusate sodium 100 mg twice daily, lorazepam 0.5 mg at night as needed, Cozaar 50 mg twice daily, metoprolol 50 mg b.i.d., and MiraLax 17 g p.o. daily for constipation. PHYSICAL EXAMINATION: GENERAL: On examination in the Emergency Room, she was not having any acute distress. She did complain of some occipital headache. VITAL SIGNS: Temperature 36.7, pulse was 75, regular, blood pressure initially 182/129 and that came down to 176/93, and saturation 93% on room air. HEENT: Unremarkable. NECK: Supple. No JVD, no bruit. CHEST: Clear to auscultate bilaterally. HEART: S1, S2 regular. ABDOMEN: Soft, benign, nontender. No organomegaly. Bowel sounds present. EXTREMITIES: Negative for any edema. Peripheral pulses were palpable. MUSCULOSKELETAL: Did not show any acute arthritis. CENTRAL NERVOUS SYSTEM: She was alert, awake, oriented x3. No focal sensory and/or motor deficit appreciated. LABORATORY DATA: Noted today white count was 7.50, H&H 12.7/35.5, platelet was 227. Sodium 128 and her sodium was 128 in August as well, potassium 4.1, chloride 94, carbon dioxide 28, BUN 16, creatinine 0.85, and random glucose 134. LFTs normal. Troponin was slightly elevated at 0.059 with normal CK, CK-MB, TSH 2.33. PT/INR unremarkable. UA examination unremarkable. Chest x-ray, no acute cardiopulmonary findings. CT of the head without contrast, no acute intracranial abnormality. EKG was in sinus rhythm, right bundle branch block with associated ST-T wave changes, rate of 74, normal axis. Compared with prior EKG, no significant change noted. She had an echocardiogram in August and reported as normal LV chamber size with mild concentric LVH, normal LV systolic function, 60%-65% EF. No segmental left ventricular wall motion abnormalities, grade 1 diastolic dysfunction. No significant valvular pathology. IMPRESSION AND PLAN: 1. Dizziness, most likely secondary to uncontrolled hypertension with some postural hypotension as well. She was given nitroglycerin paste 1 inch. With that, blood pressure was reasonably controlled. She has been taking her usual medications including clonidine. We will add Norvasc 5 mg to control the blood pressure. We will check orthostatic changes while she is in the hospital. 2.Elevation of Troponin. Second set was significantly elevated .Heparin was started and cycled serial enzymes. ECHO and Cardiology consulted. 3. Severe headache may be secondary to high blood pressure. We will get a CAT scan to rule out any intracranial pathology, which was negative. 4. Hyponatremia. She was noted to have hyponatremia before in August. She has not been taking any medication that can cause hyponatremia. She received normal saline infusion in the ER. We will check PRP in the morning and hopefully that will be corrected. 5. Hypertension. We will continue her current medications and add amlodipine as mentioned before. 6. Hyperlipidemia, she is ALLERGIC TO STATINS. She has not been taking any medications. 7. Gastrointestinal prophylaxis with Maalox and Mylanta as needed. 8. Deep venous thrombosis prophylaxis with subcutaneous heparin. 9. Code status: Discussed with the patient, she will be a full code. In my clinical judgment, the beneficiary meets criteria as per CMS for 2 midnight stays in the hospital. [email or web address]
[2017-06-19] MEDS: ACETAMINOPHEN 500 MG TAB PO PRN ×2 (00:25→08:58)
[2017-06-19] MEDS: HEPARIN 25,000 UNIT/500ML D5W 500 ML IV PRN ×2 (00:46→09:00)
[2017-06-19 07:51] LABS: HEMATOCRIT 35.9 % (37-47); HEMOGLOBIN 12.2 g/dL (12.0-16.0); MEAN CELL VOLUME 86.1 fL (80-100); MEAN CORPUSCULAR HEMOGLOBIN 29.3 pg (25-34); MEAN PLATELET VOLUME 9.7 fL (7.4-10.4); PLATELET COUNT 224 K/uL (130-400); RED CELL DISTRIBUTION WIDTH CV 13.8 % (11.5-14.5); WHITE BLOOD COUNT 6.21 K/uL (4.8-10.8)
[2017-06-19] MEDS: CHOLECALCIFEROL 1000 INTER.UNIT TAB PO SCH (08:01)
[2017-06-19] MEDS: METOPROLOL TARTRATE 50 MG TAB PO SCH ×2 (08:01→20:22)
[2017-06-19 08:02] LABS: PTT PATIENT 34.5 SECONDS (21.0-31.0)
[2017-06-19] MEDS: ASPIRIN 81 MG ECTAB PO SCH (08:02)
[2017-06-19] MEDS: LOSARTAN POTASSIUM 50 MG TAB PO SCH ×2 (08:02→20:22)
[2017-06-19] MEDS: CLONIDINE HCL 0.1 MG TAB PO SCH ×2 (08:02→20:22)
--- NOTE | 2017-06-19 08:21 | NEPHROLOGY CONSULTATION ---
DATE OF CONSULTATION: 06/19/2017 DATE OF CONSULTATION: 06/19/2017 ATTENDING OF RECORD: Dr. Schumacher. REASON FOR CONSULTATION: Hyponatremia and hypertension. HISTORY OF PRESENT ILLNESS: This is an 87-year-old female who follows with my partner, Dr. Rocío Thrasher for hyponatremia and hypertension. The patient was seen during the previous hospitalization in August of this year with hypertensive urgency and palpitations and her sodium level did drop during that admission down to 122 requiring a couple boluses of 3% normal saline. The patient was also on hydrochlorothiazide at this time. The patient was eventually discharged on Lasix and fluid restriction. At the time that Dr. Mansfield saw her in December sodium levels were stable and blood pressure was better. No longer on the Lasix, just on relative fluid restriction. She has an appointment to see her in June. The patient day after [place] started to become dizzy with some intermittent headaches. Blood pressure was quite high in the Emergency Room at 182/129. Sodium level noted to be low at 128. The patient was given a small fluid bolus for the hyponatremia, started on Norvasc 5 mg a day for blood pressure. Blood pressures an hour later were down to 114/68, 125/66, however this morning is back up to 158/85. The patient slept really well. No headaches overnight; however this point when she woke up she had a mild headache, but she attributes that to being hungry. She has not yet ate her breakfast. PAST MEDICAL HISTORY: Hypertension, history of hyponatremia, osteoporosis, hyperlipidemia. PAST SURGICAL HISTORY: Hysterectomy, bladder surgery. FAMILY HISTORY: Significant for heart disease and stroke. SOCIAL HISTORY: No alcohol, no smoking, no drugs. REVIEW OF SYSTEMS: Positive intermittent headaches. Positive weakness. No nausea, vomiting, no chest pain, no shortness of breath, no blurry vision. No dysphagia. No dysuria. No diarrhea or constipation. All other review of systems otherwise negative. CURRENT MEDICATIONS: Aspirin 81 mg a day, vitamin D 2000 units daily, Norvasc 5 mg daily, heparin drip, Cozaar 50 mg p.o. b.i.d., Lopressor 50 mg p.o. b.i.d., clonidine 0.2 p.o. b.i.d. OBJECTIVE: VITAL SIGNS: Temperature 36.7, pulse 70, respiratory rate 18, blood pressure 158/85. Satting 98% on room air. GENERAL: Awake, alert, oriented x3. EYES: No scleral icterus. EARS, NOSE, THROAT: Moist mucous membranes. NECK: Supple. PULMONARY: Clear to auscultation. CARDIAC: Regular rate and rhythm. ABDOMEN: Bowel sounds positive, soft, nontender, nondistended. EXTREMITIES: No clubbing, cyanosis or edema. NEUROLOGICALLY: Nonfocal. DERMATOLOGIC: No rash or ulcers noted. LABORATORY DATA: Pending for this morning. Admission labs were reviewed. Chest x-ray shows no acute cardiopulmonary disease. IMPRESSION AND PLAN: 1. Hyponatremia. The patient's sodium levels were low at 128, she is on a relative fluid restriction as an outpatient and was given a small fluid bolus. I will recheck the sodium level today. Sodium levels have been known to drop rather quickly during previous hospitalizations so I will follow along. If sodium levels continue to worsen, will place the patient on fluid restriction plus or minus Lasix. 2. Hypertension. Blood pressures varied quite a bit, was low last night and did not receive her normal nighttime medications. Tends to be trending up now. Agree with the addition of the Norvasc so patient will be on metoprolol 50 mg p.o. b.i.d., clonidine 0.2 b.i.d., Cozaar 50 mg p.o. b.i.d. as well as Norvasc 5 mg a day. 3. Hyponatremia The patient is on a heparin drip given the elevated troponin of 0.232. Heparin drip is mixed with free water so patient is getting 16 mL of free water an hour which should be calculated into her free water restriction if we indeed do put her on one. So overall, patient with mild hyponatremia with elevated blood pressures, which appear to be getting better, will await today's sodium level. If the sodium levels start to drop more will place the patient on fluid restriction and add Lasix as well. I appreciate consultation. JEREMIE
[2017-06-19 08:23] LABS: CALCIUM 9.2 mg/dl (8.5-10.1); CREATININE 0.76 mg/dl (0.60-1.20); POTASSIUM 3.6 mmol/L (3.5-5.1)
[2017-06-19] MEDS: AMLODIPINE BESYLATE 5 MG TAB PO SCH (08:24)
[2017-06-19 08:27] LABS: PHOSPHORUS 3.1 mg/dl (2.5-4.9)
[2017-06-19] MEDS ORDERED: HEPARIN IV BOLUS 4,500 UNIT in SYRINGE 0 ML IV ONE (08:45)
[2017-06-19] MEDS: LORAZEPAM 0.5 MG TAB PO PRN ×2 (08:55→19:30)
--- NOTE | 2017-06-19 09:00 | ECHOCARDIOGRAM REPORT ---
*NOTICE TO RECEIVING [employer] This information is strictly Confidential and protected under [place] law. [place] law prohibits you from making any further disclosure of this information unless further disclosure is expressly permitted by the written consent of the person to whom it pertains or is authorized by law. A general authorization for the release of medical or other information is not sufficient for this purpose. Hospital accepts no responsibility if the information is made available to any other person, INCLUDING THE PATIENT. Interpretation Summary * Name: LEONARDO TERRY Study Date: 06/19/2017 06:41 AM BP: 166/81 mmHg * Patient Location: C.2T\S\S236\S\1 HR: 76 * : 1930 (M/d/yyyy) Gender: Female Height: 66 in * Age: 87 yrs Ethnicity: [place] Weight: 174 lb * Ordering Physician: Jewels Schumacher * Referring Physician: Self, Referred * Performed By: Monisha Momin RCS * * Reason For Study: SUBENDOCARDIAL CO * BSA: 1.9 m2 * -- Conclusions -- * The basal septum is thickened and angulated consistent with sigmoid septum. * There is moderate concentric left ventricular hypertrophy. * Left ventricular systolic function is normal. * Grade I diastolic dysfunction, (abnormal relaxation pattern). * The right ventricular systolic function is normal. * The left atrial size is normal. * Right atrial size is normal. * Aortic valve sclerosis mild, without significant aortic valvular stenosis. * There is mild tricuspid regurgitation. Procedure Details * A complete two-dimensional transthoracic echocardiogram was performed (2D, M-mode, Doppler and color flow Doppler). Left Ventricle * The left ventricle is normal in size. * The basal septum is thickened and angulated consistent with sigmoid septum. * There is moderate concentric left ventricular hypertrophy. * Ejection Fraction = 60-65%. * Left ventricular systolic function is normal. Right Ventricle * The right ventricle is normal size. * The right ventricular systolic function is normal. Atria * The left atrial size is normal. * Right atrial size is normal. * There is no evidence of atrial septal defect, but resolution does not allow assessment for a patent foramen ovale. Mitral Valve * The mitral valve leaflets appear thickened, but open well. * Significant mitral regurgitation is absent. Tricuspid Valve * The tricuspid valve anatomy is normal. * There is mild tricuspid regurgitation. Aortic Valve * The aortic valve is tricuspid. The leaflet thickness if normal. There is no aortic stenosis, and no significant insufficiency. * Aortic valve sclerosis mild, without significant aortic valvular stenosis. * There is no significant aortic regurgitation. Pulmonic Valve * The pulmonic valve is not well visualized. Great Vessels * The aortic root and proximal ascending aorta are normal sized. Pericardium/Pleural * There is no pericardial effusion. Left Ventricular Diastolic Function * Grade I diastolic dysfunction, (abnormal relaxation pattern). MMode 2D Measurements and Calculations IVSd 1.4 cm IVSs 1.5 cm LVIDd 4.6 cm LVIDs 2.5 cm LVPWd 1.1 cm LVPWs 1.5 cm IVS/LVPW 1.2 FS 46.5 % EDV(Teich) 99.2 ml ESV(Teich) 21.9 ml EF(Teich) 77.9 % EDV(cubed) 99.7 ml ESV(cubed) 15.3 ml EF(cubed) 84.7 % % IVS thick 8.5 % % LVPW thick 30.9 % LV mass(C)d 220.8 grams LV mass(C)dI 117.1 grams/m\S\2 LV mass(C)s 123.1 grams LV mass(C)sI 65.3 grams/m\S\2 SV(Teich) 77.3 ml SI(Teich) 41.0 ml/m\S\2 SV(cubed) 84.4 ml SI(cubed) 44.8 ml/m\S\2 Ao root diam 3.6 cm Ao root area 9.9 cm\S\2 ACS 1.7 cm LA dimension 3.4 cm LA/Ao 0.95 LVOT diam 2.0 cm LVOT area 3.0 cm\S\2 LVAd ap4 20.7 cm\S\2 LVLd ap4 6.4 cm EDV(MOD-sp4) 56.5 ml EDV(sp4-el) 57.4 ml LVAs ap4 11.3 cm\S\2 LVLs ap4 5.0 cm ESV(MOD-sp4) 24.2 ml ESV(sp4-el) 21.6 ml EF(MOD-sp4) 57.2 % EF(sp4-el) 62.4 % LVAd ap2 17.0 cm\S\2 LVLd ap2 6.4 cm EDV(MOD-sp2) 37.1 ml EDV(sp2-el) 38.6 ml LVAs ap2 8.6 cm\S\2 LVLs ap2 4.8 cm ESV(MOD-sp2) 15.3 ml ESV(sp2-el) 13.1 ml EF(MOD-sp2) 58.8 % EF(sp2-el) 66.1 % LVLd %diff 0.46 % EDV(MOD-bp) 46.1 ml LVLs %diff -5.04 % ESV(MOD-bp) 19.7 ml EF(MOD-bp) 57.1 % SV(MOD-sp4) 32.3 ml SI(MOD-sp4) 17.1 ml/m\S\2 SV(MOD-sp2) 21.8 ml SI(MOD-sp2) 11.6 ml/m\S\2 SV(MOD-bp) 26.3 ml SI(MOD-bp) 14.0 ml/m\S\2 SV(sp4-el) 35.8 ml SI(sp4-el) 19.0 ml/m\S\2 SV(sp2-el) 25.5 ml SI(sp2-el) 13.5 ml/m\S\2 Doppler Measurements and Calculations MV E max yesica 46.9 cm/sec MV A max yesica 81.4 cm/sec MV E/A 0.58 MV P1/2t max yesica 58.7 cm/sec MV P1/2t 70.2 msec MVA(P1/2t) 3.1 cm\S\2 MV dec slope 244.8 cm/sec\S\2 MV dec time 0.35 sec Ao V2 max 113.0 cm/sec Ao max PG 5.1 mmHg Ao max PG (full) 1.9 mmHg JENNIFER(V,A) 2.4 cm\S\2 JENNIFER(V,D) 2.4 cm\S\2 LV V1 max PG 3.2 mmHg LV V1 max 89.0 cm/sec PA V2 max 66.4 cm/sec PA max PG 1.8 mmHg PI max yesica 186.4 cm/sec PI max PG 13.9 mmHg PI dec slope 128.7 cm/sec\S\2 PI P1/2t 424.2 msec TR max yesica 227.9 cm/sec
--- NOTE | 2017-06-19 11:34 | Cardiology Consultation ---
Cardiology Consultation Date of Consultation: Jun 19, 2017 Requesting Physician: Endy Attending Disaster Recovery Manager: Tom (Davian Alcantar PA-C) History of Present Illness Mrs. Keith is a very pleasant 87 year old female who is being seen at the request of Dr. Schumacher. Reason for consultation is elevated troponin. Mrs. Keith notes experiencing dizziness with positional changes since the day after [place] as well as intermittent headaches. Yesterday she felt dizzy and flushed. She called her daughter and ultimately summoned EMS with marked hypertension reported by the patient (~220/110). She was seen in the ER by Dr. Lane with initial blood pressure of 182/129. Hyponatremia (128) was observed. No acute examination findings were notes. EKG was negative for acute change. An elevated Troponin of 0.059 ng/mL then 0.232 ng/ml prompted initiation of Heparin. Head CT was negative for acute abnormalities. CXR was without acute cardiopulmonary disease. Urinalysis did not show an obvious infection. She was treated in the ER with IVF's, one inch of nitroglycerin paste , and ASA. She denies chest pain, discomfort, tightness, or pressure. She denies new or worsening shortness of breath. No unilateral complaints, blurred vision, double vision, changes in vision, new gait disturbance, or speech issues. No cough, orthopnea, PND, or lower extremity peripheral edema. No near syncope or syncope. No fevers or chills. No epistaxis, hemoptysis, melena, hematochezia, hematuria, or dysuria. No nausea, vomiting, or diarrhea. Patient denies prior cardiac history except for a transient diagnosis of mitral valve prolapse in the remote past. She denies history of CAD, MA, CHF, arrhythmias, heart murmur, Rheumatic fever, or scarlet fever. (Davian Alcantar PA-C) Past Medical/Surgical History Problem List: Past Medical and Surgical History: Hypertension Hypertensive heart disease Hyponatremia Diet controlled type II diabetes mellitus. Hyperlipidemia Vitamin D deficiency Senile osteoporosis Insomnia Total hysterectomy Bladder revision. (Davian Alcantar PA-C) Family History Mother with an MA at 63. Father with a CVA at 69. One sister is alive at the age of 75, undergoing CABG around the age of 73. One brother was killed in an accident. (Davian Alcantar PA-C) Coronary artery disease MOTHER SISTER Hypertension Stroke FATHER (Marvin SantosFlor, DO) Social History Nonsmoker. No alcohol. No illegal drug use. , age 89. Two daughters live approximately one block away. 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 (Davian Alcantar PA-C) Review Of Systems General: No fever or chills. HEENT: + Headache. No head trauma. Cardiovascular: Palpitations when anxious, aided by PRN Ativan throughout the day - always taking one prior to bed. No chest pain or chest discomfort. Stable dyspnea on exertion. No orthopnea or PND. No peripheral edema. No near syncope or syncope. Pulmonary: No cough. No wheeze. No hemoptysis. : No dysuria. No hematuria Gastrointestinal: Abnormal LFT's in August, discontinuation of statin therapy. No nausea, vomiting, or diarrhea. Skin: No rash. Musculoskeletal: No recent injuries. Neurological: Denies history of TIA, CVA, or seizures Complete review of systems is as stated above, negative, or noncontributory. (Davian Alcantar PA-C) Allergies Coded Allergies: Bee Venom (Unverified Allergy, Severe, ANAPHYLAXIS, 06/18/17) Atenolol (Unverified Allergy, Mild, "HANDS TURNED BLUE", 06/18/17) Lisinopril (Unverified Allergy, Unknown, cough, 06/18/17) Nitrofurantoin (Unverified Allergy, Unknown, nausea, 06/18/17) Statins (Unverified Allergy, Unknown, LIVER ENZYMES ELEVATED, 06/18/17) Sulfamethoxazole w/Trimethoprim (Unverified Allergy, Unknown, nausea, ) Hydrochlorothiazide w/Triamterene (Verified Adverse Reaction, Severe, hyponatremia, 06/18/17) Medications Reported Home Medications Medications Dose Route/Sig Max Daily Dose Days Date Category Tylenol (Acetaminophen) 500 Mg Tab 1,000 Mg PO DAILY PRN 06/18/17 Reported Catapres (Clonidine Hcl) 0.2 Mg Tab 0.2 Mg PO BID 06/18/17 Reported Colace (Docusate Sodium) 100 Mg Cap 100 Mg PO BID PRN 02/09/17 Reported Metoprolol Tartrate 50 Mg Tab 50 Mg PO BID 02/04/17 Reported Cozaar (Losartan Potassium) 50 Mg Tab 50 Mg PO BID 02/04/17 Reported Miralax (Polyethylene Glycol 3350) 1 Pow Pow 17 Gm PO DAILY PRN 10/04/16 Reported Aspirin EC Low Dose (Aspirin) 81 Mg Ectab 81 Mg PO DAILY 09/01/16 Reported Vitamin D3 (Cholecalciferol) 2,000 Unit Tab 2,000 Units PO DAILY 09/01/16 Reported Ativan (Lorazepam) 0.5 Mg Tab 0.5 Mg PO HS PRN 12/16/15 Reported (Davian Alcantar PA-C) Physical Exam Vital Signs (Last 8hrs): Last 8 Hrs Date Time Temp Pulse Resp B/P (MAP) Pulse Ox O2 Delivery O2 Flow Rate FiO2 06/19/17 08:00 96 Room Air 06/19/17 07:38 37.1 77 18 175/93 (120) 96 06/19/17 05:09 158/85 (109) 166/81 (109) 06/19/17 04:01 36.7 70 18 125/66 (85) 98 Room Air 06/19/17 04:00 Room Air General: Alert and Oriented x3. NAD. HEENT: Normocephalic Atraumatic. PER, EOMI, conjunctiva and sclera clear Neck: ? Right carotid bruits. Normal JVD. No HJD. Respiratory: Breath sounds clear to auscultation bilaterally. No w/r/r. Cardiovascular: RRR, 78 bpm. Soft systolic ejection murmur. No diastolic murmur. No rub. PMI is non displaced. Abdomen: Normal bowel sounds, soft nontender. no abdominal bruits. Extremities: No edema. No clubbing. No cyanosis. Distal pulses 1-2/4 bilaterally. Neuro: No focal deficits. Psychiatric: Normal affect. (Davian Alcantar PA-C) Data Last 24 Hours Test 06/18/17 18:15 06/18/17 18:40 06/18/17 19:02 06/18/17 19:05 White Blood Count 7.50 K/uL Red Blood Count 4.17 M/uL Hemoglobin 12.7 g/dL Hematocrit 35.5 % Mean Corpuscular Volume 85.1 fL Mean Corpuscular Hemoglobin 30.5 pg Mean Corpuscular Hemoglobin Concent 35.8 g/dl Platelet Count 227 K/uL Mean Platelet Volume 10.8 fL Neutrophils (%) (Auto) 70.8 % Lymphocytes (%) (Auto) 18.9 % Monocytes (%) (Auto) 7.1 % Eosinophils (%) (Auto) 2.4 % Basophils (%) (Auto) 0.3 % Neutrophils # (Auto) 5.31 K/uL Lymphocytes # (Auto) 1.42 K/uL Monocytes # (Auto) 0.53 K/uL Eosinophils # (Auto) 0.18 K/uL Basophils # (Auto) 0.02 K/uL RDW Standard Deviation 42.1 fL RDW Coefficient of Variation 13.6 % Immature Granulocyte % (Auto) 0.5 % Immature Granulocyte # (Auto) 0.04 K/uL Sodium Level 128 mmol/L Potassium Level 4.1 mmol/L Chloride Level 94 mmol/L Carbon Dioxide Level 28 mmol/L Anion Gap 6.0 mmol/L Blood Urea Nitrogen 16 mg/dl Creatinine 0.85 mg/dl Est Creatinine Clear Calc Drug Dose 3.1 ml/min Estimated GFR () 72.4 Estimated GFR (Non- 62.5 BUN/Creatinine Ratio 18.9 Random Glucose 118 mg/dl Calcium Level 9.5 mg/dl Magnesium Level 2.2 mg/dl Total Bilirubin 0.4 mg/dl Direct Bilirubin 0.1 mg/dl Aspartate Amino Transf (AST/SGOT) 15 U/L Alanine Aminotransferase (ALT/SGPT) 20 U/L Alkaline Phosphatase 65 U/L Total Creatine Kinase 63 U/L Creatine Kinase MB 1.2 ng/ml Creatine Kinase MB Ratio 1.9 Troponin I 0.059 ng/ml Total Protein 7.9 gm/dl Albumin 4.2 gm/dl Thyroid Stimulating Hormone (TSH) 2.330 uIu/ml Urine Color YELLOW Urine Appearance CLEAR Urine pH 7.5 Urine Specific Bernice 1.010 Urine Protein 2+ Urine Glucose (UA) NEG Urine Ketones NEG Urine Occult Blood NEG Urine Nitrite NEG Urine Bilirubin NEG Urine Urobilinogen NEG Urine Leukocyte Esterase NEG Urine WBC (Auto) 1-5 /hpf Urine RBC (Auto) 0-4 /hpf Urine Hyaline Casts (Auto) 0 /lpf Urine Epithelial Cells (Auto) 10-20 /lpf Urine Bacteria (Auto) NEG Bedside Glucose 134 mg/dl Prothrombin Time 10.0 SECONDS Prothromb Time International Ratio 1.0 Activated Partial Thromboplast Time 26.1 SECONDS Partial Thromboplastin Ratio 1.0 Test 06/18/17 21:37 06/18/17 22:43 06/19/17 02:48 06/19/17 07:27 Troponin I 0.232 ng/ml 0.219 ng/ml 0.151 ng/ml 0.081 ng/ml Total Creatine Kinase 54 U/L Creatine Kinase MB 1.8 ng/ml Creatine Kinase MB Ratio 3.3 White Blood Count 6.21 K/uL Red Blood Count 4.17 M/uL Hemoglobin 12.2 g/dL Hematocrit 35.9 % Mean Corpuscular Volume 86.1 fL Mean Corpuscular Hemoglobin 29.3 pg Mean Corpuscular Hemoglobin Concent 34.0 g/dl RDW Standard Deviation 43.0 fL RDW Coefficient of Variation 13.8 % Platelet Count 224 K/uL Mean Platelet Volume 9.7 fL Activated Partial Thromboplast Time 34.5 SECONDS Partial Thromboplastin Ratio 1.3 Sodium Level 135 mmol/L Potassium Level 3.6 mmol/L Chloride Level 99 mmol/L Carbon Dioxide Level 30 mmol/L Anion Gap 5.0 mmol/L Blood Urea Nitrogen 15 mg/dl Creatinine 0.76 mg/dl Est Creatinine Clear Calc Drug Dose 57.9 ml/min Estimated GFR () 82.9 Estimated GFR (Non- 71.5 BUN/Creatinine Ratio 19.2 Random Glucose 119 mg/dl Calcium Level 9.2 mg/dl Phosphorus Level 3.1 mg/dl Magnesium Level 2.3 mg/dl Head CT showed no acute intracranial abnormality. Admission CXR showed no acute cardiopulmonary findings. EKG dated and timed 18-JUN-2017 @ 19:19:22: Poor data quality, interpretation may be adversely affected. Normal sinus rhythm at 74 bpm. Right bundle branch block. When compared with ECG of 04-FEB-2017 20:51, no significant change was found June 19, 2017 TTE Interpretation Summary ([facility], Dr. Santos): The basal septum is thickened and angulated consistent with sigmoid septum. There is moderate concentric left ventricular hypertrophy. Left ventricular systolic function is normal. Grade I diastolic dysfunction, (abnormal relaxation pattern) . The right ventricular systolic function is normal. The left atrial size is normal. Right atrial size is normal. Aortic valve sclerosis mild, without significant aortic valvular stenosis. There is mild tricuspid regurgitation. Telemetry reviewed: Sinus at 77 bpm. (Davian Alcantar PA-C) Assessment & Plan 87 year old female admitted with complaints of headache and dizziness felt to be in association with hypertensive urgency. Cardiology consultation requested secondary to abnormal troponin's occurring in the absence of symptoms suggestive of an acute coronary syndrome. Suspect that the elevated troponin's represent demand ischemia occurring in the setting of severe hypertension, hypertensive heart disease, and presumed coronary atherosclerotic disease. Recommend continuation of metoprolol, clonidine, and Losartan. Agree with the addition of Norvasc. Future antihypertensive options may include the addition of terazosin. Recommend discontinuation of weight based heparin at this time. Further recommendations pending the above, evaluation by Dr. Santos, and her ongoing hospitalization. (Davian Alcantar PA-C) CARDIOLOGY ATTENDING ADDENDUM: The patient was seen and personally examined. Agree with Davian Alcantar PA-C's findings and plans as documented above. Agree this is non-cardiac elevation of tropinins. Treat hypertension for now. (Marvin Santos, DO)
[2017-06-19 15:31] LABS: PTT PATIENT 25.3 SECONDS (21.0-31.0)
--- NOTE | 2017-06-19 19:15 | Progress Note ---
Medicine Progress Note Date & Time of Visit: Jun 19, 2017 at 19:15. Subjective Patient doing well, denies any complaints of dizziness or lightheadedness. Tolerating PO without difficulty. No overnight events noted, troponin was thought to be trending up so was placed on a heparin drip but then was stopped this AM. Ladonna at the bedside. Objective Last 8 Hrs Date Time Temp Pulse Resp B/P (MAP) Pulse Ox O2 Delivery O2 Flow Rate FiO2 06/19/17 16:00 96 Room Air 06/19/17 15:28 36.6 108 20 153/85 (107) 98 Room Air 06/19/17 12:00 Room Air 06/19/17 11:16 36.8 68 16 125/76 (92) 98 Physical Exam: GENERAL: Patient is in no acute distress. HEENT: No acute trauma, normocephalic atraumatic, mucous membranes moist, no nasal congestion, no scleral icterus, conjunctivae clear. NECK: No stridor, trachea is midline. LUNGS: Clear to auscultation bilaterally, no wheeze, no rhonchi, breath sounds equal. HEART: Without murmurs gallops or rubs, regular rate and rhythm. ABDOMEN: Soft, nontender, bowel sounds positive, no hepatosplenomegaly EXTREMITIES: No cyanosis or edema, intact range of motion of the extremities without pain or difficulty, no signs for acute trauma. NEUROLOGIC: Oriented x 3, no acute motor or sensory deficits, no focal weakness. SKIN: No rash, no jaundice, no diaphoresis. Laboratory Results: Last 24 Hours Test 06/18/17 21:37 06/18/17 22:43 06/19/17 02:48 06/19/17 07:27 Troponin I 0.232 ng/ml 0.219 ng/ml 0.151 ng/ml 0.081 ng/ml Total Creatine Kinase 54 U/L Creatine Kinase MB 1.8 ng/ml Creatine Kinase MB Ratio 3.3 White Blood Count 6.21 K/uL Red Blood Count 4.17 M/uL Hemoglobin 12.2 g/dL Hematocrit 35.9 % Mean Corpuscular Volume 86.1 fL Mean Corpuscular Hemoglobin 29.3 pg Mean Corpuscular Hemoglobin Concent 34.0 g/dl RDW Standard Deviation 43.0 fL RDW Coefficient of Variation 13.8 % Platelet Count 224 K/uL Mean Platelet Volume 9.7 fL Activated Partial Thromboplast Time 34.5 SECONDS Partial Thromboplastin Ratio 1.3 Sodium Level 135 mmol/L Potassium Level 3.6 mmol/L Chloride Level 99 mmol/L Carbon Dioxide Level 30 mmol/L Anion Gap 5.0 mmol/L Blood Urea Nitrogen 15 mg/dl Creatinine 0.76 mg/dl Est Creatinine Clear Calc Drug Dose 57.9 ml/min Estimated GFR () 82.9 Estimated GFR (Non- 71.5 BUN/Creatinine Ratio 19.2 Random Glucose 119 mg/dl Calcium Level 9.2 mg/dl Phosphorus Level 3.1 mg/dl Magnesium Level 2.3 mg/dl Test 06/19/17 15:08 Activated Partial Thromboplast Time 25.3 SECONDS Partial Thromboplastin Ratio 1.0 Assessment & Plan DIZZINESS: -likely secondary to uncontrolled hypertension -has a history of some postural/orthostatic hypotension as well which has made BP control challenging -was given nitroglycerin paste, blood pressure was reasonably controlled and was then started on norvasc -reports she has been compliant with usual home meds including clonidine -orthostatics were negative HTN: -has been challenging to control due to multiple medication intolerances and symptomatic orthostatic hypotension -was on clonidine before admission and reports good compliance -started on norvasc this admission, will continue this and titrate as needed MILD TROPONIN ELEVATION: -not trending up significantly -had initially been put on a heparin drip by overnight team, now stopped -Cardiology consulted -TTE: EF 60-65%, Grade I diastolic dysfunction, left and right atrial size normal. Mild TR HEADACHE: -possibly related to high blood pressure or the nitro; has improved -CT head was negative -improved with tylenol -also possibly related to caffeine withdrawal HYPONATREMIA: -chronic recurrent hyponatremia (last in August) -improved following normal saline infusion 128-->135 -Nephrology follows patient as an outpatient and did see the patient, appreciate recs HYPERLIPIDEMIA: -not on any medications -has a listed allergy to statins Current Inpatient Medications: Current Inpatient Medications Medications (Trade) Dose Ordered Sig/Jaime Route Start Time Stop Time Status Last Admin Dose Admin Ondansetron HCl (Zofran Inj) 4 mg Q6H PRN IV 06/18/17 21:00 07/18/17 20:59 Aspirin (Ecotrin Tab) 81 mg DAILY PO 06/19/17 09:00 1/28/18 08:59 06/19/17 08:02 81 MG Docusate Sodium (coLACE CAP) 100 mg BID PRN PO 06/18/17 21:00 07/18/17 20:59 Lorazepam (Ativan Tab) 0.5 mg HS PRN PO 06/18/17 21:00 07/18/17 20:59 06/19/17 08:55 0.5 MG Losartan Potassium (coZAAR TAB) 50 mg BID PO 06/18/17 21:00 07/18/17 20:59 06/19/17 08:02 50 MG Metoprolol Tartrate (Lopressor Tab) 50 mg BID PO 06/18/17 21:00 07/18/17 20:59 06/19/17 08:01 50 MG Cholecalciferol (Vitamin D Tab) 2,000 inter.unit DAILY PO 06/19/17 09:00 07/19/17 08:59 06/19/17 08:01 2,000 INTER.UNIT Clonidine HCl (Catapres Tab) 0.2 mg BID PO 06/18/17 21:00 07/18/17 20:59 06/19/17 08:02 0.2 MG Polyethylene (Miralax Powder Packet) 17 gm DAILY PRN PO 06/18/17 21:00 07/18/17 20:59 Amlodipine Besylate (Norvasc Tab) 5 mg QAM PO 06/19/17 09:00 07/19/17 08:59 06/19/17 08:24 5 MG Miscellaneous (Iv Fluids Completed) 1 ea PRN PRN N/A 06/18/17 23:15 06/18/18 23:14 Acetaminophen (Tylenol Tab) 1,000 mg DAILY PRN PO 06/19/17 00:15 07/19/17 00:14 06/19/17 08:58 1,000 MG Heparin Sodium (Porcine) (Heparin Sq 5000 Unit/0.5ml) 5,000 unit Q12 SQ 06/19/17 21:00 07/19/17 20:59
[2017-06-19] MEDS: HEPARIN SOD 5000 UNIT/0.5 ML CARP SQ SCH (20:41)
[2017-06-20 03:54] VITALS: BP 134/83; PULSE 108; TEMP 36.7; O2SAT 97
[2017-06-20 06:47] LABS: HEMATOCRIT 35.3 % (37-47); HEMOGLOBIN 11.9 g/dL (12.0-16.0); MEAN CELL VOLUME 85.7 fL (80-100); MEAN CORPUSCULAR HEMOGLOBIN 28.9 pg (25-34); MEAN CORPUSCULAR HGB CONC 33.7 g/dl (32-36); MEAN PLATELET VOLUME 9.6 fL (7.4-10.4); PLATELET COUNT 234 K/uL (130-400); RED CELL DISTRIBUTION WIDTH CV 13.7 % (11.5-14.5); RED CELL DISTRIBUTION WIDTH SD 43.1 fL (36.4-46.3); WHITE BLOOD COUNT 6.87 K/uL (4.8-10.8)
[2017-06-20 07:15] LABS: PTT PATIENT 25.4 SECONDS (21.0-31.0)
[2017-06-20 07:50] VITALS: BP 167/90; PULSE 97; TEMP 36.8; O2SAT 97
[2017-06-20] MEDS: ASPIRIN 81 MG ECTAB PO SCH (08:02)
[2017-06-20] MEDS: AMLODIPINE BESYLATE 5 MG TAB PO SCH (08:03)
[2017-06-20] MEDS: LOSARTAN POTASSIUM 50 MG TAB PO SCH (08:03)
[2017-06-20] MEDS: CHOLECALCIFEROL 1000 INTER.UNIT TAB PO SCH (08:03)
[2017-06-20] MEDS: METOPROLOL TARTRATE 50 MG TAB PO SCH (08:03)
[2017-06-20] MEDS: CLONIDINE HCL 0.1 MG TAB PO SCH (08:03)
[2017-06-20] MEDS: HEPARIN SOD 5000 UNIT/0.5 ML CARP SQ SCH (08:06)
[2017-06-20 11:28] VITALS: BP 109/74; PULSE 74; TEMP 37.1; O2SAT 98
--- NOTE | 2017-06-20 13:01 | Nephrology Progress Note ---
Nephrology Progress Note Date of Service: Jun 20, 2017. Subjective 87 yo female with hypertensive urgency, elevated troponins and headaches. bp is under better control with the addition of norvasc. pts headache is gone. slept very well last night. pt inquiring about going home today. Objective Date Time Temp Pulse Resp B/P (MAP) Pulse Ox O2 Delivery O2 Flow Rate FiO2 06/20/17 12:00 Room Air 06/20/17 11:28 37.1 74 18 109/74 (86) 98 06/20/17 08:00 Room Air 06/20/17 07:50 36.8 97 16 167/90 (115) 97 06/20/17 03:54 36.7 108 22 134/83 (100) 97 Room Air 06/20/17 03:45 Room Air 06/20/17 00:00 Room Air 06/19/17 23:45 36.9 85 22 101/57 (72) 95 Room Air 06/19/17 20:20 36.9 90 20 165/91 (115) 97 Room Air 06/19/17 20:16 94 168/80 (109) 06/19/17 20:00 Room Air 06/19/17 16:00 96 Room Air 06/19/17 15:28 36.6 108 20 153/85 (107) 98 Room Air Physical Exam: General-[id number] Eyes-no scleral icterus ENT-mmm Neck-supple Lungs-cta Heart-rrr Abdomen-bs+ s/nt/nd Extremities-no c/c/e Neuro-nonfocal Current Inpatient Medications Medications (Trade) Dose Ordered Sig/Jaime Route Start Time Stop Time Status Last Admin Dose Admin Ondansetron HCl (Zofran Inj) 4 mg Q6H PRN IV 06/18/17 21:00 07/18/17 20:59 Aspirin (Ecotrin Tab) 81 mg DAILY PO 06/19/17 09:00 07/19/17 08:59 06/20/17 08:02 81 MG Docusate Sodium (coLACE CAP) 100 mg BID PRN PO 06/18/17 21:00 07/18/17 20:59 Lorazepam (Ativan Tab) 0.5 mg HS PRN PO 06/18/17 21:00 07/18/17 20:59 06/19/17 19:30 0.5 MG Losartan Potassium (coZAAR TAB) 50 mg BID PO 06/18/17 21:00 07/18/17 20:59 06/20/17 08:03 50 MG Metoprolol Tartrate (Lopressor Tab) 50 mg BID PO 06/18/17 21:00 07/18/17 20:59 06/20/17 08:03 50 MG Cholecalciferol (Vitamin D Tab) 2,000 inter.unit DAILY PO 06/19/17 09:00 07/19/17 08:59 06/20/17 08:03 2,000 INTER.UNIT Clonidine HCl (Catapres Tab) 0.2 mg BID PO 06/18/17 21:00 07/18/17 20:59 06/20/17 08:03 0.2 MG Polyethylene (Miralax Powder Packet) 17 gm DAILY PRN PO 06/18/17 21:00 07/18/17 20:59 Amlodipine Besylate (Norvasc Tab) 5 mg QAM PO 06/19/17 09:00 07/19/17 08:59 06/20/17 08:03 5 MG Miscellaneous (Iv Fluids Completed) 1 ea PRN PRN N/A 06/18/17 23:15 06/18/18 23:14 Acetaminophen (Tylenol Tab) 1,000 mg DAILY PRN PO 06/19/17 00:15 07/19/17 00:14 06/19/17 08:58 1,000 MG Heparin Sodium (Porcine) (Heparin Sq 5000 Unit/0.5ml) 5,000 unit Q12 SQ 06/19/17 21:00 07/19/17 20:59 06/20/17 08:06 5,000 UNIT Last 24 Hours Test 06/19/17 15:08 06/20/17 06:10 Activated Partial Thromboplast Time 25.3 SECONDS 25.4 SECONDS Partial Thromboplastin Ratio 1.0 1.0 White Blood Count 6.87 K/uL Red Blood Count 4.12 M/uL Hemoglobin 11.9 g/dL Hematocrit 35.3 % Mean Corpuscular Volume 85.7 fL Mean Corpuscular Hemoglobin 28.9 pg Mean Corpuscular Hemoglobin Concent 33.7 g/dl RDW Standard Deviation 43.1 fL RDW Coefficient of Variation 13.7 % Platelet Count 234 K/uL Mean Platelet Volume 9.6 fL Assessment & Plan hypertension: bp under better control. continue current medications. ok from renal perspective to go home today.
[2017-06-20] MEDS ORDERED: NRV5 PO (14:03)
--- NOTE | 2017-06-20 14:18 | Discharge Instructions ---
Discharge Instructions Date of Service Jun 20, 2017. Admission Reason for Admission: Dizziness And Giddiness, Hypertensive Urgency Discharge Discharge Diagnosis / Problem: Dizziness, HTN urgency Discharge Goals Goal(s): Therapeutic intervention Activity Recommendations Activity Limitations: resume your previous activity Avoid rapid changes to position; allow yourself time to sit up slowly and move to standing position slowly so as to minimize lightheadedness from changes in position . Instructions / Follow-Up Instructions / Follow-Up Please see Cindy Mott PA-C on June 30 at 9:45AM for hospital follow up Please follow up with Nephrology and Cardiology as scheduled. Current Hospital Diet Patient's current hospital diet: AHA Diet (Heart Healthy), Low Sodium Diet (2gm Na) Discharge Diet Recommended Diet: AHA Diet (Heart Healthy), Low Sodium Diet (2gm Na) Pending Studies Studies pending at discharge: no Medical Emergencies . Who to Call and When: Medical Emergencies: If at any time you feel your situation is an emergency, please call 911 immediately. . Non-Emergent Contact Non-Emergency issues call your: Primary Care Provider . . "Provider Documentation" section prepared by Dee Goldstein. . VTE Core Measure Inpt VTE Proph given/why not?: Unfractionated heparin SQ
--- NOTE | 2017-06-20 14:24 | Discharge Summary ---
Discharge Summary Date of Service Jun 20, 2017. Discharge Summary Admission Date: Jun 18, 2017 at 20:54 Discharge Date: Jun 20, 2017 Discharge Disposition: Home Principal Diagnosis: Hypertensive urgency, dizziness, hyponatremia Consultations: Cardiology, Nephrology Pending Studies/Follow-Up: BP re-check Medication Reconciliation New Medications: Amlodipine Besylate (Amlodipine Besylate) 5 Mg Tab 5 MG PO QAM, #30 TAB Continued Medications: Acetaminophen (Tylenol) 500 Mg Tab 1000 MG PO DAILY PRN for Pain or Fever, TAB Aspirin (Aspirin EC Low Dose) 81 Mg Ectab 81 MG PO DAILY Cholecalciferol (Vitamin D3) 2,000 Unit Tab 2000 UNITS PO DAILY Clonidine Hcl (Catapres) 0.2 Mg Tab 0.2 MG PO BID, TAB Docusate Sodium (Colace) 100 Mg Cap 100 MG PO BID PRN for Constipation Lorazepam (Ativan) 0.5 Mg Tab 0.5 MG PO HS PRN for Anxiety, TAB Losartan Potassium (Cozaar) 50 Mg Tab 50 MG PO BID, TAB Metoprolol Tartrate (Metoprolol Tartrate) 50 Mg Tab 50 MG PO BID Polyethylene Glycol 3350 (Miralax) 1 Pow Pow 17 GM PO DAILY PRN for Constipation Admission Information HPI (per Admitting provider): CHIEF COMPLAINT: Dizziness and headache day before yesterday. HISTORY OF PRESENT COMPLAINT: She is an 87-year-old female with significant past medical history of hypertension, hyponatremia, hyperlipidemia, vitamin D deficiency, senile osteoporosis and also history of insomnia, who apparently has been complaining of dizzy spells when she tries to up and about since . The dizzy spell is off and on associated with some headache, which is mostly at the occipital area, but sometimes can be on the frontal area as well. This is again off and on. She denies to have any other symptoms associated with it, specifically she does not have any visual symptoms. No numbness or tingling in any of the extremities. No weakness in any side. No abdominal symptoms. No nausea. No vomiting and no problem with urine and/or bowel habit. She does not have any fever, chills, or rigors as well. In the Emergency Room, her initial blood pressure was very high at 182/129 and sodium was noted to be 128. Her other lab works were fairly unremarkable, but given ongoing dizziness and headache, and she was admitted to telemetry unit for observation and control of blood pressure. PAST MEDICAL HISTORY: Hypertension seems to be difficult to control, hyperlipidemia, nd senile osteoporosis, vitamin D deficiency, insomnia, and history of hyponatremia. PAST SURGICAL HISTORY: Significant for revision of bladder neck in 1988, total hysterectomy with removal of the tubes. FAMILY HISTORY: Mother at 53 from [place], father had stroke at the age of 72 and . SOCIAL HISTORY: She is . She has 3 children. She does not use any alcohol and or any smoking and she has been reasonably ambulant. REVIEW OF SYSTEMS: Other systems reviewed are unremarkable except for those mentioned in the history of present complaint. ALLERGIES: SHE IS ALLERGIC TO ATENOLOL, BUT TAKES METOPROLOL, BEE VENOM, LISINOPRIL, TAKES COZAAR, NITROFURANTOIN, STATINS, BACTRIM, AND ALSO HYDROCHLOROTHIAZIDE. MEDICATIONS: As an outpatient, she has been on Tylenol 1 g daily p.r.n. as directed, aspirin 81 mg daily, vitamin D3 of 2000 units daily, clonidine 0.2 mg twice daily, docusate sodium 100 mg twice daily, lorazepam 0.5 mg at night as needed, Cozaar 50 mg twice daily, metoprolol 50 mg b.i.d., and MiraLax 17 g p.o. daily for constipation. PHYSICAL EXAMINATION: GENERAL: On examination in the Emergency Room, she was not having any acute distress. She did complain of some occipital headache. VITAL SIGNS: Temperature 36.7, pulse was 75, regular, blood pressure initially 182/129 and that came down to 176/93, and saturation 93% on room air. HEENT: Unremarkable. NECK: Supple. No JVD, no bruit. CHEST: Clear to auscultate bilaterally. HEART: S1, S2 regular. ABDOMEN: Soft, benign, nontender. No organomegaly. Bowel sounds present. EXTREMITIES: Negative for any edema. Peripheral pulses were palpable. MUSCULOSKELETAL: Did not show any acute arthritis. CENTRAL NERVOUS SYSTEM: She was alert, awake, oriented x3. No focal sensory and/or motor deficit appreciated. Hospital Course DIZZINESS: -likely secondary to uncontrolled hypertension -has a history of some postural/orthostatic hypotension as well which has made BP control challenging -was given nitroglycerin paste, blood pressure was reasonably controlled and was then started on norvasc -reports she has been compliant with usual home meds including clonidine -orthostatics were negative HTN: -has been challenging to control due to multiple medication intolerances and symptomatic orthostatic hypotension -was on clonidine before admission and reports good compliance -started on norvasc this admission, will continue this and titrate as needed MILD TROPONIN ELEVATION: -not trending up significantly -had initially been put on a heparin drip by overnight team, now stopped -Cardiology consulted -TTE: EF 60-65%, Grade I diastolic dysfunction, left and right atrial size normal. Mild TR HEADACHE: -possibly related to high blood pressure or the nitro; has improved -CT head was negative -improved with tylenol -also possibly related to caffeine withdrawal HYPONATREMIA: -chronic recurrent hyponatremia (last in August) -improved following normal saline infusion 128-->135 -Nephrology follows patient as an outpatient and did see the patient, appreciate recs HYPERLIPIDEMIA: -not on any medications -has a listed allergy to statins PHYSICAL EXAM ON DAY OF DISCHARGE: GENERAL: Patient is in no acute distress. HEENT: No acute trauma, normocephalic, mucous membranes moist, no nasal congestion, no scleral icterus. NECK: No stridor, trachea is midline. LUNGS: Clear to auscultation bilaterally, no wheeze, no rhonchi, breath sounds equal. HEART: Without murmurs gallops or rubs, regular rate and rhythm. ABDOMEN: Soft, nontender, bowel sounds positive, no hernias EXTREMITIES: No cyanosis or edema, full range of motion of all the joints without pain or difficulty, no signs for acute trauma. NEUROLOGIC: Oriented x 3, no acute motor or sensory deficits, no focal weakness. SKIN: No rash, no jaundice, no diaphoresis. Total time spent on discharge = 37 This includes examination of the patient, discharge planning, medication reconciliation, and communication with other providers. Discharge Instructions See patient instructions
[2017-06-20 14:48] VITALS: BP 109/74; PULSE 74; TEMP 37.1; O2SAT 98
== END 2017-06-20 16:34 | disposition home or self-care (01) ==
LOC: EDBD 18:30 → C.EDC 18:31 → C.2T 20:54 → ENRESERV 21:18
PROVIDERS: ADMIT Internal Medicine; ATTEND Internal Medicine
DX: I16.0 Hypertensive urgency (principal); E87.1 Hypo-osmolality and hyponatremia; R42 Dizziness and giddiness; R51 Headache; E11.9 Type 2 diabetes mellitus without complications; E78.5 Hyperlipidemia, unspecified; Z90.710 Acquired absence of both cervix and uterus; Z82.49 Family history of ischemic heart disease and other diseases of the circulatory system; Z82.3 Family history of stroke; Z79.82 Long term (current) use of aspirin; M81.0 Age-related osteoporosis without current pathological fracture

== ENCOUNTER 2020-07-28 18:10 | Inpatient (IN) ==
--- OUTSIDE RECORDS SUMMARY | 2020-07-28 18:13 | External Medical Summary | Continuity of Care Document ---
:1930 Author Name Mario Alberto M.D. Address Unavailable Unavailable , Care Team Providers Name Role Phone Unavailable Unavailable Unavailable ROSALIE Unavailable Unavailable Problems Active medical history not documented Allergies and Adverse Reactions No Known Drug Allergies (Allergy) Medications amLODIPine Besylate 5 MG Oral Tablet , M.D. Refills: 0 hydroCHLOROthiazide 12.5 MG Oral Capsule , M.D. Refills: 0 Metoprolol Succinate ER 50 MG Oral Tablet Extended Release 2 4 Hour , M.D. Refills: 0 traZODone HCl - 50 MG Oral Tablet; TAKE 1/2 TABLET AT BEDTIM E. , M.D. Refills: 0 Procedures Procedures not documented Immunizations Immunizations not documented Plan of Treatment Planned Observations Planned Goals not documented Results No Known Results Results not documented
[2020-07-28] MEDS ORDERED: MoRPHine SULFATE 4 MG/ML 1 ML CARP\\VIAL IV PRN (18:25)
--- NOTE | 2020-07-28 18:32 | Emergency Department Note ---
Impression & Plan Fracture of left shoulder, Fracture of nasal bone, Acute head trauma, Fall, Facial contusion ED Provider Note NAME: LEONARDO TERRY AGE: 89 SEX: F : 1930 ARRIVES VIA: Ambulance INFORMANT: [Patient][ems] ED PROVIDER(S): [Jitendra Hodgson MD] CHIEF COMPLAINT: Fall HISTORY OF PRESENT ILLNESS: Patient is an 89-year-old female who states a very short time ago she slipped on her hardwood floor. Her socks caused her to slip. She fell forward striking her face and nose and also her left shoulder. There was no loss of consciousness. She was brought by EMS. She received 4 mg of morphine IV and 4 mg of Zofran IV for her left shoulder pain. The patient states that her nose was bleeding slightly, this has resolved. She has no blurry vision, no headache. Her face is sore but does not really hurt that much, she denies any neck pain. There is no chest pain or shortness of breath. No back pain or abdominal pain. No lower extremity discomfort. The patient states the pain in the shoulder is a 10/10 when moved, if still, it feels better. No numbness or tingling to the left upper extremity. REVIEW OF SYSTEMS: See HPI for pertinent positives and negatives. A total of ten systems were reviewed and were otherwise negative. PMHx/PSHx: See Below SOCIAL HISTORY: See Below. PHYSICAL EXAM: GENERAL: Patient is in no acute distress. HEENT: Patient has swelling to the bridge of the nose, this area is tender. There is no active nasal bleeding. The patient has a contusion about her anterior and underside chin. There is contusion to the lower lip especially on the right. Dentition is all intact and the teeth are stable. No lacerations requiring repair. I do not feel any bony step-off around the eyes, to the maxillary bones or zygoma. Her bite seems normal. NECK: No stridor, no adenopathy, nontender cervical spine, trachea is midline. LUNGS: Clear to auscultation bilaterally, no wheeze, no rhonchi, breath sounds equal. HEART: Without murmurs gallops or rubs, regular rate and rhythm. ABDOMEN: Soft, nontender, bowel sounds positive, no hernias, no peritonitis. EXTREMITIES: No cyanosis or edema. The patient does have significant pain to palpate the area of the proximal left humerus. There is no obvious left shoulder deformity. The left clavicle is stable and nontender. There is no evidence for left upper extremity neurovascular compromise. The left elbow and left wrist are nontender. The lower extremities are nontender, the right arm is nontender. NEUROLOGIC: Oriented x 3, no acute motor or sensory deficits, no focal weakness. SKIN: No rash, no jaundice, no diaphoresis. DIFFERENTIAL DIAGNOSIS: Fracture, dislocation, contusion, intra-abdominal bleeding, pneumothorax, intrathoracic injury, facial fracture, C-spine fracture, intracranial injury, compartment syndrome, rhabdomyolysis, as well as other pathologies. EMERGENCY DEPARTMENT COURSE/PROCEDURES: ECG: Indication was fall. The ECG shows a normal sinus rhythm with a rate of 71. There is a right bundle branch block. There is no ST elevation, no PVCs. The QTc is 497. Continuous Cardiac Monitoring: An order was placed for continuous cardiac monitoring. The monitor shows a rate of 76 with normal sinus rhythm. MEDICAL DECISION MAKING: There is no leukocytosis or concerning anemia. There is a normal platelet count. No significant electrolyte abnormality or kidney failure. Chest film does not show pneumonia, mediastinal widening or CHF. Left shoulder film shows a humeral head and neck fracture. Brain CT shows no acute bleed or mass-effect. C-spine CT shows no acute fracture. Facial CT shows a nasal bone fracture. CT of the left shoulder confirms the left humeral head and neck fracture, there was no humeral head dislocation. On exam, there was no evidence for left upper extremity neurovascular compromise. No evidence clinically for injury to the back, abdomen, lower extremities or right upper extremity. The patient received IV morphine for pain, she was given IV Tylenol and IV Toradol. She was placed in a left arm sling. I did discuss the case with orthopedics. This injury to the shoulder is likely nonoperative. The patient may though need a shoulder replacement surgery if not doing well nonoperatively. The patient became hypoxic with her pain control. She cannot move without severe pain, she is too uncomfortable to be discharged home and will require a hospital stay for pain control and monitoring. I spoke to the patient, I spoke with her family, I talked to the pillowcase cutter. The on-call hospitalist has been consulted. Past Med/Surg History Medical History Anxiety Bee sting allergy Diabetes mellitus, type 2 "diet controlled" Dizziness and giddiness Dyslipidemia Elevated serum creatinine Hypertension Hypertensive urgency Hyponatremia Oral lesion Poorly-controlled hypertension Severe headache Surgical History History of hysterectomy Status post bladder repair Status post hysterectomy Family History Other No pertinent family history in first degree relatives Social History Smoking Status: Never smoker Second Hand Exposure: No; Hx Alcohol Use: No Hx Substance Use: No Preferred Language: Georgian Communication Ability: Effective Clinical Physician Assistant Required: No Beliefs That Will Affect Care: None marital status: Current Living Situation: Spouse Feels Safe at Home: Yes Assistive Devices: None Allergies Allergies Allergy/AdvReac Type Severity Reaction Status Date / Time bee venom protein (honey bee) Allergy Severe ANAPHYLAXIS Unverified 07/28/20 19:13 atenolol Allergy Mild "HANDS Unverified 07/28/20 19:13 TURNED BLUE" Bactrim Allergy Unknown nausea Unverified 06/18/17 19:05 lisinopril Allergy Unknown cough Unverified 07/28/20 19:13 nitrofurantoin Allergy Unknown nausea Unverified 07/28/20 19:13 Jvrxywq-Cju-Kjo Reductase Allergy Unknown LIVER Unverified 07/28/20 19:13 Inhibitor ENZYMES ELEVATED sulfamethoxazole Allergy Unknown nausea Unverified 07/28/20 19:13 trimethoprim Allergy Unknown nausea Unverified 07/28/20 19:13 Dyazide AdvReac Severe hyponatremi Verified 06/18/17 19:05 a hydrochlorothiazide AdvReac Severe hyponatremi Verified 07/28/20 19:13 a triamterene AdvReac Severe hyponatremi Verified 07/28/20 19:13 a Home Meds Home Medications Medication Instructions Recorded Confirmed aspirin 81 mg PO QAM 05/20/18 07/28/20 docusate sodium [Colace] 100 mg PO BIDM 05/20/18 07/28/20 losartan 50 mg PO BIDM 05/20/18 07/28/20 metoprolol tartrate 50 mg PO BIDM 05/20/18 07/28/20 clonidine HCl 0.1 mg PO BIDM 07/28/20 07/28/20 epinephrine 0.3 mg IM UD PRN 07/28/20 07/28/20 escitalopram oxalate 10 mg PO QDD 07/28/20 07/28/20 ezetimibe 10 mg PO QAM 07/28/20 07/28/20 omeprazole 20 mg PO QAM 07/28/20 07/28/20 Previous Rx's Medication Instructions Recorded amlodipine 10 mg PO QAM #0 tab 05/22/18 Results & Data (ED) Vital Signs Vital Signs - 24 hr 07/28/20 18:15 07/28/20 18:51 07/28/20 18:54 Temperature 37.4 C Temperature Source Oral Pulse Rate 74 Pulse Rate [Apical] 76 Pulse Rate from SpO2 Sensor Pulse Rhythm [Apical] Regular Respiratory Rate 18 19 Respiratory Effort / Characteristics Non-Labored Non-Labored Spontaneous Respiratory Depth Normal Normal Respiratory Pattern Regular Regular Blood Pressure 163/78 H Blood Pressure [Right Arm] 150/76 H Blood Pressure Mean 106 Blood Pressure Mean [Right Arm] 100 Blood Pressure Position Lying Blood Pressure Position [Right Arm] Sitting Pulse Oximetry 90 91 80 L Oxygen Delivery Method Room Air Room Air Room Air Oxygen Flow Rate 0 Sepsis Recent Fever Within 48 Hours No Sepsis New/Unexplained Change in Mental Status N/A Sepsis Action Taken by Nursing No Action Required Oxygen Flow Rate - Titration 2 Pulse Oximetry Post Tiitration 94 07/28/20 19:00 07/28/20 19:53 07/28/20 20:00 Temperature Temperature Source Pulse Rate 74 73 75 Pulse Rate [Apical] Pulse Rate from SpO2 Sensor 74 75 Pulse Rhythm [Apical] Respiratory Rate 16 21 22 Respiratory Effort / Characteristics Respiratory Depth Respiratory Pattern Blood Pressure 160/90 H 152/80 H 142/77 H Blood Pressure [Right Arm] Blood Pressure Mean 113 104 98 Blood Pressure Mean [Right Arm] Blood Pressure Position Blood Pressure Position [Right Arm] Pulse Oximetry 97 97 Oxygen Delivery Method Nasal Cannula Nasal Cannula Oxygen Flow Rate 2 2 Sepsis Recent Fever Within 48 Hours Sepsis New/Unexplained Change in Mental Status Sepsis Action Taken by Nursing Oxygen Flow Rate - Titration Pulse Oximetry Post Tiitration Home Medications Current Medication List: was personally reviewed by me Laboratory Data Attestation: I reviewed the patient's lab results. Result diagrams: 07/28/20 17:35 07/28/20 17:35 Lab Results 07/28/20 07/28/20 07/28/20 Range/Units 17:35 17:35 20:25 WBC 8.00 (4.8-10.8) K/uL RBC 4.33 (4.2-5.4) M/uL Hgb 12.3 (12.0-16.0) g/dL Hct 37.3 (37-47) % MCV 86.1 (80-100) fL MCH 28.4 (25-34) pg MCHC 33.0 (32-36) g/dL RDW Std Deviation 43.8 (36.4-46.3) fL RDW Coeff of Massimo 13.9 (11.5-14.5) % Plt Count 255 (130-400) K/uL MPV 10.1 (7.4-10.4) fL Sodium 132 L (136-145) mmol/L Potassium 3.8 (3.5-5.1) mmol/L Chloride 96 L (98-107) mmol/L Carbon Dioxide 28 (21-32) mmol/L Anion Gap 7.0 (3-11) BUN 19 H (7-18) mg/dl Creatinine 1.02 (0.6-1.2) mg/dl Est Cr Clr Drug Dosing 42.8 ml/min Est GFR ( Amer) 56.9 Est GFR (Non-Af Amer) 49.1 BUN/Creatinine Ratio 18.7 (10-20) Glucose 149 H (70-99) mg/dl Calcium 9.0 (8.5-10.1) mg/dl COVID-19 [facility] Morphine Sulfate (Morphine Sulfate 4 Mg/Ml 1 Ml Carp\\Vial) 4 mg IV Q30M PRN PRN Reason: Pain Stop: 08/11/20 18:24 Last Admin: 07/28/20 18:37 Dose: 4 mg Documented by: [id number] Discontinued Medications Acetaminophen (Acetaminophen 1000 Mg/100 Ml Iv) 1,000 mg IV NOW STA Stop: 07/28/20 19:24 Last Admin: 07/28/20 19:36 Dose: 1,000 mg Documented by: [id number] Ketorolac Tromethamine (Ketorolac Tromethamine 15 Mg/Ml Vial) 15 mg IV NOW STA Stop: 07/28/20 19:58 Last Admin: 07/28/20 20:01 Dose: 15 mg Documented by: [id number] Imaging Data Radiologist's Impression: HEAD CT NONCONTRAST CT DOSE: HISTORY: fall, pain TECHNIQUE: Multiaxial CT images of the head were performed without the use of intravenous contrast. Automated exposure control was utilized for this study. A dose lowering technique was utilized adhering to the principles of ALARA. Comparison: Head CT 06/18/2017. Findings: The paranasal sinuses and mastoid air cells are clear. The calvarium and skull base are intact. The ventricles and sulci are within normal limits. There is no mass, hematoma, midline shift, or acute infarct. Nasal bone fractures. Impression: No acute intracranial abnormality. Nasal bone fractures. MAXILLOFACIAL CT CT DOSE: HISTORY: fall, pain TECHNIQUE: Multiaxial CT images of the maxillofacial region were performed and reformatted in the coronal plane without the use of contrast. A dose lowering technique was utilized adhering to the principles of ALARA. COMPARISON: None. FINDINGS: The visualized cervical spine, skull base, pterygoid plates, lamina papyracea, orbital floors, and zygomatic arches are intact. Acute on chronic nasal bone fractures. Anterior translation of the mandibular condyles is likely due to the patient's open-mouth position rather than dislocation. No fractures identified within the mandible. Mild nasal soft tissue swelling. Is also mild soft tissue swelling within the chin. The orbits are unremarkable. IMPRESSION: 1. Acute on chronic slightly displaced nasal bone fractures. 2. Anterior translation of the mandibular condyles is likely due to the patient's open-mouth position rather than dislocation. No fractures identified within the mandible. LEFT SHOULDER CT CT DOSE: 536.99 mGy.cm HISTORY: Left shoulder pain. Fall. Left shoulder fracture. TECHNIQUE: Multiaxial CT images of the left shoulder were performed and reformatted in the sagittal and coronal plane without the use of contrast. A dose lowering technique was utilized adhering to the principles of ALARA. COMPARISON: None. FINDINGS: The left clavicle and visualized left ribs are intact. No fractures within the left scapula. Comminuted and displaced left humeral neck/head fracture. The humeral neck fracture is impacted. There is a large displaced bony fragment of the humeral head seen within the posterior joint space. This bony fragment measures 3.6 cm. Additional smaller bony fragments of the humeral head/neck are seen anteriorly within the joint space. Extensive soft tissue swelling within the left shoulder with an associated hemarthrosis of the glenohumeral joint. No left-sided pneumothorax. A 4 mm nodule within the left lung apex image 137. There is mild inferior subluxation of the humeral head without dislocation. IMPRESSION: 1. Comminuted, impacted, and displaced left humeral head/neck fractures as described above. There is mild inferior subluxation of the humeral head without dislocation. 2. A 4 mm indeterminate pulmonary nodule within the left lung apex. 3. Small hemarthrosis within the left glenohumeral joint. CERVICAL SPINE CT CT DOSE: 1062.40 mGy.cm HISTORY: fall, pain TECHNIQUE: Multiaxial CT images of the cervical spine were performed and reformatted in the sagittal and coronal plane without the use of contrast. A dose lowering technique was utilized adhering to the principles of ALARA. COMPARISON: None. FINDINGS: No fractures. No subluxation. Prevertebral soft tissues and the C1-C2 interval are intact. No pneumothorax. Moderate to severe degenerative changes within the cervical spine. IMPRESSION: No fractures within the cervical spine. XR chest 1V portable HISTORY: fall COMPARISON: Chest 06/18/2017. FINDINGS: The cardiac silhouette remains mildly enlarged. There is mild chronic interstitial thickening, unchanged. No new focal lung consolidations to suggest pneumonia. No pleural effusions. No pneumothorax. There is a left humeral head/neck fracture. IMPRESSION: 1. Left humeral head/neck fracture. 2. Stable cardiomegaly and mild chronic interstitial thickening. XR shoulder LT min 2V routine CLINICAL HISTORY: Fall. Left shoulder pain. COMPARISON STUDY: None. FINDINGS: Comminuted, impacted, and displaced left humeral head/neck fracture. No definite dislocation. The left scapula and left clavicle appears intact. The bones are osteopenic. Soft tissue swelling within the left shoulder. IMPRESSION: Comminuted, impacted, and displaced left humeral head/neck fracture. Head Trauma GCS Score: 15 Discharge Plan Visit Data Chief Complaint: Fall Stated Complaint: FALL, L SHOULDER & ARM PAIN, ED Provider: Jitendra Hodgson Discharge Problem: Fracture of left shoulder, Fracture of nasal bone, Acute head trauma, Fall, Facial contusion Patient Disposition: Admitted As Inpatient Condition: Fair Forms Stand Alone Forms: [facility] Prescriptions Prescriptions: No Action losartan 50 mg tablet 50 mg PO BIDM RF: 0 aspirin 81 mg Tablet,Delayed Release (Dr/Ec) 81 mg PO QAM RF: 0 metoprolol tartrate 50 mg tablet 50 mg PO BIDM RF: 0 docusate sodium [Colace] 100 mg Capsule 100 mg PO BIDM RF: 0 clonidine HCl 0.1 mg tablet 0.1 mg PO BIDM RF: 0 omeprazole 20 mg capsule,delayed release(DR/EC) 20 mg PO QAM RF: 0 epinephrine 0.3 mg/0.3 mL auto-injector 0.3 mg IM UD PRN (Reason: Anaphylaxis) RF: 0 escitalopram oxalate 10 mg tablet 10 mg PO QDD RF: 0 ezetimibe 10 mg tablet 10 mg PO QAM RF: 0 amlodipine 5 mg tablet 5 mg PO QAM RF: 0 Referrals Referrals: Calli Morrow DO [Primary Care Provider] - Discharge Problem: Fracture of left shoulder Qualifiers: Encounter type: initial encounter Fracture type: closed Qualified Code(s): S42.92XA - Fracture of left shoulder girdle, part unspecified, initial encounter for closed fracture Fracture of nasal bone Qualifiers: Encounter type: initial encounter Fracture type: closed Qualified Code(s): S02.2XXA - Fracture of nasal bones, initial encounter for closed fracture Acute head trauma Qualifiers: Encounter type: initial encounter Qualified Code(s): S09.90XA - Unspecified injury of head, initial encounter Fall Qualifiers: Encounter type: initial encounter Qualified Code(s): W19.XXXA - Unspecified fall, initial encounter Facial contusion Qualifiers: Encounter type: initial encounter Qualified Code(s): S00.83XA - Contusion of other part of head, initial encounter
[2020-07-28 18:56] LABS: Hematocrit (blood only) 37.3 % (37-47); Hemoglobin 12.3 g/dL (12.0-16.0); Mean Corpuscular Hemoglobin 28.4 pg (25-34); Mean Corpuscular Volume 86.1 fL (80-100); Mean Platelet Volume 10.1 fL (7.4-10.4); Platelet Count 255 K/uL (130-400); RDW Coefficient of Variation 13.9 % (11.5-14.5); RDW Standard Deviation 43.8 fL (36.4-46.3); Red Blood Count 4.33 M/uL (4.2-5.4)
[2020-07-28 19:06] LABS: BUN Creatinine Ratio 18.7 (10-20); Creatinine Clr Calc Pharmacy 42.8 ml/min; Est GFR (African American) 56.9; Est GFR (Non-African American) 49.1; Potassium 3.8 mmol/L (3.5-5.1)
[2020-07-28] MEDS ORDERED: ACETAMINOPHEN 1000 MG/100 ML IV IV STA (19:23)
--- NOTE | 2020-07-28 19:34 | CT Scan Report ---
HEAD CT NONCONTRAST CT DOSE: HISTORY: fall, pain TECHNIQUE: Multiaxial CT images of the head were performed without the use of intravenous contrast. A utomated exposure control was utilized for this study. A dose lowering technique was utilized adheri ng to the principles of ALARA. Comparison: Head CT 06/18/2017. Findings: The paranasal sinuses and mastoid air cells are clear. The calvarium and skull base are int act. The ventricles and sulci are within normal limits. There is no mass, hematoma, midline shift, or acute infarct. Nasal bone fractures. Impression: No acute intracranial abnormality. Nasal bone fractures. ACT 112: Negative or not required by law. Electronically signed by: Stefano Parkinson M.D. 07/28/2020 7:33 PM
--- NOTE | 2020-07-28 19:40 | CT Scan Report ---
MAXILLOFACIAL CT CT DOSE: HISTORY: fall, pain TECHNIQUE: Multiaxial CT images of the maxillofacial region were performed and reformatted in the cor onal plane without the use of contrast. A dose lowering technique was utilized adhering to the princ iplnargis of MARY BETH. COMPARISON: None. FINDINGS: The visualized cervical spine, skull base, pterygoid plates, lamina papyracea, orbital floo rs, and zygomatic arches are intact. Acute on chronic nasal bone fractures. Anterior translation of t he mandibular condyles is likely due to the patient's open-mouth position rather than dislocation. No fractures identified within the mandible. Mild nasal soft tissue swelling. Is also mild soft tissue swelling within the chin. The orbits are unremarkable. IMPRESSION: 1. Acute on chronic slightly displaced nasal bone fractures. 2. Anterior translation of the mandibular condyles is likely due to the patient's open-mouth position rather than dislocation. No fractures identified within the mandible. ACT 112: Negative or not required by law. Electronically signed by: Stefano Parkinson M.D. 07/28/2020 7:38 PM
--- NOTE | 2020-07-28 19:45 | CT Scan Report ---
LEFT SHOULDER CT CT DOSE: 536.99 mGy.cm HISTORY: Left shoulder pain. Fall. Left shoulder fracture. TECHNIQUE: Multiaxial CT images of the left shoulder were performed and reformatted in the sagittal a nd coronal plane without the use of contrast. A dose lowering technique was utilized adhering to the principles of ALARA. COMPARISON: None. FINDINGS: The left clavicle and visualized left ribs are intact. No fractures within the left scapula . Comminuted and displaced left humeral neck/head fracture. The humeral neck fracture is impacted. Th ere is a large displaced bony fragment of the humeral head seen within the posterior joint space. Thi s bony fragment measures 3.6 cm. Additional smaller bony fragments of the humeral head/neck are seen anteriorly within the joint space. Extensive soft tissue swelling within the left shoulder with an as sociated hemarthrosis of the glenohumeral joint. No left-sided pneumothorax. A 4 mm nodule within the left lung apex image 137. There is mild inferior subluxation of the humeral head without dislocation . IMPRESSION: 1. Comminuted, impacted, and displaced left humeral head/neck fractures as described above. There is mild inferior subluxation of the humeral head without dislocation. 2. A 4 mm indeterminate pulmonary nodule within the left lung apex. 3. Small hemarthrosis within the left glenohumeral joint. ACT 112: Negative or not required by law. Electronically signed by: Stefano Parkinson M.D. 07/28/2020 7:44 PM
--- NOTE | 2020-07-28 19:49 | CT Scan Report ---
CERVICAL SPINE CT CT DOSE: 1062.40 mGy.cm HISTORY: fall, pain TECHNIQUE: Multiaxial CT images of the cervical spine were performed and reformatted in the sagittal and coronal plane without the use of contrast. A dose lowering technique was utilized adhering to th e principles of ALARA. COMPARISON: None. FINDINGS: No fractures. No subluxation. Prevertebral soft tissues and the C1-C2 interval are intact. No pneumothorax. Moderate to severe degenerative changes within the cervical spine. IMPRESSION: No fractures within the cervical spine. ACT 112: Negative or not required by law. Electronically signed by: Stefano Parkinson M.D. 07/28/2020 7:48 PM
--- NOTE | 2020-07-28 19:50 | XRay Report ---
XR shoulder LT min 2V routine CLINICAL HISTORY: Fall. Left shoulder pain. COMPARISON STUDY: None. FINDINGS: Comminuted, impacted, and displaced left humeral head/neck fracture. No definite dislocatio n. The left scapula and left clavicle appears intact. The bones are osteopenic. Soft tissue swelling within the left shoulder. IMPRESSION: Comminuted, impacted, and displaced left humeral head/neck fracture. ACT 112: Negative or not required by law. Electronically signed by: Stefano Parkinson M.D. 07/28/2020 7:48 PM
--- NOTE | 2020-07-28 19:51 | XRay Report ---
XR chest 1V portable HISTORY: fall COMPARISON: Chest 06/18/2017. FINDINGS: The cardiac silhouette remains mildly enlarged. There is mild chronic interstitial thickeni ng, unchanged. No new focal lung consolidations to suggest pneumonia. No pleural effusions. No pneumo thorax. There is a left humeral head/neck fracture. IMPRESSION: 1. Left humeral head/neck fracture. 2. Stable cardiomegaly and mild chronic interstitial thickening. ACT 112: Negative or not required by law. Electronically signed by: Stefano Parkinson M.D. 07/28/2020 7:49 PM
[2020-07-28] MEDS ORDERED: KETOROLAC TROMETHAMINE 15 MG/ML VIAL IV STA (19:57)
[2020-07-28] MEDS ORDERED: EPINEPHrine ADULT AUTO-INJECT 0.3 MG SYR IM PRN (22:03)
[2020-07-28] MEDS ORDERED: POLYETHYLENE (MIRALAX) 17 GM PACK PO PRN (22:03)
[2020-07-28] MEDS ORDERED: ONDANSETRON INJ 2 MG/ML 2 ML VIAL IV PRN (22:03)
--- NOTE | 2020-07-28 22:20 | History and Physical Report ---
DATE OF ADMISSION: 07/28/2020 CHIEF COMPLAINT: Status post fall, left humerus fracture. HISTORY OF PRESENT ILLNESS: This 89-year-old female with past medical history significant for hyperlipidemia, hypertension, vitamin D deficiency, slow transit constipation, chronic kidney disease stage III, senile osteoporosis, microcytic anemia, insomnia, generalized anxiety disorder, depression. The patient lives alone. Otherwise, ambulates fine. Walks and climbs steps okay without any support. Today she was wearing socks and she slipped and fell on a hard floor and fell on the face and on the left shoulder and she could not get up because could not use her left upper extremity. EMS had to come and help her and brought her here. She has a bruise below the eyes and the lip and chin. Imaging studies showing comminuted, impacted and displaced left humerus head and neck fracture. Mild inferior subluxation of the humeral head without dislocation. ER talked to Ortho and currently no surgery is planned. We will control the pain, observe in the hospital. The patient denies any headache, no dizziness, no blurred vision, no double vision, no earache, no runny nose, no sore throat, no loss of sense of smell or taste, no cough. Appetite is okay. No difficulty swallowing. No chest pain or shortness of breath. No nausea, no vomiting, no abdominal pain. Normal bowel and bladder movements. No blood in stools or black stools. No hematuria or burning micturition. No swelling in the legs, no rash. Currently resting comfortable and hemodynamically stable. ALLERGIES: BEE VENOM, STATIN, ATENOLOL, BACTRIM, HYDROCHLOROTHIAZIDE, MACROBID, LISINOPRIL. PAST MEDICAL HISTORY: As mentioned above. PAST SURGICAL HISTORY: Revision of the bladder neck, total abdominal hysterectomy with removal of the tubes. MEDICATIONS: The patient is on amlodipine 5 mg p.o. daily, aspirin 81 mg p.o. a.m., clonidine 0.1 mg p.o. b.i.d., Colace 100 mg p.o. b.i.d., epinephrine p.r.n., Lexapro 10 mg p.o. daily, ezetimibe 10 mg p.o. a.m., losartan 50 mg p.o. b.i.d., metoprolol tartrate 50 mg p.o. b.i.d., omeprazole 20 mg p.o. a.m. FAMILY HISTORY: Significant for mother had NH. Father had stroke. Sister has heart disease. SOCIAL HISTORY: Currently living alone. No smoking, no alcohol, no drug use. REVIEW OF SYMPTOMS: As per HPI. Rest of review of systems negative. PHYSICAL EXAMINATION: GENERAL: The patient is obese, not in acute distress. VITAL SIGNS: Temperature 37.4, pulse 75, respiratory rate 22, blood pressure 142/77, oxygen 97% on 2 liters. HEENT: No pallor, no icterus. Pupils equal, round, reactive to light. Oral mucosa dry. Also bruises seen below the eyes and the chin and lip region. NECK: No neck masses seen. CARDIOVASCULAR: S1, S2, regular rate and rhythm, no murmur, no gallop. RESPIRATORY SYSTEM: Normal AP diameter. No accessory muscle use. No wheezing, no crackles. ABDOMEN: Soft, bowel sounds present, nontender. No distention. CENTRAL NERVOUS SYSTEM: Alert and oriented. Speech is clear. No facial droop. Moves extremities. Obeys commands. EXTREMITIES: No edema, no erythema seen. Left shoulder is in sling. LABORATORY DATA: WBC 8, hemoglobin 12.3, hematocrit 37.3, platelets 255. Sodium 132, potassium 3.8, chloride 96, bicarbonate 28, BUN 19, creatinine 1.02, serum glucose 149, calcium 9. SARS-CoV-2 negative. IMAGING: CT of the left shoulder: Comminuted, impacted and displaced left humeral head and neck fractures. Mild inferior subluxation of the humeral head without dislocation. A 4 mm indeterminate pulmonary nodule within the left lung apex, small hemarthrosis within the left glenohumeral joint. Left shoulder x-ray, comminuted, impacted and displaced humeral head and neck fracture. CT of the head, no acute intracranial findings, nasal bone fractures. Facial CT, acute on chronic, slightly displaced nasal bone fractures, anterior translation of the mandibular condyle likely due to patient's open mouth position rather than dislocation, no fractures identified within the mandible. Chest x-ray, left humeral head and neck fracture. Stable cardiomegaly and mild chronic interstitial thickening. Cervical spine CT, no fractures within the cervical spine. EKG: Normal sinus rhythm with rate of 71, right bundle branch block, no significant change was found. ASSESSMENT AND PLAN: This 89-year-old female who had a mechanical fall and found to have left humerus head and neck fracture. 1. Mechanical fall, bruises on the face and also left humerus head and neck comminuted fracture. ER physician notified the ortho paleontology teacher and advised for medical management for now. We will consult orthopedics in a.m. for further recommendations. We will give gentle fluids, pain control with IV Toradol and Tylenol prn as patient could not tolerate morphine. PT, OT, close monitor. 2. Hypertension. Continue amlodipine, clonidine, losartan, metoprolol. We will monitor the blood pressure. 3. Hyperlipidemia, on ezetimibe. 4. GERD, on omeprazole. 5. Chronic kidney disease stage III, creatinine 1.02. Follow the labs. 6. Deep venous thrombosis prophylaxis, sequential compression devices for now. 7. Disposition: Closely monitor in the medical floor. PT and OT prior to discharge. Expect discharge home and follow with family doctor. Level 1 full code. Social service to help with discharge planning. JEREMIE
[2020-07-29] MEDS: KETOROLAC TROMETHAMINE 15 MG/ML VIAL IV PRN (06:14)
[2020-07-29] MEDS ORDERED: MoRPHine SULFATE 4 MG/ML 1 ML CARP\\VIAL IV PRN (07:16)
[2020-07-29] MEDS: cloNIDine HCL 0.1 MG TAB PO SCH ×2 (08:25→17:07)
[2020-07-29] MEDS: DOCUSATE SODIUM 100 MG CAP PO SCH ×2 (08:25→17:06)
[2020-07-29] MEDS: EZETIMIBE 10 MG TABLET PO SCH (08:25)
[2020-07-29] MEDS: METOPROLOL TARTRATE 50 MG TAB PO SCH ×2 (08:25→17:05)
[2020-07-29] MEDS: PANTOprazole 40 MG TAB PO SCH (08:25)
[2020-07-29] MEDS: LOSARTAN POTASSIUM 50 MG TAB PO SCH ×2 (08:25→17:06)
[2020-07-29] MEDS: amLODIPine BESYLATE 5 MG TAB PO SCH (08:25)
[2020-07-29] MEDS: ASPIRIN 81 MG ECTAB PO SCH (08:25)
[2020-07-29] MEDS: ACETAMINOPHEN 325 MG TAB PO PRN ×2 (09:25→15:51)
--- NOTE | 2020-07-29 09:57 | Orthopedic Consultation ---
Date of Consultation July 29, 2020 Assessment & Plan (1) Closed fracture of left proximal humerus: She has a severely comminuted but moderately displaced left proximal humerus fracture with obvious split of the humeral head and significant osteoporosis. With the severity of the comminution, osteoporosis, and head splitting component, I do not think that ORIF would be a viable treatment option. I think her main options for treatment of this fracture are either nonoperative treatment or a reverse total shoulder arthroplasty for fracture. I advised her that the reverse total shoulder for fracture is a very large and difficult surgery, but would be a good treatment option to regain relatively decent function of that left shoulder. I think it would be certainly very reasonable to treat this nonoperatively. She is minimally active, and I think she would end up with acceptable shoulder function with nonoperative treatment. If she was not happy with her function, we could always revert to a reverse total shoulder arthroplasty at a later time. After thorough discussion of the pros and cons of each approach, she elected for nonoperative treatment for now. I encouraged her to think about this and talk it over with her family. Follow- up in 1 week about 1 week in my office to discuss further. In the meantime, we discussed activity restrictions. I really do not want her doing any significant shoulder motion at this point. No active motion. I only want her doing some passive pendulum exercises only to tolerance. She should keep her left arm in the sling. Present on Admission?: Yes History of Present Illness Reason for Consultation: Left proximal humerus fracture Requesting Physician: Dr. Smith Attending Physician: Macrina Serrano MD History of Present Illness Ms. Keith is an 89-year-old [id number] female who who was admitted for an acute injury to her left shoulder. She had a mechanical ground-level fall at home yesterday. She thinks that she slipped on hardwood floor when she was wearing her socks, or else possibly tripped on a throw rug. She is unsure the exact mechanism of injury to the left shoulder, but hit both her left shoulder and face on the floor. She sustained a lot of facial bruising and the nasal fracture, and also had a significant injury to her left shoulder. She denies any other significant extremity injury. She was brought to the emergency room, and admitted to the medical service for pain control. Her pain is improved overnight. Of note, she does say she was diagnosed with osteoporosis in the past, and previously had been treated for this, but not recently. She is not terribly active at this point. She admits that her activity level has significantly decreased since her in October. She says that she mostly watches TV all day, and will prepare meals and do some baking, but no other significant activities. Allergies Allergy/AdvReac Type Severity Reaction Status Date / Time bee venom protein (honey bee) Allergy Severe ANAPHYLAXIS Unverified 07/28/20 19:13 atenolol Allergy Mild "HANDS Unverified 07/28/20 19:13 TURNED BLUE" Bactrim Allergy Unknown nausea Unverified 06/18/17 19:05 lisinopril Allergy Unknown cough Unverified 07/28/20 19:13 nitrofurantoin Allergy Unknown nausea Unverified 07/28/20 19:13 [id number]-Hsj Reductase Allergy Unknown LIVER Unverified 07/28/20 19:13 Inhibitor ENZYMES ELEVATED sulfamethoxazole Allergy Unknown nausea Unverified 07/28/20 19:13 trimethoprim Allergy Unknown nausea Unverified 07/28/20 19:13 Dyazide AdvReac Severe hyponatremi Verified 06/18/17 19:05 a hydrochlorothiazide AdvReac Severe hyponatremi Verified 07/28/20 19:13 a triamterene AdvReac Severe hyponatremi Verified 07/28/20 19:13 a Home Medications Medication Instructions Recorded Confirmed Type aspirin 81 mg PO QAM 05/20/18 07/28/20 History docusate sodium [Colace] 100 mg PO BIDM 05/20/18 07/28/20 History losartan 50 mg PO BIDM 05/20/18 07/28/20 History metoprolol tartrate 50 mg PO BIDM 05/20/18 07/28/20 History amlodipine 5 mg PO QAM 07/28/20 07/28/20 History clonidine HCl 0.1 mg PO BIDM 07/28/20 07/28/20 History epinephrine 0.3 mg IM UD PRN 07/28/20 07/28/20 History escitalopram oxalate 10 mg PO QDD 07/28/20 07/28/20 History ezetimibe 10 mg PO QAM 07/28/20 07/28/20 History omeprazole 20 mg PO QAM 07/28/20 07/28/20 History Patient History Medical History (Updated 07/29/20 @ 10:01 by Eldon Child M.D.) Anxiety Bee sting allergy Diabetes mellitus, type 2 "diet controlled" Dizziness and giddiness Dyslipidemia Elevated serum creatinine Hypertension Hypertensive urgency Hyponatremia Oral lesion Poorly-controlled hypertension Severe headache Surgical History History of hysterectomy Status post bladder repair Status post hysterectomy Family History Other No pertinent family history in first degree relatives Social History Smoking Status: Never smoker Second Hand Exposure: No; Do You Dip or Chew Tobacco: No; Hx Alcohol Use: No Hx Substance Use: No Preferred Language: Arabic Communication Ability: Effective 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 Awake, alert, and oriented x 3. Appropriate mood and affect. Normal coordination and balance. Significant facial ecchymosis around chin and eyes. Skin: The skin over the left upper arm shows no open wounds. Moderate ecchymosis. Inspection/Palpation: Visual inspection reveals no gross deformity of the upper arm. There is moderate swelling and tenderness to palpation over the humerus. Compartments are soft and compressible. Range of Motion: There is limited range of motion of the upper arm due to pain. Stability: Ligamentous stability was not tested due to the known fracture. Strength: There is limited upper arm strength due to pain. Sensation: Motor and sensory function is intact in the median, ulnar, radial, and axillary nerve distributions. Vascular: Hand is warm and well perfused Results & Data ([facility]) Vital Signs (Past 12 Hours) Vital Signs Temp Pulse Resp BP Pulse Ox 07/29/20 07:05 36.6 C 76 18 121/72 92 07/28/20 23:46 36.3 C L 70 15 104/63 97 07/28/20 22:10 36.5 C 75 16 152/56 H 97 Diagnostic Findings X-rays and CT scan of the left shoulder reviewed. They show a severely comminuted but moderately displaced proximal humerus fracture. This is obviously a head-splitting fracture. She has obvious severe osteoporosis; the humeral head fracture fragments are just small shells of bone. The articular surface looks like a completely separate fragment. (1) Closed fracture of left proximal humerus Encounter type: initial encounter Fracture morphology: other fracture Fracture alignment: displaced Qualified Code(s): S42.292A - Other displaced fracture of upper end of left humerus, initial encounter for closed fracture
[2020-07-29] MEDS: POLYETHYLENE (MIRALAX) 17 GM PACK PO SCH (10:03)
--- NOTE | 2020-07-29 11:34 | Electrocardiogram Report ---
Test Reason : Blood Pressure : / mmHG Vent. Rate : 071 BPM Atrial Rate : 071 BPM P-R Int : 178 ms QRS Dur : 134 ms QT Int : 458 ms P-R-T Axes : 031 058 026 degrees QTc Int : 497 ms Normal sinus rhythm Right bundle branch block Abnormal ECG When compared with ECG of 20-MAY-2018 05:34, No significant change was found Confirmed by Mart Salas ([id number]) on 07/29/2020 11:34:24 AM Referred By: REFERRED SELF Confirmed By:Mart Salas
--- NOTE | 2020-07-29 13:12 | Hospitalist Progress Note ---
Date of Service July 29, 2020 Assessment & Plan (1) Closed fracture of left proximal humerus: 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 the reverse total shoulder for fracture is a very large and difficult surgery, given her advanced age and minimum use /mobility of left shoulder ( pt is right handed ) non operative approach( pain control , immobilization of left shoulder till it is healed ) recommended . pt elected for non operative treatment per orthopedics : If pt was not happy with her function, Ortho could always revert to a reverse total shoulder arthroplasty at a later time. After thorough discussion of the pros and cons of each approach, pt elected for nonoperative treatment for now. Follow-up in 1 week in Orthopedics to discuss further treatment options Ortho recommends : avoid left shoulder movement , . She should keep her left arm in the sling. update given to pt's daughter over phone, agrees with non operative approach pt wants to return to home with family support . Daughter agrees with the plan , family will be there for 12/01 care requests for home health and home PT referral made to [facility] home health pt will stay in pt for next 24-48 for pain control PT eval tomorrow to asses gait /ambulation ( immobilization of left arm ) discharge home with home health /home PT HTN : BP stable cont out pt meds Hyponatremia : appears to be chronic /labs work on 2017 shows Na level 128 was followed with [employer] recommended fluid restriction only Na 132 , improved from her baseline fluid restrictions 1800 ml /day CKD stage 3 : cr at baseline follow labs FULL CODE Disposition : plan to dc home in next 1-2 days with home health /home PT Plan of care d/w pt's daughter Saida in detail , all questions answered Admission and Anticipated Discharge Date Admission Date: July 28, 2020 Subjective Follow up visit for closed fracture of left proximal humerus s/p fall : no fever or chills pain on left shoulder improved as long as she keeps it still /left arm on sling offers no other complains very pleasant , no cough or SOB , no fever or chills Review of Systems Review of Systems: All systems reviewed & are unremarkable except as noted in Subjective Physical Exam Constitutional: WD/WN, vitals as above Eyes: + anicteric sclerae ENMT: Nose: + external nose abnormality (deffuse ecchymosis , mild deformity noted on nasal bridge ) multiple bruise and eccymosis , on face Neck: trachea midline, no thyromegaly Respiratory: normal respiratory effort, lungs clear to auscultation Cardiovascular: RRR, no murmur, no edema Gastrointestinal (Abdomen): Percussion/Palpation: abdomen soft; abdomen nontender Musculoskeletal: no cyanosis or clubbing, extremities motor strength 5/5 Skin: no rashes, warm and dry Neurologic: PERRL, EOMI, accommodation nl, no face palsy, no dysarthria Psychiatric: A+Ox3, euthymic affect Results & Data Results & Data ([facility]) Vital Signs (Past 12 Hours) Vital Signs Temp Pulse Resp BP Pulse Ox 07/29/20 07:05 36.6 C 76 18 121/72 92 (1) Closed fracture of left proximal humerus Encounter type: initial encounter Fracture alignment: displaced Fracture morphology: other fracture Qualified Code(s): S42.292A - Other displaced fracture of upper end of left humerus, initial encounter for closed fracture
[2020-07-29] MEDS: ESCITALOPRAM OXALATE 10 MG TAB PO SCH (15:51)
[2020-07-29] MEDS: oxyCODONE/ACETAMINOPHEN 5mg/325mg TAB PO PRN (21:06)
[2020-07-30 05:59] LABS: Estimated Average Glucose 148 mg/dl; Hemoglobin A1C 6.8 % (4.5-5.6)
[2020-07-30] MEDS: oxyCODONE/ACETAMINOPHEN 5mg/325mg TAB PO PRN ×3 (05:59→22:51)
[2020-07-30 06:30] LABS: BUN Creatinine Ratio 21.8 (10-20); Calcium 8.1 mg/dl (8.5-10.1); Creatinine Clr Calc Pharmacy 48.5 ml/min; Est GFR (African American) 66.2; Est GFR (Non-African American) 57.1; Potassium 4.5 mmol/L (3.5-5.1)
[2020-07-30] MEDS: POLYETHYLENE (MIRALAX) 17 GM PACK PO SCH (08:18)
[2020-07-30] MEDS: PANTOprazole 40 MG TAB PO SCH (08:18)
[2020-07-30] MEDS: EZETIMIBE 10 MG TABLET PO SCH (08:19)
[2020-07-30] MEDS: cloNIDine HCL 0.1 MG TAB PO SCH ×2 (08:19→17:30)
[2020-07-30] MEDS: ASPIRIN 81 MG ECTAB PO SCH (08:19)
[2020-07-30] MEDS: DOCUSATE SODIUM 100 MG CAP PO SCH ×2 (08:19→17:31)
[2020-07-30] MEDS: LOSARTAN POTASSIUM 50 MG TAB PO SCH ×2 (08:19→17:30)
[2020-07-30] MEDS: amLODIPine BESYLATE 5 MG TAB PO SCH (08:19)
[2020-07-30] MEDS: METOPROLOL TARTRATE 50 MG TAB PO SCH ×2 (08:19→17:31)
[2020-07-30] MEDS: ESCITALOPRAM OXALATE 10 MG TAB PO SCH (15:56)
--- NOTE | 2020-07-30 21:07 | Hospitalist Progress Note ---
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 the reverse total shoulder for fracture is a very large and difficult surgery, given her advanced age and minimum use /mobility of left shoulder ( pt is right handed ) non operative approach( pain control , immobilization of left shoulder till it is healed ) recommended . pt elected for non operative treatment per orthopedics : If pt was not happy with her function, Ortho could always revert to a reverse total shoulder arthroplasty at a later time. After thorough discussion of the pros and cons of each approach, pt elected for nonoperative treatment for now. Follow-up in 1 week in Orthopedics to discuss further treatment options Ortho recommends : avoid left shoulder movement , . She should keep her left arm in the sling. update given to pt's daughter over phone, agrees with non operative approach pt wants to return to home with family support . Daughter agrees with the plan , family will be there for 24/ care requests for home health and home PT referral made to [facility] home health pt will stay in pt for next 24-48 for pain control PT eval tomorrow to asses gait /ambulation ( immobilization of left arm ) discharge home with home health /home PT HTN : BP stable cont out pt meds Hyponatremia : appears to be chronic /labs work on 2017 shows Na level 128 was followed with Housing Case Manager recommended fluid restriction only Na 132 , improved from her baseline fluid restrictions 1800 ml /day CKD stage 3 : cr at baseline follow labs FULL CODE Disposition : plan to dc home in next 1-2 days with home health /home PT Plan of care d/w pt's daughter Saida in detail , all questions answered Admission and Anticipated Discharge Date Admission Date: July 28, 2020 Subjective Follow up visit for closed fracture of left proximal humerus s/p fall : left shoulder pain controlled on sling offers no new complain Physical Exam Constitutional: WD/WN, vitals as above Eyes: + anicteric sclerae ENMT: external ear and nose normal, oropharynx normal Nose: + external nose abnormality (deffuse ecchymosis , mild deformity noted on nasal bridge ) Neck: trachea midline, no thyromegaly Respiratory: normal respiratory effort, lungs clear to auscultation Cardiovascular: RRR, no murmur, no edema Gastrointestinal (Abdomen): Percussion/Palpation: abdomen soft; abdomen nontender Musculoskeletal: no cyanosis or clubbing, extremities motor strength 5/5 Skin: no rashes, warm and dry Neurologic: PERRL, EOMI, accommodation nl, no face palsy, no dysarthria Psychiatric: A+Ox3, euthymic affect Results & Data Results & Data ([facility]) Vital Signs (Past 12 Hours) Vital Signs Temp Pulse Resp BP Pulse Ox 07/30/20 14:39 36.7 C 82 16 161/76 H 94 07/30/20 11:51 88 L (1) Closed fracture of left proximal humerus Encounter type: initial encounter Fracture morphology: other fracture Fracture alignment: displaced Qualified Code(s): S42.292A - Other displaced fracture of upper end of left humerus, initial encounter for closed fracture
[2020-07-30] MEDS: KETOROLAC TROMETHAMINE 15 MG/ML VIAL IV PRN (22:53)
[2020-07-31] MEDS: EZETIMIBE 10 MG TABLET PO SCH (08:19)
[2020-07-31] MEDS: METOPROLOL TARTRATE 50 MG TAB PO SCH ×2 (08:19→16:37)
[2020-07-31] MEDS: amLODIPine BESYLATE 5 MG TAB PO SCH (08:19)
[2020-07-31] MEDS: cloNIDine HCL 0.1 MG TAB PO SCH ×2 (08:19→16:37)
[2020-07-31] MEDS: DOCUSATE SODIUM 100 MG CAP PO SCH ×2 (08:19→16:36)
[2020-07-31] MEDS: LOSARTAN POTASSIUM 50 MG TAB PO SCH ×2 (08:19→16:36)
[2020-07-31] MEDS: POLYETHYLENE (MIRALAX) 17 GM PACK PO SCH (08:20)
[2020-07-31] MEDS: PANTOprazole 40 MG TAB PO SCH (08:20)
[2020-07-31] MEDS: ASPIRIN 81 MG ECTAB PO SCH (08:20)
[2020-07-31] MEDS ORDERED: CHOLECALCIFEROL 1,000 UNITS 25 MCG TAB PO SCH (09:00)
[2020-07-31] MEDS: oxyCODONE/ACETAMINOPHEN 5mg/325mg TAB PO PRN (12:08)
--- NOTE | 2020-07-31 13:44 | Discharge Summary ---
Date of Service July 31, 2020 Admission HPI Per Admitting Provider DICTATED BY: Job Smith MD DATE OF ADMISSION: 07/28/2020 CHIEF COMPLAINT: Status post fall, left humerus fracture. HISTORY OF PRESENT ILLNESS: This 89-year-old female with past medical history significant for hyperlipidemia, hypertension, vitamin D deficiency, slow transit constipation, chronic kidney disease stage III, senile osteoporosis, microcytic anemia, insomnia, generalized anxiety disorder, depression. The patient lives alone. Otherwise, ambulates fine. Walks and climbs steps okay without any support. Today she was wearing socks and she slipped and fell on a hard floor and fell on the face and on the left shoulder and she could not get up because could not use her left upper extremity. EMS had to come and help her and brought her here. She has a bruise below the eyes and the lip and chin. Imaging studies showing comminuted, impacted and displaced left humerus head and neck fracture. Mild inferior subluxation of the humeral head without dislocation. ER talked to Ortho and currently no surgery is planned. We will control the pain, observe in the hospital. The patient denies any headache, no dizziness, no blurred vision, no double vision, no earache, no runny nose, no sore throat, no loss of sense of smell or taste, no cough. Appetite is okay. No difficulty swallowing. No chest pain or shortness of breath. No nausea, no vomiting, no abdominal pain. Normal bowel and bladder movements. No blood in stools or black stools. No hematuria or burning micturition. No swelling in the legs, no rash. Currently resting comfortable and hemodynamically stable. Principal Diagnosis Fall left humerus Fracture Chronic hyponatremia Fracture of nasal bone Facial contusion Discharge Exam Constitutional WD/WN, vitals as above Eyes + anicteric sclerae ENMT external ear and nose normal, oropharynx normal Nose: + external nose abnormality (deffuse ecchymosis , mild deformity noted on nasal bridge ) Neck trachea midline, no thyromegaly Respiratory normal respiratory effort, lungs clear to auscultation Cardiovascular RRR, no murmur, no edema Gastrointestinal (Abdomen) Percussion/Palpation: abdomen soft; abdomen nontender Musculoskeletal no cyanosis or clubbing, extremities motor strength 5/5 Skin no rashes, warm and dry Neurologic PERRL, EOMI, accommodation nl, no face palsy, no dysarthria Psychiatric A+Ox3, euthymic affect Discharge Data Allergies Allergy/AdvReac Type Severity Reaction Status Date / Time bee venom protein (honey bee) Allergy Severe ANAPHYLAXIS Unverified 07/28/20 19:13 atenolol Allergy Mild "HANDS Unverified 07/28/20 19:13 TURNED BLUE" Bactrim Allergy Unknown nausea Unverified 06/18/17 19:05 lisinopril Allergy Unknown cough Unverified 07/28/20 19:13 nitrofurantoin Allergy Unknown nausea Unverified 07/28/20 19:13 [id number] Reductase Allergy Unknown LIVER Unverified 07/28/20 19:13 Inhibitor ENZYMES ELEVATED sulfamethoxazole Allergy Unknown nausea Unverified 07/28/20 19:13 trimethoprim Allergy Unknown nausea Unverified 07/28/20 19:13 Dyazide AdvReac Severe hyponatremi Verified 06/18/17 19:05 a hydrochlorothiazide AdvReac Severe hyponatremi Verified 07/28/20 19:13 a triamterene AdvReac Severe hyponatremi Verified 07/28/20 19:13 a Consultations 07/28/20 20:18 ED Decision to Admit Stat 07/28/20 22:03 Consult Case Management - Discharge Planning Routine 07/29/20 08:00 Consult Orthopedic Surgery Routine Ordered Studies 07/28/20 18:25 CT cervical spine wo con Stat CT facial bones wo con Stat CT head/brain wo con Stat 07/28/20 19:20 CT shoulder LT wo con Stat Hospital Course (1) Closed fracture of left proximal humerus: 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 the reverse total shoulder for fracture is a very large and difficult surgery, given her advanced age and minimum use /mobility of left shoulder ( pt is right handed ) non operative approach( pain control , immobilization of left shoulder till it is healed ) recommended . pt elected for non operative treatment per orthopedics : If pt was not happy with her function, Ortho could always revert to a reverse total shoulder arthroplasty at a later time. After thorough discussion of the pros and cons of each approach, pt elected for nonoperative treatment for now. Follow-up in 1 week in Orthopedics to discuss further treatment options Ortho recommends : avoid left shoulder movement , . She should keep her left arm in the sling. update given to pt's daughter over phone, agrees with non operative approach pt wants to return to home with family support . Daughter agrees with the plan , family will be there for 12/01 care requests for home health and home PT referral made to [facility] home health discharged home today with home health /home PT pt has has occasionally Percocet , mostly utilizing Tylenol Percocet 1 tablet q 6hrs PRN for severe pain -script sent to her pharmacy instructed to take over the counter stool softener to prevent constipation HTN : BP stable cont out pt meds Hyponatremia : appears to be chronic /labs work on 2017 shows Na level 128 was followed with [employer] recommended fluid restriction only cont fluid restrictions routine follow up with radiology rn as scheduled CKD stage 3 : cr at baseline FULL CODE Disposition : dc home with home health /home PT today Plan of care d/w pt's daughter Saida in detail , all questions answered Total Time Total Time Spent Total Time Spent (In Minutes): 35 miins Total Time Includes: Examination of the Patient, Discharge Planning and Medication Reconciliation Discharge Plan Discharge Items Patient Disposition: Home - Home Health Services Reason For Visit: FALL, LEFT HUMERUS FX Discharge Diagnosis: Fall left humerus Fracture Chronic hyponatremia Fracture of nasal bone Facial contusion Condition on Discharge: Fair Activity: Per Instructions section Lifting Comment: none wt bearing of left arm Driving/Machine Use: no driving Non-emergency contact: Primary Care Provider Call non-emergency contact if: you have any medication questions Follow-up/Referrals: Calli Morrow DO [Primary Care Provider] - 08/03/20 11:50 am (Date & Time 08/03/2020 11:50 AM Provider Calli Morrow DO Department Internal Medicine [facility] ) Eldon Child M.D. [Physician] - (Follow up in 1 week ) Diet: Heart Healthy Addtl Attending Provider Instructions: Shoulder Activity -Keep your left shoulder in the sling at all times, except as detailed below. -You may come out of the sling 4-5 times a day for gentle passive pendulum exercises only: lean over and swing your arm in a circular pattern. -Do not lift any objects greater than 1 pound or bear any weight through your left arm. Addtl Straight Slicing Machine Operator Provider Instructions: please take stool softener -Mralax /Colace -over the counter while taking pain meds /Oxycodon to prevent constipation Pending Studies at Discharge: No Stand-Alone Forms: [facility] [employer], Opioid Pain Management, Smoking Cessation Medications and DC Order Prescriptions: New oxycodone 5 mg capsule 5 mg PO Q8H PRN (Reason: pain) Qty: 20 RF: 0 Continued losartan 50 mg tablet 50 mg PO BIDM RF: 0 aspirin 81 mg Tablet,Delayed Release (Dr/Ec) 81 mg PO QAM RF: 0 metoprolol tartrate 50 mg tablet 50 mg PO BIDM RF: 0 docusate sodium [Colace] 100 mg Capsule 100 mg PO BIDM RF: 0 clonidine HCl 0.1 mg tablet 0.1 mg PO BIDM RF: 0 omeprazole 20 mg capsule,delayed release(DR/EC) 20 mg PO QAM RF: 0 epinephrine 0.3 mg/0.3 mL auto-injector 0.3 mg IM UD PRN (Reason: Anaphylaxis) RF: 0 escitalopram oxalate 10 mg tablet 10 mg PO QDD RF: 0 ezetimibe 10 mg tablet 10 mg PO QAM RF: 0 amlodipine 5 mg tablet 5 mg PO QAM RF: 0 Discharge Orders: Discharge Order (Routine); Ordered 07/31/20 Ordered By: Macrina Johnson/Other Patient Handouts: High Blood Sugar (Hyperglycemia), Managing Type 2 Diabetes Admission Data Admit Date/Time: 07/28/20 21:14 Attending Provider: Macrina Serrano Admit Provider: Job Smith Primary Care Provider: Calli Morrow Other Providers: Job Smith ; Eldon Child ; [facility],Referral Center ; [facility] Other Interventions: Discharge Summary Assessment (RN) Last Done: 07/31/20 17:55
[2020-07-31] MEDS: ESCITALOPRAM OXALATE 10 MG TAB PO SCH (15:57)
[2020-07-31] MEDS: ACETAMINOPHEN 325 MG TAB PO PRN (16:39)
== END 2020-07-31 19:25 | disposition home health service (06) | DRG 543 ==
LOC: ED 18:10 → 3E 21:14